=== PATIENT | male | born 1945 | race Caucasian/White ===

== ENCOUNTER 2021-05-17 18:08 | Emergency (ER) | payer OTHER, MEDICARE, SELFPAY ==
--- NOTE | ~2021-05-17 | CT_ITS ---
EXAMINATION: CT HEAD WITHOUT CONTRAST CLINICAL INFORMATION: Altered mental status COMPARISON: None TECHNIQUE: Contiguous axial imaging was performed from the skull base to vertex without intravenous administration of contrast. This CT examination was performed using dose optimization techniques as appropriate, variously including the following: *Automated exposure control *Adjustment of mA and/or kV according to patient size (this includes techniques or standardized protocols for targeted exams where dose is matched to indication/reason for exam; i.e. extremities or head) *Use of iterative reconstruction technique DLP: 733 mGy-cm FINDINGS: There is no midline shift. There is no mass effect. There is no hemorrhage. The basilar cisterns are patent. The posterior fossa is grossly within normal limits. No extra-axial collection. There is atrophy and areas of extensive white matter ischemia and infarct. 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 There is no fracture on the bone windows. CT/CT head/brain wo con IMPRESSION: No acute finding. Atrophy and areas of old infarct and white matter skinny changes. No acute midline shift, mass effect or hemorrhage.
--- NOTE | ~2021-05-17 | XR_ITS ---
EXAMINATION: PORTABLE CHEST 1 VIEW CLINICAL INFORMATION: AMS . COMPARISON: No recent pertinent prior studies are available for comparison. TECHNIQUE: Portable frontal view of the chest was obtained. FINDINGS: Lungs are well expanded. Mild chronic appearing coarsened reticular markings are seen bilaterally. Linear changes at the left base more likely reflect component of atelectasis or scarring. I do not appreciate any superimposed focal infiltrate, effusion, edema, or pneumothorax. Cardiac silhouette within normal limits for size with a calcified tortuous aorta. Degenerative changes in the shoulders and spine. XR/XR chest 1V IMPRESSION: Chronic appearing changes as described. Minimal basilar markings more likely due to atelectasis.
[2021-05-17 18:28] VITALS: BP 108/73; BP 122/84; PULSE 80; PULSE 86; RESP 16; TEMP 36.3; O2SAT 96; O2SAT 97; BMI 20.5
--- NOTE | 2021-05-17 18:36 | ED.PSYCH ---
HPI - Psych General Chief Complaint: Psychiatric Symptoms Stated Complaint: crisis Time Seen by Provider: 05/17/21 18:36 Source: patient and EMS Mode of arrival: EMS Limitations: altered mental status History of Present Illness HPI Narrative: Mr. Wisdom is a pleasant 76-year-old male with past medical history that is significant for bipolar disorder, type 2 diabetes, PTSD, alcohol abuse, gastroesophageal reflux disease, dementia with behavior disturbance, cataract, squamous cell carcinoma of the skin who resides at skilled nurse [facility] Who is sent in today for psychiatric evaluation patient apparently has been making vague SI and HI statements. It is noted and reported by EMS that patient is a [place] vet and apparently he has a history of PTSD and refers to those times. He had screening labs done yesterday that were his baseline and given that he made the statements at the [facility] nurse facility he was sent in for evaluation. Patient apparently at baseline alert and oriented x1. He offers no complaints. Upon arrival he is relatively pleasant. MD complaint: suicidal ideation and homicidal ideation Onset (ago): day(s) History of same: Yes Relieving factors: none Exacerbating factors: none Associated psychiatric symptoms: none Associated symptoms: denies other symptoms Treatments prior to arrival: none Related Data Allergies Allergy/AdvReac Type Severity Reaction Status Date / Time No Known Allergies Allergy Verified 05/17/21 18:44 Review of Systems Review of Systems: Dementia Yes Unobtainable due to mental condition PMFSH Past Medical History Medical History Bipolar 1 disorder Cataracts, bilateral Dementia Diabetes GERD (gastroesophageal reflux disease) PTSD (post-traumatic stress disorder) Squamous cell carcinoma Social History Social History Alcohol intake: former Patient Tobacco Use Status: Former Tobacco user Smoked in Last 30 Days: No Use of substances other than those prescribed or required for medical reasons: No Advance Directives: No Advance Directives Information Provided: No Physical Exam Vital Signs: Vital Signs: Last Vital Signs Temp 97.6 F 05/17/21 21:04 Pulse 74 05/17/21 21:04 Resp 16 05/17/21 23:56 BP 120/82 05/17/21 21:04 Pulse Ox 99 05/17/21 21:04 Body Mass Index 20.5 Reviewed Const: Other: Appears older than stated age General: cooperative; No acute distress or intoxicated appearing Nutritional Appearance: average body habitus Orientation/consciousness: oriented to person, No oriented to place (I am in hospital) and oriented to time (Two thousand nineteen) HENMT: Head: Yes normal to inspection Ears: hearing grossly normal bilaterally Eyes: General: appearance normal, both eyes and all related structures Visual Holder: normal visual holder by confrontation Neck: Neck: Yes normal visual inspection, No positive Brudzinski's sign, No positive Kernig's sign and No tender Thyroid: Thyroid normal Chest: Chest palpation & inspection: normal inspection of the chest Resp: Effort & Inspection: normal respiratory effort Cardio: Jugular venous distension: no JVD GI: Inspection: Yes normal to inspection Percussion: Yes normal to percussion Auscultation: normal bowel sounds : General: Yes no CVA tenderness Back/Spine/Pelvis: Back: no CVA tenderness Skin: General skin exam: no rashes or lesions noted Neuro: General: oriented to person and No oriented to place (I am in hospital) Extrem: General: Yes normal to inspection Psych: Other: Are you having thoughts of suicidal or homicidal ideation? Patient states ?not at the moment? Course Reevaluation(s) Reevaluation #1: Labwork stenting with the patient from yesterday will repeat this including urine, CBC, compressive metabolic profile, head CT for medical clearance for psychiatric evaluation. Reevaluation #2: Labs at baseline compared to labs sent from facility. He remains calm cooperative. He ate a sandwich and has been resting comfortably without any episodes of aggression or behavior outburst. He has been medically clear for psychiatric evaluation. Care team will evaluate the patient. Consultations Consultation #1: Care team evaluate patient review consultation note; patient at baseline behavior no aggression, suicidal or homicidal ideation here. His son is the healthcare proxy does not want him to go to any psychiatric facility. Patient again at baseline and care team does not recommend acute psychiatric placement at this time. Care team [facility] they are willing to take him back there all have any one-to-one sitters this night and requests that patient be transferred back 09:00 o'clock in the morning. Patient has been eating and drinking without complaints. No aggressive behavior. He will be discharged back to skilled nurse facility for plan for outpatient psychiatric follow-up. [facility] - Psych Medical Records Attestation: I reviewed the patient's medical records. Medical records narrative: Medical records reviewed from skilled nurse facility in the chart. Lab Data Attestation: I reviewed the patient's lab results. Result diagrams: 05/17/21 19:38 05/17/21 19:38 Labs: Lab Results 05/17/21 05/17/21 Range/Units 19:38 19:38 WBC 9.2 (4.8-10.8) X10*3/uL RBC 3.77 L (4.60-5.80) X10*6/uL Hgb 10.5 L (14.0-18.0) g/dl Hct 35.0 L (42-52) % MCV 92.8 (80-98) fL MCH 27.9 (27.0-33.0) pg MCHC 30.0 L (31.0-36.0) g/dl RDW 19.6 H (11.0-16.0) % Plt Count 360 (160-400) X10*3/uL MPV 8.9 L (9.4-12.4) fL Immature Gran % (Auto) 1.5 H (0.0-0.4) % Neut % (Auto) 71.1 (45-73) % Lymph % (Auto) 13.4 L (20-40) % [place] % (Auto) 10.3 (2-11) % Eos % (Auto) 3.0 (0-4) % Baso % (Auto) 0.7 (0-2) % Lymph # (Auto) 1.2 (1.2-4.9) X10*3/uL [place] # (Auto) 1.0 (0.1-1.2) X10*3/uL Eos # (Auto) 0.3 (0.0-0.4) X10*3/uL Baso # (Auto) 0.1 (0.0-0.2) X10*3/uL Abs Immat Gran (auto) 0.14 H (0.00-0.03) X10*3/uL Absolute Neuts (auto) 6.6 (2.0-8.3) X10*3/uL Absolute Nucleated RBC 0.000 (0.0-0.012) X10*3/uL Nucleated RBC % (auto) 0.0 (0.0-0.2) /100WBC Sodium 138 (135-145) mmol/L Potassium 4.6 (3.3-5.1) mmol/L Chloride 105 (96-108) mmol/L Carbon Dioxide 27 (22-29) mmol/L Anion Gap 11 L (12-20) BUN 24 H (9-16) mg/dL Creatinine 1.04 (0.5-1.4) mg/dL Estim Creat Clear Calc 57.2 Estimated GFR > 60 Random Glucose 102 (60-115) mg/dL Calcium 9.3 (8.4-10.2) mg/dL Total Bilirubin 0.2 (0.0-1.0) mg/dL AST 11 (5-37) U/L ALT < 6 (0-40) U/L Alkaline Phosphatase 202 H (39-117) U/L Total Protein 5.6 L (6.5-8.0) g/dL Albumin 3.3 L (3.5-5.0) g/dL Imaging Data CT scan - head: Radiologist's impression: [address] [id number] Scan ReportSigned Patient: Javed WisdomMR#: [id number]: [id number]:[id number]/Sex: 76 / MADM Date: 05/17/21Loc: [address] Dr: Ordering Physician: Toño Johnson NP Date of Service: 05/17/21 Procedure(s): CT head/brain wo con Accession Number(s): [id number] cc: Toño Johnson NP~ EXAMINATION: CT HEAD WITHOUT CONTRAST CLINICAL INFORMATION: Altered mental status COMPARISON: None TECHNIQUE: Contiguous axial imaging was performed from the skull base to vertex without intravenous administration of contrast. This CT examination was performed using dose optimization techniques as appropriate, variously including the following: *Automated exposure control *Adjustment of mA and/or kV according to patient size (this includes techniques or standardized protocols for targeted exams where dose is matched to indication/reason for exam; i.e. extremities or head) *Use of iterative reconstruction technique DLP: 733 mGy-cm FINDINGS: There is no midline shift. There is no mass effect. There is no hemorrhage. The basilar cisterns are patent. The posterior fossa is grossly within normal limits. No extra-axial collection. There is atrophy and areas of extensive white matter ischemia and infarct. 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 There is no fracture on the bone windows. CT/CT head/brain wo con IMPRESSION: No acute finding. Atrophy and areas of old infarct and white matter skinny changes. No acute midline shift, mass effect or hemorrhage. Dictated By:SUSAN WRIGHT MDSigned By:<Electronically signed by SUSAN WRIGHT MD in OV>05/17/211928 DD/ 43TD/TT: Pump Operator: GT Chest x-ray: Radiologist's impression: [address] [id number] ReportSigned Patient: Javed WisdomMR#: [id number]: [id number]:[id number]/Sex: 76 / MADM Date: 05/17/21Loc: HO.EDAttending Dr: Ordering Physician: Toño Johnson NP Date of Service: 05/17/21 Procedure(s): XR chest 1V Accession Number(s): [id number] cc: Toño Johnson WEB PAGE DESIGNER~ EXAMINATION: PORTABLE CHEST 1 VIEW CLINICAL INFORMATION: AMS . COMPARISON: No recent pertinent prior studies are available for comparison. TECHNIQUE: Portable frontal view of the chest was obtained. FINDINGS: Lungs are well expanded. Mild chronic appearing coarsened reticular markings are seen bilaterally. Linear changes at the left base more likely reflect component of atelectasis or scarring. I do not appreciate any superimposed focal infiltrate, effusion, edema, or pneumothorax. Cardiac silhouette within normal limits for size with a calcified tortuous aorta. Degenerative changes in the shoulders and spine. XR/XR chest 1V IMPRESSION: Chronic appearing changes as described. Minimal basilar markings more likely due to atelectasis. Dictated By:NAYLA BUI MDSigned By:<Electronically signed by NAYLA BUI MD in OV>05/17/211919 DD/ 43TD/TT: Pump Operator: [place] Discharge Plan Discharge Clinical Impression: Chronic post-traumatic stress disorder, Dementia with behavioral disturbance Patient Disposition: Xfer SNF
--- NOTE | 2021-05-17 18:44 | ECG_ITS ---
Test Reason : BEHAVIORAL Blood Pressure : / mmHG Vent. Rate : 074 BPM Atrial Rate : 074 BPM P-R Int : 154 ms QRS Dur : 100 ms QT Int : 384 ms P-R-T Axes : 029 052 049 degrees QTc Int : 426 ms Normal sinus rhythm Normal ECG No previous ECGs available Referred By: Toño Johnson Electronically Signed By:Jesus Gomez
[2021-05-17 19:42] LABS: MANUAL DIFF FLAG NO
[2021-05-17 19:45] LABS: Basophils Absolute Auto 0.1 X10*3/uL (0.0-0.2); Basophils Percent Auto 0.7 % (0-2); Eosinophils Absolute Auto 0.3 X10*3/uL (0.0-0.4); Hemoglobin 10.5 g/dl (14.0-18.0); Imm Gran Abs Auto 0.14 X10*3/uL (0.00-0.03); Imm Gran Pct Auto 1.5 % (0.0-0.4); Lymphocytes Absolute Auto 1.2 X10*3/uL (1.2-4.9); Lymphocytes Percent Auto 13.4 % (20-40); Mean Corpuscular Hemoglobin 27.9 pg (27.0-33.0); Mean Corpuscular Volume 92.8 fL (80-98); Mean Platelet Volume 8.9 fL (9.4-12.4); Monocytes Percent Auto 10.3 % (2-11); Neutrophils Absolute Auto 6.6 X10*3/uL (2.0-8.3); Neutrophils Percent Auto 71.1 % (45-73); Platelet Count 360 X10*3/uL (160-400); Red Blood Count 3.77 X10*6/uL (4.60-5.80); Red Cell Distribution Width 19.6 % (11.0-16.0); White Blood Count 9.2 X10*3/uL (4.8-10.8)
[2021-05-17 20:09] LABS: Alanine Aminotransferase < 6 U/L (0-40); Albumin Level 3.3 g/dL (3.5-5.0); Alkaline Phosphatase 202 U/L (39-117); Anion Gap 11 (12-20); Aspartate Amino Transferase 11 U/L (5-37); Bilirubin Total 0.2 mg/dL (0.0-1.0); Blood Urea Nitrogen 24 mg/dL (9-16); Calcium 9.3 mg/dL (8.4-10.2); Carbon Dioxide 27 mmol/L (22-29); Chloride 105 mmol/L (96-108); Creatinine Clr Calc Pharmacy 57.2; Estimated Glomerular Filt Rate > 60; Glucose Random 102 mg/dL (60-115); Potassium 4.6 mmol/L (3.3-5.1); Sodium 138 mmol/L (135-145); Total Protein 5.6 g/dL (6.5-8.0)
[2021-05-17 21:04] VITALS: BP 120/82; PULSE 74; RESP 16; TEMP 36.4; O2SAT 99
--- NOTE | 2021-05-17 22:39 | PC.NURSE ---
RESTING ON STRETCHER. BREATHING EVEN, NON-LABORED. SAYS WELL THEN WHEN THIS NURSE WALKED BY. SITTER MAINTAINED FOR SAFETY.
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
[2021-05-17 23:56] VITALS: RESP 16
[2021-05-18 02:00] VITALS: BP 132/75; PULSE 66; RESP 16; TEMP 36.8; O2SAT 99
--- NOTE | 2021-05-18 02:34 | PC.NURSE ---
PATIENT WAS INCONIENT OF URINE ,PATIENT HAD A BED BATH BY THIS PCT AND PCT GERMAINE .
[2021-05-18 04:48] VITALS: BP 125/75; PULSE 71; RESP 17; TEMP 36.9; O2SAT 96
--- NOTE | 2021-05-18 08:17 | PC.NURSE ---
This insurance writer spoke with RADAMES Min ( cell [phone]) from [facility] regarding pt's plan of care. She states the pt is welcome to go back to her facility. She wants to talk with Care Team prior to discharge. This insurance writer will reach out to Care Team.
--- NOTE | 2021-05-18 09:15 | MHC.CARE ---
CARE Team spoke with Dr. Can - due to Pt not being psychiatrically admitted at times thing no medications recommendations will be made. Plan for Pt to follow up with the [place] psychiatrist as scheduled. CARE Team briefly spoke with Pts son who asked for t/w to reach to facility . CARE Team left a VM and has not heard back , plan will be for Pt to return as scheduled.
[2021-05-18 09:55] VITALS: BP 100/70; PULSE 73; RESP 18
--- NOTE | 2021-05-18 09:57 | PC.NURSE ---
This tag writer made multiple attempts to give report to receiving nurse at [facility], nurse did not sisal picker phone. RADAMES Min was contacted, this tag writer was told that she was in morning meeting, left voicemail. Pt was cleaned, changed and given breakfast. No apparent distress noted. Pt awaiting transport back to facility.
== END 2021-05-18 11:33 | disposition skilled nursing facility (03) ==
PROVIDERS: Nurse Practitioner Primary Care; Emergency Provider Emergency Medicine; PCP Family Medicine Geriatric Medicine
DX: F03.91 Unspecified dementia, unspecified severity, with behavioral disturbance (principal); F43.12 Post-traumatic stress disorder, chronic; E11.9 Type 2 diabetes mellitus without complications
CPT/HCPCS: 36415; 70450; 71045; 80053; 85025; 93005; 99285

== ENCOUNTER 2021-07-19 13:36 | Emergency (ER) | payer OTHER, MEDICARE, SELFPAY ==
--- NOTE | ~2021-07-19 | CT_ITS ---
EXAMINATION: CT HEAD WITHOUT CONTRAST CLINICAL INFORMATION: Lethargy. Altered mental status. COMPARISON: May 17, 2021 TECHNIQUE: Contiguous axial imaging was performed from the skull base to vertex without intravenous administration of contrast. This CT examination was performed using dose optimization techniques as appropriate, variously including the following: *Automated exposure control *Adjustment of mA and/or kV according to patient size (this includes techniques or standardized protocols for targeted exams where dose is matched to indication/reason for exam; i.e. extremities or head) *Use of iterative reconstruction technique DLP: 702 mGy-cm FINDINGS: There is no evidence of acute intracranial hemorrhage or territorial infarction. No abnormal mass effect or midline shift is seen. No extra-axial fluid collections are identified. The ventricles, sulci, and cisterns are enlarged consistent with diffuse atrophy. There are regions of diminished density seen involving both frontal lobes, right parietal lobe, and both temporal lobes right greater than left which are stable and consistent with infarcts. There is a large amount of periventricular white matter low density present consistent with microangiopathy. The osseous structures and soft tissues are normal. The mastoid air cells and visualized portions of the paranasal sinuses are well aerated. Carotid and vertebral artery calcific cases are present. CT/CT head/brain wo con IMPRESSION: No acute intracranial pathology. Stable regions of infarct. Diffuse atrophy.
[2021-07-19 13:43] VITALS: BP 117/79; PULSE 73; RESP 15; TEMP 36.8; O2SAT 96
[2021-07-19 13:47] VITALS: BP 117/79; PULSE 74; RESP 18; TEMP 36.8; O2SAT 99; BMI 19.1
--- NOTE | 2021-07-19 14:27 | ED_ITS ---
HPI - Altered Mental Status General Chief Complaint: Altered Mental Status Stated Complaint: LETHARGY AFTER INCREASE IN TRAZADONE Time Seen by Provider: 07/19/21 13:54 Source: patient, EMS, RN notes reviewed and old records reviewed Mode of arrival: EMS Limitations: altered mental status History of Present Illness HPI narrative: 76 y/o male with history of dementia with behavioral disturbance, bipolar disorder, PTSD, DM2, GERD, skin SCC who presents to the ER from SNF via EMS with reports of increased lethargy today. He reportedly had his trazodone dose increased in the last few days. He arrives AAO x1 with no complaints. MD complaint: altered mental status Onset (ago): day(s) Timing confirmed by: caregiver Severity: moderate Consistency of symptoms: waxing and waning Context: change in medication Associated symptoms: denies other symptoms Related Data Allergies Allergy/AdvReac Type Severity Reaction Status Date / Time No Known Allergies Allergy Verified 05/17/21 18:44 Review of Systems Review of Systems: Yes Unobtainable due to mental condition and Unobtainable due to mental status Neurologic: Reports confusion Psychiatric: Psychiatric: Reports confusion [facility] Past Medical History Attestation statement: The following information was validated with the patient. Medical History Bipolar 1 disorder Cataracts, bilateral Dementia Diabetes GERD (gastroesophageal reflux disease) PTSD (post-traumatic stress disorder) Squamous cell carcinoma Social History Social History Alcohol intake: never Patient Tobacco Use Status: Former Tobacco user Use of substances other than those prescribed or required for medical reasons: No Advance Directives: Yes Advance Directives on File: Yes Advance Directives Date on File: 07/19/21 Physical Exam Vital Signs: Vital Signs: Last Vital Signs Temp 98.2 F 07/19/21 13:47 Pulse 74 07/19/21 13:47 Resp 18 07/19/21 13:47 BP 117/79 07/19/21 13:47 Pulse Ox 99 07/19/21 13:47 Body Mass Index 19.1 Const: General: confusion and ill appearing chronically Nutritional Appearance: average body habitus Orientation/consciousness: oriented to person and confusion Limitations: altered mental status HENMT: Head: Yes normal to inspection, Yes normocephalic and Yes atraumatic Ears: hearing grossly normal bilaterally and external ears normal General nose exam: Normal external nose present and Normal nares present Face and sinus: Yes normal facial exam and Yes face symmetric Mouth: Normal oral and palatal mucosa present, lip normal and tongue normal Eyes: General: appearance normal, both eyes and all related structures Pupils: Equal, round and reactive pupils present EOM: EOMs intact bilaterally Neck: Neck: Yes normal visual inspection Chest: Chest palpation & inspection: normal inspection of the chest and normal palpation of entire chest wall Resp: Effort & Inspection: normal respiratory effort Auscultation: clear to auscultation bilaterally Cardio: Rate: regular rate Rhythm: regular rhythm Heart sounds: S1 normal heart sound present and S2 normal heart sound present GI: Inspection: Yes normal to inspection Palpation (GI): Soft to palpation, nontender and no guarding Percussion: Yes normal to percussion Auscultation: normal bowel sounds Skin: General skin exam: no rashes or lesions noted Neuro: General: oriented to person, moves all extremities and confusion Cranial nerves: Yes Equal, round and reactive pupils present Cognition (Neuro): abnormal cognition Extrem: General: Yes normal to inspection Psych: Appearance: disheveled Speech and movement: Slowed speech present (Psych) Attitude: Refuses to answer (attititude/behavior) Course Course Course Narrative: 76 y/o female with history of dementia w/ behavioral disturban chon, bipolar, catatonia, DM, GERD, presenting with increased lethargy in the setting of increased trazodone dosing at SNF. AAO x1 on arrival, moving all extremities spontaneously but only intermittently following commands. Difficult to get an accurate neuro exam/NIH. He appears to be non-focal and at his baseline at this time. Will get metabolic workup, CT head and VBG to r/o causes of change in mental status. Reevaluation(s) Reevaluation #1: Labs and CT scan are unremarkable. He remains hemodynamically stable. UA pending, urojet ordered for straight cath. Reevaluation #2: UA negative for infection. He remains AAO X1. Stable for d/c home back to SNF. Lethargy most likely due to increase in trazodone. He is at his baseline mentation. MDM - Altered Mental Status Lab Data Result diagrams: 07/19/21 14:25 07/19/21 14:25 Labs: Lab Results 07/19/21 07/19/21 07/19/21 Range/Units 14:25 14:25 14:26 WBC 8.1 (4.8-10.8) X10*3/uL RBC 4.30 L (4.60-5.80) X10*6/uL Hgb 12.5 L (14.0-18.0) g/dl Hct 40.2 L (42-52) % MCV 93.5 (80-98) fL MCH 29.1 (27.0-33.0) pg MCHC 31.1 (31.0-36.0) g/dl RDW 17.2 H (11.0-16.0) % Plt Count 265 D (160-400) X10*3/uL MPV 9.4 (9.4-12.4) fL Immature Gran % (Auto) 1.6 H (0.0-0.4) % Neut % (Auto) 74.2 H (45-73) % Lymph % (Auto) 13.2 L (20-40) % [place] % (Auto) 8.9 (2-11) % Eos % (Auto) 1.7 (0-4) % Baso % (Auto) 0.4 (0-2) % Lymph # (Auto) 1.1 L (1.2-4.9) X10*3/uL [place] # (Auto) 0.7 (0.1-1.2) X10*3/uL Eos # (Auto) 0.1 (0.0-0.4) X10*3/uL Baso # (Auto) 0.0 (0.0-0.2) X10*3/uL Abs Immat Gran (auto) 0.13 H (0.00-0.03) X10*3/uL Absolute Neuts (auto) 6.0 (2.0-8.3) X10*3/uL Absolute Nucleated RBC 0.000 (0.0-0.012) X10*3/uL Nucleated RBC % (auto) 0.0 (0.0-0.2) /100WBC VBG pH (7.32-7.43) VBG pCO2 mmHg VBG pO2 mmHg VBG HCO3 (22-26) mmol/L VBG O2 Saturation % VBG Base Excess mmol/L Sodium 142 (135-145) mmol/L Potassium 4.5 (3.3-5.1) mmol/L Chloride 111 H (96-108) mmol/L Carbon Dioxide 26 (22-29) mmol/L Anion Gap 10 L (12-20) BUN 15 (9-16) mg/dL Creatinine 1.04 (0.5-1.4) mg/dL Estim Creat Clear Calc 48.7 Estimated GFR > 60 Random Glucose 78 (60-115) mg/dL Calcium 9.5 (8.4-10.2) mg/dL Magnesium 2.5 (1.6-2.6) mg/dL Total Bilirubin 0.6 (0.0-1.0) mg/dL Direct Bilirubin 0.2 (0.0-0.5) mg/dL AST 12 (5-37) U/L ALT 8 (0-40) U/L Alkaline Phosphatase 87 D (39-117) U/L Ammonia 42 (13-55) umol/L Total Protein 5.4 L (6.5-8.0) g/dL Albumin 3.1 L (3.5-5.0) g/dL Urine Color Urine Appearance Urine pH (5.0-8.0) Ur Specific [place] (1.005-1.025) Urine Protein (NEG-TRACE) MG/DL Urine Glucose (UA) (NEG) MG/DL Urine Ketones (NEG) MG/DL Urine Blood (NEG) Urine Nitrite (NEG) Ur Leukocyte Esterase (NEG) 07/19/21 07/19/21 Range/Units 14:30 16:44 WBC (4.8-10.8) X10*3/uL RBC (4.60-5.80) X10*6/uL Hgb (14.0-18.0) g/dl Hct (42-52) % MCV (80-98) fL MCH (27.0-33.0) pg MCHC (31.0-36.0) g/dl RDW (11.0-16.0) % Plt Count (160-400) X10*3/uL MPV (9.4-12.4) fL Immature Gran % (Auto) (0.0-0.4) % Neut % (Auto) (45-73) % Lymph % (Auto) (20-40) % [place] % (Auto) (2-11) % Eos % (Auto) (0-4) % Baso % (Auto) (0-2) % Lymph # (Auto) (1.2-4.9) X10*3/uL [place] # (Auto) (0.1-1.2) X10*3/uL Eos # (Auto) (0.0-0.4) X10*3/uL Baso # (Auto) (0.0-0.2) X10*3/uL Abs Immat Gran (auto) (0.00-0.03) X10*3/uL Absolute Neuts (auto) (2.0-8.3) X10*3/uL Absolute Nucleated RBC (0.0-0.012) X10*3/uL Nucleated RBC % (auto) (0.0-0.2) /100WBC VBG pH 7.39 (7.32-7.43) VBG pCO2 48 mmHg VBG pO2 48 mmHg VBG HCO3 30 H (22-26) mmol/L VBG O2 Saturation 75.0 % VBG Base Excess 4.4 mmol/L Sodium (135-145) mmol/L Potassium (3.3-5.1) mmol/L Chloride (96-108) mmol/L Carbon Dioxide (22-29) mmol/L Anion Gap (12-20) BUN (9-16) mg/dL Creatinine (0.5-1.4) mg/dL Estim Creat Clear Calc Estimated GFR Random Glucose (60-115) mg/dL Calcium (8.4-10.2) mg/dL Magnesium (1.6-2.6) mg/dL Total Bilirubin (0.0-1.0) mg/dL Direct Bilirubin (0.0-0.5) mg/dL AST (5-37) U/L ALT (0-40) U/L Alkaline Phosphatase (39-117) U/L Ammonia (13-55) umol/L Total Protein (6.5-8.0) g/dL Albumin (3.5-5.0) g/dL Urine Color YELLOW Urine Appearance CLEAR Urine pH 6.5 (5.0-8.0) Ur Specific [place] 1.010 (1.005-1.025) Urine Protein NEG (NEG-TRACE) MG/DL Urine Glucose (UA) NEG (NEG) MG/DL Urine Ketones NEG (NEG) MG/DL Urine Blood NEG (NEG) Urine Nitrite NEG (NEG) Ur Leukocyte Esterase NEG (NEG) Discharge Plan Discharge Clinical Impression: Delirium due to general medical condition Patient Disposition: Xfer [facility] Transfer Details: Gilda Lerma Instructions: Dementia (ED), Acute Delirium (ED) Additional Instructions: Lab workup today was normal. No evidence of infection. CT scan of your head was unremarkable. Your lethargy is most likely due to increase in your trazodone. Follow up with your doctor as needed. If you develop new or worsening symptoms call 911 or come back to the ER for further evaluation.
[2021-07-19 14:30] LABS: MANUAL DIFF FLAG NO
[2021-07-19 14:34] LABS: Basophils Percent Auto 0.4 % (0-2); Eosinophils Absolute Auto 0.1 X10*3/uL (0.0-0.4); Eosinophils Percent Auto 1.7 % (0-4); Hematocrit 40.2 % (42-52); Hemoglobin 12.5 g/dl (14.0-18.0); Imm Gran Abs Auto 0.13 X10*3/uL (0.00-0.03); Imm Gran Pct Auto 1.6 % (0.0-0.4); Lymphocytes Absolute Auto 1.1 X10*3/uL (1.2-4.9); Lymphocytes Percent Auto 13.2 % (20-40); Mean Corpuscular HGB Conc 31.1 g/dl (31.0-36.0); Mean Corpuscular Hemoglobin 29.1 pg (27.0-33.0); Mean Corpuscular Volume 93.5 fL (80-98); Mean Platelet Volume 9.4 fL (9.4-12.4); Monocytes Absolute Auto 0.7 X10*3/uL (0.1-1.2); Monocytes Percent Auto 8.9 % (2-11); Neutrophils Percent Auto 74.2 % (45-73); Platelet Count 265 X10*3/uL (160-400); Red Cell Distribution Width 17.2 % (11.0-16.0); White Blood Count 8.1 X10*3/uL (4.8-10.8)
[2021-07-19 14:35] LABS: Venous Blood Gas Refer to POC result
[2021-07-19 14:36] LABS: VBG Base Excess 4.4 mmol/L; VBG HCO3 30 mmol/L (22-26); VBG pCO2 48 mmHg; VBG pH 7.39 (7.32-7.43); VBG pO2 48 mmHg
[2021-07-19 14:48] LABS: Ammonia 42 umol/L (13-55)
[2021-07-19 14:59] LABS: Alanine Aminotransferase 8 U/L (0-40); Albumin Level 3.1 g/dL (3.5-5.0); Alkaline Phosphatase 87 U/L (39-117); Anion Gap 10 (12-20); Aspartate Amino Transferase 12 U/L (5-37); Bilirubin Direct 0.2 mg/dL (0.0-0.5); Bilirubin Total 0.6 mg/dL (0.0-1.0); Blood Urea Nitrogen 15 mg/dL (9-16); Calcium 9.5 mg/dL (8.4-10.2); Carbon Dioxide 26 mmol/L (22-29); Chloride 111 mmol/L (96-108); Creatinine Clr Calc Pharmacy 48.7; Estimated Glomerular Filt Rate > 60; Glucose Random 78 mg/dL (60-115); Magnesium 2.5 mg/dL (1.6-2.6); Potassium 4.5 mmol/L (3.3-5.1); Sodium 142 mmol/L (135-145); Total Protein 5.4 g/dL (6.5-8.0)
[2021-07-19] MEDS: Lidocaine HCl 2 % Urojet 10 ML JEL.PF.APP TOPICAL (16:44)
--- NOTE | 2021-07-19 16:46 | PC.NURSE ---
pt requiring multiple staff hold for urinary straight cath, pt combative, using racial slurs and profanities, attempting to strike staff. tolerated procedure.
[2021-07-19 17:03] LABS: Glucose Urine UA NEG (NEG); Leukocyte Esterase Urine NEG (NEG); Nitrite Urine NEG (NEG); PH 6.5 (5.0-8.0); Urine Blood NEG (NEG); Urine Ketones NEG (NEG); Urine Protein NEG (NEG-TRACE)
[2021-07-19 17:13] LABS: Appearance Urine CLEAR; Color Urine YELLOW
--- NOTE | 2021-07-19 18:51 | PC.NURSE ---
EMS arrived for transport. Client was combative with this RN prior to leaving and agitated. Client unable to get d/c vials due to this. Client transferred to EMS stretcher without incident
== END 2021-07-19 18:56 | disposition skilled nursing facility (03) ==
PROVIDERS: Physician Assistant; Emergency Provider Emergency Medicine; PCP Family Medicine Geriatric Medicine
DX: F05 Delirium due to known physiological condition (principal); R53.83 Other fatigue; E11.9 Type 2 diabetes mellitus without complications; F03.91 Unspecified dementia, unspecified severity, with behavioral disturbance; F31.9 Bipolar disorder, unspecified; F43.10 Post-traumatic stress disorder, unspecified; Z79.899 Other long term (current) drug therapy
CPT/HCPCS: 36415; 70450; 80048; 80076; 81003; 82140; 82803; 83735; 85025; 99284

== ENCOUNTER 2022-05-06 11:56 | Emergency (ER) | payer OTHER, MEDICARE, SELFPAY ==
--- NOTE | ~2022-05-06 | US_ITS ---
EXAMINATION: US SCROTUM CLINICAL INFORMATION: Left testicle pain. COMPARISON: None TECHNIQUE: A sonogram of the scrotum was performed assessing jo-scale appearance and color Doppler flow. Spectral Doppler analysis of the arterial and venous flow were performed in the testes bilaterally. FINDINGS: RIGHT: Right testicle measures 4.2 x 2.3 x 2.6 cm, volume 13 mL. Echotexture is heterogeneous with linear striations and rete testis. No focal testicular parenchymal lesions are visualized. Spectral Doppler analysis of the arterial and venous flow is normal in the right testis. The right epididymis is enlarged. The right epididymis is heterogeneous in echotexture with multiple hyperechoic areas small calcifications. There is a right hydrocele. No right varicocele is seen. Right epididymal Doppler flow is normal. LEFT: Left testicle measures 3.7 x 2 x 2.7 cm, volume 11 mL. Echotexture is heterogeneous with linear striations and prominent rete testis No focal testicular parenchymal lesions are visualized. Spectral Doppler analysis of the arterial and venous flow is normal in the left testis. Left epididymal head is normal in size. The left epididymis is slightly heterogeneous with hyperechoic areas. No left hydrocele or varicocele is seen. Left epididymal Doppler flow is normal. US/US scrotum doppler IMPRESSION: Heterogeneous appearing testicles. Enlarged there is heterogeneous right epididymis and heterogeneous left epididymis. Moderate right hydrocele. Findings are suggestive of infection, bilateral orchitis and epididymitis. Short-term follow-up exam following treatment recommended. Moderate-sized right hydrocele. No evidence of torsion.
[2022-05-06 12:03] VITALS: BP 108/80; BP 119/74; PULSE 64; PULSE 76; RESP 18; TEMP 36.7; O2SAT 96; O2SAT 98; BMI 25.8
--- NOTE | 2022-05-06 12:08 | ED_ITS ---
HPI - General Adult General Chief complaint: Urogenital-Male Stated complaint: SCROTAL PAIN/SWELLING X'S 1 WEEK Time Seen by Provider: 05/06/22 12:05 Source: EMS and old records reviewed Mode of arrival: EMS Limitations: altered mental status History of Present Illness HPI narrative: 77-year-old male from prison with history of dementia, bipolar disorder, PTSD, DM2, GERD presented from prison for evaluation of left testicular pain patient is poor historian secondary to dementia, patient also get agitated and aggressive if somebody tried to examine him. Related Data Previous Rx's Medication Instructions Recorded doxycycline hyclate 100 mg tablet 100 mg PO BID #20 tabs 05/06/22 Allergies Allergy/AdvReac Type Severity Reaction Status Date / Time No Known Allergies Allergy Verified 05/17/21 18:44 Review of Systems Review of Systems: Yes Unobtainable due to mental condition PMFSH Past Medical History Medical History Bipolar 1 disorder Cataracts, bilateral Dementia Diabetes GERD (gastroesophageal reflux disease) PTSD (post-traumatic stress disorder) Squamous cell carcinoma Social History Social History Alcohol intake: never Patient Tobacco Use Status: Former Tobacco user Advance Directives: Yes Advance Directives on File: Yes Advance Directives Date on File: 07/19/21 Physical Exam ED Vital Signs: Vital Signs - 24 hr 05/06/22 12:03 05/06/22 15:04 Temperature 98.0 F 97.8 F Pulse Rate 64 69 Respiratory Rate 18 16 Blood Pressure 119/74 116/69 Pulse Oximetry 98 98 Oxygen Delivery Method Room Air Room Air BMI result Body Mass Index 25.8 Vital signs have been reviewed as appeared to be correct. Blood pressure normal. Heart rate normal. Respiration rate normal. Temperature normal. Oxygen saturation normal. Appearance: Alert. No acute distress. Head: Normal external exam. Normocephalic. Atraumatic. No Dawson signs noted. No raccoon eyes noted Eyes: PERRLA. EOMI. Conjunctiva and sclera normal. Eyelids normal. ENT: TM's Normal. Pharynx normal. Uvula midline. Moist mucous membranes. No trismus noted. No drooling noted. No muffled voice noted. Neck: Normal inspection. Neck supple. FROM. No adenopathy. Thyroid Normal. No meningeal signs. No neck mass noted. CVS: Normal heart rate and rhythm. Heart sound normal. No murmurs noted. Pulses normal throughout. Respiratory: No respiratory distress. Painless inspiration. Breath sounds normal. No wheezes/rales/rhonchi noted. Chest nontender. No accessory muscle usage noted or decreased air movement noted. Abdomen: Soft and nontender. Bowel sounds normal in all 4 quadrants. No distention noted. No organomegaly noted. No visible injury noted. exam: Limited due to patient dementia but normal inspection, mild tenderness to the left testicle, cremasteric reflex is intact bilaterally Back: No CVA tenderness. Full range of motion noted. Skin: Skin warm and dry. Normal skin color. Normal skin turgor. No rashes/lesions/lacerations noted. Extremities: No lower extremity edema. Extremities exhibit normal range of motion. Extremities nontender. Neuro: Awake in no distress. Cranial nerve exam: II-XII are grossly intact No motor deficit. No sensory deficit. Reflexes normal. Course Course Course Narrative: Assessment and plan. 77 years old male came in with scrotal pain, physical exam showed scrotal abscess that was I &d in the emergency department with copious amount of pus came out patient feels much better, because the finding on ultrasound suggesting orchitis would consider doxycycline for 10 days. Also to follow-up with in a week. Unable to obtain urine from the patient patient will be discharged on antibiotic. Procedures Abscess I/D Site: scrotum Local Anesthetic: lidocaine 1% Amount of anesthesia used (mL): 5 Technique: incised with blade (Size 11) Amount of fluid expressed (mL): 10 Irrigation: No Packing used?: none Medical Decision Making Lab Data Lab results reviewed: Yes I reviewed the patient's lab results. Result diagrams: 05/06/22 12:28 05/06/22 12:28 Labs: Lab Results 05/06/22 05/06/22 Range/Units 12:28 12:28 WBC 9.6 (4.8-10.8) X10*3/uL RBC 4.19 L (4.60-5.80) X10*6/uL Hgb 11.8 L (14.0-18.0) g/dl Hct 38.8 L (42.0-52.0) % MCV 92.6 (80.0-98.0) fL MCH 28.2 (27.0-33.0) pg MCHC 30.4 L (31.0-36.0) g/dl RDW 15.8 (11.0-16.0) % Plt Count 378 (160-400) X10*3/uL MPV 9.1 L (9.4-12.4) fL Immature Gran % (Auto) 1.1 H (0.0-0.4) % Neut % (Auto) 74.9 H (45-73) % Lymph % (Auto) 11.7 L (20-40) % [place] % (Auto) 9.9 (2-11) % Eos % (Auto) 1.9 (0-4) % Baso % (Auto) 0.5 (0-2) % Lymph # (Auto) 1.1 L (1.2-4.9) X10*3/uL [place] # (Auto) 1.0 (0.1-1.2) X10*3/uL Eos # (Auto) 0.2 (0.0-0.4) X10*3/uL Baso # (Auto) 0.1 (0.0-0.2) X10*3/uL Abs Immat Gran (auto) 0.11 H (0.00-0.03) X10*3/uL Absolute Neuts (auto) 7.2 (2.0-8.3) x10*3/uL Absolute Nucleated RBC 0.000 (0.0-0.012) X10*3/uL Nucleated RBC % (auto) 0.0 (0.0-0.2) /100WBC Sodium 138 (135-145) mmol/L Potassium 4.6 (3.3-5.1) mmol/L Chloride 107 (96-108) mmol/L Carbon Dioxide 24 (22-29) mmol/L Anion Gap 12 (12-20) BUN 19 H (9-16) mg/dL Creatinine 1.01 (0.5-1.4) mg/dL Estim Creat Clear Calc 61.1 Estimated GFR > 60 Random Glucose 107 D (60-115) mg/dL Calcium 9.5 (8.4-10.2) mg/dL Lipase 16 (8-78) U/L Discharge Plan Discharge Clinical Impression: Abscess of scrotal wall Patient Disposition: Xfer SNF Instructions: Abscess (ED) Prescriptions: New doxycycline hyclate 100 mg tablet 100 mg PO BID Qty: 20 0RF Referrals: Roberto Carlos Parekh MD [Physician] -
[2022-05-06] MEDS: oxyCODONE HCl Immed Release 5 MG TABLET PO (12:10)
[2022-05-06 12:33] LABS: MANUAL DIFF FLAG NO
[2022-05-06 12:41] LABS: Basophils Absolute Auto 0.1 X10*3/uL (0.0-0.2); Basophils Percent Auto 0.5 % (0-2); Eosinophils Absolute Auto 0.2 X10*3/uL (0.0-0.4); Eosinophils Percent Auto 1.9 % (0-4); Hematocrit 38.8 % (42.0-52.0); Hemoglobin 11.8 g/dl (14.0-18.0); Imm Gran Abs Auto 0.11 X10*3/uL (0.00-0.03); Imm Gran Pct Auto 1.1 % (0.0-0.4); Lymphocytes Absolute Auto 1.1 X10*3/uL (1.2-4.9); Lymphocytes Percent Auto 11.7 % (20-40); Mean Corpuscular HGB Conc 30.4 g/dl (31.0-36.0); Mean Corpuscular Hemoglobin 28.2 pg (27.0-33.0); Mean Corpuscular Volume 92.6 fL (80.0-98.0); Mean Platelet Volume 9.1 fL (9.4-12.4); Monocytes Percent Auto 9.9 % (2-11); Neutrophils Absolute Auto 7.2 x10*3/uL (2.0-8.3); Neutrophils Percent Auto 74.9 % (45-73); Platelet Count 378 X10*3/uL (160-400); Red Blood Count 4.19 X10*6/uL (4.60-5.80); Red Cell Distribution Width 15.8 % (11.0-16.0); White Blood Count 9.6 X10*3/uL (4.8-10.8)
[2022-05-06 12:55] LABS: Anion Gap 12 (12-20); Blood Urea Nitrogen 19 mg/dL (9-16); Calcium 9.5 mg/dL (8.4-10.2); Carbon Dioxide 24 mmol/L (22-29); Chloride 107 mmol/L (96-108); Creatinine Clr Calc Pharmacy 61.1; Estimated Glomerular Filt Rate > 60; Glucose Random 107 mg/dL (60-115); Lipase 16 U/L (8-78); Potassium 4.6 mmol/L (3.3-5.1); Sodium 138 mmol/L (135-145)
[2022-05-06] MEDS: Lidocaine HCl 1 % MPF 5 ML VIAL SUBCUT (14:08)
[2022-05-06 15:04] VITALS: BP 116/69; PULSE 69; RESP 16; TEMP 36.6; O2SAT 98
== END 2022-05-06 16:49 | disposition skilled nursing facility (03) ==
PROVIDERS: Emergency Provider Emergency Medicine
DX: N49.2 Inflammatory disorders of scrotum (principal); E11.9 Type 2 diabetes mellitus without complications; F03.90 Unspecified dementia, unspecified severity, without behavioral disturbance, psychotic disturbance, mood disturbance, and anxiety
CPT/HCPCS: 36415; 55100; 80048; 83690; 85025; 93975; 99284

== ENCOUNTER 2022-08-06 19:25 | Inpatient (IN) | payer OTHER, MEDICARE, SELFPAY ==
--- NOTE | ~2022-08-06 | XR_ITS ---
EXAMINATION: XR CHEST CLINICAL INFORMATION: Weakness COMPARISON: Chest x-ray 05/17/2021 TECHNIQUE: Frontal view of the chest was obtained. FINDINGS: Cardiac silhouette is normal in size. There is prominence of the bilateral perihilar regions, nonspecific. There is no lobar consolidation. Subtle patchy airspace opacities of the left lower lung. No gross lobar consolidation. No pleural effusion or pneumothorax. XR/XR chest 1V IMPRESSION: Prominence of the bilateral perihilar region is nonspecific but may represent vascular structures, however, there appears to be subtle patchy airspace opacities of the left lower lobe which may represent an infectious versus inflammatory process. Clinical correlation recommended. This may be further characterize with chest CT as clinically indicated.
--- NOTE | 2022-08-06 19:35 | ECG_ITS ---
Test Reason : SEPSIS Blood Pressure : / mmHG Vent. Rate : 061 BPM Atrial Rate : 061 BPM P-R Int : 148 ms QRS Dur : 104 ms QT Int : 416 ms P-R-T Axes : 095 053 052 degrees QTc Int : 418 ms Normal sinus rhythm Normal ECG When compared with ECG of 17-MAY-2021 21:02, No significant change was found Referred By: Maximus Valencia Electronically Signed By:JULIET MAURICIO
[2022-08-06 19:41] VITALS: BP 115/75; BP 122/71; PULSE 55; RESP 18; TEMP 37.8; O2SAT 95; BMI 24.0
--- NOTE | 2022-08-06 19:41 | ED.GENADULT ---
HPI - General Adult General Chief complaint: General Medical Stated complaint: +Covid/Weakness Time Seen by Provider: 08/06/22 19:35 Source: patient and EMS Mode of arrival: EMS Limitations: no limitations History of Present Illness HPI narrative: 77-year-old male came in by EMS for evaluation of fever and generalized weakness and deconditioning. Patient came in from correction for evaluation of post COVID evaluation, patient has a history of dementia, patient unable to give history history was obtained from nursing note and EMS. Patient had low-grade fever, decreased p.o. intake. Related Data Previous Rx's Medication Instructions Recorded doxycycline hyclate 100 mg tablet 100 mg PO BID #20 tabs 05/06/22 Allergies Allergy/AdvReac Type Severity Reaction Status Date / Time No Known Allergies Allergy Verified 05/17/21 18:44 Review of Systems Review of Systems: Yes Unobtainable due to mental status (Dementia) [facility] Past Medical History Medical History Bipolar 1 disorder Cataracts, bilateral Dementia Diabetes GERD (gastroesophageal reflux disease) PTSD (post-traumatic stress disorder) Squamous cell carcinoma Social History Social History Alcohol intake: never Patient Tobacco Use Status: Former Tobacco user Advance Directives: Yes Advance Directives on File: Yes Advance Directives Date on File: 07/19/21 Physical Exam ED Vital Signs: Vital Signs - 24 hr 08/06/22 19:41 Temperature 100.0 F Pulse Rate 55 Respiratory Rate 18 Blood Pressure 122/71 Pulse Oximetry 95 Oxygen Delivery Method Room Air BMI result Body Mass Index 24.0 Vital signs have been reviewed as appeared to be correct. Blood pressure normal. Heart rate normal. Respiration rate normal. Temperature normal. Oxygen saturation normal. Appearance: Alert. Orientedx1 (event).. No acute distress. Head: Normal external exam. Normocephalic. Atraumatic. No Dawson signs noted. No raccoon eyes noted Eyes: PERRLA. EOMI. Conjunctiva and sclera normal. Eyelids normal. ENT: TM's Normal. Pharynx normal. Uvula midline. Moist mucous membranes. No trismus noted. No drooling noted. No muffled voice noted. Neck: Normal inspection. Neck supple. FROM. No adenopathy. Thyroid Normal. No meningeal signs. No neck mass noted. CVS: Normal heart rate and rhythm. Heart sound normal. No murmurs noted. Pulses normal throughout. Respiratory: No respiratory distress. Painless inspiration. Breath sounds normal. No wheezes/rales/rhonchi noted. Chest nontender. No accessory muscle usage noted or decreased air movement noted. Abdomen: Soft and nontender. Bowel sounds normal in all 4 quadrants. No distention noted. No organomegaly noted. No visible injury noted. Back: No CVA tenderness. Full range of motion noted. Skin: Skin warm and dry. Normal skin color. Normal skin turgor. No rashes/lesions/lacerations noted. Extremities: No lower extremity edema. Extremities exhibit normal range of motion. Extremities nontender. Neuro: Cranial nerve exam: II-XII are grossly intact No motor deficit. No sensory deficit. Reflexes normal. Course Course Course Narrative: 77-year-old male DNR/DNI brought in by ambulance from correction for deconditioning and failure to thrive after was diagnosed with COVID, chest x-ray showing multilobar pneumonia, patient do not meet criteria for SIRS. Will treat healthcare acquired pneumonia. Medical Decision Making Lab Data Lab results reviewed: Yes I reviewed the patient's lab results. Result diagrams: 08/06/22 20:01 08/06/22 20:40 Labs: Lab Results 08/06/22 08/06/22 08/06/22 Range/Units 20:00 20:00 20:00 WBC (4.8-10.8) X10*3/uL RBC (4.60-5.80) X10*6/uL Hgb (14.0-18.0) g/dl Hct (42.0-52.0) % MCV (80.0-98.0) fL MCH (27.0-33.0) pg MCHC (31.0-36.0) g/dl RDW (11.0-16.0) % Plt Count (160-400) X10*3/uL MPV (9.4-12.4) fL Immature Gran % (Auto) (0.0-0.4) % Neut % (Auto) (45-73) % Lymph % (Auto) (20-40) % [place] % (Auto) (2-11) % Eos % (Auto) (0-4) % Baso % (Auto) (0-2) % Lymph # (Auto) (1.2-4.9) X10*3/uL [place] # (Auto) (0.1-1.2) X10*3/uL Eos # (Auto) (0.0-0.4) X10*3/uL Baso # (Auto) (0.0-0.2) X10*3/uL Abs Immat Gran (auto) (0.00-0.03) X10*3/uL Absolute Neuts (auto) (2.0-8.3) x10*3/uL Absolute Nucleated RBC (0.0-0.012) X10*3/uL Nucleated RBC % (auto) (0.0-0.2) /100WBC Sodium (135-145) mmol/L Potassium (3.3-5.1) mmol/L Chloride (96-108) mmol/L Carbon Dioxide (22-29) mmol/L Anion Gap (12-20) BUN (9-16) mg/dL Creatinine (0.5-1.4) mg/dL Estim Creat Clear Calc Estimated GFR Random Glucose (60-115) mg/dL Lactic Acid 1.5 (0.5-2.0) mmol/L Calcium (8.4-10.2) mg/dL Total Bilirubin (0.0-1.0) mg/dL Direct Bilirubin (0.0-0.5) mg/dL AST (5-37) U/L ALT (0-40) U/L Alkaline Phosphatase (39-117) U/L Troponin I High Sens 5.2 (<3.5-35.0) ng/L B-Natriuretic Peptide 81 Cancelled (<100) pg/mL Total Protein (6.5-8.0) g/dL Albumin (3.5-5.0) g/dL Lipase (8-78) U/L Urine Color Urine Appearance Urine pH (5.0-9.0) Ur Specific [place] (1.005-1.025) Urine Protein (Neg-Trace) mg/dL Urine Glucose (UA) (Negative) mg/dL Urine Ketones (Negative) mg/dL Urine Blood (Negative) Urine Nitrite (Negative) Ur Leukocyte Esterase (Negative) Urine RBC (0-2) /HPF Urine WBC (0-5) /HPF Ur Squamous Epith Cells (0-2) /HPF Ur Transition Epith Cell Ur Renal Epithelial Cell Urine Bacteria (None Seen) Hyaline Casts (0-2) /LPF COVID-19 (JADA) (Negative) COVID-19 Clin Com 08/06/22 08/06/22 08/06/22 Range/Units 20:01 20:02 20:18 WBC 4.5 L (4.8-10.8) X10*3/uL RBC 4.45 L (4.60-5.80) X10*6/uL Hgb 12.2 L (14.0-18.0) g/dl Hct 40.0 L (42.0-52.0) % MCV 89.9 (80.0-98.0) fL MCH 27.4 (27.0-33.0) pg MCHC 30.5 L (31.0-36.0) g/dl RDW 15.8 (11.0-16.0) % Plt Count 300 (160-400) X10*3/uL MPV 9.6 (9.4-12.4) fL Immature Gran % (Auto) 0.9 H (0.0-0.4) % Neut % (Auto) 54.4 (45-73) % Lymph % (Auto) 27.2 (20-40) % [place] % (Auto) 13.5 H (2-11) % Eos % (Auto) 3.6 (0-4) % Baso % (Auto) 0.4 (0-2) % Lymph # (Auto) 1.2 (1.2-4.9) X10*3/uL [place] # (Auto) 0.6 (0.1-1.2) X10*3/uL Eos # (Auto) 0.2 (0.0-0.4) X10*3/uL Baso # (Auto) 0.0 (0.0-0.2) X10*3/uL Abs Immat Gran (auto) 0.04 H (0.00-0.03) X10*3/uL Absolute Neuts (auto) 2.4 (2.0-8.3) x10*3/uL Absolute Nucleated RBC 0.000 (0.0-0.012) X10*3/uL Nucleated RBC % (auto) 0.0 (0.0-0.2) /100WBC Sodium (135-145) mmol/L Potassium (3.3-5.1) mmol/L Chloride (96-108) mmol/L Carbon Dioxide (22-29) mmol/L Anion Gap (12-20) BUN (9-16) mg/dL Creatinine (0.5-1.4) mg/dL Estim Creat Clear Calc Estimated GFR Random Glucose (60-115) mg/dL Lactic Acid (0.5-2.0) mmol/L Calcium (8.4-10.2) mg/dL Total Bilirubin (0.0-1.0) mg/dL Direct Bilirubin (0.0-0.5) mg/dL AST (5-37) U/L ALT (0-40) U/L Alkaline Phosphatase (39-117) U/L Troponin I High Sens (<3.5-35.0) ng/L B-Natriuretic Peptide (<100) pg/mL Total Protein (6.5-8.0) g/dL Albumin (3.5-5.0) g/dL Lipase (8-78) U/L Urine Color Dark Yellow Urine Appearance Clear Urine pH 6.0 (5.0-9.0) Ur Specific [place] 1.015 (1.005-1.025) Urine Protein Negative (Neg-Trace) mg/dL Urine Glucose (UA) Negative (Negative) mg/dL Urine Ketones Negative (Negative) mg/dL Urine Blood Negative (Negative) Urine Nitrite Negative (Negative) Ur Leukocyte Esterase Trace H (Negative) Urine RBC 0-2 (0-2) /HPF Urine WBC 0-5 (0-5) /HPF Ur Squamous Epith Cells 0-2 (0-2) /HPF Ur Transition Epith Cell Present Ur Renal Epithelial Cell Present Urine Bacteria None Seen (None Seen) Hyaline Casts 0-2 (0-2) /LPF COVID-19 (JADA) Positive A (Negative) COVID-19 Clin Com See Note 08/06/22 Range/Units 20:40 WBC (4.8-10.8) X10*3/uL RBC (4.60-5.80) X10*6/uL Hgb (14.0-18.0) g/dl Hct (42.0-52.0) % MCV (80.0-98.0) fL MCH (27.0-33.0) pg MCHC (31.0-36.0) g/dl RDW (11.0-16.0) % Plt Count (160-400) X10*3/uL MPV (9.4-12.4) fL Immature Gran % (Auto) (0.0-0.4) % Neut % (Auto) (45-73) % Lymph % (Auto) (20-40) % [place] % (Auto) (2-11) % Eos % (Auto) (0-4) % Baso % (Auto) (0-2) % Lymph # (Auto) (1.2-4.9) X10*3/uL [place] # (Auto) (0.1-1.2) X10*3/uL Eos # (Auto) (0.0-0.4) X10*3/uL Baso # (Auto) (0.0-0.2) X10*3/uL Abs Immat Gran (auto) (0.00-0.03) X10*3/uL Absolute Neuts (auto) (2.0-8.3) x10*3/uL Absolute Nucleated RBC (0.0-0.012) X10*3/uL Nucleated RBC % (auto) (0.0-0.2) /100WBC Sodium 142 (135-145) mmol/L Potassium 4.3 (3.3-5.1) mmol/L Chloride 110 H (96-108) mmol/L Carbon Dioxide 23 (22-29) mmol/L Anion Gap 13 (12-20) BUN 21 H (9-16) mg/dL Creatinine 1.13 (0.5-1.4) mg/dL Estim Creat Clear Calc 50.9 Estimated GFR > 60 Random Glucose 93 (60-115) mg/dL Lactic Acid (0.5-2.0) mmol/L Calcium 8.6 D (8.4-10.2) mg/dL Total Bilirubin 0.4 (0.0-1.0) mg/dL Direct Bilirubin 0.2 (0.0-0.5) mg/dL AST 44 H D (5-37) U/L ALT 42 H (0-40) U/L Alkaline Phosphatase 97 (39-117) U/L Troponin I High Sens (<3.5-35.0) ng/L B-Natriuretic Peptide (<100) pg/mL Total Protein 5.9 L (6.5-8.0) g/dL Albumin 3.2 L (3.5-5.0) g/dL Lipase 28 (8-78) U/L Urine Color Urine Appearance Urine pH (5.0-9.0) Ur Specific [place] (1.005-1.025) Urine Protein (Neg-Trace) mg/dL Urine Glucose (UA) (Negative) mg/dL Urine Ketones (Negative) mg/dL Urine Blood (Negative) Urine Nitrite (Negative) Ur Leukocyte Esterase (Negative) Urine RBC (0-2) /HPF Urine WBC (0-5) /HPF Ur Squamous Epith Cells (0-2) /HPF Ur Transition Epith Cell Ur Renal Epithelial Cell Urine Bacteria (None Seen) Hyaline Casts (0-2) /LPF COVID-19 (JADA) (Negative) COVID-19 Clin Com Imaging Data Chest x-ray: Attestation: I personally reviewed and interpreted this imaging study as follows: Discharge Plan Discharge Clinical Impression: Pneumonia Patient Disposition: Admitted As Inpatient
[2022-08-06 20:11] LABS: MANUAL DIFF FLAG NO
[2022-08-06 20:17] LABS: Basophils Percent Auto 0.4 % (0-2); Eosinophils Absolute Auto 0.2 X10*3/uL (0.0-0.4); Eosinophils Percent Auto 3.6 % (0-4); Hemoglobin 12.2 g/dl (14.0-18.0); Imm Gran Abs Auto 0.04 X10*3/uL (0.00-0.03); Imm Gran Pct Auto 0.9 % (0.0-0.4); Lymphocytes Absolute Auto 1.2 X10*3/uL (1.2-4.9); Lymphocytes Percent Auto 27.2 % (20-40); Mean Corpuscular HGB Conc 30.5 g/dl (31.0-36.0); Mean Corpuscular Hemoglobin 27.4 pg (27.0-33.0); Mean Corpuscular Volume 89.9 fL (80.0-98.0); Mean Platelet Volume 9.6 fL (9.4-12.4); Monocytes Absolute Auto 0.6 X10*3/uL (0.1-1.2); Monocytes Percent Auto 13.5 % (2-11); Neutrophils Absolute Auto 2.4 x10*3/uL (2.0-8.3); Neutrophils Percent Auto 54.4 % (45-73); Platelet Count 300 X10*3/uL (160-400); Red Blood Count 4.45 X10*6/uL (4.60-5.80); Red Cell Distribution Width 15.8 % (11.0-16.0); White Blood Count 4.5 X10*3/uL (4.8-10.8)
[2022-08-06] MEDS: 0.9 % Sodium Chloride 1,000 ML 999 ML IV ×2 (20:17→21:07)
[2022-08-06 20:27] LABS: Lactic Acid 1.5 mmol/L (0.5-2.0)
[2022-08-06 20:28] LABS: COVID-19 Test Positive (Negative)
[2022-08-06 20:38] LABS: B Type Natriuretic Peptide 81 pg/mL (<100); Troponin-I High Sensitivity 5.2 ng/L (<3.5-35.0)
[2022-08-06 20:41] LABS: Appearance Urine Clear; Color Urine Dark Yellow; Glucose Urine UA Negative (Negative); Leukocyte Esterase Urine Trace (Negative); Nitrite Urine Negative (Negative); Specific Gravity - Urine 1.015 (1.005-1.025); UMIC TRIGGER UACC YES; Urine Blood Negative (Negative); Urine Ketones Negative (Negative); Urine Protein Negative (Neg-Trace)
[2022-08-06 20:52] LABS: Bacteria Urine None Seen (None Seen); Hyaline Casts Urine 0-2 /LPF (0-2); RBC Urine 0-2 /HPF (0-2); Renal Epithelial Cells Urine Present; Squamous Epithelial Cell Urine 0-2 /HPF (0-2); Transitional Epi Cells Urine Present; WBC Urine 0-5 /HPF (0-5)
[2022-08-06 21:00] LABS: Alanine Aminotransferase 42 U/L (0-40); Albumin Level 3.2 g/dL (3.5-5.0); Alkaline Phosphatase 97 U/L (39-117); Anion Gap 13 (12-20); Aspartate Amino Transferase 44 U/L (5-37); Bilirubin Direct 0.2 mg/dL (0.0-0.5); Bilirubin Total 0.4 mg/dL (0.0-1.0); Blood Urea Nitrogen 21 mg/dL (9-16); Calcium 8.6 mg/dL (8.4-10.2); Carbon Dioxide 23 mmol/L (22-29); Chloride 110 mmol/L (96-108); Creatinine Clr Calc Pharmacy 50.9; Estimated Glomerular Filt Rate > 60; Glucose Random 93 mg/dL (60-115); Lipase 28 U/L (8-78); Potassium 4.3 mmol/L (3.3-5.1); Sodium 142 mmol/L (135-145); Total Protein 5.9 g/dL (6.5-8.0)
[2022-08-06] MEDS: Piperacillin Sodium/Tazobactam 3.375 GM in 0.9 % Sodium Chloride 50 ML IV (21:51)
[2022-08-06] MEDS: vancomycin HCL 1,000 MG in 0.9 % Sodium Chloride 250 ML 270 MG IV (22:00)
--- NOTE | 2022-08-06 22:13 | PHA.MEDREC ---
Pharmacy Consult ? Medication Reconciliation Pharmacy has completed the medication reconciliation.
--- NOTE | 2022-08-06 22:53 | PM.IMHP ---
History of Present Illness Date of Service: 08/06/22 Chief Complaint: SOB 77-year-old male with past medical history of diabetes, bipolar disorder, dementia with behavioral disturbance, squamous cell carcinoma of the skin, BPH, GERD, PTSD, senior living resident presented to the hospital today with a chief complaint of shortness of breath. Patient is a poor historian. Most of the history obtained from the staff and records. Patient is alert and awake, oriented x2; mentions that he feels fine. Reports he was having mild shortness of breath; hence senior living staff cm the hospital for further evaluation. Reports he has been having cough but has been chronic and unchanged. Denies any fevers. Denies any nausea vomiting or diarrhea. Denies any abdominal discomfort. Patient denies any chest pain palpitations lightheadedness or dizziness. Review of all other systems is negative except mentioned above ER course: Per ER team patient was noted to be short of breath and hypoxic at the senior living subsequently sent to the hospital for further evaluation. Patient was tested positive for COVID-19 on chest x-ray showed pneumonia. Patient was started on IV vancomycin and Zosyn admitted to the hospital for further management. COUNTS INCLUDE 234 BEDS AT THE [facility] Medical History Bipolar 1 disorder Cataracts, bilateral Dementia Diabetes GERD (gastroesophageal reflux disease) PTSD (post-traumatic stress disorder) Squamous cell carcinoma Pertinent family history: Patient unable to provide information Social History Alcohol intake: never Patient Tobacco Use Status: Former Tobacco user Advance Directives: Yes Advance Directives on File: Yes Advance Directives Date on File: 07/19/21 Meds Allergies Allergy/AdvReac Type Severity Reaction Status Date / Time No Known Allergies Allergy Verified 05/17/21 18:44 Active Medications: Current Medications Acetaminophen (Acetaminophen 325 Mg Tablet) 650 mg PO Q6H PRN PRN Reason: Pain, Mild (Pain Scale 1-3) Enoxaparin Sodium (Enoxaparin Sodium 40 Mg/0.4 Ml Syringe) 40 mg SUBCUT Q24H WISAM Vancomycin HCl 1,000 mg/ (Sodium Chloride) 270 mls @ 270 mls/hr IV Q12H WISAM Piperacillin Sod/Tazobactam (Sod 3.375 gm/ Sodium Chloride) 50 mls @ 100 mls/hr IV Q6H [facility] Melatonin (Melatonin 3 Mg Tablet) 6 mg PO BEDTIME PRN PRN Reason: Insomnia Pharmacy Consult (Consult Rx Perform Med Rec) 1 each MISCELLANE ONCE PRN PRN Reason: Consult order Pharmacy Consult (Consult Rx Vancomycin Dosing) 1 each MISCELLANE DAILY PRN PRN Reason: Consult order Pharmacy Consult (Consult Rx Vancomycin Dosing) 1 each MISCELLANE DAILY PRN PRN Reason: Consult order Senna (Sennosides 8.6 Mg Tablet) 17.2 mg PO BEDTIME PRN PRN Reason: Constipation Sodium Chloride (0.9 % Sodium Chloride Flush 3 Ml Syringe) 3 ml IVFLUSH QSHIFT [facility] Home Medications Medication Instructions Recorded Confirmed Last Taken Type acetaminophen 325 mg tablet 650 mg PO Q4H PRN Pain 08/06/22 08/06/22 Unknown History bisacodyl 10 mg rectal suppository 10 mg MD DAILY PRN Pain 08/06/22 08/06/22 Unknown History (Dulcolax (bisacodyl)) divalproex 125 mg capsule,delayed 500 mg PO BID 08/06/22 08/06/22 Unknown History release sprinkle (Depakote Sprinkles) finasteride 5 mg tablet (Proscar) 5 mg PO DAILY 08/06/22 08/06/22 Unknown History lithium carbonate 150 mg capsule 225 mg PO BID 08/06/22 08/06/22 Unknown History nitrofurantoin macrocrystal 50 mg 50 mg PO BEDTIME 08/06/22 08/06/22 Unknown History capsule nystatin 100,000 unit/gram topical 1 appl topical BID 08/06/22 08/06/22 Unknown History powder polyethylene glycol 3350 17 gram 17 g PO DAILY 08/06/22 08/06/22 Unknown History oral powder packet (Miralax) quetiapine 25 mg tablet (Seroquel) 25 mg PO BID PRN 08/06/22 08/06/22 Unknown History Hallucination/agitation quetiapine 25 mg tablet (Seroquel) 25 mg PO DAILY 08/06/22 08/06/22 Unknown History sodium phosphates 19 gram-7 118 ml MD DAILY PRN Constipation 08/06/22 08/06/22 Unknown History gram/118 mL enema (Fleet Enema) tamsulosin 0.4 mg capsule (Flomax) 0.4 mg PO BEDTIME 08/06/22 08/06/22 Unknown History trazodone 50 mg tablet 25 mg PO BEDTIME PRN Insomnia 08/06/22 08/06/22 Unknown History trazodone 50 mg tablet 25 mg PO DAILY 08/06/22 08/06/22 Unknown History Physical Exam Vital Signs and Narrative: Vital Signs: Last Vital Signs Temp 100.0 F 08/06/22 19:41 Pulse 55 08/06/22 19:41 Resp 18 08/06/22 19:41 BP 122/71 08/06/22 19:41 Pulse Ox 95 08/06/22 19:41 O2 Del Method 08/06/22 19:41 BMI result Body Mass Index 24.0 Gen: Appears be in no acute distress. Breathing comfortably; saturating 92-94% HEENT: NCAT, Moist mucosa. Pulmonary: Coarse breath sounds CVS: Normal S1-S2 Abdomen: BS+, Soft, Nontender Extremities: Warm well perfused Neuro: Alert and awake. Oriented X2 -3, grossly nonfocal Results Labs CBC and Chem 7: 08/06/22 20:01 08/06/22 20:40 Labs: Laboratory Results - last 24 hr 08/06/22 08/06/22 08/06/22 20:00 20:00 20:00 MCV MCH MCHC RDW Plt Count MPV Immature Gran % (Auto) Neut % (Auto) Lymph % (Auto) [place] % (Auto) Eos % (Auto) Baso % (Auto) Lymph # (Auto) [place] # (Auto) Eos # (Auto) Baso # (Auto) Abs Immat Gran (auto) Absolute Neuts (auto) Absolute Nucleated RBC Nucleated RBC % (auto) Anion Gap Estim Creat Clear Calc Estimated GFR Random Glucose Lactic Acid 1.5 Calcium Total Bilirubin Direct Bilirubin AST ALT Alkaline Phosphatase B-Natriuretic Peptide 81 Cancelled Total Protein Albumin Lipase Urine Color Urine Appearance Urine pH Ur Specific [place] Urine Protein Urine Glucose (UA) Urine Ketones Urine Blood Urine Nitrite Ur Leukocyte Esterase Urine RBC Urine WBC Ur Squamous Epith Cells Ur Transition Epith Cell Ur Renal Epithelial Cell Urine Bacteria Hyaline Casts COVID-19 (JADA) COVID-19 Clin Com 08/06/22 08/06/22 08/06/22 20:01 20:02 20:18 MCV 89.9 MCH 27.4 MCHC 30.5 L RDW 15.8 Plt Count 300 MPV 9.6 Immature Gran % (Auto) 0.9 H Neut % (Auto) 54.4 Lymph % (Auto) 27.2 [place] % (Auto) 13.5 H Eos % (Auto) 3.6 Baso % (Auto) 0.4 Lymph # (Auto) 1.2 [place] # (Auto) 0.6 Eos # (Auto) 0.2 Baso # (Auto) 0.0 Abs Immat Gran (auto) 0.04 H Absolute Neuts (auto) 2.4 Absolute Nucleated RBC 0.000 Nucleated RBC % (auto) 0.0 Anion Gap Estim Creat Clear Calc Estimated GFR Random Glucose Lactic Acid Calcium Total Bilirubin Direct Bilirubin AST ALT Alkaline Phosphatase B-Natriuretic Peptide Total Protein Albumin Lipase Urine Color Dark Yellow Urine Appearance Clear Urine pH 6.0 Ur Specific [place] 1.015 Urine Protein Negative Urine Glucose (UA) Negative Urine Ketones Negative Urine Blood Negative Urine Nitrite Negative Ur Leukocyte Esterase Trace H Urine RBC 0-2 Urine WBC 0-5 Ur Squamous Epith Cells 0-2 Ur Transition Epith Cell Present Ur Renal Epithelial Cell Present Urine Bacteria None Seen Hyaline Casts 0-2 COVID-19 (JADA) Positive A COVID-19 Clin Com See Note 08/06/22 20:40 MCV MCH MCHC RDW Plt Count MPV Immature Gran % (Auto) Neut % (Auto) Lymph % (Auto) [place] % (Auto) Eos % (Auto) Baso % (Auto) Lymph # (Auto) [place] # (Auto) Eos # (Auto) Baso # (Auto) Abs Immat Gran (auto) Absolute Neuts (auto) Absolute Nucleated RBC Nucleated RBC % (auto) Anion Gap 13 Estim Creat Clear Calc 50.9 Estimated GFR > 60 Random Glucose 93 Lactic Acid Calcium 8.6 D Total Bilirubin 0.4 Direct Bilirubin 0.2 AST 44 H D ALT 42 H Alkaline Phosphatase 97 B-Natriuretic Peptide Total Protein 5.9 L Albumin 3.2 L Lipase 28 Urine Color Urine Appearance Urine pH Ur Specific [place] Urine Protein Urine Glucose (UA) Urine Ketones Urine Blood Urine Nitrite Ur Leukocyte Esterase Urine RBC Urine WBC Ur Squamous Epith Cells Ur Transition Epith Cell Ur Renal Epithelial Cell Urine Bacteria Hyaline Casts COVID-19 (JADA) COVID-19 Clin Com Imaging Radiologist's Impressions: Impressions Chest X-Ray 08/06/22 20:29 IMPRESSION: Prominence of the bilateral perihilar region is nonspecific but may represent vascular structures, however, there appears to be subtle patchy airspace opacities of the left lower lobe which may represent an infectious versus inflammatory process. Clinical correlation recommended. This may be further characterize with chest CT as clinically indicated. Assessment and Plan (1) Pneumonia: Status: Acute (2) COVID-19: Status: Acute Plan 77-year-old male with past medical history of diabetes, bipolar disorder, dementia with behavioral disturbance, squamous cell carcinoma of the skin, BPH, GERD, PTSD, senior living resident presented to the hospital today with a chief complaint of shortness of breath noted to have COVID-19 pneumonia. Admitted for further management. COVID-19 pneumonia: Continue IV vancomycin and Zosyn Patient currently saturating 92-94%-placed on supplemental oxygen Decadron 6 mg p.o. Id consult for further recommendations History of diabetes: Insulin sliding scale. Monitor fingerstick glucose. Patient not on any antidiabetic sent home. History of PTSD/dementia with behavioral disturbance/bipolar disorder: Continue home Seroquel, lithium carbonate, trazodone History of BPH: Continue home Flomax DVT prophylaxis: Lovenox Code status: DNR/DNI. Patient has MOLST form. Quality Stroke Does the patient have a stroke diagnosis?: No VTE Prior VTE?: No VTE Risk Level:: Medical - moderate - high VTE Device Contraindication: N/A - Device Ordered VTE Drug Contraindication: N/A - Med Ordered
[2022-08-06] MEDS: vancomycin HCL 750 MG in 0.9 % Sodium Chloride 250 ML 265 MG IV (23:38)
[2022-08-06] MEDS: 0.9 % Sodium Chloride Flush 3 ML SYRINGE IVFLUSH (23:42)
[2022-08-07] MEDS: Piperacillin Sodium/Tazobactam 3.375 GM in 0.9 % Sodium Chloride 50 ML IV ×3 (03:46→16:23)
[2022-08-07 04:47] LABS: MANUAL DIFF FLAG NO
[2022-08-07 04:48] LABS: Basophils Percent Auto 0.6 % (0-2); Eosinophils Absolute Auto 0.2 X10*3/uL (0.0-0.4); Eosinophils Percent Auto 3.9 % (0-4); Hematocrit 38.1 % (42.0-52.0); Hemoglobin 12.1 g/dl (14.0-18.0); Imm Gran Abs Auto 0.03 X10*3/uL (0.00-0.03); Imm Gran Pct Auto 0.6 % (0.0-0.4); Lymphocytes Absolute Auto 0.9 X10*3/uL (1.2-4.9); Lymphocytes Percent Auto 17.8 % (20-40); Mean Corpuscular HGB Conc 31.8 g/dl (31.0-36.0); Mean Corpuscular Volume 91.4 fL (80.0-98.0); Mean Platelet Volume 9.3 fL (9.4-12.4); Monocytes Absolute Auto 0.7 X10*3/uL (0.1-1.2); Monocytes Percent Auto 14.3 % (2-11); Neutrophils Absolute Auto 3.3 x10*3/uL (2.0-8.3); Neutrophils Percent Auto 62.8 % (45-73); Platelet Count 247 X10*3/uL (160-400); Red Blood Count 4.17 X10*6/uL (4.60-5.80); White Blood Count 5.2 X10*3/uL (4.8-10.8)
[2022-08-07 05:20] LABS: Anion Gap 14 (12-20); Blood Urea Nitrogen 17 mg/dL (9-16); Calcium 8.4 mg/dL (8.4-10.2); Carbon Dioxide 20 mmol/L (22-29); Chloride 114 mmol/L (96-108); Creatinine Clr Calc Pharmacy 59.3; Estimated Glomerular Filt Rate > 60; Glucose Random 83 mg/dL (60-115); Potassium 4.4 mmol/L (3.3-5.1); Sodium 144 mmol/L (135-145)
[2022-08-07 08:54] VITALS: BP 129/74; PULSE 58; RESP 16; O2SAT 95
[2022-08-07] MEDS: 0.9 % Sodium Chloride Flush 3 ML SYRINGE IVFLUSH ×2 (10:10→16:23)
--- NOTE | 2022-08-07 10:19 | PC.NURSE ---
pt refusing to take his medications, swinging at this rn and swearing
--- NOTE | 2022-08-07 10:53 | MHC.SL.SWA ---
Speech Pathologist Impression: Oropharyngeal phase dysphagia Risk of Aspiration Due to: Neurological Condition Reduced Cognition Dysphasia Diet Status: No change Liquid Consistency and Strategies for Safe Swallow: Liquid Intake Recommendation: Thin Liquid Intake Strategies: Small Sips No Straws Solid Food Consistency: Dietary Recommendations: Regular Additional Modifications to Solid Foods: Bedside dysphagia evaluation completed this morning while pt was in the ED. One instance of coughing after pt impulsively took quick, large sips of thin liquid by straw. Pt tolerated thin liquid by cup when taking individual sips. Mildly prolonged mastication when eating regular solids, but with good oral clearance and no clinical signs of aspiration. Per nurse at custodial, pt was on a regular diet there (regular solids, thin liquids), fed himself, and was provided with direct supervision during all his meals. Recommend continue with baseline: REGULAR solids, THIN liquids. Pills to be administered WHOLE in PUREE. Liquids by teaspoon or cup, avoid straws. Pt may be impulsive when eating/drinking and would benefit from cues for safe eating (take small sips, small bites, clear oral cavity before taking more bites). Pt to be seated upright at 90 degrees during PO intake. Recommend continue direct supervision during PO intake. Sent [employer] Message w/ update to , RN, RD. No changes made to diet order at this time. [employer] SALES TRA[employer]ER to f/u 1x time to ensure tolerance. Oral Medication Intake: Whole with Puree Please contact the pharmacy regarding appropriate crushable or liquid drug formulations that are available whenever modified delivery is recommended. Compensatory Strategies and Precautions to be Taken for Safe Swallow: Sitting Upright (90 deg) No Straw Liquids from Cup Liquids from Spoon Small Bites and Sips Alternate Liquids/Solids Rate of Ingestion Change Supervision While Eating and Drinking for Safe Swallow: Total Supervision (1:1) Swallowing Recommended Treatments: Compens. Strategy Educat. Recommendation for Speech: Inpatient Speech Therapy Comment: 1 f/u [employer] Clinican/Clinical Fellow: No Supervisory Statement: I have reviewed and agree with the student/clinical fellow's documentation: N/A Speech Language Pathologist: Theresa Pickard M.A., [facility]-[employer]
--- NOTE | 2022-08-07 11:33 | HO.PM.IMPN ---
Subjective Subjective Date of Service: 08/07/22 Review of Systems Follow-up failure to thrive, COVID Confused, unable to answer any questions Physical Exam Vital Signs: Vital Signs: Last Vital Signs Temp 100.0 F 08/06/22 19:41 Pulse 58 08/07/22 08:54 Resp 16 08/07/22 08:54 BP 129/74 08/07/22 08:54 Pulse Ox 95 08/07/22 08:54 O2 Del Method 08/07/22 08:54 BMI result Body Mass Index 24.0 Appearing in no acute distress lung sounds are clear to auscultation heart regular rate rhythm, clear S1, S2 positive bowel sounds, abdomen is soft, nontender neuro patient is alert Objective Data Active Medications Acetaminophen (Acetaminophen 325 Mg Tablet) 650 mg PO Q6H PRN PRN Reason: Pain, Mild (Pain Scale 1-3) Dexamethasone (Dexamethasone 6 Mg Tablet) 6 mg PO DAILY [facility] Last Admin: 08/07/22 10:13 Dose: Not Given Documented By: KIMBERLEY Non-Admin Reason: Patient Refused Divalproex Sodium (Divalproex Sodium Sprinkles 125 Mg ) 500 mg PO BID [facility] Last Admin: 08/07/22 10:13 Dose: Not Given Documented By: KIMBERLEY Non-Admin Reason: Patient Refused Enoxaparin Sodium (Enoxaparin Sodium 40 Mg/0.4 Ml Syringe) 40 mg SUBCUT Q24H [facility] Last Admin: 08/06/22 23:41 Dose: Not Given Documented By: DESTINY Non-Admin Reason: Patient Refused Finasteride (Finasteride 5 Mg Tablet) 5 mg PO DAILY [facility] Last Admin: 08/07/22 10:17 Dose: Not Given Documented By: KIMBERLEY Non-Admin Reason: Patient Refused Piperacillin Sod/Tazobactam (Sod 3.375 gm/ Sodium Chloride) 50 mls @ 100 mls/hr IV Q6H [facility] Last Admin: 08/07/22 10:10 Dose: 100 mls/hr Documented By: KIMBERLEY Vancomycin HCl 1,250 mg/ (Sodium Chloride) 250 mls @ 166.667 mls/hr IV Q24H [facility] Melatonin (Melatonin 3 Mg Tablet) 6 mg PO BEDTIME PRN PRN Reason: Insomnia Nitrofurantoin Macrocrystals (Nitrofurantoin Macrocrystal 50 Mg Capsule) 50 mg PO BEDTIME [facility] Non-Formulary Medication ([place] Carbonate) 225 mg PO BID [facility] Nystatin (Nystatin Powder 15 Gm Bottle) 1 appl TOPICAL BID [facility]; Protocol Last Admin: 08/07/22 10:18 Dose: Not Given Documented By: KIMBERLEY Non-Admin Reason: Patient Refused Pharmacy Consult (Consult Rx Perform Med Rec) 1 each MISCELLANE ONCE PRN PRN Reason: Consult order Pharmacy Consult (Consult Rx Vancomycin Dosing) 1 each MISCELLANE DAILY PRN PRN Reason: Consult order Pharmacy Consult (Consult Rx Vancomycin Dosing) 1 each MISCELLANE DAILY PRN PRN Reason: Consult order Polyethylene Glycol (Polyethylene Glycol 3350 17 Gm Powd.Pack) 17 gm PO DAILY [facility] Last Admin: 08/07/22 10:17 Dose: Not Given Documented By: KIMBERLEY Non-Admin Reason: Patient Refused Quetiapine Fumarate (Quetiapine Fumarate 25 Mg Tablet) 25 mg PO BID PRN PRN Reason: Hallucination/agitation Quetiapine Fumarate (Quetiapine Fumarate 25 Mg Tablet) 25 mg PO DAILY [facility] Last Admin: 08/07/22 10:17 Dose: Not Given Documented By: KIMBERLEY Non-Admin Reason: Patient Refused Senna (Sennosides 8.6 Mg Tablet) 17.2 mg PO BEDTIME PRN PRN Reason: Constipation Sodium Biphosphate/Sodium Phosphate (Sodium Phosphate,[place]-Dibasic 133 Ml Enema) 133 ml [place] DAILY PRN PRN Reason: Constipation Sodium Chloride (0.9 % Sodium Chloride Flush 3 Ml Syringe) 3 ml IVFLUSH QSHIFT [facility] Last Admin: 08/07/22 10:10 Dose: 3 ml Documented By: KIMBERLEY Tamsulosin HCl (Tamsulosin Hcl 0.4 Mg Capsule) 0.4 mg PO BEDTIME [facility] Trazodone HCl (Trazodone Hcl 25 Mg Halftab) 25 mg PO BEDTIME PRN PRN Reason: Insomnia Trazodone HCl (Trazodone Hcl 25 Mg Halftab) 25 mg PO DAILY [facility] Last Admin: 08/07/22 10:14 Dose: Not Given Documented By: KIMBERLEY Non-Admin Reason: Patient Refused Labs CBC & Chem 7: 08/07/22 04:43 08/07/22 04:43 Labs: Laboratory Results - last 24 hr 08/06/22 08/06/22 08/06/22 20:00 20:00 20:00 MCV MCH MCHC RDW Plt Count MPV Immature Gran % (Auto) Neut % (Auto) Lymph % (Auto) [place] % (Auto) Eos % (Auto) Baso % (Auto) Lymph # (Auto) [place] # (Auto) Eos # (Auto) Baso # (Auto) Abs Immat Gran (auto) Absolute Neuts (auto) Absolute Nucleated RBC Nucleated RBC % (auto) Anion Gap Estim Creat Clear Calc Estimated GFR Random Glucose Lactic Acid 1.5 Calcium Total Bilirubin Direct Bilirubin AST ALT Alkaline Phosphatase B-Natriuretic Peptide 81 Cancelled Total Protein Albumin Lipase Urine Color Urine Appearance Urine pH Ur Specific [place] Urine Protein Urine Glucose (UA) Urine Ketones Urine Blood Urine Nitrite Ur Leukocyte Esterase Urine RBC Urine WBC Ur Squamous Epith Cells Ur Transition Epith Cell Ur Renal Epithelial Cell Urine Bacteria Hyaline Casts COVID-19 (JADA) COVID-19 Clin Com 08/06/22 08/06/22 08/06/22 20:01 20:02 20:18 MCV 89.9 MCH 27.4 MCHC 30.5 L RDW 15.8 Plt Count 300 MPV 9.6 Immature Gran % (Auto) 0.9 H Neut % (Auto) 54.4 Lymph % (Auto) 27.2 [place] % (Auto) 13.5 H Eos % (Auto) 3.6 Baso % (Auto) 0.4 Lymph # (Auto) 1.2 [place] # (Auto) 0.6 Eos # (Auto) 0.2 Baso # (Auto) 0.0 Abs Immat Gran (auto) 0.04 H Absolute Neuts (auto) 2.4 Absolute Nucleated RBC 0.000 Nucleated RBC % (auto) 0.0 Anion Gap Estim Creat Clear Calc Estimated GFR Random Glucose Lactic Acid Calcium Total Bilirubin Direct Bilirubin AST ALT Alkaline Phosphatase B-Natriuretic Peptide Total Protein Albumin Lipase Urine Color Dark Yellow Urine Appearance Clear Urine pH 6.0 Ur Specific [place] 1.015 Urine Protein Negative Urine Glucose (UA) Negative Urine Ketones Negative Urine Blood Negative Urine Nitrite Negative Ur Leukocyte Esterase Trace H Urine RBC 0-2 Urine WBC 0-5 Ur Squamous Epith Cells 0-2 Ur Transition Epith Cell Present Ur Renal Epithelial Cell Present Urine Bacteria None Seen Hyaline Casts 0-2 COVID-19 (JADA) Positive A COVID-19 Clin Com See Note 08/06/22 08/07/22 08/07/22 20:40 04:43 04:43 MCV 91.4 MCH 29.0 MCHC 31.8 RDW 16.0 Plt Count 247 MPV 9.3 L Immature Gran % (Auto) 0.6 H Neut % (Auto) 62.8 Lymph % (Auto) 17.8 L [place] % (Auto) 14.3 H Eos % (Auto) 3.9 Baso % (Auto) 0.6 Lymph # (Auto) 0.9 L [place] # (Auto) 0.7 Eos # (Auto) 0.2 Baso # (Auto) 0.0 Abs Immat Gran (auto) 0.03 Absolute Neuts (auto) 3.3 Absolute Nucleated RBC 0.000 Nucleated RBC % (auto) 0.0 Anion Gap 13 14 Estim Creat Clear Calc 50.9 59.3 Estimated GFR > 60 > 60 Random Glucose 93 83 Lactic Acid Calcium 8.6 D 8.4 Total Bilirubin 0.4 Direct Bilirubin 0.2 AST 44 H D ALT 42 H Alkaline Phosphatase 97 B-Natriuretic Peptide Total Protein 5.9 L Albumin 3.2 L Lipase 28 Urine Color Urine Appearance Urine pH Ur Specific [place] Urine Protein Urine Glucose (UA) Urine Ketones Urine Blood Urine Nitrite Ur Leukocyte Esterase Urine RBC Urine WBC Ur Squamous Epith Cells Ur Transition Epith Cell Ur Renal Epithelial Cell Urine Bacteria Hyaline Casts COVID-19 (JADA) COVID-19 Clin Com Assessment and Plan (1) Pneumonia: Status: Acute (2) COVID-19: Status: Acute Plan 77-year-old male with past medical history of diabetes, bipolar disorder, dementia with behavioral disturbance, squamous cell carcinoma of the skin, BPH, GERD, PTSD, snf resident presented to the hospital today with a chief complaint of shortness of breath noted to have COVID-19 pneumonia.? Admitted for further management.? COVID-19 pneumonia, previously diagnosed/failure to thrive Continue IV vancomycin and Zosyn for now Patient currently saturating 92-94%-placed on supplemental oxygen, no hypoxia noted Continue Decadron 6 mg p.o. Id consult for further recommendations Seen by speech therapy recommend regular diet with thin liquids History of diabetes Insulin sliding scale.? ADA diet History of PTSD/dementia with behavioral disturbance/bipolar disorde Continue home Seroquel, lithium carbonate, trazodone History of BPH Continue home Flomax DVT prophylaxis:? Lovenox Attending Dr. Hernandez Code status:? DNR/DNI.? Patient has MOLST form. Continue hospitalization for treatment of COVID-19, failure to thrive requiring monitoring of oxygen saturation Quality Stroke Does the patient have a stroke diagnosis?: No VTE Prior VTE?: No VTE Risk Level:: Medical - moderate - high VTE Device Contraindication: N/A - Device Ordered VTE Drug Contraindication: N/A - Med Ordered
--- NOTE | 2022-08-07 11:59 | MHC.CDI.CONC ---
CDI Concurrent Query Documentation Clarification: PHYSICIAN'S DOCUMENTATION REQUEST Date of Query: 08/07/22 1159 Patient Name: Javed Wisdom Admit Date: 08/06/22 Dear Doctor, A review of the medical record indicates additional documentation may be needed. Please review below and update the documentation accordingly. Clinical Indicators Risk Factors/Clinical Indicators/Treatments Dementia with behavioral disturbances Poor historian. Seroquel, lithium, carbonate. If possible, please further clarify type of Dementia: Vascular Dementia with behavioral disturbances Alzheimer's Dementia with behavioral disturbances Senile Dementia with behavioral disturbances Lewy body Dementia Frontal Dementia Other ? please specify Unable to determine Use of terms such as suspected, likely, concern for, or probable (associated with a specific diagnosis that is being evaluated, monitored, or treated as if it exists) are acceptable and can be coded in the inpatient setting, when documented at the time of discharge. Thank you, Terra Blake [facility], CDIS Extension: [phone] Please use your independent medical judgment in providing your response. THIS QUERY IS PART OF THE PERMANENT MEDICAL RECORD Other Diagnosis: see note
--- NOTE | 2022-08-07 12:24 | MHC.CM.PN ---
pt from [facility] where he will return when dcd spoke with pts son who confirmed same dc plan return to [facility]
[2022-08-07 14:03] VITALS: BP 136/74; PULSE 58; RESP 16; O2SAT 96
--- NOTE | 2022-08-07 16:27 | PC.NURSE ---
pt ate about 60% of his lunch, denies pain at this time, but does have an intermitted junky cough
--- NOTE | 2022-08-07 16:40 | P.CNID_ITS ---
History of Present Illness Data of Consult Service Date: 08/07/22 Requesting physician: Lisa Bowman Primary Care Provider: Mati Bettencourt MD HPI Reason for consult: shortness of breath He presents with tachypnea and shortness of breath from snf. He has positive COVID and LLL infiltrate. COVID duration is unknown. Review of Systems Review of Systems: Yes Unobtainable due to mental status PMFSH Past Medical History Medical History Bipolar 1 disorder Cataracts, bilateral Dementia Diabetes GERD (gastroesophageal reflux disease) PTSD (post-traumatic stress disorder) Squamous cell carcinoma Family History Family history: reviewed and not pertinent Social History Social History Alcohol intake: never Patient Tobacco Use Status: Former Tobacco user Advance Directives: Yes Advance Directives on File: Yes Advance Directives Date on File: 07/19/21 service: Yes Meds Allergies Allergy/AdvReac Type Severity Reaction Status Date / Time No Known Allergies Allergy Verified 05/17/21 18:44 Active Medications: Current Medications Acetaminophen (Acetaminophen 325 Mg Tablet) 650 mg PO Q6H PRN PRN Reason: Pain, Mild (Pain Scale 1-3) Dexamethasone (Dexamethasone 6 Mg Tablet) 6 mg PO DAILY [facility] Last Admin: 08/07/22 10:13 Dose: Not Given Divalproex Sodium (Divalproex Sodium Sprinkles 125 Mg ) 500 mg PO BID [facility] Last Admin: 08/07/22 10:13 Dose: Not Given Enoxaparin Sodium (Enoxaparin Sodium 40 Mg/0.4 Ml Syringe) 40 mg SUBCUT Q24H [facility] Last Admin: 08/06/22 23:41 Dose: Not Given Finasteride (Finasteride 5 Mg Tablet) 5 mg PO DAILY [facility] Last Admin: 08/07/22 10:17 Dose: Not Given Piperacillin Sod/Tazobactam (Sod 3.375 gm/ Sodium Chloride) 50 mls @ 100 mls/hr IV Q6H [facility] Last Admin: 08/07/22 16:23 Dose: 100 mls/hr Vancomycin HCl 1,250 mg/ (Sodium Chloride) 250 mls @ 166.667 mls/hr IV Q24H [facility] Melatonin (Melatonin 3 Mg Tablet) 6 mg PO BEDTIME PRN PRN Reason: Insomnia Nitrofurantoin Macrocrystals (Nitrofurantoin Macrocrystal 50 Mg Capsule) 50 mg PO BEDTIME [facility] Non-Formulary Medication ([place] Carbonate) 225 mg PO BID [facility] Nystatin (Nystatin Powder 15 Gm Bottle) 1 appl TOPICAL BID [facility]; Protocol Last Admin: 08/07/22 10:18 Dose: Not Given Pharmacy Consult (Consult Rx Perform Med Rec) 1 each MISCELLANE ONCE PRN PRN Reason: Consult order Pharmacy Consult (Consult Rx Vancomycin Dosing) 1 each MISCELLANE DAILY PRN PRN Reason: Consult order Pharmacy Consult (Consult Rx Vancomycin Dosing) 1 each MISCELLANE DAILY PRN PRN Reason: Consult order Polyethylene Glycol (Polyethylene Glycol 3350 17 Gm Powd.Pack) 17 gm PO DAILY [facility] Last Admin: 08/07/22 10:17 Dose: Not Given Quetiapine Fumarate (Quetiapine Fumarate 25 Mg Tablet) 25 mg PO BID PRN PRN Reason: Hallucination/agitation Quetiapine Fumarate (Quetiapine Fumarate 25 Mg Tablet) 25 mg PO DAILY [facility] Last Admin: 08/07/22 10:17 Dose: Not Given Senna (Sennosides 8.6 Mg Tablet) 17.2 mg PO BEDTIME PRN PRN Reason: Constipation Sodium Biphosphate/Sodium Phosphate (Sodium Phosphate,[place]-Dibasic 133 Ml Enema) 133 ml [place] DAILY PRN PRN Reason: Constipation Sodium Chloride (0.9 % Sodium Chloride Flush 3 Ml Syringe) 3 ml IVFLUSH QSHIFT [facility] Last Admin: 08/07/22 16:23 Dose: 3 ml Tamsulosin HCl (Tamsulosin Hcl 0.4 Mg Capsule) 0.4 mg PO BEDTIME [facility] Trazodone HCl (Trazodone Hcl 25 Mg Halftab) 25 mg PO BEDTIME PRN PRN Reason: Insomnia Trazodone HCl (Trazodone Hcl 25 Mg Halftab) 25 mg PO DAILY [facility] Last Admin: 08/07/22 10:14 Dose: Not Given Home Medications Medication Instructions Recorded Confirmed Last Taken Type acetaminophen 325 mg tablet 650 mg PO Q4H PRN Pain 08/06/22 08/06/22 Unknown History bisacodyl 10 mg rectal suppository 10 mg OR DAILY PRN Pain 08/06/22 08/06/22 Unknown History (Dulcolax (bisacodyl)) divalproex 125 mg capsule,delayed 500 mg PO BID 08/06/22 08/06/22 Unknown History release sprinkle (Depakote Sprinkles) finasteride 5 mg tablet (Proscar) 5 mg PO DAILY 08/06/22 08/06/22 Unknown History lithium carbonate 150 mg capsule 225 mg PO BID 08/06/22 08/06/22 Unknown History nitrofurantoin macrocrystal 50 mg 50 mg PO BEDTIME 08/06/22 08/06/22 Unknown History capsule nystatin 100,000 unit/gram topical 1 appl topical BID 08/06/22 08/06/22 Unknown History powder polyethylene glycol 3350 17 gram 17 g PO DAILY 08/06/22 08/06/22 Unknown History oral powder packet (Miralax) quetiapine 25 mg tablet (Seroquel) 25 mg PO BID PRN 08/06/22 08/06/22 Unknown History Hallucination/agitation quetiapine 25 mg tablet (Seroquel) 25 mg PO DAILY 08/06/22 08/06/22 Unknown History sodium phosphates 19 gram-7 118 ml [place] DAILY PRN Constipation 08/06/22 08/06/22 Unknown History gram/118 mL enema (Fleet Enema) tamsulosin 0.4 mg capsule (Flomax) 0.4 mg PO BEDTIME 08/06/22 08/06/22 Unknown History trazodone 50 mg tablet 25 mg PO BEDTIME PRN Insomnia 08/06/22 08/06/22 Unknown History trazodone 50 mg tablet 25 mg PO DAILY 08/06/22 08/06/22 Unknown History Physical Exam Vital Signs: Vital Signs: Last Vital Signs Temp 100.0 F 08/06/22 19:41 Pulse 58 08/07/22 14:03 Resp 16 08/07/22 14:03 BP 136/74 08/07/22 14:03 Pulse Ox 96 08/07/22 14:03 O2 Del Method 08/07/22 14:03 BMI result Body Mass Index 24.0 Const: General: cooperative HEENT: Head: Yes normal to inspection Face and sinus: Yes normal facial exam Mouth: Normal oral and palatal mucosa present Teeth and gingiva: dentition normal Eyes: General: appearance normal, both eyes and all related structures Pupils: Equal, round and reactive pupils present Resp: Effort & Inspection: normal respiratory effort Cardio: Rate: regular rate Rhythm: regular rhythm GI: Palpation (GI): Soft to palpation and nontender : General: Yes no CVA tenderness Back/Spine/Pelvis: Back: no CVA tenderness Skin: General skin exam: no rashes or lesions noted Neuro: General: moves all extremities Cranial nerves: Yes Equal, round and reactive pupils present Extrem: General: Yes normal to inspection Results Labs CBC & Chem 7: 08/07/22 04:43 08/07/22 04:43 Labs: Short CBC 08/06/22 08/07/22 Range/Units 20:01 04:43 WBC 4.5 L 5.2 (4.8-10.8) X10*3/uL Hgb 12.2 L 12.1 L (14.0-18.0) g/dl Hct 40.0 L 38.1 L (42.0-52.0) % Plt Count 300 247 (160-400) X10*3/uL BMP 08/06/22 08/07/22 20:40 04:43 Sodium 142 144 Potassium 4.3 4.4 Chloride 110 H 114 H Carbon Dioxide 23 20 L BUN 21 H 17 H Creatinine 1.13 0.97 Calcium 8.6 D 8.4 Liver Function 08/06/22 Range/Units 20:40 Total Bilirubin 0.4 (0.0-1.0) mg/dL Direct Bilirubin 0.2 (0.0-0.5) mg/dL AST 44 H D (5-37) U/L ALT 42 H (0-40) U/L Alkaline Phosphatase 97 (39-117) U/L Albumin 3.2 L (3.5-5.0) g/dL Urine 08/06/22 Range/Units 20:18 Urine Color Dark Yellow Urine Appearance Clear Urine pH 6.0 (5.0-9.0) Ur Specific [place] 1.015 (1.005-1.025) Urine Protein Negative (Neg-Trace) mg/dL Urine Glucose (UA) Negative (Negative) mg/dL Assessment and Plan (1) Pneumonia: Status: Acute possible resistant gram negative and gram positive organisms COVID unknown duration and on room air (2) COVID-19: Status: Acute Plan No COVID treatment on room air, stop steroids Continue Zosyn,stop Vancomycin if MRSA negative
[2022-08-07 21:45] VITALS: BP 147/67; PULSE 63; RESP 18; TEMP 36.7; O2SAT 94
--- NOTE | 2022-08-07 22:00 | PC.NURSE ---
PATIENT WAS INCONTINENT OF LARGE AMOUNT OF STOOL ,CARE GIVEN PATIENT WAS VERY COMBATIVE AND RESISTIVE WITH CARE ,TOOK 3 STAFF MEMBER TO PROVIDE CARE .
[2022-08-08] VITALS (7 sets, daily range): BP systolic 115–141; BP diastolic 65–80; PULSE 61–78; RESP 12–20; TEMP 36.3–37.3; O2SAT 95–99; BMI 24.1
[2022-08-08] MEDS: Piperacillin Sodium/Tazobactam 3.375 GM in 0.9 % Sodium Chloride 50 ML IV ×4 (00:02→18:23)
--- NOTE | 2022-08-08 01:10 | PC.NURSE ---
Patient arrived to overflow. Agitated, spitting at staff, hitting, kicking, verbally abusive. Pulled out IV. Pulling off tele. IV abx will be late due to lack of IV access and pt aggression towards staff. Will re-approach when pt calms down.
[2022-08-08] MEDS: vancomycin HCL 1,250 MG in 0.9 % Sodium Chloride 250 ML 166.67 MG IV (04:19)
[2022-08-08 07:04] LABS: Anion Gap 15 (12-20); Blood Urea Nitrogen 16 mg/dL (9-16); Calcium 8.8 mg/dL (8.4-10.2); Carbon Dioxide 20 mmol/L (22-29); Chloride 112 mmol/L (96-108); Creatinine Clr Calc Pharmacy 64.7; Estimated Glomerular Filt Rate > 60; Glucose Random 95 mg/dL (60-115); Potassium 4.2 mmol/L (3.3-5.1); Sodium 143 mmol/L (135-145)
[2022-08-08] MEDS: 0.9 % Sodium Chloride Flush 3 ML SYRINGE IVFLUSH (09:45)
[2022-08-08] MEDS: Divalproex Sodium Sprinkles 125 MG CAP.DR.SPR 500 MG PO ×2 (09:45→21:53)
[2022-08-08] MEDS: QUEtiapine Fumarate 25 MG TABLET PO (09:46)
[2022-08-08] MEDS: Finasteride 5 MG TABLET PO (09:46)
[2022-08-08] MEDS: traZODone HCL 25 MG HALFTAB PO (09:46)
--- NOTE | 2022-08-08 11:13 | PC.NURSE ---
Patient resting quietly in room, no apparent distress. Meds given as documented. VSS. Airborne precautions maintained.
--- NOTE | 2022-08-08 11:56 | MHC.SLORD ---
Addendum entered and electronically signed by Theresa Pickard MA, CCC-AZURE ARCHITECT 08/20/22 10:43: D.S. Original Note: Speech Language Pathology Order Status: [employer] ARCHITECT attempted to see pt to monitor for toleration of diet and possible d/c from speech this morning. Checked in with RN upon arrival. RN reported he ate most of his breakfast, no coughing observed, pills whole with liquid going okay. Pt verbally responded with closed eyes to [employer]URE ARCHITECT upon arrival. Pt did not awake or open eyes to raising the head of the bed. Per RN, pt has been admitted and has a bed. Pt not appropriate for treatment this morning d/t lethargic state. [employer]URE ARCHITECT will continue to follow.
--- NOTE | 2022-08-08 12:20 | PC.NURSE ---
Report received from ed RN. Pt arrived to unit via hospital bed at 1220. A+Ox1, calm and cooperative. Bladder scan preformed with 374mL, pt was incontinent after, PVR bladder scan was 40mL. Pt cleaned, linens changed. Pt stated he is comfortable. Call peng in reach, bed alarm on, camera in room.
[2022-08-08 12:49] LABS: Glucose, Whole Blood 83 mg/dL (60-115)
[2022-08-08 13:41] LABS: MRSA Nasal PCR NEGATIVE (Negative); SA Nasal PCR NEGATIVE (Negative)
--- NOTE | 2022-08-08 14:10 | P.PNIM_ITS ---
Subjective Subjective Date of Service: 08/08/22 Interval History: seen and examined this morning follow up for covid, pneumonia has dementia; awake, alert, but doesn't seem to be good historian - unable to obtain full ROS for this reason Neurologic Neurologic: Reports confusion Psychiatric Psychiatric: Reports confusion Physical Exam Vital Signs: Vital Signs: Last Vital Signs Temp 97.4 F 08/08/22 12:00 Pulse 66 08/08/22 12:00 Resp 20 08/08/22 12:00 BP 124/72 08/08/22 12:00 Pulse Ox 98 08/08/22 12:00 O2 Del Method 08/08/22 12:00 BMI result Body Mass Index 24.1 Const: General: comfortable, alert, awake and confusion Nutritional Appearance: average body habitus Orientation/consciousness: confusion Resp: Effort & Inspection: normal respiratory effort and able to speak in complete sentences Cardio: Rate: regular rate Heart sounds: S1 normal heart sound present and S2 normal heart sound present GI: Inspection: No distended Palpation (GI): Soft to palpation and nontender Neuro: General: confusion Extrem: General: Yes no pedal edema Objective Data Active Medications Acetaminophen (Acetaminophen 325 Mg Tablet) 650 mg PO Q6H PRN PRN Reason: Pain, Mild (Pain Scale 1-3) Divalproex Sodium (Divalproex Sodium Sprinkles 125 Mg ) 500 mg PO BID [facility] Last Admin: 08/08/22 09:45 Dose: 500 mg Documented By: MAGDALENA Enoxaparin Sodium (Enoxaparin Sodium 40 Mg/0.4 Ml Syringe) 40 mg SUBCUT Q24H [facility] Last Admin: 08/08/22 00:02 Dose: Not Given Documented By: DESTINY Non-Admin Reason: Patient Refused Finasteride (Finasteride 5 Mg Tablet) 5 mg PO DAILY [facility] Last Admin: 08/08/22 09:46 Dose: 5 mg Documented By: MAGDALENA Piperacillin Sod/Tazobactam (Sod 3.375 gm/ Sodium Chloride) 50 mls @ 100 mls/hr IV Q6H [facility] Last Infusion: 08/08/22 13:06 Dose: 0 mls/hr Documented By: ADRIANA Vancomycin HCl 1,250 mg/ (Sodium Chloride) 250 mls @ 166.667 mls/hr IV Q24H [facility] Melatonin (Melatonin 3 Mg Tablet) 6 mg PO BEDTIME PRN PRN Reason: Insomnia Nitrofurantoin Macrocrystals (Nitrofurantoin Macrocrystal 50 Mg Capsule) 50 mg PO BEDTIME [facility] Last Admin: 08/08/22 00:14 Dose: Not Given Documented By: DESTINY Non-Admin Reason: Patient Refused Non-Formulary Medication (Stephens Carbonate) 225 mg PO BID [facility] Nystatin (Nystatin Powder 15 Gm Bottle) 1 appl TOPICAL BID [facility]; Protocol Last Admin: 08/08/22 09:55 Dose: Not Given Documented By: MAGDALENA Non-Admin Reason: Med Not Available Pharmacy Consult (Consult Rx Perform Med Rec) 1 each MISCELLANE ONCE PRN PRN Reason: Consult order Pharmacy Consult (Consult Rx Vancomycin Dosing) 1 each MISCELLANE DAILY PRN PRN Reason: Consult order Pharmacy Consult (Consult Rx Vancomycin Dosing) 1 each MISCELLANE DAILY PRN PRN Reason: Consult order Polyethylene Glycol (Polyethylene Glycol 3350 17 Gm Powd.Pack) 17 gm PO DAILY [facility] Last Admin: 08/08/22 09:41 Dose: Not Given Documented By: MAGDALENA Non-Admin Reason: See Note Quetiapine Fumarate (Quetiapine Fumarate 25 Mg Tablet) 25 mg PO BID PRN PRN Reason: Hallucination/agitation Quetiapine Fumarate (Quetiapine Fumarate 25 Mg Tablet) 25 mg PO DAILY [facility] Last Admin: 08/08/22 09:46 Dose: 25 mg Documented By: MAGDALENA Senna (Sennosides 8.6 Mg Tablet) 17.2 mg PO BEDTIME PRN PRN Reason: Constipation Sodium Biphosphate/Sodium Phosphate (Sodium Phosphate,Crowley-Dibasic 133 Ml Enema) 133 ml AK DAILY PRN PRN Reason: Constipation Sodium Chloride (0.9 % Sodium Chloride Flush 3 Ml Syringe) 3 ml IVFLUSH QSHIFT [facility] Last Admin: 08/08/22 09:45 Dose: 3 ml Documented By: MAGDALENA Tamsulosin HCl (Tamsulosin Hcl 0.4 Mg Capsule) 0.4 mg PO BEDTIME [facility] Last Admin: 08/08/22 00:14 Dose: Not Given Documented By: DESTINY Non-Admin Reason: Patient Refused Trazodone HCl (Trazodone Hcl 25 Mg Halftab) 25 mg PO BEDTIME PRN PRN Reason: Insomnia Trazodone HCl (Trazodone Hcl 25 Mg Halftab) 25 mg PO DAILY [facility] Last Admin: 08/08/22 09:46 Dose: 25 mg Documented By: MAGDALENA Labs CBC & Chem 7: 08/07/22 04:43 08/08/22 06:11 Labs: Laboratory Results - last 24 hr 08/08/22 08/08/22 08/08/22 06:11 11:05 12:19 Anion Gap 15 Estim Creat Clear Calc 64.7 Estimated GFR > 60 POC Glucose 83 Random Glucose 95 Calcium 8.8 Nasal Screen MRSA (PCR) NEGATIVE Nasal S. aureus Screen NEGATIVE Nasal MRSA/S.aureus Interp SEE NOTE Microbiology Microbiology Results: Microbiology 08/06/22 20:01 Blood Culture - Preliminary Blood - Venous Gram positive cocci 08/06/22 20:01 Blood Culture - Preliminary Blood - Venous No growth after 24 hours. Assessment and Plan (1) Pneumonia: Status: Acute (2) COVID-19: Status: Acute Plan 77-year-old male with past medical history of diabetes, bipolar disorder, dementia with behavioral disturbance, squamous cell carcinoma of the skin, BPH, GERD, PTSD, jail resident presented to the hospital today with a chief complaint of shortness of breath noted to have COVID-19 pneumonia.? Admitted for further management.? COVID-19 pneumonia, previously diagnosed No hypoxia seen by ID, no indication for treatment at this time as patient is not hypoxic. Recommended to DC steroids Seen by speech therapy recommend regular diet with thin liquids Bacteremia 1/2 BCx growing Gram-positive cocci in clusters -follow final BCx results; repeat BCx pending History of diabetes Insulin sliding scale.? ADA diet History of PTSD/dementia with behavioral disturbance (type of dementia unknown)/bipolar disorder Continue home Seroquel, lithium carbonate, trazodone History of BPH Continue home Flomax DVT prophylaxis:? Lovenox Attending Dr. Hernandez Code status:? DNR/DNI.? Patient has [facility]OLST form - also listed at [facility] Continue hospitalization for treatment of COVID-19, failure to thrive requiring monitoring of oxygen saturation Quality Stroke Does the patient have a stroke diagnosis?: No VTE Prior VTE?: No VTE Risk Level:: Medical - moderate - high VTE Device Contraindication: N/A - Device Ordered VTE Drug Contraindication: N/A - Med Ordered
[2022-08-08 15:50] LABS: Estimated Average Glucose 103 mg/dL; Hemoglobin A1c % 5.2 %
[2022-08-08 16:41] LABS: Glucose, Whole Blood 89 mg/dL (60-115)
[2022-08-08 19:47] LABS: Glucose, Whole Blood 116 mg/dL (60-115)
[2022-08-08] MEDS: nitrofurantoin macrocrystaL 50 MG CAPSULE PO (21:54)
[2022-08-08] MEDS: Tamsulosin HCL 0.4 MG CAPSULE PO (21:54)
[2022-08-08] MEDS: Lithium Carbonate 300 MG TABLET 225 MG PO (21:54)
[2022-08-09] MEDS: Piperacillin Sodium/Tazobactam 3.375 GM in 0.9 % Sodium Chloride 50 ML IV ×3 (01:31→11:50)
[2022-08-09] MEDS: 0.9 % Sodium Chloride Flush 3 ML SYRINGE IVFLUSH ×2 (01:32→09:12)
[2022-08-09 03:24] VITALS: BP 133/73; PULSE 67; RESP 20; TEMP 36.3; O2SAT 97
[2022-08-09 07:03] LABS: Creatinine Clr Calc Pharmacy 55.3; Estimated Glomerular Filt Rate > 60
[2022-08-09 07:19] LABS: Glucose, Whole Blood 85 mg/dL (60-115)
[2022-08-09 07:34] VITALS: BP 100/74; PULSE 64; RESP 20; TEMP 36.6; O2SAT 97
[2022-08-09 08:00] VITALS: BP 139/81; PULSE 64; RESP 20; TEMP 36.6; O2SAT 99
[2022-08-09] MEDS: polyethylene glycoL 3350 17 GM POWD.PACK PO (09:10)
[2022-08-09] MEDS: QUEtiapine Fumarate 25 MG TABLET PO (09:11)
[2022-08-09] MEDS: traZODone HCL 25 MG HALFTAB PO (09:11)
[2022-08-09] MEDS: Finasteride 5 MG TABLET PO (09:11)
[2022-08-09] MEDS: Divalproex Sodium Sprinkles 125 MG CAP.DR.SPR 500 MG PO (09:11)
[2022-08-09] MEDS: Lithium Carbonate 300 MG TABLET 225 MG PO (09:12)
[2022-08-09 11:06] VITALS: BP 105/65; PULSE 68; RESP 16; TEMP 36.2; O2SAT 99
[2022-08-09 11:07] LABS: Glucose, Whole Blood 131 mg/dL (60-115)
--- NOTE | 2022-08-09 11:21 | PM.DS ---
DS: Providers Provider Date of Service: 08/09/22 Date of admission: 08/06/22 22:49 Date of discharge: 08/09/22 Primary care physician: Mati Bettencourt MD Consults: 08/06/22 22:49 Consult to Infectious Diseases Routine Consulting Provider: Sena Banda Reason for consultation: covid PNA Attending physician on discharge: Jeremy Zuluaga Discharging clinician: Didi Gary DS: Diagnosis Discharge Diagnosis (1) Pneumonia: Status: Acute (2) COVID-19: Status: Acute DS: Summary Hospital Course Hospital Course: From H&P on day of admission 77-year-old male with past medical history of diabetes, bipolar disorder, dementia with behavioral disturbance, squamous cell carcinoma of the skin, BPH, GERD, PTSD, custodial resident presented to the hospital today with a chief complaint of shortness of breath.? Patient is a poor historian.? Most of the history obtained from the staff and records. Patient is alert and awake, oriented x2; mentions that he feels fine.? Reports he was having mild shortness of breath; hence custodial staff cm the hospital for further evaluation.? Reports he has been having cough but has been chronic and unchanged.? Denies any fevers.? Denies any nausea vomiting or diarrhea.? Denies any abdominal discomfort.? Patient denies any chest pain palpitations lightheadedness or dizziness.? Review of all other systems is negative except mentioned above ER course: Per ER team patient was noted to be short of breath and hypoxic at the custodial subsequently sent to the hospital for further evaluation.? Patient was tested positive for COVID-19 on chest x-ray showed pneumonia.? Patient was started on IV vancomycin and Zosyn admitted to the hospital for further management. Patient was admitted to the hospital for treatment of COVID-19 pneumonia. He was started on IV vancomycin, Zosyn and IV Decadron. He has remained afebrile since admission. He has been saturating well on room air and has not required supplemental oxygen. He was seen in consultation by ID, no indication for specific treatment of COVID 19 at this time as patient is not hypoxic, steroids were therefor discontinued. He will be discharged to complete course of antibiotics. He was seen by speech therapy who recommend regular diet with thin liquids initially but on re-eval and discussion with patient decided to downgrade to - puree solids (NDD1), pills whole with puree. Patient requires some supervision during meals to monitor for toleration of diet and signs and symptoms of aspiration. Blood cultures 1/2 growing Gram-positive cocci in clusters, finalized as coagulase-negative Staph, likely contaminant. No further workup required at this time. MRSA nasal swab negative, no need for MRSA coverage. He is awake, alert and able to answer most questions appropriately and his appetite has improved. Time Spent with Patient Time attestation: Total time spent providing and/or coordinating discharge services: Discharge coordination time: Greater than 30 minutes Quality: Safe Use of Opioids Does Pt have an Active Cancer Diagnosis on the Problem List?: No Quality: Stroke Does the patient have a stroke diagnosis?: No Physical Exam Vital Signs: Vital Signs: Last Vital Signs Temp 97.2 F 08/09/22 11:06 Pulse 68 08/09/22 11:06 Resp 16 08/09/22 11:06 BP 105/65 08/09/22 11:06 Pulse Ox 99 08/09/22 11:06 O2 Del Method 08/09/22 11:06 FiO2 98 08/08/22 19:39 BMI result Body Mass Index 24.1 Const: General: comfortable, alert and awake Nutritional Appearance: average body habitus Resp: Effort & Inspection: normal respiratory effort and able to speak in complete sentences Cardio: Rate: regular rate Heart sounds: S1 normal heart sound present and S2 normal heart sound present GI: Inspection: No distended Palpation (GI): Soft to palpation and nontender Extrem: General: Yes no pedal edema DS: Data Data Completed and Pending Labs on day of discharge: Laboratory Results - last 24 hr 08/07/22 08/08/22 08/08/22 04:43 11:05 12:19 Creatinine Estim Creat Clear Calc Estimated GFR POC Glucose 83 Estimat Average Glucose 103 Hemoglobin A1c % 5.2 Nasal Screen MRSA (PCR) NEGATIVE Nasal S. aureus Screen NEGATIVE Nasal MRSA/S.aureus Interp SEE NOTE 08/08/22 08/08/22 08/09/22 16:34 19:44 05:58 Creatinine 1.04 Estim Creat Clear Calc 55.3 Estimated GFR > 60 POC Glucose 89 116 H Estimat Average Glucose Hemoglobin A1c % Nasal Screen MRSA (PCR) Nasal S. aureus Screen Nasal MRSA/S.aureus Interp 08/09/22 08/09/22 07:12 11:00 Creatinine Estim Creat Clear Calc Estimated GFR POC Glucose 85 131 H Estimat Average Glucose Hemoglobin A1c % Nasal Screen MRSA (PCR) Nasal S. aureus Screen Nasal MRSA/S.aureus Interp Preliminary micro results at discharge 08/06/22 20:01 Blood Culture - Preliminary Blood - Venous No growth after 48 hours. Discharge Plan Discharge Patient Disposition: Xfer SNF Discharge Diagnosis: pneumonia Referrals: [facility] [Other] - 1 Week Mati Bettencourt MD [Primary Care Provider] - 1 Week Discharge Medications: New amoxicillin-pot clavulanate 875-125 mg tablet 1 tab PO BID 4 Days Qty: 8 0RF Continued acetaminophen 325 mg Tablet 650 mg PO Q4H PRN (Reason: Pain) divalproex [Depakote Sprinkles] 125 mg Capsule, Delayed Rel Sprinkle 500 mg PO BID bisacodyl [Dulcolax (bisacodyl)] 10 mg Suppository 10 mg ND DAILY PRN (Reason: Pain) Fleet Enema 19-7 gram/118 mL Enema 118 ml ND DAILY PRN (Reason: Constipation) quetiapine [Seroquel] 25 mg Tablet 25 mg PO BID PRN (Reason: Hallucination/agitation) quetiapine [Seroquel] 25 mg Tablet 25 mg PO DAILY trazodone 50 mg Tablet 25 mg PO DAILY trazodone 50 mg Tablet 25 mg PO BEDTIME PRN (Reason: Insomnia) lithium carbonate 150 mg Capsule 225 mg PO BID tamsulosin [Flomax] 0.4 mg Capsule 0.4 mg PO BEDTIME nystatin 100,000 unit/gram Powder 1 appl TOPICAL BID finasteride [Proscar] 5 mg Tablet 5 mg PO DAILY polyethylene glycol 3350 [Miralax] 17 gram Powder In Packet 17 g PO DAILY [facility] nitrofurantoin macrocrystal 50 mg Capsule 50 mg PO BEDTIME Hold Instructions: if chronic resume after antibiotics for pneumonia are completed Rx Instructions: must administer with a meal/food Discharge Orders: Discharge Order (Routine); Ordered 08/09/22 Ordered By: Didi Gary Activity on Discharge: As tolerated Stand Alone Forms: Patient Portal Discharge page Care Plan Goals: see below Health Concerns: covid 19 - has remained on room air. has been afebrile. no specific treatment needed. continue supportive care. isolation per CDC guidelines pneumonia. complete courseof antibiotics. Plan of Treatment: Complete course of antibiotics as prescribed Call to schedule follow-up appointment with PCP, recommend to repeat chest x-ray to ensure resolution of infection in the next 1-2 weeks re-eval by caitlin snider, who recommended to decrease diet to chopped/advance (NDD3) with think liquis and pills whole with liquis - supervision during meals and eval for signs of aspiration - recommend re-eval Assessment: see discharge summary Discharge Date/Time: 08/09/22 03:45
--- NOTE | 2022-08-09 12:20 | MHC.CM.PN ---
IMM 08/09/22 Patient is discharged today. He is a [facility]. They have been notified of discharge and all dc info has been sent. [facility]. Spoke with the [facility] audio visual coordinator. She has set up the ride to SNF.
--- NOTE | 2022-08-09 13:04 | MHC.SL.SWA ---
Speech Pathologist Impression: Dysphagia Risk of Aspiration Due to: Neurological Condition Reduced Cognition Dysphasia Diet Status: Downgrade solids Liquid Consistency and Strategies for Safe Swallow: Liquid Intake Recommendation: Thin Liquid Intake Strategies: Small Sips No Straws Solid Food Consistency: Dietary Recommendations: Chopped/Advanced (NDD3) Additional Modifications to Solid Foods: Moisten with sauces/gravy Oral Medication Intake: Whole with Puree Please contact the pharmacy regarding appropriate crushable or liquid drug formulations that are available whenever modified delivery is recommended. Compensatory Strategies and Precautions to be Taken for Safe Swallow: Sitting Upright (90 deg) No Straw Liquids from Cup Small Bites and Sips Alternate Liquids/Solids Rate of Ingestion Change Supervision While Eating and Drinking for Safe Swallow: Total Supervision (1:1) Foods to Avoid: Sticky and tough to chew food Swallowing Recommended Treatments: Compens. Strategy Educat. Recommendation for Speech: Inpatient Speech Therapy Pt was seen for bedside dysphagia treatment this afternoon. Pt is mostly edentulous. Pt's lunch tray arrived with roast beef sandwich and chicken soup. Pt tolerated thin liquids via cup with no s/s of aspiration. Pt was observed to take large bites of sandwich. Note severely prolonged mastication and piecemiel deglutition. Pt was cued to take smaller bites. Mastication time remained severely timely when provided with cue. At one point pt stated I'm choking. Pt was cued to spit out bolus. Bolus was spit into cup and roast beef was noted to not be properly chewed. Recommend DOWNGRADE to CHOPPED/ADVANCED (NDD3) solids, THIN liquids. Pills to be administered WHOLE in PUREE. Liquids by teaspoon or cup, avoid straws. Pt may be impulsive when eating/drinking and would benefit from cues for safe eating (take small sips, small bites, clear oral cavity before taking more bites). Pt to be seated upright at 90 degrees during PO intake. Recommend continue direct supervision during PO intake. Per nurse at assisted, pt was on a regular diet there (regular solids, thin liquids), fed himself, and was provided with direct supervision during all his meals. Monitor for toleration of diet and s/s of aspiration. If current diet recommendation results in severely prolonged mastication and/or s/s of aspiration, downgrade to NDD2 would be warranted. Comment: Foods to be moistened with sauces and gravies. Behavioral Instructor Clinican/Clinical Fellow: Yes: Annette Sanchez M.A., -[employer]IVERSITY EXTENSION SPECIALIST Supervisory Statement: I have reviewed and agree with the student/clinical fellow's documentation: N/A Speech Language Pathologist: Theresa Pickard M.A., [facility]-UNIVERSITY EXTENSION SPECIALIST
--- NOTE | 2022-08-09 14:48 | MHC.SL.SWA ---
Addendum entered and electronically signed by Theresa Pickard MA, CCC-MAJOR GENERAL 08/09/22 18:32: D.S. Original Note: Speech Pathologist Impression: Oropharyngeal Dysphagia Risk of Aspiration Due to: Neurological Condition Reduced Cognition Dysphasia Diet Status: Recommend DOWNGRADE to PUREE (NDD1) solids, THIN liquids. Pills to be administered WHOLE in PUREE. Liquids by teaspoon or cup, avoid straws. Liquid Consistency and Strategies for Safe Swallow: Liquid Intake Recommendation: Thin Liquid Intake Strategies: Small Sips No Straws Solid Food Consistency: Dietary Recommendations: Pureed (NDD1) Oral Medication Intake: Whole with Puree Please contact the pharmacy regarding appropriate crushable or liquid drug formulations that are available whenever modified delivery is recommended. Compensatory Strategies and Precautions to be Taken for Safe Swallow: Sitting Upright (90 deg) No Straw Liquids from Cup Small Bites and Sips Alternate Liquids/Solids Rate of Ingestion Change Supervision While Eating and Drinking for Safe Swallow: Total Supervision (1:1) Foods to Avoid: Sticky and tough to chew food Swallowing Recommended Treatments: Compens. Strategy Educat. Recommendation for Speech: Inpatient Speech Therapy D/t mostly edentulous state pt presents with severely prolonged chewing/mashing and piecemeal degluttition on regular solids, chopped, and ground consistencies. MAJOR GENERAL trialed unrestricted sandwich, small bites of sandwich with and without sauce, sha cracker dipped in pudding, sha cracker moistened and crushed in pudding. Pt continuously stated this is hard to eat. Severely prolonged chewing and mashing, prolonged AP transport was observed. Mild oral residue cleared with subsequent swallow and/or liquids. Pt observed to be able to manipulate bolus in mouth and clear residue from gums/cheeks with tongue. When given pudding, pt stated Now this is easy to eat. MAJOR GENERAL asked pt if he would prefer to not have to chew his food and have it all pureed like the consistency of pudding. Pt responded, Yeah, that sounds nice. Let's give it a shot! MAJOR GENERAL restated that everything would be pureed, including meats. Pt was agreeable. Recommend DOWNGRADE to PUREE (NDD1) solids. Continue with THIN liquids. Pills to be administered WHOLE in PUREE. Liquids by teaspoon or cup, avoid straws. Pt may be impulsive when eating/drinking and would benefit from cues for safe eating (take small sips, small bites, clear oral cavity before taking more bites). Pt to be seated upright at 90 degrees during PO intake. Recommend continue direct supervision during PO intake. Monitor for toleration of diet and s/s of aspiration. Recommend speech therapy for dysphagia to be continued at next level of care. Activated Sludge Operator Clinican/Clinical Fellow: Yes: Annette Sanchez M.A., CF-[employer] GENER[employer] Supervisory Statement: I have reviewed and agree with the student/clinical fellow's documentation: N/A Speech Language Pathologist: Theresa Pickard M.A., CCC-MAJOR GENERAL
== END 2022-08-09 03:45 | disposition skilled nursing facility (03) | DRG 177 ==
LOC: HO.ED 21:06 → HO.EDOVER 23:02 → HO.IMC 08-08 11:45
PROVIDERS: Nurse Practitioner Acute Care; Admitting Provider Hospitalist; Emergency Provider Emergency Medicine; PCP Family Medicine Geriatric Medicine; Visit Provider Physician Assistant Medical
DX: U07.1 COVID-19 (principal); J12.82 Pneumonia due to coronavirus disease 2019; F03.91 Unspecified dementia, unspecified severity, with behavioral disturbance; Z66 Do not resuscitate; R62.7 Adult failure to thrive; Z68.24 Body mass index [BMI] 24.0-24.9, adult; F31.9 Bipolar disorder, unspecified; K21.9 Gastro-esophageal reflux disease without esophagitis; N40.0 Benign prostatic hyperplasia without lower urinary tract symptoms; F43.10 Post-traumatic stress disorder, unspecified; E11.9 Type 2 diabetes mellitus without complications; Z85.828 Personal history of other malignant neoplasm of skin; Z79.899 Other long term (current) drug therapy
CPT/HCPCS: 36415; 71045; 80048; 80076; 81001; 82565; 82947; 83036; 83605; 83690; 83880; 84484; 85025; 87040; 87147; 87205; 87635; 87640; 87641; 92526; 92610; 93005; 99285; J2543; J3370

== ENCOUNTER 2023-03-06 12:15 | Inpatient (IN) | payer OTHER, SELFPAY ==
--- NOTE | ~2023-03-06 | XR_ITS ---
EXAMINATION: XR CHEST CLINICAL INFORMATION: Hypoxia COMPARISON: 08/06/2022 TECHNIQUE: Frontal view of the chest was obtained. FINDINGS: Lung volumes are low. Patchy opacities are seen at the lung bases, left greater than right. No pleural effusion or pneumothorax. The cardiomediastinal silhouette is unchanged, with a tortuous and calcified aorta. Degenerative changes at both shoulders. Narrowing of the subacromial space bilaterally suggestive of chronic rotator cuff disease. XR/XR chest 1V IMPRESSION: Low lung volumes with patchy basilar opacities, left greater than right. This could be atelectasis or pneumonia.
--- NOTE | ~2023-03-06 | CT_ITS ---
EXAMINATION: CT HEAD WITHOUT CONTRAST CLINICAL INFORMATION: AMS COMPARISON: July 19, 2021 TECHNIQUE: Contiguous axial imaging was performed from the skull base to vertex without intravenous administration of contrast. This CT examination was performed using dose optimization techniques as appropriate, variously including the following: *Automated exposure control *Adjustment of mA and/or kV according to patient size (this includes techniques or standardized protocols for targeted exams where dose is matched to indication/reason for exam; i.e. extremities or head) *Use of iterative reconstruction technique DLP: 723 mGy-cm FINDINGS: No intracranial hemorrhage is identified. No significant mass effect or midline structure shift is seen. No abnormal extra-axial fluid collection is noted. 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 Periventricular white matter low density seen consistent with microangiopathy. There is prominence of the ventricles, sulci, and cisterns consistent with generalized atrophy. Vascular calcifications present. The visualized paranasal sinuses and mastoid air cells unremarkable. Pterygoid plates intact. Temporal mandibular joints unremarkable. CT/CT head/brain wo IV con IMPRESSION: No acute intracranial pathology. Generalized atrophy with stable bilateral infarcts as described.
[2023-03-06 12:21] VITALS: BP 132/81; BP 138/82; PULSE 87; PULSE 88; RESP 18; TEMP 36.8; O2SAT 96; BMI 25.9
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
--- NOTE | 2023-03-06 13:11 | ED.GENADULT ---
HPI - General Adult General Chief complaint: General Medical <ALESSANDRO Boston - Last Filed: 03/06/23 16:34> Stated complaint: AGGRESSIVE: STAFF/RESIDENT @ SNF,NON MED COMPLIANT <ALESSANDRO Boston - Last Filed: 03/06/23 16:34> Time Seen by Provider: 03/06/23 13:11 <ALESSANDRO Boston - Last Filed: 03/06/23 16:34> Source: patient and EMS <ALESSANDRO Boston - Last Filed: 03/06/23 16:34> Mode of arrival: EMS <ALESSANDRO Boston - Last Filed: 03/06/23 16:34> Limitations: altered mental status <ALESSANDRO Boston Last Filed: 03/06/23 16:34> History of Present Illness HPI narrative: Patient is a 78 year old assigned male at with a history of dementia and PTSD presenting to the emergency department today with an increase in aggressive behavior at his skilled nursing this AM. Patient has not been taking his medications for the past 3 days. History limited due to dementia, patient denies any dizziness, lightheadedness, abdominal pain, nausea, vomiting, fever, chills, chest pain, difficulty breathing, shortness of breath at this time. <ALESSANDRO Boston - Last Filed: 03/06/23 16:34> Onset (ago): day(s) (3) <ALESSANDRO Boston - Last Filed: 03/06/23 16:34> Relieving factors: none <ALESSANDRO [place] - Last Filed: 03/06/23 16:34> Exacerbating factors: none <ALESSANDRO [place] Last Filed: 03/06/23 16:34> Treatments prior to arrival: none <ALESSANDRO Boston - Last Filed: 03/06/23 16:34> Related Data Home medications: Home Medications Medication Instructions Recorded Confirmed acetaminophen 325 mg tablet 650 mg PO Q4H PRN Pain 08/06/22 03/06/23 bisacodyl 10 mg rectal suppository 10 mg OR DAILY PRN Pain 08/06/22 03/06/23 (Dulcolax (bisacodyl)) divalproex 125 mg capsule,delayed 500 mg PO BID 08/06/22 03/06/23 release sprinkle (Depakote Sprinkles) finasteride 5 mg tablet (Proscar) 5 mg PO BEDTIME 08/06/22 03/06/23 lithium carbonate 150 mg capsule 225 mg PO BID 08/06/22 03/06/23 nitrofurantoin macrocrystal 50 mg 50 mg PO BEDTIME PRN UTI SYMPTOMS 08/06/22 03/06/23 capsule polyethylene glycol 3350 17 gram 17 g PO DAILY 08/06/22 03/06/23 oral powder packet (Miralax) quetiapine 25 mg tablet (Seroquel) 25 mg PO DAILY 08/06/22 03/06/23 sodium phosphates 19 gram-7 118 ml OR DAILY PRN Constipation 08/06/22 03/06/23 gram/118 mL enema (Fleet Enema) tamsulosin 0.4 mg capsule (Flomax) 0.4 mg PO BEDTIME 08/06/22 03/06/23 trazodone 50 mg tablet 25 mg PO DAILY PRN Agitation 08/06/22 03/06/23 trazodone 50 mg tablet 50 mg PO BEDTIME 08/06/22 03/06/23 albuterol sulfate 0.63 mg/3 mL 0.63 mg inhalation Q4H PRN 03/06/23 03/06/23 solution for nebulization Shortness Of Breath dextromethorphan-guaifenesin 10 10 ml PO Q4H PRN Cough 03/06/23 03/06/23 mg-100 mg/5 mL oral liquid (Tussin DM) <ALESSANDRO [place] - Last Filed: 03/06/23 16:34> Allergies/adverse reactions: Allergies Allergy/AdvReac Type Severity Reaction Status Date / Time No Known Allergies Allergy Verified 05/17/21 18:44 <ALESSANDRO [place] - Last Filed: 03/06/23 16:34> Review of Systems Review of Systems: Yes Unobtainable due to mental status (patient is demented at baseline) <ALESSANDRO [place] - Last Filed: 03/06/23 16:34> Constitutional: Constitutional: Reports as per HPI <ALESSANDRO Boston - Last Filed: 03/06/23 16:34> Eyes: Eyes: Reports no additional eye complaints <ALESSANDRO [place] - Last Filed: 03/06/23 16:34> ENT: Reports system reviewed and no additional complaints, except as documented <ALESSANDRO [place] - Last Filed: 03/06/23 16:34> Cardiovascular: Cardiovascular: Reports no additional cardiovascular complaints, Denies chest pain, Denies lightheadedness and Denies dyspnea <ALESSANDRO [place] - Last Filed: 03/06/23 16:34> Respiratory: Respiratory: Reports no additional respiratory complaints and Denies dyspnea <ALESSANDRO [place] - Last Filed: 03/06/23 16:34> Gastrointestinal: Gastrointestinal: Reports no additional gastrointestinal complaints and Denies abdominal pain <ALESSANDRO Boston - Last Filed: 03/06/23 16:34> Genitourinary: Genitourinary: Reports no additional male genitourinary complaints <ALESSANDRO [place] - Last Filed: 03/06/23 16:34> Musculoskeletal: Musculoskeletal: Reports no additional musculoskeletal complaints <ALESSANDRO Boston - Last Filed: 03/06/23 16:34> Neurologic: Reports behavioral changes (increased aggression) and Reports confusion (chronic for the patient) <ALESSANDRO Boston - Last Filed: 03/06/23 16:34> Psychiatric: Psychiatric: Reports behavioral changes (increased aggression) and Reports confusion (chronic for the patient) <ALESSANDRO Boston - Last Filed: 03/06/23 16:34> Endocrine: Endocrine: Reports no additional endocrine complaints <ALESSANDRO Boston - Last Filed: 03/06/23 16:34> Hematologic/Lymphatic: Hematologic/Lymphatic: Reports no additional hematologic/lymphatic complaints <ALESSANDRO Boston - Last Filed: 03/06/23 16:34> Allergic/Immunologic: Allergic/Immunologic: Reports no additional allergic/immunologic complaints <ALESSANDRO [place] - Last Filed: 03/06/23 16:34> PMF Past Medical History Attestation statement: The following information was validated with the patient. <ALESSANDRO [place] - Last Filed: 03/06/23 16:34> Source: old records reviewed, obtained from family (patient's son), nursing notes reviewed and other (SNF documentation reviewed) <ALESSANDRO [place] - Last Filed: 03/06/23 16:34> Medical History: Medical History Bipolar 1 disorder Cataracts, bilateral Dementia Diabetes GERD (gastroesophageal reflux disease) PTSD (post-traumatic stress disorder) Squamous cell carcinoma <ALESSANDRO [place] - Last Filed: 03/06/23 16:34> Social History Social History: Social History Housing: Assisted Alcohol intake: never Patient Tobacco Use Status: Former Tobacco user Smoked in Last 30 Days: No Use of substances other than those prescribed or required for medical reasons: No Advance Directives: Yes Advance Directives on File: Yes Advance Directives Date on File: 07/19/21 Healthcare Proxy: Yes Guardian: No service: Yes <ALESSANDRO Boston - Last Filed: 03/06/23 16:34> Physical Exam ED Vital Signs: Vital Signs - 24 hr 03/07/23 16:25 03/07/23 16:40 03/07/23 16:55 Temperature Pulse Rate 108 H 99 Respiratory Rate 26 H 28 H 20 Blood Pressure Pulse Oximetry 94 95 Oxygen Delivery Method Room Air Room Air Oxygen Flow Rate 03/07/23 17:10 03/07/23 17:25 03/07/23 17:40 Temperature Pulse Rate Respiratory Rate 26 H 22 H 22 H Blood Pressure Pulse Oximetry Oxygen Delivery Method Oxygen Flow Rate 03/07/23 18:00 03/07/23 18:15 03/07/23 18:30 Temperature Pulse Rate 116 H 89 87 Respiratory Rate 28 H 20 Blood Pressure 143/85 H 139/83 Pulse Oximetry 94 20 L 98 Oxygen Delivery Method Room Air Room Air Oxygen Flow Rate 97 03/07/23 18:45 03/07/23 19:00 03/08/23 04:02 Temperature Pulse Rate 84 83 Respiratory Rate 20 26 H 17 Blood Pressure 120/78 Pulse Oximetry 97 97 Oxygen Delivery Method Room Air Room Air Oxygen Flow Rate 03/08/23 07:54 03/08/23 11:27 03/08/23 15:56 Temperature 98.0 F Pulse Rate 71 72 81 Respiratory Rate 18 16 16 Blood Pressure 139/74 123/78 Pulse Oximetry 98 97 98 Oxygen Delivery Method Room Air Room Air Room Air Oxygen Flow Rate BMI result Body Mass Index 25.9 <AELSSANDRO Boston - Last Filed: 03/06/23 16:34> Vital Signs - 24 hr 03/07/23 16:25 03/07/23 16:40 03/07/23 16:55 Temperature Pulse Rate 108 H 99 Respiratory Rate 26 H 28 H 20 Blood Pressure Pulse Oximetry 94 95 Oxygen Delivery Method Room Air Room Air Oxygen Flow Rate 03/07/23 17:10 03/07/23 17:25 03/07/23 17:40 Temperature Pulse Rate Respiratory Rate 26 H 22 H 22 H Blood Pressure Pulse Oximetry Oxygen Delivery Method Oxygen Flow Rate 03/07/23 18:00 03/07/23 18:15 03/07/23 18:30 Temperature Pulse Rate 116 H 89 87 Respiratory Rate 28 H 20 Blood Pressure 143/85 H 139/83 Pulse Oximetry 94 20 L 98 Oxygen Delivery Method Room Air Room Air Oxygen Flow Rate 97 03/07/23 18:45 03/07/23 19:00 03/08/23 04:02 Temperature Pulse Rate 84 83 Respiratory Rate 20 26 H 17 Blood Pressure 120/78 Pulse Oximetry 97 97 Oxygen Delivery Method Room Air Room Air Oxygen Flow Rate 03/08/23 07:54 03/08/23 11:27 03/08/23 15:56 Temperature 98.0 F Pulse Rate 71 72 81 Respiratory Rate 18 16 16 Blood Pressure 139/74 123/78 Pulse Oximetry 98 97 98 Oxygen Delivery Method Room Air Room Air Room Air Oxygen Flow Rate BMI result Body Mass Index 25.9 <ALESSANDRO Landeros - Last Filed: 03/07/23 16:23> Vital Signs - 24 hr 03/07/23 16:25 03/07/23 16:40 03/07/23 16:55 Temperature Pulse Rate 108 H 99 Respiratory Rate 26 H 28 H 20 Blood Pressure Pulse Oximetry 94 95 Oxygen Delivery Method Room Air Room Air Oxygen Flow Rate 03/07/23 17:10 03/07/23 17:25 03/07/23 17:40 Temperature Pulse Rate Respiratory Rate 26 H 22 H 22 H Blood Pressure Pulse Oximetry Oxygen Delivery Method Oxygen Flow Rate 03/07/23 18:00 03/07/23 18:15 03/07/23 18:30 Temperature Pulse Rate 116 H 89 87 Respiratory Rate 28 H 20 Blood Pressure 143/85 H 139/83 Pulse Oximetry 94 20 L 98 Oxygen Delivery Method Room Air Room Air Oxygen Flow Rate 97 03/07/23 18:45 03/07/23 19:00 03/08/23 04:02 Temperature Pulse Rate 84 83 Respiratory Rate 20 26 H 17 Blood Pressure 120/78 Pulse Oximetry 97 97 Oxygen Delivery Method Room Air Room Air Oxygen Flow Rate 03/08/23 07:54 03/08/23 11:27 03/08/23 15:56 Temperature 98.0 F Pulse Rate 71 72 81 Respiratory Rate 18 16 16 Blood Pressure 139/74 123/78 Pulse Oximetry 98 97 98 Oxygen Delivery Method Room Air Room Air Room Air Oxygen Flow Rate BMI result Body Mass Index 25.9 <Emily Gonzalez NP - Last Filed: 03/08/23 16:15> Const General: confusion (chronic for the patient) <ALESSANDRO [place] - Last Filed: 03/06/23 16:34> Nutritional Appearance: well nourished <ALESSANDRO Boston - Last Filed: 03/06/23 16:34> Orientation/consciousness: oriented to person, No oriented to place, No oriented to time and confusion (chronic for the patient) <ALESSANDRO [place] - Last Filed: 03/06/23 16:34> Limitations: altered mental status <ALESSANDRO Boston - Last Filed: 03/06/23 16:34> HENMT Head: Yes normal to inspection and Yes atraumatic <ALESSANDRO [place] - Last Filed: 03/06/23 16:34> Ears: hearing grossly normal bilaterally and external ears normal <ALESSANDRO [place] - Last Filed: 03/06/23 16:34> General nose exam: Normal external nose present, no nasal discharge noted and no epistaxis <ALESSANDRO [place] - Last Filed: 03/06/23 16:34> Face and sinus: Yes normal facial exam, No abrasion and No laceration <ALESSANDRO Boston - Last Filed: 03/06/23 16:34> Mouth: Normal oral and palatal mucosa present, no drooling and no muffled voice <ALESSANDRO [place] - Last Filed: 03/06/23 16:34> Eyes General: appearance normal, both eyes and all related structures <ALESSANDRO [place] - Last Filed: 03/06/23 16:34> Periorbital: periorbital findings normal <Fidelina Caldera [place] - Last Filed: 03/06/23 16:34> Eyelids: Yes eyelids normal <Fidelina Caldera PA - Last Filed: 03/06/23 16:34> Conjunctivae: conjunctivae normal <Fidelina Caldrea PA - Last Filed: 03/06/23 16:34> Pupils: Equal, round and reactive pupils present <Fidelina Caldera PA - Last Filed: 03/06/23 16:34> EOM: EOMs intact bilaterally <Fidelian Caldera PA - Last Filed: 03/06/23 16:34> Neck Neck: Yes normal visual inspection, Yes full ROM and Yes no lymphadenopathy <Fidelina Caldera [place] - Last Filed: 03/06/23 16:34> Chest Chest palpation & inspection: normal inspection of the chest <Fidelina Caldera [place] - Last Filed: 03/06/23 16:34> Resp Effort & Inspection: normal respiratory effort and able to speak in complete sentences <Fidelina Caldera [place] - Last Filed: 03/06/23 16:34> Cardio Rate: regular rate <Fidelina Caldera [place] - Last Filed: 03/06/23 16:34> Rhythm: regular rhythm <Fidelina Caldera [place] - Last Filed: 03/06/23 16:34> GI Inspection: Yes normal to inspection <Fidelina Caldera [place] - Last Filed: 03/06/23 16:34> Neuro General: oriented to person, No oriented to place, No oriented to time and confusion (chronic for the patient) <Fidelina Caldera [place] - Last Filed: 03/06/23 16:34> Cranial nerves: Yes Equal, round and reactive pupils present <Fidelina Caldera PA - Last Filed: 03/06/23 16:34> Motor exam (neuro): 5/5 motor strength present throughout <Fidelina Caldera PA - Last Filed: 03/06/23 16:34> Sensory Exam: Normal double simultaneous stimulation for sensation <Fidelina Caldera PA - Last Filed: 03/06/23 16:34> Coordination: [id number] test normal <Fidelina Caldera [place] - Last Filed: 03/06/23 16:34> Extrem General: Yes normal to inspection, Yes full ROM and Yes capillary refill normal <ALESSANDRO [place] Last Filed: 03/06/23 16:34> Psych Appearance: grossly normal <ALESSANDRO [place] Last Filed: 03/06/23 16:34> Mental Status: mental status grossly normal <ALESSANDRO [place] Last Filed: 03/06/23 16:34> Speech and movement: Clear speech present <ALESSANDRO [place] Last Filed: 03/06/23 16:34> Affect: normal affect <ALESSANDRO [place] Last Filed: 03/06/23 16:34> Attitude: Guarded attititude/behavior present <ALESSANDRO [place] Last Filed: 03/06/23 16:34> Thought process: Flight of ideas present and Loose association thought process present <ALESSANDRO [place] Last Filed: 03/06/23 16:34> Thought content: suicidality and no homicidality <ALESSANDRO [place] Last Filed: 03/06/23 16:34> Insight: Poor insight present (Psych) <ALESSANDRO [place] Last Filed: 03/06/23 16:34> Judgement: Poor judgement present (Psych) <ALESSANDRO [place] Last Filed: 03/06/23 16:34> Course Reevaluation(s) Reevaluation #1: physician observation continued overnight. He required IM benadryl, ativan and haldol yesterday on arrival the ER. Has since been calm and cooperative when waking up. He is still pending a UA, straight cath ordered. Looks like he has a history of UTIs and is on prn cipro qhs for UTI symptoms. all home meds restarted including depakote and lithium. may benefit from psych consult. will await UA. will continue to monitor. <ALESSANDRO Landeros Last Filed: 03/07/23 16:23> Reevaluation #2: Patient evaluated by the care team and Psychiatry today. Unfortunately continues to refuse p.o. medications. He continues to refuse additional labs including lithium level and ammonia level. He is increasingly combative and agitated this afternoon, IM Zyprexa has been ordered. His urinalysis today is negative for infection. He is going to be an inpatient geriatric bed search. Will reassess after intramuscular Zyprexa has been administered. <ALESSANDRO Landeros - Last Filed: 03/07/23 16:23> Time: 16:22 <ALESSANDRO Landeros - Last Filed: 03/07/23 16:23> Reevaluation #3: No complaints from nursing overnight. Vital signs reviewed and stable. Will continue physician observation pending disposition <Emiyl Gonzalez NP - Last Filed: 03/08/23 16:15> Additional Reevaluation(s): 1615-nursing informed me that patient has a rash in his back which did notice today. Patient is not itching the rash. He has no complaints. He has no rash elsewhere around the body. Will monitor <Emily Gonzalez NP - Last Filed: 03/08/23 16:15> Medications Administered Generic Name Dose Route Start Last Admin Trade Name Freq PRN Reason Stop Dose Admin Divalproex Sodium 500 mg 03/07/23 09:00 03/08/23 11:20 Divalproex Sodium Sprinkles 125 Mg Cap PO Not Given BID WISAM Finasteride 5 mg 03/07/23 21:00 03/07/23 20:58 Finasteride 5 Mg Tablet PO 5 mg BEDTIME WISAM Administration [place] Carbonate 300 mg 03/07/23 21:00 03/08/23 11:20 [place] Carbonate 300 Mg Capsule PO Not Given BID WISAM Polyethylene Glycol 17 gm 03/07/23 09:00 03/08/23 11:17 Polyethylene Glycol 3350 17 Gm Powd.Pack PO Not Given DAILY WISAM Quetiapine Fumarate 25 mg 03/07/23 09:00 03/08/23 11:20 Quetiapine Fumarate 25 Mg Tablet PO Not Given DAILY WISAM Tamsulosin HCl 0.4 mg 03/07/23 21:00 03/07/23 20:57 Tamsulosin Hcl 0.4 Mg Capsule PO 0.4 mg BEDTIME WISAM Administration Trazodone HCl 50 mg 03/07/23 21:00 03/07/23 20:58 Trazodone Hcl 50 Mg Tablet PO 50 mg BEDTIME WISAM Administration Discontinued Medications Generic Name Dose Route Start Last Admin Trade Name Freq PRN Reason Stop Dose Admin Diphenhydramine HCl 50 mg 03/06/23 13:51 03/06/23 13:59 Diphenhydramine Hcl 50 Mg/Ml Vial IM 03/06/23 13:52 50 mg ONCE ONE Administration Haloperidol Lactate 5 mg 03/06/23 13:51 03/06/23 13:59 Haloperidol Lactate 5 Mg/Ml Vial IM 03/06/23 13:52 5 mg ONCE ONE Administration Lorazepam 2 mg 03/06/23 13:51 03/06/23 13:59 Lorazepam 2 Mg/Ml Vial IM 03/06/23 13:52 2 mg ONCE ONE Administration Lorazepam 2 mg 03/07/23 18:00 03/07/23 18:00 Lorazepam 2 Mg/Ml Vial IM 03/07/23 18:01 2 mg STAT STA Administration Olanzapine 5 mg 03/07/23 16:21 03/07/23 16:25 Olanzapine 10 Mg Vial IM 03/07/23 16:22 5 mg STAT STA Administration Olanzapine 5 mg 03/07/23 16:44 03/07/23 16:40 Olanzapine 10 Mg Vial IM 03/07/23 16:45 5 mg STAT STA Administration <ALESSANDRO [place] - Last Filed: 03/06/23 16:34> Medications Administered Generic Name Dose Route Start Last Admin Trade Name Freq PRN Reason Stop Dose Admin Divalproex Sodium 500 mg 03/07/23 09:00 03/08/23 11:20 Divalproex Sodium Sprinkles 125 Mg Cap. PO Not Given BID WISAM Finasteride 5 mg 03/07/23 21:00 03/07/23 20:58 Finasteride 5 Mg Tablet PO 5 mg BEDTIME WISAM Administration [place] Carbonate 300 mg 03/07/23 21:00 03/08/23 11:20 [place] Carbonate 300 Mg Capsule PO Not Given BID WISAM Polyethylene Glycol 17 gm 03/07/23 09:00 03/08/23 11:17 Polyethylene Glycol 3350 17 Gm Powd.Pack PO Not Given DAILY WISAM Quetiapine Fumarate 25 mg 03/07/23 09:00 03/08/23 11:20 Quetiapine Fumarate 25 Mg Tablet PO Not Given DAILY WISAM Tamsulosin HCl 0.4 mg 03/07/23 21:00 03/07/23 20:57 Tamsulosin Hcl 0.4 Mg Capsule PO 0.4 mg BEDTIME WISAM Administration Trazodone HCl 50 mg 03/07/23 21:00 03/07/23 20:58 Trazodone Hcl 50 Mg Tablet PO 50 mg BEDTIME WISAM Administration Discontinued Medications Generic Name Dose Route Start Last Admin Trade Name Caesar PRN Reason Stop Dose Admin Diphenhydramine HCl 50 mg 03/06/23 13:51 03/06/23 13:59 Diphenhydramine Hcl 50 Mg/Ml Vial IM 03/06/23 13:52 50 mg ONCE ONE Administration Haloperidol Lactate 5 mg 03/06/23 13:51 03/06/23 13:59 Haloperidol Lactate 5 Mg/Ml Vial IM 03/06/23 13:52 5 mg ONCE ONE Administration Lorazepam 2 mg 03/06/23 13:51 03/06/23 13:59 Lorazepam 2 Mg/Ml Vial IM 03/06/23 13:52 2 mg ONCE ONE Administration Lorazepam 2 mg 03/07/23 18:00 03/07/23 18:00 Lorazepam 2 Mg/Ml Vial IM 03/07/23 18:01 2 mg STAT STA Administration Olanzapine 5 mg 03/07/23 16:21 03/07/23 16:25 Olanzapine 10 Mg Vial IM 03/07/23 16:22 5 mg STAT STA Administration Olanzapine 5 mg 03/07/23 16:44 03/07/23 16:40 Olanzapine 10 Mg Vial IM 03/07/23 16:45 5 mg STAT STA Administration <ALESSANDRO Landeros - Last Filed: 03/07/23 16:23> Medications Administered Generic Name Dose Route Start Last Admin Trade Name Caesar PRN Reason Stop Dose Admin Divalproex Sodium 500 mg 03/07/23 09:00 03/08/23 11:20 Divalproex Sodium Sprinkles 125 Mg Cap. PO Not Given BID WISAM Finasteride 5 mg 03/07/23 21:00 03/07/23 20:58 Finasteride 5 Mg Tablet PO 5 mg BEDTIME WISAM Administration [place] Carbonate 300 mg 03/07/23 21:00 03/08/23 11:20 [place] Carbonate 300 Mg Capsule PO Not Given BID WISAM Polyethylene Glycol 17 gm 03/07/23 09:00 03/08/23 11:17 Polyethylene Glycol 3350 17 Gm Powd.Pack PO Not Given DAILY WISAM Quetiapine Fumarate 25 mg 03/07/23 09:00 03/08/23 11:20 Quetiapine Fumarate 25 Mg Tablet PO Not Given DAILY WISAM Tamsulosin HCl 0.4 mg 03/07/23 21:00 03/07/23 20:57 Tamsulosin Hcl 0.4 Mg Capsule PO 0.4 mg BEDTIME WISAM Administration Trazodone HCl 50 mg 03/07/23 21:00 03/07/23 20:58 Trazodone Hcl 50 Mg Tablet PO 50 mg BEDTIME WISAM Administration Discontinued Medications Generic Name Dose Route Start Last Admin Trade Name Caesar PRN Reason Stop Dose Admin Diphenhydramine HCl 50 mg 03/06/23 13:51 03/06/23 13:59 Diphenhydramine Hcl 50 Mg/Ml Vial IM 03/06/23 13:52 50 mg ONCE ONE Administration Haloperidol Lactate 5 mg 03/06/23 13:51 03/06/23 13:59 Haloperidol Lactate 5 Mg/Ml Vial IM 03/06/23 13:52 5 mg ONCE ONE Administration Lorazepam 2 mg 03/06/23 13:51 03/06/23 13:59 Lorazepam 2 Mg/Ml Vial IM 03/06/23 13:52 2 mg ONCE ONE Administration Lorazepam 2 mg 03/07/23 18:00 03/07/23 18:00 Lorazepam 2 Mg/Ml Vial IM 03/07/23 18:01 2 mg STAT STA Administration Olanzapine 5 mg 03/07/23 16:21 03/07/23 16:25 Olanzapine 10 Mg Vial IM 03/07/23 16:22 5 mg STAT STA Administration Olanzapine 5 mg 03/07/23 16:44 03/07/23 16:40 Olanzapine 10 Mg Vial IM 03/07/23 16:45 5 mg STAT STA Administration <Emily Gonzalez NP - Last Filed: 03/08/23 16:15> Medical Decision Making Medical Decision Making MDM Narrative: Patient is a 78 year old assigned male at with a history of dementia and PTSD presenting to the emergency department today with increased aggressive behavior. Patient's physical exam showed a chronically confused and more aggressive individual. Patient's blood work was unremarkable. Patient's urine is pending. Patient is awaiting CARE team evaluation. <ALESSANDRO [place] - Last Filed: 03/06/23 16:34> Differential Diagnosis Differential Diagnoses: The differential diagnosis associated with the presentation includes <ALESSANDRO [place] Last Filed: 03/06/23 16:34> worsening aggression, PTSD <ALESSANDRO [place] - Last Filed: 03/06/23 16:34> Lab Data MDM Lab Attestation statement: I reviewed the patient's lab results. <ALESSANDRO [place] - Last Filed: 03/06/23 16:34> Result Diagrams: 03/06/23 14:46 03/06/23 14:46 <ALESSANDRO [place] - Last Filed: 03/06/23 16:34> Labs: Lab Results 03/06/23 03/06/23 03/06/23 Range/Units 14:42 14:46 14:46 WBC 9.1 (4.8-10.8) X10*3/uL RBC 4.29 L (4.60-5.80) X10*6/uL Hgb 12.3 L (14.0-18.0) g/dl Hct 38.9 L (42.0-52.0) % MCV 90.7 (80.0-98.0) fL MCH 28.7 (27.0-33.0) pg MCHC 31.6 (31.0-36.0) g/dl RDW 16.1 H (11.0-16.0) % Plt Count 310 D (160-400) X10*3/uL MPV 9.4 (9.4-12.4) fL Immature Gran % (Auto) 1.1 H (0.0-0.4) % Neut % (Auto) 78.7 H (45-73) % Lymph % (Auto) 8.7 L (20-40) % [place] % (Auto) 9.9 (2-11) % Eos % (Auto) 1.1 (0-4) % Baso % (Auto) 0.5 (0-2) % Lymph # (Auto) 0.8 L (1.2-4.9) X10*3/uL [place] # (Auto) 0.9 (0.1-1.2) X10*3/uL Eos # (Auto) 0.1 (0.0-0.4) X10*3/uL Baso # (Auto) 0.1 (0.0-0.2) X10*3/uL Abs Immat Gran (auto) 0.10 H (0.00-0.03) X10*3/uL Absolute Neuts (auto) 7.2 (2.0-8.3) x10*3/uL Absolute Nucleated RBC 0.000 (0.0-0.012) X10*3/uL Nucleated RBC % (auto) 0.0 (0.0-0.2) /100WBC Sodium 141 (135-145) mmol/L Potassium 4.2 (3.3-5.1) mmol/L Chloride 109 H (96-108) mmol/L Carbon Dioxide 22 (22-29) mmol/L Anion Gap 14 (12-20) BUN 15 (9-16) mg/dL Creatinine 1.14 (0.5-1.4) mg/dL Estim Creat Clear Calc 49.7 Estimated GFR > 60 POC Glucose (60-115) mg/dL Random Glucose 132 H (60-115) mg/dL Calcium 9.1 (8.4-10.2) mg/dL Total Bilirubin 0.7 (0.0-1.0) mg/dL AST 10 (5-37) U/L ALT 6 (0-40) U/L Alkaline Phosphatase 94 (39-117) U/L Ammonia (13-55) umol/L Total Protein 6.0 L (6.5-8.0) g/dL Albumin 3.6 (3.5-5.0) g/dL Urine Color Urine Appearance Urine pH (5.0-9.0) Ur Specific Clever (1.005-1.025) Urine Protein (Neg-Trace) mg/dL Urine Glucose (UA) (Negative) mg/dL Urine Ketones (Negative) mg/dL Urine Blood (Negative) Urine Nitrite (Negative) Ur Leukocyte Esterase (Negative) Salicylates < 5.0 L (15-30) mg/dL Urine Opiates Screen (Not Detect) Urine Fentanyl Screen (Not Detect) Acetaminophen < 17 (<30) mcg/mL Ur Barbiturates Screen (Not Detect) Ur Phencyclidine Scrn (Not Detect) Ur Amphetamines Screen (Not Detect) U Benzodiazepines Scrn (Not Detect) [place] (0.60-1.20) mmol/L Urine Cocaine Screen (Not Detect) U Marijuana (THC) Screen (Not Detect) Ethyl Alcohol < 10 mg/dL COVID-19 (JADA) Negative (Negative) COVID-19 Clin Com See Note 03/07/23 03/07/23 03/07/23 Range/Units 11:33 12:48 12:48 WBC (4.8-10.8) X10*3/uL RBC (4.60-5.80) X10*6/uL Hgb (14.0-18.0) g/dl Hct (42.0-52.0) % MCV (80.0-98.0) fL MCH (27.0-33.0) pg MCHC (31.0-36.0) g/dl RDW (11.0-16.0) % Plt Count (160-400) X10*3/uL MPV (9.4-12.4) fL Immature Gran % (Auto) (0.0-0.4) % Neut % (Auto) (45-73) % Lymph % (Auto) (20-40) % [place] % (Auto) (2-11) % Eos % (Auto) (0-4) % Baso % (Auto) (0-2) % Lymph # (Auto) (1.2-4.9) X10*3/uL [place] # (Auto) (0.1-1.2) X10*3/uL Eos # (Auto) (0.0-0.4) X10*3/uL Baso # (Auto) (0.0-0.2) X10*3/uL Abs Immat Gran (auto) (0.00-0.03) X10*3/uL Absolute Neuts (auto) (2.0-8.3) x10*3/uL Absolute Nucleated RBC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
--- NOTE | 2023-03-06 13:41 | MHC.EDTECH ---
patient refused blood draws from this tech, 2x, stating that he lost too much blood in [place].
[2023-03-06] MEDS: Haloperidol Lactate 5 MG/ML VIAL IM (13:59)
[2023-03-06] MEDS: diphenhydrAMINE HCL 50 MG/ML VIAL IM (13:59)
[2023-03-06] MEDS: LORazepam 2 MG/ML VIAL IM (13:59)
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
--- NOTE | 2023-03-06 14:30 | PHA.MEDREC ---
Pharmacy Consult ? Medication Reconciliation Pharmacy has completed the medication reconciliation. Med rec complete using list provided by [facility].
[2023-03-06 14:43] VITALS: BP 129/59; PULSE 86; RESP 20
--- NOTE | 2023-03-06 14:43 | PC.NURSE ---
Pt son at bedside, pt is currently calm and agreeing to get lab work collected. Pt given turkey sandwhch and cranberry juice. Vitals have remained stable since IM injections.
[2023-03-06 14:53] LABS: MANUAL DIFF FLAG NO
[2023-03-06 14:54] LABS: Basophils Absolute Auto 0.1 X10*3/uL (0.0-0.2); Basophils Percent Auto 0.5 % (0-2); Eosinophils Absolute Auto 0.1 X10*3/uL (0.0-0.4); Eosinophils Percent Auto 1.1 % (0-4); Hematocrit 38.9 % (42.0-52.0); Hemoglobin 12.3 g/dl (14.0-18.0); Imm Gran Pct Auto 1.1 % (0.0-0.4); Lymphocytes Absolute Auto 0.8 X10*3/uL (1.2-4.9); Lymphocytes Percent Auto 8.7 % (20-40); Mean Corpuscular HGB Conc 31.6 g/dl (31.0-36.0); Mean Corpuscular Hemoglobin 28.7 pg (27.0-33.0); Mean Corpuscular Volume 90.7 fL (80.0-98.0); Mean Platelet Volume 9.4 fL (9.4-12.4); Monocytes Absolute Auto 0.9 X10*3/uL (0.1-1.2); Monocytes Percent Auto 9.9 % (2-11); Neutrophils Absolute Auto 7.2 x10*3/uL (2.0-8.3); Neutrophils Percent Auto 78.7 % (45-73); Platelet Count 310 X10*3/uL (160-400); Red Blood Count 4.29 X10*6/uL (4.60-5.80); Red Cell Distribution Width 16.1 % (11.0-16.0); White Blood Count 9.1 X10*3/uL (4.8-10.8)
[2023-03-06 15:13] LABS: COVID-19 Test Negative (Negative); IDNOW Serial# 55D5AD1C
[2023-03-06 15:16] LABS: Alanine Aminotransferase 6 U/L (0-40); Albumin Level 3.6 g/dL (3.5-5.0); Alkaline Phosphatase 94 U/L (39-117); Anion Gap 14 (12-20); Aspartate Amino Transferase 10 U/L (5-37); Bilirubin Total 0.7 mg/dL (0.0-1.0); Blood Urea Nitrogen 15 mg/dL (9-16); Calcium 9.1 mg/dL (8.4-10.2); Carbon Dioxide 22 mmol/L (22-29); Chloride 109 mmol/L (96-108); Creatinine Clr Calc Pharmacy 49.7; Estimated Glomerular Filt Rate > 60; Ethanol < 10 mg/dL; Glucose Random 132 mg/dL (60-115); Potassium 4.2 mmol/L (3.3-5.1); Sodium 141 mmol/L (135-145)
[2023-03-06 15:34] LABS: Acetaminophen LAB < 17 mcg/mL (<30); Salicylate < 5.0 mg/dL (15-30)
[2023-03-06 22:32] VITALS: BP 125/72; PULSE 65; RESP 17; TEMP 36.6; O2SAT 95
[2023-03-07] VITALS (14 sets, daily range): BP systolic 124–143; BP diastolic 75–91; PULSE 76–116; RESP 17–28; TEMP 36.6–37.1; O2SAT 20–98
--- NOTE | 2023-03-07 05:13 | PC.NURSE ---
Pt woke up from sleep, calm and cooperative at this time. Pt found to be incontinent of urine in bed. Pt cleaned and linens changed in bed. Pt allowed this RN to set up [place] catheter in order to obtain urine sample.
--- NOTE | 2023-03-07 08:08 | MHC.CARE ---
Pt needs UA prior to crisis assessment.
--- NOTE | 2023-03-07 08:41 | MHC.EDTECH ---
Patient refused blood work for [place] level. Nia Shipman
--- NOTE | 2023-03-07 08:43 | MHC.EDTECH ---
Assisted patient with personal Hygiene. Changed patients gown an linen. Nia Shipman
--- NOTE | 2023-03-07 11:23 | PC.NURSE ---
pt refused 9am meds, Provider aware
[2023-03-07 11:36] LABS: Glucose, Whole Blood 113 mg/dL (60-115)
[2023-03-07 13:08] LABS: Appearance Urine Cloudy; Color Urine Yellow; Glucose Urine UA Negative (Negative); Leukocyte Esterase Urine Negative (Negative); Nitrite Urine Negative (Negative); Urine Blood Negative (Negative); Urine Ketones Negative (Negative); Urine Protein Negative (Neg-Trace)
[2023-03-07 13:15] LABS: Glucose, Whole Blood 130 mg/dL (60-115)
[2023-03-07 13:20] LABS: Amphetamine Screen Urine Not Detected (Not Detect); Barbiturates, Urine Not Detected (Not Detect); Benzodiazepines Screen Urine Not Detected (Not Detect); Cannabinoid Screen Urine Not Detected (Not Detect); Cocaine Screen Urine Not Detected (Not Detect); Fentanyl, urine Not Detected (Not Detect); Opiate Screen Urine Not Detected (Not Detect); Phencyclidine Screen Urine Not Detected (Not Detect)
--- NOTE | 2023-03-07 15:10 | PC.NURSE ---
pt refusing blood work
[2023-03-07] MEDS: OLANZapine 10 MG VIAL 5 MG IM ×2 (16:25→16:40)
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
--- NOTE | 2023-03-07 16:48 | MHC.CARE ---
Pt seen by CARE team, he is pending acceptance to inpatient psychiatric unit and will remain bedsearch while in ED.
[2023-03-07] MEDS: LORazepam 2 MG/ML VIAL IM (18:00)
--- NOTE | 2023-03-07 18:05 | MHC.CARE ---
Statewide geriatric bedsearch exhausted.
--- NOTE | 2023-03-07 19:27 | PC.NURSE ---
I resumed car eof the pt at 1900. Pt is currently in bed with upper extremities restrained. Pt has been yelling out asking for help, when I cxhecked malena griffin, he complained of pain in his right elbow, where the BP cuff is situated. I adjusted the cuff and pt was okay. CSM's are in tact, restraints have 2 fingers worth of space between the restraint and the arm. Pt is calm and cooperative at this time. Will attempt to get lab draws as pt has been refusing all day.
--- NOTE | 2023-03-07 19:44 | PC.NURSE ---
Pt calm and cooperative at this time, he allowed us to draw blood without complications. Blood has been sent. Pt began to pull on his restraints at the end of interaction, we stated we will be back shortly to trial removing the restraints.
--- NOTE | 2023-03-07 20:15 | PC.NURSE ---
20:10, released the Left Arm. Pt remains calm and cooperative at this time. Will reassess at 20:25 for right arm release.
[2023-03-07 20:17] LABS: Lithium 0.28 mmol/L (0.60-1.20)
--- NOTE | 2023-03-07 20:44 | PC.NURSE ---
20:25, right arm was released. Pt remains calm and cooperative. Pt had an episode of urinary incontinence so pt was cleaned and given new bedding. Pt was rolled and repositioned, given a warm blanket and a glass of water. Pt has been following directions appropriately.
[2023-03-07] MEDS: Lithium Carbonate 300 MG CAPSULE PO (20:57)
[2023-03-07] MEDS: Divalproex Sodium Sprinkles 125 MG CAP.DR.SPR 500 MG PO (20:57)
[2023-03-07] MEDS: Tamsulosin HCL 0.4 MG CAPSULE PO (20:57)
[2023-03-07] MEDS: Finasteride 5 MG TABLET PO (20:58)
[2023-03-07] MEDS: traZODone HCL 50 MG TABLET PO (20:58)
--- NOTE | 2023-03-07 21:28 | PC.NURSE ---
Pt remains calm and cooperative. Pt was compliant with medication administration and lab draws/POC check. Pt has had some confusion, reaching for objects that are not there ad asking questions out of context. Pt is able to answer questions and follow directions appropriately.
[2023-03-07 21:30] LABS: Glucose, Whole Blood 103 mg/dL (60-115)
[2023-03-07 21:52] LABS: Ammonia 33 umol/L (13-55)
--- NOTE | 2023-03-07 22:24 | PM.PSYCN ---
History of Present Illness Date of Service: 03/07/2023 Chief Complaint: AGGRESSIVE: STAFF/RESIDENT @ SNF,NON MED COMPLIANT Reason for Consult: combative behaviors Discussed with referring provider: Yes Sources of Information: patient interviewed, chart reviewed and crisis/core team assessment reviewed HPI Narrative: Mr. Wisdom is a 78 year-old male with hx of dementia, brought via EMS from SNf due to increase combative behaviors, refusing medications. In the ED- pt continued to present with episodes of combative behaviors in setting of confusion. Utox is negative. Head CT did not show any acute pathology but did reveal encephalomalacia s/s to infarct bilat frontal/temporal lobes, periventricular matter disease and generalized atrophy. CBC with normocytic anemia. CMP- with decrease creatinine clearance of 49.7, Cr 1.14, BUN 15. electrolytes wnl. UA without leukocytosis, mostly unremarkable. In the ED- pt pleasant while meeting with this rfp writer. He is not oriented to year, month, not sure how long he has been in the hospital. He did not know city. He was able to tell that this was a hospital. Pt earlier had reported to that he could see an alligator. When this rfp writer asked him about the alligator, he stated he couldn't see it anymore but was sure it was somewhere in the corner of the room. He saw people passing by and insisted another pt was his brother, despite telling him this was not his brother (and confirming with pt that he was not who Mr. Granda thought it was). He denies SI/HI. Medical Evaluation Reviewed: Yes [facility] Medical History Bipolar 1 disorder Cataracts, bilateral Dementia Diabetes GERD (gastroesophageal reflux disease) PTSD (post-traumatic stress disorder) Squamous cell carcinoma Diagnostics Vital Signs (24Hr): Vital Signs - 24 hr 03/06/23 22:32 03/07/23 06:14 03/07/23 07:35 Temperature 97.9 F 97.8 F 98.7 F Pulse Rate 65 76 91 Respiratory Rate 17 17 18 Blood Pressure 125/72 129/78 124/91 H Pulse Oximetry 95 96 96 Oxygen Delivery Method Room Air Room Air Room Air Oxygen Flow Rate 03/07/23 11:57 03/07/23 16:25 03/07/23 16:40 Temperature Pulse Rate 76 108 H Respiratory Rate 18 26 H 28 H Blood Pressure 138/75 Pulse Oximetry 97 94 Oxygen Delivery Method Room Air Room Air Oxygen Flow Rate 03/07/23 16:55 03/07/23 17:10 03/07/23 17:25 Temperature Pulse Rate 99 Respiratory Rate 20 26 H 22 H Blood Pressure Pulse Oximetry 95 Oxygen Delivery Method Room Air Oxygen Flow Rate 03/07/23 17:40 03/07/23 18:00 03/07/23 18:15 Temperature Pulse Rate 116 H 89 Respiratory Rate 22 H 28 H Blood Pressure 143/85 H Pulse Oximetry 94 20 L Oxygen Delivery Method Room Air Oxygen Flow Rate 97 03/07/23 18:30 03/07/23 18:45 03/07/23 19:00 Temperature Pulse Rate 87 84 Respiratory Rate 20 20 26 H Blood Pressure 139/83 Pulse Oximetry 98 97 Oxygen Delivery Method Room Air Room Air Oxygen Flow Rate BMI result Body Mass Index 25.9 Labs 03/06/23 14:46 03/06/23 14:46 Labs: Laboratory Results - last 48 hr 03/06/23 03/06/23 03/06/23 14:42 14:46 14:46 WBC 9.1 RBC 4.29 L Hgb 12.3 L Hct 38.9 L MCV 90.7 MCH 28.7 MCHC 31.6 RDW 16.1 H Plt Count 310 D MPV 9.4 Immature Gran % (Auto) 1.1 H Neut % (Auto) 78.7 H Lymph % (Auto) 8.7 L [place] % (Auto) 9.9 Eos % (Auto) 1.1 Baso % (Auto) 0.5 Lymph # (Auto) 0.8 L [place] # (Auto) 0.9 Eos # (Auto) 0.1 Baso # (Auto) 0.1 Abs Immat Gran (auto) 0.10 H Absolute Neuts (auto) 7.2 Absolute Nucleated RBC 0.000 Nucleated RBC % (auto) 0.0 Sodium 141 Potassium 4.2 Chloride 109 H Carbon Dioxide 22 Anion Gap 14 BUN 15 Creatinine 1.14 Estim Creat Clear Calc 49.7 Estimated GFR > 60 POC Glucose Random Glucose 132 H Calcium 9.1 Total Bilirubin 0.7 AST 10 ALT 6 Alkaline Phosphatase 94 Ammonia Total Protein 6.0 L Albumin 3.6 Urine Color Urine Appearance Urine pH Ur Specific Arab Urine Protein Urine Glucose (UA) Urine Ketones Urine Blood Urine Nitrite Ur Leukocyte Esterase Salicylates < 5.0 L Urine Opiates Screen Urine Fentanyl Screen Acetaminophen < 17 Ur Barbiturates Screen Ur Phencyclidine Scrn Ur Amphetamines Screen U Benzodiazepines Scrn [place] Urine Cocaine Screen U Marijuana (THC) Screen Ethyl Alcohol < 10 COVID-19 (JADA) Negative COVID-19 Clin Com See Note 03/07/23 03/07/23 03/07/23 11:33 12:48 12:48 WBC RBC Hgb Hct MCV MCH MCHC RDW Plt Count MPV Immature Gran % (Auto) Neut % (Auto) Lymph % (Auto) [place] % (Auto) Eos % (Auto) Baso % (Auto) Lymph # (Auto) [place] # (Auto) Eos # (Auto) Baso # (Auto) Abs Immat Gran (auto) Absolute Neuts (auto) Absolute Nucleated RBC Nucleated RBC % (auto) Sodium Potassium Chloride Carbon Dioxide Anion Gap BUN Creatinine Estim Creat Clear Calc Estimated GFR POC Glucose 113 Random Glucose Calcium Total Bilirubin AST ALT Alkaline Phosphatase Ammonia Total Protein Albumin Urine Color Yellow Urine Appearance Cloudy Urine pH 8.0 Ur Specific Arab 1.010 Urine Protein Negative Urine Glucose (UA) Negative Urine Ketones Negative Urine Blood Negative Urine Nitrite Negative Ur Leukocyte Esterase Negative Salicylates Urine Opiates Screen Not Detected Urine Fentanyl Screen Not Detected Acetaminophen Ur Barbiturates Screen Not Detected Ur Phencyclidine Scrn Not Detected Ur Amphetamines Screen Not Detected U Benzodiazepines Scrn Not Detected [place] Urine Cocaine Screen Not Detected U Marijuana (THC) Screen Not Detected Ethyl Alcohol COVID-19 (JADA) COVID-19 Clin Com 03/07/23 03/07/23 03/07/23 13:04 19:44 21:23 WBC RBC Hgb Hct MCV MCH MCHC RDW Plt Count MPV Immature Gran % (Auto) Neut % (Auto) Lymph % (Auto) [place] % (Auto) Eos % (Auto) Baso % (Auto) Lymph # (Auto) [place] # (Auto) Eos # (Auto) Baso # (Auto) Abs Immat Gran (auto) Absolute Neuts (auto) Absolute Nucleated RBC Nucleated RBC % (auto) Sodium Potassium Chloride Carbon Dioxide Anion Gap BUN Creatinine Estim Creat Clear Calc Estimated GFR POC Glucose 130 H 103 Random Glucose Calcium Total Bilirubin AST ALT Alkaline Phosphatase Ammonia Total Protein Albumin Urine Color Urine Appearance Urine pH Ur Specific Arab Urine Protein Urine Glucose (UA) Urine Ketones Urine Blood Urine Nitrite Ur Leukocyte Esterase Salicylates Urine Opiates Screen Urine Fentanyl Screen Acetaminophen Ur Barbiturates Screen Ur Phencyclidine Scrn Ur Amphetamines Screen U Benzodiazepines Scrn [place] 0.28 L Urine Cocaine Screen U Marijuana (THC) Screen Ethyl Alcohol COVID-19 (JADA) COVID-19 Clin Com 03/07/23 21:27 WBC RBC Hgb Hct MCV MCH MCHC RDW Plt Count MPV Immature Gran % (Auto) Neut % (Auto) Lymph % (Auto) [place] % (Auto) Eos % (Auto) Baso % (Auto) Lymph # (Auto) [place] # (Auto) Eos # (Auto) Baso # (Auto) Abs Immat Gran (auto) Absolute Neuts (auto) Absolute Nucleated RBC Nucleated RBC % (auto) Sodium Potassium Chloride Carbon Dioxide Anion Gap BUN Creatinine Estim Creat Clear Calc Estimated GFR POC Glucose Random Glucose Calcium Total Bilirubin AST ALT Alkaline Phosphatase Ammonia 33 Total Protein Albumin Urine Color Urine Appearance Urine pH Ur Specific Arab Urine Protein Urine Glucose (UA) Urine Ketones Urine Blood Urine Nitrite Ur Leukocyte Esterase Salicylates Urine Opiates Screen Urine Fentanyl Screen Acetaminophen Ur Barbiturates Screen Ur Phencyclidine Scrn Ur Amphetamines Screen U Benzodiazepines Scrn [place] Urine Cocaine Screen U Marijuana (THC) Screen Ethyl Alcohol COVID-19 (JADA) COVID-19 Clin Com Imaging Radiology Impressions: ITS Impressions Head CT 03/07/23 14:33 IMPRESSION: No acute intracranial pathology. Generalized atrophy with stable bilateral infarcts as described. Mental Status Exam Mental Status Exam Narrative: Appearance: wearing hospital gown, fair hygiene, in NAD behavior: pleasant Psychomotor: no agitation or retardation noted Speech: clear, regular rate/rhythm/volume, spontaneous TP: disorganized at times TC: seeing brother, alligator, fair attention Mood: good Affect: congruent SI: denies HI: denies VH/AH: seeing alligator earlier, unclear if misidentification syndrome as he was thinking another male was his brother Delusions: no overt delusional content reported Insight/judgment: impaired x 2. Memory/cog: alert, severely impaired in terms of orientation, and other functions not formally tested today. Medications Medications Current Medications Albuterol Sulfate (Albuterol Sulfate (0.042%) 1.25 Mg/3 Ml Vial.Neb) 0.63 mg INHALE Q4H PRN PRN Reason: Shortness Of Breath Divalproex Sodium (Divalproex Sodium Sprinkles 125 Mg ) 500 mg PO BID [facility] Last Admin: 03/07/23 20:57 Dose: 500 mg Finasteride (Finasteride 5 Mg Tablet) 5 mg PO BEDTIME [facility] Last Admin: 03/07/23 20:58 Dose: 5 mg Guaifenesin/Dextromethorphan (Guaifenesin Dm 100/10/5 Ml 5 Ml Syrup) 10 ml PO Q4H PRN PRN Reason: Cough [place] Carbonate ([place] Carbonate 300 Mg Capsule) 300 mg PO BID [facility] Last Admin: 03/07/23 20:57 Dose: 300 mg Pharmacy Consult (Consult Rx Perform Med Rec) 1 each MISCELLANE ONCE PRN PRN Reason: Consult order Polyethylene Glycol (Polyethylene Glycol 3350 17 Gm Powd.Pack) 17 gm PO DAILY [facility] Last Admin: 03/07/23 09:53 Dose: Not Given Quetiapine Fumarate (Quetiapine Fumarate 25 Mg Tablet) 25 mg PO DAILY [facility] Last Admin: 03/07/23 09:53 Dose: Not Given Sodium Biphosphate/Sodium Phosphate (Sodium Phosphate,[place]-Dibasic 133 Ml Enema) 118 ml ND DAILY PRN PRN Reason: Constipation Tamsulosin HCl (Tamsulosin Hcl 0.4 Mg Capsule) 0.4 mg PO BEDTIME [facility] Last Admin: 03/07/23 20:57 Dose: 0.4 mg Trazodone HCl (Trazodone Hcl 25 Mg Halftab) 25 mg PO DAILY PRN PRN Reason: Agitation Trazodone HCl (Trazodone Hcl 50 Mg Tablet) 50 mg PO BEDTIME [facility] Last Admin: 03/07/23 20:58 Dose: 50 mg Allergies Allergies Allergy/AdvReac Type Severity Reaction Status Date / Time No Known Allergies Allergy Verified 05/17/21 18:44 Assessment & Plan Assessment & Plan (1) Major neurocognitive disorder due to another medical condition with behavioral disturbance: Status: Acute Code(s): F02.818 - Dementia in other diseases classified elsewhere, unspecified severity, with other behavioral disturbance Plan Mr. Granda is a 78 year-old male with hx of dementia- several infarcts on frontal, temporal, generalized atrophy who was brought via EMS from [facility] due to increase combative behaviors. Pt not oriented to place, situation month or year. Pt seeing alligator earlier today. He has had periods of intermittent agitation and combative behaviors- although when this rfp writer met with pt he was calmer, but this seems to quickly change. PLAN 1. Pt meets criteria for inpatient level of care for bettye psych for management of combative behaviors. 2. continue OP medications including depakote, lithium, check ammonia (depakote can increase it and cause agitation and confusion). Note decrease creatinine clearance with lithium- monitor renal function with lithium. Monitor EKG with antipsychotic use. Total time managing care of this patient today ____ minutes.
--- NOTE | 2023-03-07 23:48 | PC.NURSE ---
Pt remains calm and cooperative. He has been confused, talking about people that are not there and making comments related to when he was in the . Pt requested food and was given a sandwich, pudding, and diet mahesh jagjit, Pt required assistance with mahesh jagjit and pudding but was able to eat the sandwich on his own.
--- NOTE | 2023-03-08 02:13 | PC.NURSE ---
Pt had an episode of incontinence. Was found with a leg hanging over the rail and all clothes stripped off. Pt was cleaned and repositioned. Lights were dimmed and pt is resting comfortably in bed at this time. Pt has been seeing things that are not there, thinking we are in his living room or that there are other people in the room. Pt has been redirectable and has remained calm and cooperative.
--- NOTE | 2023-03-08 02:17 | MHC.EDTECH ---
Assist nurse with patient care changing bed sheet and boost patient up in bed.
[2023-03-08 04:02] VITALS: BP 120/78; PULSE 83; RESP 17; O2SAT 97
--- NOTE | 2023-03-08 05:30 | PC.NURSE ---
Pt asleep peacefully and comfortably in bed at this time.
[2023-03-08 07:54] VITALS: BP 139/74; PULSE 71; RESP 18; O2SAT 98
--- NOTE | 2023-03-08 08:46 | MHC.CARE ---
Statewide bedsearch exhausted, no appropriate beds available. Will resume search tomorrow
--- NOTE | 2023-03-08 11:18 | PC.NURSE ---
Addendum entered by Marquita Jewell RN 03/08/23 11:26: vitals otherwise ok, pt in NAD, respirations even and unlabored, 14 per min, 97% on room air 72 BPM Original Note: pt difficult to wake. attempted to obtain BP on pt and he became agitated during attempt to apply blood pressure cuff. pt not alert enough to take medications. will document against in MAR
[2023-03-08 11:27] VITALS: PULSE 72; RESP 16; O2SAT 97
--- NOTE | 2023-03-08 15:45 | PC.NURSE ---
pt found naked. he was incontinent. linens changed. pt given bed bath. rash noted to pts back, appears red with pustules. tiger connect photograph sent to Emily OCHOA
[2023-03-08 15:56] VITALS: BP 123/78; PULSE 81; RESP 16; TEMP 36.7; O2SAT 98
--- NOTE | 2023-03-08 15:57 | MHC.EDTECH ---
this pct assumed care of pt at 1500 ,pt vitals sign taken ,pt resting quietly in bed .
--- NOTE | 2023-03-08 18:26 | PC.NURSE ---
pt speaking with nursing assistants teacher, Jayme, about congressmen, the and other lucid topics. pt then stated to Jayme, be sure to tell Rolan, he's sitting right there gesturing next to him., pt remains calm and cooperative, though appears to be responding to internal stimuli
[2023-03-08 20:23] VITALS: BP 113/64; PULSE 84; RESP 12; TEMP 36.8; O2SAT 96
[2023-03-08] MEDS: Lithium Carbonate 300 MG CAPSULE PO (20:26)
[2023-03-08] MEDS: Divalproex Sodium Sprinkles 125 MG CAP.DR.SPR 500 MG PO (20:26)
[2023-03-08] MEDS: traZODone HCL 50 MG TABLET PO (20:26)
[2023-03-08] MEDS: Finasteride 5 MG TABLET PO (20:26)
[2023-03-08] MEDS: Tamsulosin HCL 0.4 MG CAPSULE PO (20:26)
--- NOTE | 2023-03-08 20:47 | PC.NURSE ---
Pt alert and oriented to self. Confused on setting and surroundings. Reports having to leave. Easily redirected to the bedside. Medicated PO as ordered. Pt tolerated well. Currently resting at the bedside in no apparent distress. Will continue to monitor.
--- NOTE | 2023-03-08 23:45 | PC.NURSE ---
Pt resting/sleeping at the bedside in no apparent distress. Breaths are even regular and unlabored with equal chest rises. Will continue to monitor.
--- NOTE | 2023-03-09 00:07 | MHC.EDTECH ---
Non slip sock placed on Pt feet. Pt given warm blanket and call peng placed in reach
--- NOTE | 2023-03-09 04:00 | PC.NURSE ---
Pt sleeping in no apparent distress. Breaths are even regular and unlabored with equal chest rises. Will continue to monitor.
[2023-03-09 06:02] VITALS: BP 136/78; PULSE 77; RESP 16; TEMP 36.5; O2SAT 95
--- NOTE | 2023-03-09 06:09 | MHC.EDTECH ---
PT soiled with urine. PT 2x assisted with pericare. PT gown and bed pads changed. Barrier cream applied to PT groin area due to redness. ODN Orozco made aware.
[2023-03-09 07:07] LABS: Glucose, Whole Blood 106 mg/dL (60-115)
[2023-03-09 08:48] VITALS: BP 117/69; PULSE 85; RESP 16; TEMP 36.6; O2SAT 96
--- NOTE | 2023-03-09 08:48 | PC.NURSE ---
fed by this rn 1:1, ate 50% oatmeal, 50% eggs, 100% coffee, glass of water. good swallow throughout. vss. resting watching tv.
[2023-03-09] MEDS: Divalproex Sodium Sprinkles 125 MG CAP.DR.SPR 500 MG PO ×2 (10:17→21:04)
[2023-03-09] MEDS: Lithium Carbonate 300 MG CAPSULE PO ×2 (10:18→21:03)
[2023-03-09] MEDS: QUEtiapine Fumarate 25 MG TABLET PO (10:18)
[2023-03-09] MEDS: polyethylene glycoL 3350 17 GM POWD.PACK PO (10:18)
--- NOTE | 2023-03-09 11:11 | PC.NURSE ---
pt resting quietly in no apparent distress. woken to take morning medications. tolerated po well. medicated per jan. rr even/unlabored. wctm
--- NOTE | 2023-03-09 11:27 | MHC.CARE ---
Statewide bedsearch exhausted, no appropriate beds available. Will resume search tomorrow
--- NOTE | 2023-03-09 11:43 | PC.NURSE ---
pt seen by care team, continually shouting out this place sucks, women are all bitches! . pt continually ranting about political topics, using obscenities, disrupting other patients.
[2023-03-09] MEDS: Haloperidol Lactate 5 MG/ML VIAL IM (12:03)
--- NOTE | 2023-03-09 12:25 | PC.NURSE ---
pt agitated and combative. 4 staff used to restrain pt as he spit multiple times at staff, attempted to bite, hit, kick, and yelling obscenities. successfully medicated per jan. pt still agitated, yelling fuck you and other insults to anyone who walks by. refusing vital signs geoffrey. wctm
--- NOTE | 2023-03-09 16:00 | MHC.EDTECH ---
this pct assumed care of pt at 1500 ,rounding done ,vitals sign taken pt is dry and is sleeping .
[2023-03-09 16:08] VITALS: BP 121/78; PULSE 75; RESP 16; TEMP 36.9; O2SAT 98
--- NOTE | 2023-03-09 18:00 | MHC.EDTECH ---
PATIENT WAS INCONTINENT OF URINE ,,BED BATH GIVEN LINEN CHANGE ,PT HAD A CONNOR PATI ,WARM BLANKET GIVEN .
--- NOTE | 2023-03-09 19:57 | MHC.EDTECH ---
pt ate 100 % of meals drank 360 ml fluids ,pt was reposition and boosted up in bed ,warm blanket given .
[2023-03-09] MEDS: Tamsulosin HCL 0.4 MG CAPSULE PO (21:03)
[2023-03-09] MEDS: Finasteride 5 MG TABLET PO (21:03)
[2023-03-09] MEDS: traZODone HCL 50 MG TABLET PO (21:03)
[2023-03-09 21:48] VITALS: BP 107/69; PULSE 80; RESP 16; TEMP 36.6; O2SAT 97
--- NOTE | 2023-03-09 21:49 | MHC.EDTECH ---
2200 rounding done vital sign taken ,pt is dry and awake watching television ,pt asked for some mahesh jagjit.
[2023-03-10 05:03] VITALS: BP 145/76; PULSE 76; RESP 16; TEMP 36.3; O2SAT 98
--- NOTE | 2023-03-10 05:18 | MHC.EDTECH ---
PT WAS INCONTINENT OF LG BOWEL MOVEMENT AND LARGE AMOUNT OF URINE ,CARE GIVEN ,BEDDING CHANGE ,PT WAS VERY COMBATIVE DURING CARE ,WARM BLANKET GIVEN .
--- NOTE | 2023-03-10 05:22 | PC.NURSE ---
Pt yelling pig continuously, attempting to hit and spit at staff assisting to change incontinent Pt. Pt refused blood draw at this time, will approach at a later time.
[2023-03-10] MEDS: polyethylene glycoL 3350 17 GM POWD.PACK PO (08:20)
[2023-03-10] MEDS: Divalproex Sodium Sprinkles 125 MG CAP.DR.SPR 500 MG PO ×2 (08:21→21:13)
[2023-03-10] MEDS: QUEtiapine Fumarate 25 MG TABLET PO (08:22)
[2023-03-10] MEDS: Lithium Carbonate 300 MG CAPSULE PO ×2 (08:22→21:13)
--- NOTE | 2023-03-10 08:24 | PC.NURSE ---
Pt calm and cooperative, sitting in bed eating breakfast. Meds given as documented.
--- NOTE | 2023-03-10 09:53 | MHC.CARE ---
The statewide [place] bed search is exhausted due no beds available across the state. Bed search will resume tomorrow if deemed appropriate.
--- NOTE | 2023-03-10 12:06 | PC.NURSE ---
RECEIVED REPORT FROM CRISTINA OCHOA. PT SLEEPING COMFORTABLY AT THIS TIME, RESP EVEN NONLABOURED. HAO.
--- NOTE | 2023-03-10 14:31 | PC.NURSE ---
LINENS CHANGED WITH NO ISSUE.
--- NOTE | 2023-03-10 15:22 | MHC.EDTECH ---
late note. cleaned and changed patient bed. incontinent of urine. fresh angelita, sheets and applied barrier cream to red area on buttocks. (x2)
--- NOTE | 2023-03-10 17:42 | PC.NURSE ---
PT NOW AWAKE & ALERT. BEHAVIOUR NON CONCERNING, SMILING, ENGAGING WELL IN CONVERSATION, IN NAD. EATING A SNACK BEFORE DINNER.
[2023-03-10 20:06] VITALS: BP 107/74; PULSE 76; RESP 17; TEMP 36.6; O2SAT 96
[2023-03-10] MEDS: traZODone HCL 50 MG TABLET PO (21:13)
[2023-03-10] MEDS: Finasteride 5 MG TABLET PO (21:13)
[2023-03-10] MEDS: Tamsulosin HCL 0.4 MG CAPSULE PO (21:14)
--- NOTE | 2023-03-10 23:00 | PC.NURSE ---
report received and care assumed. pt noted to be in bed awake and alert without distress noted. bed alarm is on and rn will continue to monitor.
--- NOTE | 2023-03-11 00:50 | PC.NURSE ---
rn to bedside to respond to bed alarm. the pt was noted to be sitting on the edge of the bed asking how we can stop the beeping; once made aware of the solution he independently swung his bilateral legs/feet up and into the bed. pt denied/declined any additional needs this time
[2023-03-11 05:12] VITALS: BP 128/71; PULSE 81; RESP 20; TEMP 36; O2SAT 94
[2023-03-11 05:26] LABS: Lithium 0.91 mmol/L (0.60-1.20)
[2023-03-11 06:47] VITALS: BP 125/76; PULSE 73; RESP 16; O2SAT 97
--- NOTE | 2023-03-11 08:59 | PC.NURSE ---
Pt found to be trying to cut arm band off with plastic knife, removed knife from patient. Pt now screaming out TOP CLEANER,TOP CLEANER, there are a bunch of niggers around here Pt attempting to spit at staff. made aware.
[2023-03-11] MEDS: OLANZapine 10 MG VIAL IM (09:18)
[2023-03-11] MEDS: LORazepam 2 MG/ML VIAL 1 MG IM (09:18)
--- NOTE | 2023-03-11 09:35 | PC.NURSE ---
Pt yelling out profanities continued, pt became combative with staff when attempting to redirect. IM given per providers order.
--- NOTE | 2023-03-11 15:30 | MHC.CARE ---
03/11/23 Bed search was conducted & unfortunately there are no appropriate bettye beds available [place]. This search is exhausted for today & will resume tomorrow if deemed necessary.
[2023-03-11 17:52] LABS: Valproate 45.6 mcg/mL (50.0-100.0)
[2023-03-11 20:28] VITALS: BP 110/67; PULSE 76; RESP 16; TEMP 36.6; O2SAT 97
[2023-03-11] MEDS: Tamsulosin HCL 0.4 MG CAPSULE PO (21:10)
[2023-03-11] MEDS: Lithium Carbonate 300 MG CAPSULE PO (21:10)
[2023-03-11] MEDS: traZODone HCL 50 MG TABLET PO (21:10)
[2023-03-11] MEDS: Divalproex Sodium Sprinkles 125 MG CAP.DR.SPR 500 MG PO (21:10)
[2023-03-11] MEDS: Finasteride 5 MG TABLET PO (21:10)
[2023-03-11] MEDS: QUEtiapine Fumarate 50 MG TABLET PO (21:11)
--- NOTE | 2023-03-11 21:30 | PC.NURSE ---
pt took medications with no issues. some pills swallowed whole and some in pudding. pt resting comfortably and being cooperative. will CTM
--- NOTE | 2023-03-12 | ECG_ITS ---
Test Reason : qtc Blood Pressure : / mmHG Vent. Rate : 075 BPM Atrial Rate : 000 BPM P-R Int : 000 ms QRS Dur : 082 ms QT Int : 386 ms P-R-T Axes : 000 050 058 degrees QTc Int : 431 ms Artifact in tracing Probably sinus rhythm Nonspecific ST abnormality Abnormal ECG When compared with ECG of 06-AUG-2022 19:36, Nonspecific ST and T wave abnormality now present Referred By: Usha Khalil Electronically Signed By:BOBBI DC
--- NOTE | 2023-03-12 04:18 | PC.NURSE ---
pt cleaned up, linens and brief changed. pt restless continuously trying to get out of bed. bed alarm on. pt being verbally aggressive with staff at this time. will CTM.
[2023-03-12] MEDS: LORazepam 2 MG/ML VIAL IM (04:45)
[2023-03-12] MEDS: OLANZapine 10 MG VIAL 5 MG IM (04:45)
--- NOTE | 2023-03-12 05:11 | PC.NURSE ---
pt medicated per MD Jovel orders for verbal/physical aggression to staff members. pt continuously trying to get out of bed and hanging legs over side rails, when this RN went to help patient get legs back in bed patient began kicking this RN and spitting at other staff. security called, pt medicated per jan. will CTM
--- NOTE | 2023-03-12 05:53 | PC.NURSE ---
pt cleaned up, linens/brief changed, new warm blankets provided
[2023-03-12] MEDS: Lithium Carbonate 300 MG CAPSULE PO ×2 (08:11→22:39)
[2023-03-12] MEDS: polyethylene glycoL 3350 17 GM POWD.PACK PO (08:11)
[2023-03-12] MEDS: Divalproex Sodium Sprinkles 125 MG CAP.DR.SPR 500 MG PO ×2 (08:11→22:38)
--- NOTE | 2023-03-12 08:14 | PC.NURSE ---
Pt on stretcher, airway open and patent, no obvious signs of distress, no difficulty breathing, pt speaking in full sentences. Pt awake and eating breakfast. Pt tolerated taking meds well. No edema noted.
[2023-03-12] MEDS: OLANZapine ODT 10 MG TAB.RAPDIS TRANSLINGU (12:40)
--- NOTE | 2023-03-12 12:50 | PC.NURSE ---
Pt increasingly agitated, restless. When attempting to redirect pt combative, kicking, grabbing and spiiting. Maria Esther FRANCOIS aware and Mitchel arevalo ordered and able to give. Spit monteiro needed as pt kept attempting to spit at staff.
[2023-03-12] MEDS: QUEtiapine Fumarate 50 MG TABLET PO ×2 (15:00→22:39)
--- NOTE | 2023-03-12 15:01 | PC.NURSE ---
Pt changed/repositioned for urine incontinence. Restless with some agitation. Accepting some of lunch, mostly pudding. PRN Seroquel given. Refused attempt to obtain BP, sat 98% on room air, HR 78 Continues to hallucinate and refer to things not there.
[2023-03-12 15:03] VITALS: PULSE 78; RESP 16; O2SAT 98
--- NOTE | 2023-03-12 15:16 | MHC.EDTECH ---
t/w uanble to perform EKG and draw CMP at this time d/t pt's increased agitation. pt just medicated with prn by rn. t/w will attempt to obtain EKG and CMP later once patient calmed and more agreeable. rn alek torre
--- NOTE | 2023-03-12 15:30 | PC.NURSE ---
Upon approach pt presents highly agitated, angry, and combative. Security present as well as pts attending ED nurse and reports pt has been spitting, hitting, kicking and was wearing a spit monteiro at time of visit. Unable to conduct pt interview at this time secondary to volatile behavior.
--- NOTE | 2023-03-12 15:55 | MHC.CARE ---
03/12/23 Bed search was conducted & exhausted. There are no appropriate beds available. Bed search will resume tomorrow if deemed necessary.
--- NOTE | 2023-03-12 17:56 | PC.NURSE ---
Pt asleep since PRN Seroquel.
[2023-03-12 20:26] VITALS: RESP 16
--- NOTE | 2023-03-12 21:10 | PC.NURSE ---
I resumed care of the pt at 1900. Pt has been asleep so far. Pt is comfortable in a hospital bed, breathing adequately with warm and dry skin. Due to behavioral concerns, I am allowing pt to sleep and will give his medications when he wakes up on his own as to not cause increased agitation.
[2023-03-12] MEDS: Tamsulosin HCL 0.4 MG CAPSULE PO (22:38)
[2023-03-12] MEDS: traZODone HCL 25 MG HALFTAB PO (22:38)
[2023-03-12] MEDS: Finasteride 5 MG TABLET PO (22:39)
[2023-03-12] MEDS: traZODone HCL 50 MG TABLET PO (22:39)
[2023-03-12 22:52] VITALS: BP 126/84; PULSE 68; RESP 12; TEMP 36.3; O2SAT 98
--- NOTE | 2023-03-12 22:53 | PC.NURSE ---
Pt was medicated per JAN. Medications were crushed in pudding, with the exception of finasteride. Pt was cooperative with medication administration. Pt was checked to make sure he is dry, pt was not soiled. We repositioned pt to the right side and ensured comfort.
--- NOTE | 2023-03-13 02:01 | MHC.EDTECH ---
Pt sleeping unable to get labs at this time.
--- NOTE | 2023-03-13 04:32 | PC.NURSE ---
Pt asleep at this time. No new orders.
[2023-03-13 06:38] VITALS: RESP 16
[2023-03-13] MEDS: Lithium Carbonate 300 MG CAPSULE PO ×2 (10:07→20:21)
[2023-03-13] MEDS: QUEtiapine Fumarate 50 MG TABLET PO ×2 (10:07→20:20)
[2023-03-13] MEDS: Divalproex Sodium Sprinkles 125 MG CAP.DR.SPR 500 MG PO ×2 (10:07→20:21)
[2023-03-13] MEDS: polyethylene glycoL 3350 17 GM POWD.PACK PO (10:08)
--- NOTE | 2023-03-13 12:13 | MHC.CARE ---
[facility] bed[facility] exhasuted.
[2023-03-13 14:00] VITALS: BP 126/80; PULSE 98; RESP 22; O2SAT 97
--- NOTE | 2023-03-13 14:51 | PC.NURSE ---
Pt found to be sleeping comfortably upon approach. Unable to engage pt in OT tx this date.
[2023-03-13 19:30] LABS: Glucose, Whole Blood 108 mg/dL (60-115)
[2023-03-13] MEDS: traZODone HCL 50 MG TABLET PO (20:20)
[2023-03-13] MEDS: Finasteride 5 MG TABLET PO (20:21)
[2023-03-13] MEDS: Tamsulosin HCL 0.4 MG CAPSULE PO (20:21)
[2023-03-13] MEDS: traZODone HCL 25 MG HALFTAB PO (20:21)
--- NOTE | 2023-03-13 22:01 | P.CNPS_ITS ---
History of Present Illness Date of Service: 03/13/2023 Chief Complaint: AGGRESSIVE: STAFF/RESIDENT @ SNF,NON MED COMPLIANT Discussed with referring provider: Yes Sources of Information: patient interviewed, chart reviewed and crisis/core team assessment reviewed HPI Narrative: Interim Hx: pt continue to present with agitation in morning when trying to ambulate on his own and not able to being redirected. He received on 03/12- IM olanzapine at around 5am. Pt slept most of the day and was again combative at around 3pm. Pt slept through the night. Pt has refused labs and EKG- given underlying CKD- want to monitor renal function and lithium level as he continues to take this medication more consistently. Also pending depakote level (ammonia levels were done last week, which were normal but it appeared pt had not taken his medications as prescribed while in SNF). Review of Systems Review of Systems Yes all other systems are reviewed and are negative and Unobtainable due to mental status (patient is demented at baseline) Constitutional: Reports as per HPI Eyes: Reports no additional eye complaints Reports system reviewed and no additional complaints, except as documented Cardiovascular: Reports no additional cardiovascular complaints, Denies chest pain, Denies lightheadedness and Denies dyspnea Respiratory: Reports no additional respiratory complaints and Denies dyspnea Gastrointestinal: Reports no additional gastrointestinal complaints and Denies abdominal pain Genitourinary: Reports no additional male genitourinary complaints Musculoskeletal: Reports no additional musculoskeletal complaints Reports behavioral changes (increased aggression) and Reports confusion (chronic for the patient) Psychiatric: Reports no additional psychiatric complaints, Reports behavioral changes (increased aggression) and Reports confusion (chronic for the patient) Endocrine: Reports no additional endocrine complaints Hematologic/Lymphatic: Reports no additional hematologic/lymphatic complaints Allergic/Immunologic: Reports no additional allergic/immunologic complaints [facility] Medical History Bipolar 1 disorder Cataracts, bilateral Dementia Diabetes GERD (gastroesophageal reflux disease) PTSD (post-traumatic stress disorder) Squamous cell carcinoma Diagnostics Vital Signs (24Hr): Vital Signs - 24 hr 03/12/23 22:52 03/13/23 06:38 03/13/23 14:00 Temperature 97.3 F Pulse Rate 68 98 Respiratory Rate 12 16 22 H Blood Pressure 126/84 126/80 Pulse Oximetry 98 97 Oxygen Delivery Method Room Air Room Air BMI result Body Mass Index 25.9 Labs 03/06/23 14:46 03/06/23 14:46 Labs: Laboratory Results - last 48 hr 03/13/23 19:18 POC Glucose 108 Imaging Radiology Impressions: ITS Impressions Head CT 03/07/23 14:33 IMPRESSION: No acute intracranial pathology. Generalized atrophy with stable bilateral infarcts as described. Mental Status Exam Mental Status Exam Narrative: Appearance: wearing hospital gown, fair hygiene, in NAD. Pt asleep. Medications Medications Current Medications Acetaminophen (Acetaminophen 325 Mg Tablet) 650 mg PO Q4H PRN PRN Reason: Pain, Mild (Pain Scale 1-3) Albuterol Sulfate (Albuterol Sulfate (0.042%) 1.25 Mg/3 Ml Vial.Neb) 0.63 mg INHALE Q4H PRN PRN Reason: Shortness Of Breath Divalproex Sodium (Divalproex Sodium Sprinkles 125 Mg [place].) 500 mg PO BID [facility] Last Admin: 03/13/23 20:21 Dose: 500 mg Finasteride (Finasteride 5 Mg Tablet) 5 mg PO BEDTIME [facility] Last Admin: 03/13/23 20:21 Dose: 5 mg Guaifenesin/Dextromethorphan (Guaifenesin Dm 100/10/5 Ml 5 Ml Syrup) 10 ml PO Q4H PRN PRN Reason: Cough [place] Carbonate ([place] Carbonate 300 Mg Capsule) 300 mg PO BID [facility] Last Admin: 03/13/23 20:21 Dose: 300 mg Pharmacy Consult (Consult Rx Perform Med Rec) 1 each MISCELLANE ONCE PRN PRN Reason: Consult order Polyethylene Glycol (Polyethylene Glycol 3350 17 Gm Powd.Pack) 17 gm PO DAILY [facility] Last Admin: 03/13/23 10:08 Dose: 17 gm Quetiapine Fumarate (Quetiapine Fumarate 50 Mg Tablet) 50 mg PO Q6H PRN PRN Reason: agitation Last Admin: 03/13/23 20:20 Dose: 50 mg Sodium Biphosphate/Sodium Phosphate (Sodium Phosphate,[place]-Dibasic 133 Ml Enema) 118 ml [place] DAILY PRN PRN Reason: Constipation Tamsulosin HCl (Tamsulosin Hcl 0.4 Mg Capsule) 0.4 mg PO BEDTIME [facility] Last Admin: 03/13/23 20:21 Dose: 0.4 mg Trazodone HCl (Trazodone Hcl 25 Mg Halftab) 25 mg PO DAILY PRN PRN Reason: Agitation Last Admin: 03/13/23 20:21 Dose: 25 mg Trazodone HCl (Trazodone Hcl 50 Mg Tablet) 50 mg PO BEDTIME [facility] Last Admin: 03/13/23 20:20 Dose: 50 mg Allergies Allergies Allergy/AdvReac Type Severity Reaction Status Date / Time No Known Allergies Allergy Verified 05/17/21 18:44 Assessment & Plan Assessment & Plan (1) 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 Granda is a 78 year-old male with hx of dementia- several infarcts on frontal, temporal, generalized atrophy who was brought via EMS from SNF due to increase combative behaviors. Pt not oriented to place, situation month or year. Pt seeing alligator earlier today. He has had periods of intermittent agitation and combative behaviors- although when this senior writer met with pt he was calmer, but this seems to quickly change. PLAN 03/12 continues to criteria for inpatient level of care for [facility] psych for management of combative behaviors. Will increase seroquel 50mg po Q6h prn agitation If needed continue to use olanzapine 5-10mg IM for severe agitation, monitor EKG, maintain Qtc<500ms, K>4, Mg>2. Total time managing care of this patient today ____ minutes.
[2023-03-13 22:45] VITALS: BP 122/68; PULSE 86; RESP 16; O2SAT 96
--- NOTE | 2023-03-13 23:38 | MHC.EDTECH ---
Pt Cleaned after toileting in bed. Clean Gown given BEd CLeaned and fresh linen put on
--- NOTE | 2023-03-14 08:47 | PM.PSYCN ---
History of Present Illness Date of Service: 03/14/23 Chief Complaint: AGGRESSIVE: STAFF/RESIDENT @ SNF,NON MED COMPLIANT Discussed with referring provider: Yes Sources of Information: patient interviewed, chart reviewed and crisis/core team assessment reviewed HPI Narrative: Interim Hx: Pt asleep most of the day after receiving PRN seroquel. He has been taking medications fairly consistently. Most agitation seems to happen in the morning when pt tries to ambulate on his own or get out of bed. Still pending labs. Review of Systems Review of Systems Yes all other systems are reviewed and are negative and Unobtainable due to mental status (patient is demented at baseline) Constitutional: Reports as per HPI Eyes: Reports no additional eye complaints Reports system reviewed and no additional complaints, except as documented Cardiovascular: Reports no additional cardiovascular complaints, Denies chest pain, Denies lightheadedness and Denies dyspnea Respiratory: Reports no additional respiratory complaints and Denies dyspnea Gastrointestinal: Reports no additional gastrointestinal complaints and Denies abdominal pain Genitourinary: Reports no additional male genitourinary complaints Musculoskeletal: Reports no additional musculoskeletal complaints Reports behavioral changes (increased aggression) and Reports confusion (chronic for the patient) Psychiatric: Reports no additional psychiatric complaints, Reports behavioral changes (increased aggression) and Reports confusion (chronic for the patient) Endocrine: Reports no additional endocrine complaints Hematologic/Lymphatic: Reports no additional hematologic/lymphatic complaints Allergic/Immunologic: Reports no additional allergic/immunologic complaints [facility] Medical History Bipolar 1 disorder Cataracts, bilateral Dementia Diabetes GERD (gastroesophageal reflux disease) PTSD (post-traumatic stress disorder) Squamous cell carcinoma Diagnostics Vital Signs (24Hr): Vital Signs - 24 hr 03/13/23 14:00 03/13/23 22:45 Pulse Rate 98 86 Respiratory Rate 22 H 16 Blood Pressure 126/80 122/68 Pulse Oximetry 97 96 Oxygen Delivery Method Room Air Room Air BMI result Body Mass Index 25.9 Labs 03/06/23 14:46 03/06/23 14:46 Labs: Laboratory Results - last 48 hr 03/13/23 19:18 POC Glucose 108 Imaging Radiology Impressions: ITS Impressions Head CT 03/07/23 14:33 IMPRESSION: No acute intracranial pathology. Generalized atrophy with stable bilateral infarcts as described. Mental Status Exam Mental Status Exam Narrative: Appearance: wearing hospital gown, fair hygiene, in NAD. Pt asleep. Medications Medications Current Medications Acetaminophen (Acetaminophen 325 Mg Tablet) 650 mg PO Q4H PRN PRN Reason: Pain, Mild (Pain Scale 1-3) Divalproex Sodium (Divalproex Sodium Sprinkles 125 Mg ) 500 mg PO BID [facility] Last Admin: 03/13/23 20:21 Dose: 500 mg Finasteride (Finasteride 5 Mg Tablet) 5 mg PO BEDTIME [facility] Last Admin: 03/13/23 20:21 Dose: 5 mg Guaifenesin/Dextromethorphan (Guaifenesin Dm 100/10/5 Ml 5 Ml Syrup) 10 ml PO Q4H PRN PRN Reason: Cough [place] Carbonate ([place] Carbonate 300 Mg Capsule) 300 mg PO BID [facility] Last Admin: 03/13/23 20:21 Dose: 300 mg Pharmacy Consult (Consult Rx Perform Med Rec) 1 each MISCELLANE ONCE PRN PRN Reason: Consult order Polyethylene Glycol (Polyethylene Glycol 3350 17 Gm Powd.Pack) 17 gm PO DAILY [facility] Last Admin: 03/13/23 10:08 Dose: 17 gm Quetiapine Fumarate (Quetiapine Fumarate 50 Mg Tablet) 50 mg PO Q6H PRN PRN Reason: agitation Last Admin: 03/13/23 20:20 Dose: 50 mg Sodium Biphosphate/Sodium Phosphate (Sodium Phosphate,[place]-Dibasic 133 Ml Enema) 118 ml [place] DAILY PRN PRN Reason: Constipation Tamsulosin HCl (Tamsulosin Hcl 0.4 Mg Capsule) 0.4 mg PO BEDTIME [facility] Last Admin: 03/13/23 20:21 Dose: 0.4 mg Trazodone HCl (Trazodone Hcl 50 Mg Tablet) 50 mg PO BEDTIME [facility] Last Admin: 03/13/23 20:20 Dose: 50 mg Allergies Allergies Allergy/AdvReac Type Severity Reaction Status Date / Time No Known Allergies Allergy Verified 05/17/21 18:44 Assessment & Plan Assessment & Plan (1) Major neurocognitive disorder due to another medical condition with behavioral disturbance: Status: Acute Code(s): F02.818 - Dementia in other diseases classified elsewhere, unspecified severity, with other behavioral disturbance Plan Mr. Granda is a 78 year-old male with hx of dementia- several infarcts on frontal, temporal, generalized atrophy who was brought via EMS from SNF due to increase combative behaviors. Pt not oriented to place, situation month or year. Pt seeing alligator earlier today. He has had periods of intermittent agitation and combative behaviors- although when this administrative underwriter met with pt he was calmer, but this seems to quickly change. PLAN 03/12 continues to criteria for inpatient level of care for [facility] psych for management of combative behaviors. Will increase seroquel 50mg po Q6h prn agitation If needed continue to use olanzapine 5-10mg IM for severe agitation, monitor EKG, maintain Qtc<500ms, K>4, Mg>2. 03/13 no IM this morning, taking medications as prescribed but still pending labs to monitor renal function, depakote level ammonia. No EKG on file. Monitor EKG as pt continues to receive antipsychotic tx. Total time managing care of this patient today ____ minutes.
--- NOTE | 2023-03-14 08:50 | P.CNPS_ITS ---
History of Present Illness Date of Service: 03/14/23 Chief Complaint: AGGRESSIVE: STAFF/RESIDENT @ SNF,NON MED COMPLIANT Discussed with referring provider: Yes Sources of Information: patient interviewed, chart reviewed and crisis/core team assessment reviewed HPI Narrative: InterimHx: Pt has been asleep most night. No episode of combativeness yesterday. May have to hold to do labs and consider sending back to Nursing facility as pt appears less combative and less agitated and has been taking medications. Pending feedback from facility to assess whether pt is close to baseline or not. Medical Evaluation Reviewed: Yes Review of Systems Review of Systems Yes all other systems are reviewed and are negative and Unobtainable due to mental status (patient is demented at baseline) Constitutional: Reports as per HPI Eyes: Reports no additional eye complaints Reports system reviewed and no additional complaints, except as documented Cardiovascular: Reports no additional cardiovascular complaints, Denies chest pain, Denies lightheadedness and Denies dyspnea Respiratory: Reports no additional respiratory complaints and Denies dyspnea Gastrointestinal: Reports no additional gastrointestinal complaints and Denies abdominal pain Genitourinary: Reports no additional male genitourinary complaints Musculoskeletal: Reports no additional musculoskeletal complaints Reports behavioral changes (increased aggression) and Reports confusion (chronic for the patient) Psychiatric: Reports no additional psychiatric complaints, Reports behavioral changes (increased aggression) and Reports confusion (chronic for the patient) Endocrine: Reports no additional endocrine complaints Hematologic/Lymphatic: Reports no additional hematologic/lymphatic complaints Allergic/Immunologic: Reports no additional allergic/immunologic complaints [facility] Medical History Bipolar 1 disorder Cataracts, bilateral Dementia Diabetes GERD (gastroesophageal reflux disease) PTSD (post-traumatic stress disorder) Squamous cell carcinoma Diagnostics Vital Signs (24Hr): Vital Signs - 24 hr 03/13/23 14:00 03/13/23 22:45 Pulse Rate 98 86 Respiratory Rate 22 H 16 Blood Pressure 126/80 122/68 Pulse Oximetry 97 96 Oxygen Delivery Method Room Air Room Air BMI result Body Mass Index 25.9 Labs 03/06/23 14:46 03/06/23 14:46 Labs: Laboratory Results - last 48 hr 03/13/23 19:18 POC Glucose 108 Imaging Radiology Impressions: ITS Impressions Head CT 03/07/23 14:33 IMPRESSION: No acute intracranial pathology. Generalized atrophy with stable bilateral infarcts as described. Mental Status Exam Mental Status Exam Narrative: Appearance: wearing hospital gown, fair hygiene, in NAD. Pt asleep. Medications Medications Current Medications Acetaminophen (Acetaminophen 325 Mg Tablet) 650 mg PO Q4H PRN PRN Reason: Pain, Mild (Pain Scale 1-3) Divalproex Sodium (Divalproex Sodium Sprinkles 125 Mg ) 500 mg PO BID [facility] Last Admin: 03/13/23 20:21 Dose: 500 mg Finasteride (Finasteride 5 Mg Tablet) 5 mg PO BEDTIME [facility] Last Admin: 03/13/23 20:21 Dose: 5 mg Guaifenesin/Dextromethorphan (Guaifenesin Dm 100/10/5 Ml 5 Ml Syrup) 10 ml PO Q4H PRN PRN Reason: Cough [place] Carbonate ([place] Carbonate 300 Mg Capsule) 300 mg PO BID [facility] Last Admin: 03/13/23 20:21 Dose: 300 mg Pharmacy Consult (Consult Rx Perform Med Rec) 1 each MISCELLANE ONCE PRN PRN Reason: Consult order Polyethylene Glycol (Polyethylene Glycol 3350 17 Gm Powd.Pack) 17 gm PO DAILY [facility] Last Admin: 03/13/23 10:08 Dose: 17 gm Quetiapine Fumarate (Quetiapine Fumarate 50 Mg Tablet) 50 mg PO Q6H PRN PRN Reason: agitation Last Admin: 03/13/23 20:20 Dose: 50 mg Sodium Biphosphate/Sodium Phosphate (Sodium Phosphate,[place]-Dibasic 133 Ml Enema) 118 ml [place] DAILY PRN PRN Reason: Constipation Tamsulosin HCl (Tamsulosin Hcl 0.4 Mg Capsule) 0.4 mg PO BEDTIME [facility] Last Admin: 03/13/23 20:21 Dose: 0.4 mg Trazodone HCl (Trazodone Hcl 50 Mg Tablet) 50 mg PO BEDTIME [facility] Last Admin: 03/13/23 20:20 Dose: 50 mg Allergies Allergies Allergy/AdvReac Type Severity Reaction Status Date / Time No Known Allergies Allergy Verified 05/17/21 18:44 Assessment & Plan Assessment & Plan (1) Major neurocognitive disorder due to another medical condition with behavioral disturbance: Status: Acute Code(s): F02.818 - Dementia in other diseases classified elsewhere, unspecified severity, with other behavioral disturbance Plan Mr. Granda is a 78 year-old male with hx of dementia- several infarcts on frontal, temporal, generalized atrophy who was brought via EMS from SNF due to increase combative behaviors. Pt not oriented to place, situation month or year. Pt seeing alligator earlier today. He has had periods of intermittent agitation and combative behaviors- although when this display card writer met with pt he was calmer, but this seems to quickly change. PLAN 03/12 continues to criteria for inpatient level of care for [facility]e psych for management of combative behaviors. Will increase seroquel 50mg po Q6h prn agitation If needed continue to use olanzapine 5-10mg IM for severe agitation, monitor EKG, maintain Qtc<500ms, K>4, Mg>2. 03/13 no IM this morning, taking medications as prescribed but still pending labs to monitor renal function, depakote level ammonia. No EKG on file. Monitor EKG as pt continues to receive antipsychotic tx. 03/14 no episodes of combative behaviors yesterday. Pt asleep most of the day. WE do need to check labs prior to sending him back. May have to hold pt as he does not have capacity to make medical decisions. Total time managing care of this patient today ____ minutes.
--- NOTE | 2023-03-14 09:32 | PC.NURSE ---
assumed care of this pt at 0700. pt resting quietly/sleeping. rr even/unlabored. no apparent distress. wctm.
[2023-03-14 11:04] VITALS: BP 134/75; PULSE 82; RESP 18; TEMP 37.2; O2SAT 93
[2023-03-14] MEDS: Divalproex Sodium Sprinkles 125 MG CAP.DR.SPR 500 MG PO ×2 (11:06→23:35)
[2023-03-14] MEDS: polyethylene glycoL 3350 17 GM POWD.PACK PO (11:12)
[2023-03-14] MEDS: Lithium Carbonate 300 MG CAPSULE PO ×2 (11:30→23:59)
--- NOTE | 2023-03-14 11:40 | PC.NURSE ---
pt noted to be desat spo2 s/p medical staff services coordinator, pt responsive to painful sternal rub, has spo2 sat on room air ranging from 82%-89% with good pleth, no distress noted, pt appears to be sleeping w equal chest rise and fall. pt placed on 0.5 l nc w small increase to spo2. pt increased to 1 l nc to maintain spo2 >90%. provider aware.
[2023-03-14 11:42] VITALS: BP 131/68; BP 149/59; PULSE 72; PULSE 81; RESP 18; RESP 20; O2SAT 82; O2SAT 95
--- NOTE | 2023-03-14 12:48 | PC.NURSE ---
iv placed in r arm, blood labs drawn and sent. iv line secured d/t pt aggressive behaviors in ed during this visit. pt appearing much more lethargic than in past days, continues to shout out and resist care at times. per provider, hospitalist made aware of pt presentation.
[2023-03-14 12:50] LABS: Hematocrit 41.9 % (42.0-52.0); Hemoglobin 13.1 g/dl (14.0-18.0); Mean Corpuscular HGB Conc 31.3 g/dl (31.0-36.0); Mean Corpuscular Hemoglobin 28.7 pg (27.0-33.0); Mean Corpuscular Volume 91.7 fL (80.0-98.0); Mean Platelet Volume 9.5 fL (9.4-12.4); Platelet Count 384 X10*3/uL (160-400); Red Blood Count 4.57 X10*6/uL (4.60-5.80); Red Cell Distribution Width 16.2 % (11.0-16.0)
[2023-03-14 13:08] LABS: Anion Gap 15 (12-20); Blood Urea Nitrogen 19 mg/dL (9-16); Calcium 9.3 mg/dL (8.4-10.2); Carbon Dioxide 21 mmol/L (22-29); Chloride 111 mmol/L (96-108); Creatinine Clr Calc Pharmacy 43.9; Estimated Glomerular Filt Rate 54; Glucose Random 104 mg/dL (60-115); Potassium 5.9 mmol/L (3.3-5.1); Sodium 141 mmol/L (135-145)
[2023-03-14 13:46] VITALS: BP 117/73; PULSE 85; RESP 18; TEMP 37.1; O2SAT 97
[2023-03-14] MEDS: Ampicillin Sodium/Sulbactam Na 3 GM in 0.9 % Sodium Chloride 100 ML IV (14:04)
[2023-03-14 19:30] VITALS: BP 129/78; PULSE 93; RESP 18; TEMP 36.1; O2SAT 96
--- NOTE | 2023-03-14 21:07 | PC.ADMIT ---
The patient is a 78-year old admitted on S1 from the [facility] ED where he had been since 03/06/2023. He carries the diagnosis of PTSD and dementia with behavioral disturbances. Pt is only oriented to self. Per the Care Team report, the patient was admitted for aggression, altered mental status and medication non compliance from a custodial facility. This sql report writer met the patient in the ED, he was very lethargic and hard to arouse. Once he woke up, he was very combative , spitting and punching at staff while yelling out vulgar phrases. Patient went to sleep once he got to the unit , he was unable to participate in the admission assessment, unable to sign paper work and declined his night medications. Per Care Team report, the patient reported visual hallucinations, denied suicidal ideation and homicidal ideation. Thought process is tangential and disorganized at times. The patient presented with short term memory and cognitive impairments. The pt was unable to recall episodes of aggression. He is incontinent of both bowels and urine. Per ED RN, patient is developing pneumonia and was started on antibiotics. He is a two person assist and ambulates using a wheel chair.
[2023-03-14] MEDS: Tamsulosin HCL 0.4 MG CAPSULE PO (23:38)
[2023-03-14] MEDS: Finasteride 5 MG TABLET PO (23:40)
[2023-03-14] MEDS: levoFLOXacin 750 MG TABLET PO ×2 (23:43→23:58)
[2023-03-14] MEDS: traZODone HCL 50 MG TABLET PO (23:44)
[2023-03-15 07:23] LABS: Alanine Aminotransferase 20 U/L (0-40); Albumin Level 3.5 g/dL (3.5-5.0); Alkaline Phosphatase 101 U/L (39-117); Anion Gap 15 (12-20); Aspartate Amino Transferase 24 U/L (5-37); Bilirubin Total 0.6 mg/dL (0.0-1.0); Blood Urea Nitrogen 22 mg/dL (9-16); Calcium 9.2 mg/dL (8.4-10.2); Carbon Dioxide 21 mmol/L (22-29); Chloride 112 mmol/L (96-108); Cholesterol 170 mg/dL; Creatinine Clr Calc Pharmacy 44.3; Estimated Glomerular Filt Rate 55; Glucose Fasting 97 mg/dL (60-99); HDL Cholesterol 33 mg/dL; LDL Cholesterol Calculated 115 mg/dl; Potassium 4.5 mmol/L (3.3-5.1); Sodium 143 mmol/L (135-145); Total Protein 5.9 g/dL (6.5-8.0); Triglycerides 111 mg/dL
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
[2023-03-15 11:30] VITALS: BP 131/74; PULSE 77; RESP 17; TEMP 36.3; O2SAT 95
[2023-03-15] MEDS: Divalproex Sodium Sprinkles 125 MG CAP.DR.SPR 500 MG PO ×2 (13:06→20:30)
[2023-03-15] MEDS: Lithium Carbonate 300 MG CAPSULE PO ×2 (13:06→20:30)
--- NOTE | 2023-03-15 17:29 | PC.NURSE ---
Patient oriented to self only. Unaware of where he is, where he lives and how he got here. Patient slept throughout the morning. Incontinent of bowel and bladder. Utilize lift to get patient up to [place] chairl for dinner. Unable use dining utensils. Requires cueing for eating and finger foods. Appetite appears good. Patient presents as pleasant and cooperative. No behavioral issues noted.
[2023-03-15] MEDS: Acetaminophen 325 MG TABLET 650 MG PO (17:52)
[2023-03-15 19:06] VITALS: BP 123/75; PULSE 78; RESP 16; TEMP 36.5; O2SAT 96
[2023-03-15] MEDS: Finasteride 5 MG TABLET PO (20:29)
[2023-03-15] MEDS: levoFLOXacin 750 MG TABLET PO (20:29)
[2023-03-15] MEDS: traZODone HCL 50 MG TABLET PO (20:30)
[2023-03-15] MEDS: Tamsulosin HCL 0.4 MG CAPSULE PO (20:30)
[2023-03-15 22:00] VITALS: BP 124/68; PULSE 76; RESP 16; TEMP 36.6; O2SAT 96
[2023-03-16] MEDS: QUEtiapine Fumarate 50 MG TABLET PO ×2 (01:50→12:31)
[2023-03-16] MEDS: traZODone HCL 50 MG TABLET PO ×2 (01:50→20:13)
[2023-03-16 07:30] VITALS: BP 120/63; PULSE 80; RESP 16; TEMP 36.2; O2SAT 97
--- NOTE | 2023-03-16 08:43 | P.PNPSI_ITS ---
Subjective Subjective Date of Service: 03/16/23 Reason For Visit: Mood Subjective Notes: Conditional Voluntary Interim History: The nursing staff reported the patient have tried to climb out of the bed and needed to be helped. He had been incontinent needs constant redirection. On interview the patient remains confused. He Mental Status Exam Mental Status Exam Patient Appearance: Appropriate Patient Orientation: Person Level of Consciousness: Disoriented and Restless Patient Behavior: Guarded and Passive Mood Description: Withdrawn Affect Description: Labile Patient Cognition Impaired: Yes Ability to Follow Directions: Good Speech Pattern: Clear Hallucinations: None Delusions: Paranoid Ideation Thought Process: Distracted and Slowed Thinking Thought Content: positive for Poverty of Content and positive for Thought Blocking Judgement: Poor Diagnostics Vital Signs (24Hr): Vital Signs - 24 hr 03/15/23 11:30 03/15/23 19:06 03/15/23 22:00 Temperature 97.3 F 97.7 F 97.8 F Pulse Rate 77 78 76 Respiratory Rate 17 16 16 Blood Pressure 131/74 123/75 124/68 Pulse Oximetry 95 96 96 Oxygen Delivery Method Room Air Room Air Room Air 03/16/23 07:30 Temperature 97.2 F Pulse Rate 80 Respiratory Rate 16 Blood Pressure 120/63 Pulse Oximetry 97 Oxygen Delivery Method Room Air BMI result Body Mass Index 25.9 Labs 03/14/23 12:44 03/15/23 06:23 Labs: Laboratory Results - last 48 hr 03/14/23 03/14/23 03/14/23 12:39 12:44 12:44 WBC 11.0 H RBC 4.57 L Hgb 13.1 L Hct 41.9 L MCV 91.7 MCH 28.7 MCHC 31.3 RDW 16.2 H Plt Count 384 MPV 9.5 Absolute Nucleated RBC 0.000 Nucleated RBC % (auto) 0.0 Sodium 141 Potassium 5.9 H D Chloride 111 H Carbon Dioxide 21 L Anion Gap 15 BUN 19 H Creatinine 1.29 Estim Creat Clear Calc 43.9 Estimated GFR 54 Random Glucose 104 Fasting Glucose Lactic Acid 1.0 Calcium 9.3 Total Bilirubin AST ALT Alkaline Phosphatase Total Protein Albumin Triglycerides Cholesterol LDL Cholesterol, Calc HDL Cholesterol 03/15/23 06:23 WBC RBC Hgb Hct MCV MCH MCHC RDW Plt Count MPV Absolute Nucleated RBC Nucleated RBC % (auto) Sodium 143 Potassium 4.5 D Chloride 112 H Carbon Dioxide 21 L Anion Gap 15 BUN 22 H Creatinine 1.28 Estim Creat Clear Calc 44.3 Estimated GFR 55 Random Glucose Fasting Glucose 97 Lactic Acid Calcium 9.2 Total Bilirubin 0.6 AST 24 ALT 20 Alkaline Phosphatase 101 Total Protein 5.9 L Albumin 3.5 Triglycerides 111 Cholesterol 170 LDL Cholesterol, Calc 115 HDL Cholesterol 33 Imaging Radiology Impressions: ITS Impressions Head CT 03/07/23 14:33 IMPRESSION: No acute intracranial pathology. Generalized atrophy with stable bilateral infarcts as described. Chest X-Ray 03/14/23 12:02 IMPRESSION: Low lung volumes with patchy basilar opacities, left greater than right. This could be atelectasis or pneumonia. Medications Medications Current Medications Acetaminophen (Acetaminophen 325 Mg Tablet) 650 mg PO Q4H PRN PRN Reason: Pain, Mild (Pain Scale 1-3) Last Admin: 03/15/23 17:52 Dose: 650 mg Al Hydroxide/Mg Hydroxide (Magnesium Hydrox/Alum Hydrox 30 Ml Oral.Susp) 30 ml PO Q6H PRN PRN Reason: Heartburn/Nausea Divalproex Sodium (Divalproex Sodium Sprinkles 125 Mg ) 500 mg PO BID [facility] Last Admin: 03/15/23 20:30 Dose: 500 mg Finasteride (Finasteride 5 Mg Tablet) 5 mg PO BEDTIME [facility] Last Admin: 03/15/23 20:29 Dose: 5 mg Guaifenesin/Dextromethorphan (Guaifenesin Dm 100/10/5 Ml 5 Ml Syrup) 10 ml PO Q4H PRN PRN Reason: Cough Levofloxacin (Levofloxacin 750 Mg Tablet) 750 mg PO Q24H [facility] Last Admin: 03/15/23 20:29 Dose: 750 mg [place]te Carbonate (Bronte Carbonate 300 Mg Capsule) 300 mg PO BID [facility] Last Admin: 03/15/23 20:30 Dose: 300 mg Magnesium Hydroxide (Milk Of Magnesia 30 Ml Oral.Susp) 30 ml PO DAILY PRN PRN Reason: Constipation Nitrofurantoin Macrocrystals (Nitrofurantoin Macrocrystal 50 Mg Capsule) 50 mg PO BEDTIME PRN PRN Reason: UTI SYMPTOMS Pharmacy Consult (Consult Rx Perform Med Rec) 1 each MISCELLANE ONCE PRN PRN Reason: Consult order Polyethylene Glycol (Polyethylene Glycol 3350 17 Gm Powd.Pack) 17 gm PO DAILY [facility] Last Admin: 03/15/23 13:06 Dose: Not Given Quetiapine Fumarate (Quetiapine Fumarate 50 Mg Tablet) 50 mg PO Q6H PRN PRN Reason: agitation Last Admin: 03/16/23 01:50 Dose: 50 mg Sodium Biphosphate/Sodium Phosphate (Sodium Phosphate,[place]-Dibasic 133 Ml Enema) 118 ml [place] DAILY PRN PRN Reason: Constipation Tamsulosin HCl (Tamsulosin Hcl 0.4 Mg Capsule) 0.4 mg PO BEDTIME [facility] Last Admin: 03/15/23 20:30 Dose: 0.4 mg Trazodone HCl (Trazodone Hcl 50 Mg Tablet) 50 mg PO BEDTIME [facility] Last Admin: 03/15/23 20:30 Dose: 50 mg Trazodone HCl (Trazodone Hcl 50 Mg Tablet) 50 mg PO BEDTIME MRX1 PRN PRN Reason: Insomnia Last Admin: 03/16/23 01:50 Dose: 50 mg Allergies Allergies Allergy/AdvReac Type Severity Reaction Status Date / Time No Known Allergies Allergy Verified 05/17/21 18:44 Assessment & Plan Assessment & Plan (1) Bipolar disorder: Status: Acute Code(s): F31.9 - Bipolar disorder, unspecified (2) Major neurocognitive disorder due to another medical condition with behavioral disturbance: Status: Acute Code(s): F02.818 - Dementia in other diseases classified elsewhere, unspecified severity, with other behavioral disturbance (3) Pneumonia: Status: Acute Code(s): J18.9 - Pneumonia, unspecified organism (4) Delirium: Status: Acute Code(s): R41.0 - Disorientation, unspecified Plan The patient is an elderly male with a past history of bipolar disorder, most likely PTSD and dementia admitted for exacerbation of agitation and aggression in the [facility], most likely due to delirium induced by atelectasis. Also the patient has been noncompliant with medications. Plan 1. Gather collateral information. 2. Continue with mood stabilizers. 3. Continue medical workout. 4. Reassessment for results. 5. 15 minute checks. Reason for continued inpatient stay Substantial Risk for: inability to function, rapid decompensation and med/psych decompensation Time Spent With Patient Time: Total time managing care of this patient today _20___ minutes.
[2023-03-16] MEDS: polyethylene glycoL 3350 17 GM POWD.PACK PO (08:46)
[2023-03-16] MEDS: Lithium Carbonate 300 MG CAPSULE PO ×2 (08:47→20:12)
[2023-03-16] MEDS: Divalproex Sodium Sprinkles 125 MG CAP.DR.SPR 500 MG PO ×2 (08:47→20:11)
[2023-03-16 18:00] VITALS: BP 114/66; PULSE 80; RESP 16; TEMP 36.2; O2SAT 95
[2023-03-16] MEDS: Finasteride 5 MG TABLET PO (20:12)
[2023-03-16] MEDS: Tamsulosin HCL 0.4 MG CAPSULE PO (20:12)
[2023-03-17] MEDS: Lithium Carbonate 300 MG CAPSULE PO ×2 (08:58→21:32)
[2023-03-17] MEDS: Divalproex Sodium Sprinkles 125 MG CAP.DR.SPR 500 MG PO ×2 (08:58→21:31)
[2023-03-17 09:09] VITALS: BP 125/72; PULSE 73; RESP 16; TEMP 36.4; O2SAT 95
--- NOTE | 2023-03-17 12:45 | HO.PSYCHPN ---
Subjective Subjective Date of Service: 03/17/23 Reason For Visit: Mood Subjective Notes: Conditional Voluntary (By healthcare proxy) Healthcare Proxy: Yes Interim History: The nursing staff reported the patient slept 5 hours he has been behaving fairly well but he looks pleasantly confused. Today the occupational therapist will do a [place] test. On interview the patient denies new symptoms he looks confused and easily redirectable. Mental Status Exam Mental Status Exam Patient Appearance: Appropriate Patient Orientation: Person and Situation Level of Consciousness: Awake and Appropriate Patient Behavior: Guarded and Passive Mood Description: Constricted Affect Description: Withdrawn and Constricted Patient Cognition Impaired: Yes Ability to Follow Directions: Good Speech Pattern: Clear Hallucinations: None Delusions: Not Present Thought Process: Distracted and Slowed Thinking Thought Content: positive for [place] and positive for Poverty of Content Judgement: Poor Diagnostics Vital Signs (24Hr): Vital Signs - 24 hr 03/16/23 18:00 03/17/23 09:09 Temperature 97.1 F 97.6 F Pulse Rate 80 73 Respiratory Rate 16 16 Blood Pressure 114/66 125/72 Pulse Oximetry 95 95 Oxygen Delivery Method Room Air Room Air BMI result Body Mass Index 25.9 Labs 03/14/23 12:44 03/15/23 06:23 Imaging Radiology Impressions: ITS Impressions Head CT 03/07/23 14:33 IMPRESSION: No acute intracranial pathology. Generalized atrophy with stable bilateral infarcts as described. Chest X-Ray 03/14/23 12:02 IMPRESSION: Low lung volumes with patchy basilar opacities, left greater than right. This could be atelectasis or pneumonia. Medications Medications Current Medications Acetaminophen (Acetaminophen 325 Mg Tablet) 650 mg PO Q4H PRN PRN Reason: Pain, Mild (Pain Scale 1-3) Last Admin: 03/15/23 17:52 Dose: 650 mg Al Hydroxide/Mg Hydroxide (Magnesium Hydrox/Alum Hydrox 30 Ml Oral.Susp) 30 ml PO Q6H PRN PRN Reason: Heartburn/Nausea Divalproex Sodium (Divalproex Sodium Sprinkles 125 Mg ) 500 mg PO BID [facility] Last Admin: 03/17/23 08:58 Dose: 500 mg Finasteride (Finasteride 5 Mg Tablet) 5 mg PO BEDTIME [facility] Last Admin: 03/16/23 20:12 Dose: 5 mg Guaifenesin/Dextromethorphan (Guaifenesin Dm 100/10/5 Ml 5 Ml Syrup) 10 ml PO Q4H PRN PRN Reason: Cough Levofloxacin (Levofloxacin 750 Mg Tablet) 750 mg PO Q48H [facility] [place] Carbonate (Garvin Carbonate 300 Mg Capsule) 300 mg PO BID [facility] Last Admin: 03/17/23 08:58 Dose: 300 mg Magnesium Hydroxide (Milk Of Magnesia 30 Ml Oral.Susp) 30 ml PO DAILY PRN PRN Reason: Constipation Nitrofurantoin Macrocrystals (Nitrofurantoin Macrocrystal 50 Mg Capsule) 50 mg PO BEDTIME PRN PRN Reason: UTI SYMPTOMS Pharmacy Consult (Consult Rx Perform Med Rec) 1 each MISCELLANE ONCE PRN PRN Reason: Consult order Polyethylene Glycol (Polyethylene Glycol 3350 17 Gm Powd.Pack) 17 gm PO DAILY [facility] Last Admin: 03/17/23 08:58 Dose: Not Given Quetiapine Fumarate (Quetiapine Fumarate 50 Mg Tablet) 50 mg PO Q6H PRN PRN Reason: agitation Last Admin: 03/16/23 12:31 Dose: 50 mg Sodium Biphosphate/Sodium Phosphate (Sodium Phosphate,[place]-Dibasic 133 Ml Enema) 118 ml [place] DAILY PRN PRN Reason: Constipation Tamsulosin HCl (Tamsulosin Hcl 0.4 Mg Capsule) 0.4 mg PO BEDTIME [facility] Last Admin: 03/16/23 20:12 Dose: 0.4 mg Trazodone HCl (Trazodone Hcl 50 Mg Tablet) 50 mg PO BEDTIME [facility] Last Admin: 03/16/23 20:13 Dose: 50 mg Trazodone HCl (Trazodone Hcl 50 Mg Tablet) 50 mg PO BEDTIME MRX1 PRN PRN Reason: Insomnia Last Admin: 03/16/23 01:50 Dose: 50 mg Allergies Allergies Allergy/AdvReac Type Severity Reaction Status Date / Time No Known Allergies Allergy Verified 05/17/21 18:44 Assessment & Plan Assessment & Plan (1) Bipolar disorder: Status: Acute Code(s): F31.9 - Bipolar disorder, unspecified (2) Major neurocognitive disorder due to another medical condition with behavioral disturbance: Status: Acute Code(s): F02.818 - Dementia in other diseases classified elsewhere, unspecified severity, with other behavioral disturbance (3) Pneumonia: Status: Acute Code(s): J18.9 - Pneumonia, unspecified organism (4) Delirium: Status: Acute Code(s): R41.0 - Disorientation, unspecified Plan The patient is an elderly male with a past history of bipolar disorder, most likely PTSD and dementia admitted for exacerbation of agitation and aggression in the care home, most likely due to delirium induced by atelectasis. Also the patient has been noncompliant with medications. Plan 1. Gather collateral information. 2. Continue with mood stabilizers. 3. Continue medical workout. 4. Reassessment for results. 5. 15 minute checks. Reason for continued inpatient stay Substantial Risk for: inability to function, rapid decompensation and med/psych decompensation Time Spent With Patient Time: Total time managing care of this patient today _20___ minutes.
--- NOTE | 2023-03-17 12:59 | PC.NURSE ---
Pt reports that he stopped smoking 1.5 months ago.
[2023-03-17 21:00] VITALS: BP 126/71; PULSE 76; RESP 16; TEMP 36.3; O2SAT 97
[2023-03-17] MEDS: Finasteride 5 MG TABLET PO (21:31)
[2023-03-17] MEDS: Tamsulosin HCL 0.4 MG CAPSULE PO (21:31)
[2023-03-17] MEDS: traZODone HCL 50 MG TABLET PO (21:31)
[2023-03-17] MEDS: levoFLOXacin 750 MG TABLET PO (21:32)
[2023-03-18 06:00] VITALS: BP 103/67; PULSE 84; RESP 17; TEMP 36.5; O2SAT 97
[2023-03-18] MEDS: Lithium Carbonate 300 MG CAPSULE PO ×2 (09:05→20:36)
[2023-03-18] MEDS: Divalproex Sodium Sprinkles 125 MG CAP.DR.SPR 500 MG PO ×2 (09:05→20:35)
--- NOTE | 2023-03-18 13:46 | P.PNPSI_ITS ---
Subjective Subjective Date of Service: 03/18/23 Reason For Visit: Mood Subjective Notes: Conditional Voluntary Interim History: The nursing staff reported the patient was compliant with medications he slept well but he was confused. He needs assistance for his ADL less. The social worker health services reported that when assistance manner, the senior care facility will not take him back. The occupational therapist reported he was pleasant but not reactive needs full mechanical lived for ADL's. The OT was unable to the [place] test due to his severe cognitive impairment. On interview the patient looks pleasantly confused, easily redirectable. Mental Status Exam Mental Status Exam Patient Appearance: Well Grooomed and Appropriate Patient Orientation: Person Level of Consciousness: Awake Patient Behavior: Guarded and Passive Mood Description: Withdrawn Affect Description: Constricted Patient Cognition Impaired: Yes Ability to Follow Directions: Good Speech Pattern: Clear Hallucinations: None Delusions: Not Present Thought Process: Distracted, Evasive and Slowed Thinking Thought Content: positive for [place] Judgement: Poor Diagnostics Vital Signs (24Hr): Vital Signs - 24 hr 03/17/23 21:00 Temperature 97.4 F Pulse Rate 76 Respiratory Rate 16 Blood Pressure 126/71 Pulse Oximetry 97 Oxygen Delivery Method Room Air BMI result Body Mass Index 25.9 Labs 03/14/23 12:44 03/15/23 06:23 Imaging Radiology Impressions: ITS Impressions Head CT 03/07/23 14:33 IMPRESSION: No acute intracranial pathology. Generalized atrophy with stable bilateral infarcts as described. Chest X-Ray 03/14/23 12:02 IMPRESSION: Low lung volumes with patchy basilar opacities, left greater than right. This could be atelectasis or pneumonia. Medications Medications Current Medications Acetaminophen (Acetaminophen 325 Mg Tablet) 650 mg PO Q4H PRN PRN Reason: Pain, Mild (Pain Scale 1-3) Last Admin: 03/15/23 17:52 Dose: 650 mg Al Hydroxide/Mg Hydroxide (Magnesium Hydrox/Alum Hydrox 30 Ml Oral.Susp) 30 ml PO Q6H PRN PRN Reason: Heartburn/Nausea Divalproex Sodium (Divalproex Sodium Sprinkles 125 Mg ) 500 mg PO BID [facility] Last Admin: 03/18/23 09:05 Dose: 500 mg Finasteride (Finasteride 5 Mg Tablet) 5 mg PO BEDTIME [facility] Last Admin: 03/17/23 21:31 Dose: 5 mg Guaifenesin/Dextromethorphan (Guaifenesin Dm 100/10/5 Ml 5 Ml Syrup) 10 ml PO Q4H PRN PRN Reason: Cough Levofloxacin (Levofloxacin 750 Mg Tablet) 750 mg PO Q48H [facility] Last Admin: 03/17/23 21:32 Dose: 750 mg [place] Carbonate ([place] Carbonate 300 Mg Capsule) 300 mg PO BID [facility] Last Admin: 03/18/23 09:05 Dose: 300 mg Magnesium Hydroxide (Milk Of Magnesia 30 Ml Oral.Susp) 30 ml PO DAILY PRN PRN Reason: Constipation Nitrofurantoin Macrocrystals (Nitrofurantoin Macrocrystal 50 Mg Capsule) 50 mg PO BEDTIME PRN PRN Reason: UTI SYMPTOMS Pharmacy Consult (Consult Rx Perform Med Rec) 1 each MISCELLANE ONCE PRN PRN Reason: Consult order Polyethylene Glycol (Polyethylene Glycol 3350 17 Gm Powd.Pack) 17 gm PO DAILY [facility] Last Admin: 03/18/23 09:11 Dose: Not Given Quetiapine Fumarate (Quetiapine Fumarate 50 Mg Tablet) 50 mg PO Q6H PRN PRN Reason: agitation Last Admin: 03/16/23 12:31 Dose: 50 mg Sodium Biphosphate/Sodium Phosphate (Sodium Phosphate,[place]-Dibasic 133 Ml Enema) 118 ml [place] DAILY PRN PRN Reason: Constipation Tamsulosin HCl (Tamsulosin Hcl 0.4 Mg Capsule) 0.4 mg PO BEDTIME [facility] Last Admin: 03/17/23 21:31 Dose: 0.4 mg Trazodone HCl (Trazodone Hcl 50 Mg Tablet) 50 mg PO BEDTIME [facility] Last Admin: 03/17/23 21:31 Dose: 50 mg Trazodone HCl (Trazodone Hcl 50 Mg Tablet) 50 mg PO BEDTIME MRX1 PRN PRN Reason: Insomnia Last Admin: 03/16/23 01:50 Dose: 50 mg Allergies Allergies Allergy/AdvReac Type Severity Reaction Status Date / Time No Known Allergies Allergy Verified 05/17/21 18:44 Assessment & Plan Assessment & Plan (1) Bipolar disorder: Status: Acute Code(s): F31.9 - Bipolar disorder, unspecified (2) Major neurocognitive disorder due to another medical condition with behavioral disturbance: Status: Acute Code(s): F02.818 - Dementia in other diseases classified elsewhere, unspecified severity, with other behavioral disturbance (3) Pneumonia: Status: Acute Code(s): J18.9 - Pneumonia, unspecified organism (4) Delirium: Status: Acute Code(s): R41.0 - Disorientation, unspecified Plan The patient is an elderly male with a past history of bipolar disorder, most likely PTSD and dementia admitted for exacerbation of agitation and aggression in the senior care, most likely due to delirium induced by atelectasis. Also the patient has been noncompliant with medications. Plan 1. Gather collateral information. 2. Continue with mood stabilizers. 3. Continue medical workout. 4. Reassessment for results. 5. 15 minute checks. 6. Continue with levofloxacin Reason for continued inpatient stay Substantial Risk for: inability to function, rapid decompensation and med/psych decompensation Time Spent With Patient Time: Total time managing care of this patient today __20__ minutes.
[2023-03-18] MEDS: QUEtiapine Fumarate 50 MG TABLET PO (17:22)
[2023-03-18 19:50] VITALS: BP 112/64; PULSE 76; RESP 16; TEMP 36.2; O2SAT 97
[2023-03-18] MEDS: Tamsulosin HCL 0.4 MG CAPSULE PO (20:36)
[2023-03-18] MEDS: traZODone HCL 50 MG TABLET PO (20:37)
[2023-03-18] MEDS: Finasteride 5 MG TABLET PO (20:37)
[2023-03-19 07:30] VITALS: BP 114/74; PULSE 86; RESP 16; TEMP 36.3; O2SAT 95
--- NOTE | 2023-03-19 08:17 | HO.PSYCHPN ---
Subjective Subjective Date of Service: 03/19/23 Reason For Visit: Mood Subjective Notes: Conditional Voluntary Interim History: Pt in chair, not ambulating on his own. Pt reports he is doing good. He denies any physical pain. He does not know why he is here or where he is. He reports people here are nice. He denies SI/HI. No overt delusions or psychosis noted or reported. Per nursing, pt slept 4hrs, did have episode of incontinence. No behavioral concerns. No need for restraints chemical or physical. Medication Compliance: Yes Review of Systems Review of Systems Yes all other systems are reviewed and are negative and Unobtainable due to mental status (patient is demented at baseline) Constitutional: Reports as per HPI Eyes: Reports no additional eye complaints Reports system reviewed and no additional complaints, except as documented Cardiovascular: Reports no additional cardiovascular complaints, Denies chest pain, Denies lightheadedness and Denies dyspnea Respiratory: Reports no additional respiratory complaints and Denies dyspnea Gastrointestinal: Reports no additional gastrointestinal complaints and Denies abdominal pain Genitourinary: Reports no additional male genitourinary complaints Musculoskeletal: Reports no additional musculoskeletal complaints Reports behavioral changes (increased aggression) and Reports confusion (chronic for the patient) Psychiatric: Reports no additional psychiatric complaints, Reports behavioral changes (increased aggression) and Reports confusion (chronic for the patient) Endocrine: Reports no additional endocrine complaints Hematologic/Lymphatic: Reports no additional hematologic/lymphatic complaints Allergic/Immunologic: Reports no additional allergic/immunologic complaints Mental Status Exam Mental Status Exam Narrative: Appearance: wearing hospital gown, good hygiene, in NAD Behavior: pleasant Psychomotor: no agitation or retardation noted SPeech: clear, regular rate/rhythm/volume, spontaneous TP: mostly linear TC: no overt psychosis, feeling good, not sure where he is or why. Mood: good Affect: congruent, brightens at times SI: denies HI: denies Insight/judgment: impaired x 2. Memory/cog: alert, not oriented to place, situation month or year Diagnostics Vital Signs (24Hr): Vital Signs - 24 hr 03/18/23 19:50 Temperature 97.2 F Pulse Rate 76 Respiratory Rate 16 Blood Pressure 112/64 Pulse Oximetry 97 Oxygen Delivery Method Room Air BMI result Body Mass Index 25.9 Labs 03/14/23 12:44 03/15/23 06:23 Imaging Radiology Impressions: ITS Impressions Head CT 03/07/23 14:33 IMPRESSION: No acute intracranial pathology. Generalized atrophy with stable bilateral infarcts as described. Chest X-Ray 03/14/23 12:02 IMPRESSION: Low lung volumes with patchy basilar opacities, left greater than right. This could be atelectasis or pneumonia. Medications Medications Current Medications Acetaminophen (Acetaminophen 325 Mg Tablet) 650 mg PO Q4H PRN PRN Reason: Pain, Mild (Pain Scale 1-3) Last Admin: 03/15/23 17:52 Dose: 650 mg Al Hydroxide/Mg Hydroxide (Magnesium Hydrox/Alum Hydrox 30 Ml Oral.Susp) 30 ml PO Q6H PRN PRN Reason: Heartburn/Nausea Divalproex Sodium (Divalproex Sodium Sprinkles 125 Mg [place].) 500 mg PO BID [facility] Last Admin: 03/18/23 20:35 Dose: 500 mg Finasteride (Finasteride 5 Mg Tablet) 5 mg PO BEDTIME [facility] Last Admin: 03/18/23 20:37 Dose: 5 mg Guaifenesin/Dextromethorphan (Guaifenesin Dm 100/10/5 Ml 5 Ml Syrup) 10 ml PO Q4H PRN PRN Reason: Cough Levofloxacin (Levofloxacin 750 Mg Tablet) 750 mg PO Q48H [facility] Last Admin: 03/17/23 21:32 Dose: 750 mg [place] Carbonate (Flasher Carbonate 300 Mg Capsule) 300 mg PO BID [facility] Last Admin: 03/18/23 20:36 Dose: 300 mg Magnesium Hydroxide (Milk Of Magnesia 30 Ml Oral.Susp) 30 ml PO DAILY PRN PRN Reason: Constipation Nitrofurantoin Macrocrystals (Nitrofurantoin Macrocrystal 50 Mg Capsule) 50 mg PO BEDTIME PRN PRN Reason: UTI SYMPTOMS Pharmacy Consult (Consult Rx Perform Med Rec) 1 each MISCELLANE ONCE PRN PRN Reason: Consult order Polyethylene Glycol (Polyethylene Glycol 3350 17 Gm Powd.Pack) 17 gm PO DAILY [facility] Last Admin: 03/18/23 09:11 Dose: Not Given Quetiapine Fumarate (Quetiapine Fumarate 50 Mg Tablet) 50 mg PO Q6H PRN PRN Reason: agitation Last Admin: 03/18/23 17:22 Dose: 50 mg Sodium Biphosphate/Sodium Phosphate (Sodium Phosphate,[place]-Dibasic 133 Ml Enema) 118 ml [place] DAILY PRN PRN Reason: Constipation Tamsulosin HCl (Tamsulosin Hcl 0.4 Mg Capsule) 0.4 mg PO BEDTIME [facility] Last Admin: 03/18/23 20:36 Dose: 0.4 mg Trazodone HCl (Trazodone Hcl 50 Mg Tablet) 50 mg PO BEDTIME [facility] Last Admin: 03/18/23 20:37 Dose: 50 mg Trazodone HCl (Trazodone Hcl 50 Mg Tablet) 50 mg PO BEDTIME MRX1 PRN PRN Reason: Insomnia Last Admin: 03/16/23 01:50 Dose: 50 mg Allergies Allergies Allergy/AdvReac Type Severity Reaction Status Date / Time No Known Allergies Allergy Verified 05/17/21 18:44 Assessment & Plan Assessment & Plan (1) Bipolar disorder: Status: Acute Code(s): F31.9 - Bipolar disorder, unspecified (2) Major neurocognitive disorder due to another medical condition with behavioral disturbance: Status: Acute Code(s): F02.818 - Dementia in other diseases classified elsewhere, unspecified severity, with other behavioral disturbance (3) Pneumonia: Status: Acute Code(s): J18.9 - Pneumonia, unspecified organism (4) Delirium: Status: Acute Code(s): R41.0 - Disorientation, unspecified Plan The patient is an elderly male with a past history of bipolar disorder, most likely PTSD and dementia admitted for exacerbation of agitation and aggression in the halfway, most likely due to delirium induced by atelectasis. Also the patient has been noncompliant with medications. 03/19 continue current medications. Reason for continued inpatient stay Substantial Risk for: inability to function Time Spent With Patient Time: Total time managing care of this patient today ____ minutes.
[2023-03-19] MEDS: Lithium Carbonate 300 MG CAPSULE PO ×2 (08:26→20:38)
[2023-03-19] MEDS: Divalproex Sodium Sprinkles 125 MG CAP.DR.SPR 500 MG PO ×2 (08:26→20:38)
[2023-03-19] MEDS: polyethylene glycoL 3350 17 GM POWD.PACK PO (08:26)
[2023-03-19 16:32] LABS: Ammonia 37 umol/L (13-55)
[2023-03-19 16:44] LABS: Alanine Aminotransferase 14 U/L (0-40); Albumin Level 3.9 g/dL (3.5-5.0); Alkaline Phosphatase 109 U/L (39-117); Anion Gap 13 (12-20); Aspartate Amino Transferase 15 U/L (5-37); Bilirubin Total 0.6 mg/dL (0.0-1.0); Blood Urea Nitrogen 22 mg/dL (9-16); Calcium 9.4 mg/dL (8.4-10.2); Carbon Dioxide 22 mmol/L (22-29); Chloride 109 mmol/L (96-108); Estimated Glomerular Filt Rate > 60; Glucose Random 103 mg/dL (60-115); Potassium 4.1 mmol/L (3.3-5.1); Sodium 140 mmol/L (135-145); Total Protein 6.5 g/dL (6.5-8.0)
[2023-03-19 18:00] VITALS: BP 142/56; PULSE 76; RESP 18; TEMP 36.8; O2SAT 96
[2023-03-19] MEDS: traZODone HCL 50 MG TABLET PO (20:38)
[2023-03-19] MEDS: Finasteride 5 MG TABLET PO (20:38)
[2023-03-19] MEDS: levoFLOXacin 750 MG TABLET PO (20:38)
[2023-03-19] MEDS: Tamsulosin HCL 0.4 MG CAPSULE PO (20:38)
[2023-03-20] MEDS: QUEtiapine Fumarate 50 MG TABLET PO ×2 (00:11→17:25)
[2023-03-20] MEDS: traZODone HCL 50 MG TABLET PO (00:11)
[2023-03-20 06:00] VITALS: BP 116/59; PULSE 72; RESP 18; TEMP 36.4; O2SAT 96
[2023-03-20 08:50] LABS: Lithium 0.99 mmol/L (0.60-1.20)
[2023-03-20 08:55] LABS: Valproate 47.4 mcg/mL (50.0-100.0)
[2023-03-20] MEDS: Divalproex Sodium Sprinkles 125 MG CAP.DR.SPR 500 MG PO (09:31)
[2023-03-20] MEDS: Lithium Carbonate 300 MG CAPSULE PO (09:31)
--- NOTE | 2023-03-20 09:45 | HO.PSYCHPN ---
Subjective Subjective Date of Service: 03/20/23 Reason For Visit: Mood Subjective Notes: Conditional Voluntary (By healthcare proxy) Healthcare Proxy: Yes Interim History: The nursing staff reported the patient had good appetite, he had been compliant with treatment and he looked in good behavioral control at this moment but he needs total care and he can be belligerent and combative with care. The social psychologist reported that the med the son yesterday and he was aware of the condition of the patient. On interview the patient is pleasantly confused in the common area. Mental Status Exam Mental Status Exam Patient Appearance: Appropriate Patient Orientation: Person and Situation Level of Consciousness: Awake and Appropriate Patient Behavior: Guarded and Passive Mood Description: Calm Affect Description: Constricted Patient Cognition Impaired: Yes Ability to Follow Directions: Good Speech Pattern: Clear and Impoverished Hallucinations: None Delusions: Not Present Thought Process: Distracted and Evasive Thought Content: positive for [place] and positive for [place] of Content Judgement: Poor Diagnostics Vital Signs (24Hr): Vital Signs - 24 hr 03/19/23 18:00 Temperature 98.2 F Pulse Rate 76 Respiratory Rate 18 Blood Pressure 142/56 H Pulse Oximetry 96 Oxygen Delivery Method Room Air BMI result Body Mass Index 25.9 Labs 03/14/23 12:44 03/19/23 16:08 Labs: Laboratory Results - last 48 hr 03/19/23 03/19/23 03/20/23 16:08 16:08 08:28 Sodium 140 Potassium 4.1 Chloride 109 H Carbon Dioxide 22 Anion Gap 13 BUN 22 H Creatinine 1.07 Estim Creat Clear Calc 53.0 Estimated GFR > 60 Random Glucose 103 Calcium 9.4 Total Bilirubin 0.6 AST 15 ALT 14 Alkaline Phosphatase 109 Ammonia 37 Total Protein 6.5 Albumin 3.9 Valproic Acid [place] 0.99 03/20/23 08:28 Sodium Potassium Chloride Carbon Dioxide Anion Gap BUN Creatinine Estim Creat Clear Calc Estimated GFR Random Glucose Calcium Total Bilirubin AST ALT Alkaline Phosphatase Ammonia Total Protein Albumin Valproic Acid 47.4 L [place] Imaging Radiology Impressions: ITS Impressions Head CT 03/07/23 14:33 IMPRESSION: No acute intracranial pathology. Generalized atrophy with stable bilateral infarcts as described. Chest X-Ray 03/14/23 12:02 IMPRESSION: Low lung volumes with patchy basilar opacities, left greater than right. This could be atelectasis or pneumonia. Medications Medications Current Medications Acetaminophen (Acetaminophen 325 Mg Tablet) 650 mg PO Q4H PRN PRN Reason: Pain, Mild (Pain Scale 1-3) Last Admin: 03/15/23 17:52 Dose: 650 mg Al Hydroxide/Mg Hydroxide (Magnesium Hydrox/Alum Hydrox 30 Ml Oral.Susp) 30 ml PO Q6H PRN PRN Reason: Heartburn/Nausea Divalproex Sodium (Divalproex Sodium Sprinkles 125 Mg [place].) 500 mg PO BID [facility] Last Admin: 03/20/23 09:31 Dose: 500 mg Finasteride (Finasteride 5 Mg Tablet) 5 mg PO BEDTIME [facility] Last Admin: 03/19/23 20:38 Dose: 5 mg Guaifenesin/Dextromethorphan (Guaifenesin Dm 100/10/5 Ml 5 Ml Syrup) 10 ml PO Q4H PRN PRN Reason: Cough Levofloxacin (Levofloxacin 750 Mg Tablet) 750 mg PO Q48H [facility] Last Admin: 03/19/23 20:38 Dose: 750 mg [place] Carbonate ([place] Carbonate 300 Mg Capsule) 300 mg PO BID [facility] Last Admin: 03/20/23 09:31 Dose: 300 mg Magnesium Hydroxide (Milk Of Magnesia 30 Ml Oral.Susp) 30 ml PO DAILY PRN PRN Reason: Constipation Nitrofurantoin Macrocrystals (Nitrofurantoin Macrocrystal 50 Mg Capsule) 50 mg PO BEDTIME PRN PRN Reason: UTI SYMPTOMS Pharmacy Consult (Consult Rx Perform Med Rec) 1 each MISCELLANE ONCE PRN PRN Reason: Consult order Polyethylene Glycol (Polyethylene Glycol 3350 17 Gm Powd.Pack) 17 gm PO DAILY [facility] Last Admin: 03/20/23 09:13 Dose: Not Given Quetiapine Fumarate (Quetiapine Fumarate 50 Mg Tablet) 50 mg PO Q6H PRN PRN Reason: agitation Last Admin: 03/20/23 00:11 Dose: 50 mg Sodium Biphosphate/Sodium Phosphate (Sodium Phosphate,[place]-Dibasic 133 Ml Enema) 118 ml [place] DAILY PRN PRN Reason: Constipation Tamsulosin HCl (Tamsulosin Hcl 0.4 Mg Capsule) 0.4 mg PO BEDTIME [facility] Last Admin: 03/19/23 20:38 Dose: 0.4 mg Trazodone HCl (Trazodone Hcl 50 Mg Tablet) 50 mg PO BEDTIME [facility] Last Admin: 03/19/23 20:38 Dose: 50 mg Trazodone HCl (Trazodone Hcl 50 Mg Tablet) 50 mg PO BEDTIME MRX1 PRN PRN Reason: Insomnia Last Admin: 03/20/23 00:11 Dose: 50 mg Allergies Allergies Allergy/AdvReac Type Severity Reaction Status Date / Time No Known Allergies Allergy Verified 05/17/21 18:44 Assessment & Plan Assessment & Plan (1) Bipolar disorder: Status: Acute Code(s): F31.9 - Bipolar disorder, unspecified (2) Major neurocognitive disorder due to another medical condition with behavioral disturbance: Status: Acute Code(s): F02.818 - Dementia in other diseases classified elsewhere, unspecified severity, with other behavioral disturbance (3) Pneumonia: Status: Acute Code(s): J18.9 - Pneumonia, unspecified organism (4) Delirium: Status: Acute Code(s): R41.0 - Disorientation, unspecified Plan The patient is an elderly male with a past history of bipolar disorder, most likely PTSD and dementia admitted for exacerbation of agitation and aggression in the intermediate, most likely due to delirium induced by atelectasis. Also the patient has been noncompliant with medications. Plan 1. Continue with Depakote and lithium. His last blood drawn was from today and lithium is a therapeutic level, Depakote slightly low but no behavioral problems. 2. Continue with other medications. 3. Start working on discharge planning probably to senior care facility due to the severe impairment of the patient. Reason for continued inpatient stay Substantial Risk for: inability to function, rapid decompensation and med/psych decompensation Time Spent With Patient Time: Total time managing care of this patient today __20__ minutes.
--- NOTE | 2023-03-20 11:21 | P.CONNP_ITS ---
History of Present Illness Reason for Consult Consult date: 03/20/23 Chief Complaint Chief complaint: Mood History of Present Illness Narrative: Mr. Wisdom is a 78 year-old male with hx of dementia, brought via EMS from SNf due to increase combative behaviors, refusing medications. Patient continued to present with episodes of combative behaviors in setting of confusion. Utox is negative. Head CT did not show any acute pathology but did reveal encephalomalacia s/s to infarct bilat frontal/temporal lobes, periventricular matter disease and generalized atrophy. CBC with normocytic anemia. CMP- with decrease creatinine clearance of 49.7, Cr 1.14, BUN 15. electrolytes wnl. UA without leukocytosis. On lithium . Has some CKD. Nephrology has been consulted to assist in his clinical care during his current hospital stay Review of Systems Review of Systems Yes all other systems are reviewed and are negative PMFSH Past Medical History Medical History Bipolar 1 disorder Cataracts, bilateral Dementia Diabetes GERD (gastroesophageal reflux disease) PTSD (post-traumatic stress disorder) Squamous cell carcinoma Social History Social History Housing: [facility] Unable to assess alcohol history related to: Unknown Alcohol intake: never Patient Tobacco Use Status: Former Tobacco user Smoked in Last 30 Days: No Use of substances other than those prescribed or required for medical reasons: Unknown Currently Displaying Signs/Symptoms of Drug Intoxication Withdrawal: No Advance Directives: Yes Advance Directives on File: Yes Advance Directives Date on File: 07/19/21 Healthcare Proxy: Yes Guardian: No Do you have thoughts of harming others: None Do you have a plan to hurt others: No Plan service: Yes Sexual orientation: Straight/Heterosexual Meds Allergies Allergy/AdvReac Type Severity Reaction Status Date / Time No Known Allergies Allergy Verified 05/17/21 18:44 Active Medications: Current Medications Acetaminophen (Acetaminophen 325 Mg Tablet) 650 mg PO Q4H PRN PRN Reason: Pain, Mild (Pain Scale 1-3) Last Admin: 03/15/23 17:52 Dose: 650 mg Al Hydroxide/Mg Hydroxide (Magnesium Hydrox/Alum Hydrox 30 Ml Oral.Susp) 30 ml PO Q6H PRN PRN Reason: Heartburn/Nausea Divalproex Sodium (Divalproex Sodium Sprinkles 125 Mg Cap.Spr) 500 mg PO BID [facility] Last Admin: 03/20/23 09:31 Dose: 500 mg Finasteride (Finasteride 5 Mg Tablet) 5 mg PO BEDTIME [facility] Last Admin: 03/19/23 20:38 Dose: 5 mg Guaifenesin/Dextromethorphan (Guaifenesin Dm 100/10/5 Ml 5 Ml Syrup) 10 ml PO Q4H PRN PRN Reason: Cough Levofloxacin (Levofloxacin 750 Mg Tablet) 750 mg PO Q48H [facility] Last Admin: 03/19/23 20:38 Dose: 750 mg [place] Carbonate ([place] Carbonate 300 Mg Capsule) 300 mg PO BID [facility] Last Admin: 03/20/23 09:31 Dose: 300 mg Magnesium Hydroxide (Milk Of Magnesia 30 Ml Oral.Susp) 30 ml PO DAILY PRN PRN Reason: Constipation Nitrofurantoin Macrocrystals (Nitrofurantoin Macrocrystal 50 Mg Capsule) 50 mg PO BEDTIME PRN PRN Reason: UTI SYMPTOMS Pharmacy Consult (Consult Rx Perform Med Rec) 1 each MISCELLANE ONCE PRN PRN Reason: Consult order Polyethylene Glycol (Polyethylene Glycol 3350 17 Gm Powd.Pack) 17 gm PO DAILY [facility] Last Admin: 03/20/23 09:13 Dose: Not Given Quetiapine Fumarate (Quetiapine Fumarate 50 Mg Tablet) 50 mg PO Q6H PRN PRN Reason: agitation Last Admin: 03/20/23 00:11 Dose: 50 mg Sodium Biphosphate/Sodium Phosphate (Sodium Phosphate,[place]-Dibasic 133 Ml Enema) 118 ml [place] DAILY PRN PRN Reason: Constipation Tamsulosin HCl (Tamsulosin Hcl 0.4 Mg Capsule) 0.4 mg PO BEDTIME [facility] Last Admin: 03/19/23 20:38 Dose: 0.4 mg Trazodone HCl (Trazodone Hcl 50 Mg Tablet) 50 mg PO BEDTIME [facility] Last Admin: 03/19/23 20:38 Dose: 50 mg Trazodone HCl (Trazodone Hcl 50 Mg Tablet) 50 mg PO BEDTIME MRX1 PRN PRN Reason: Insomnia Last Admin: 03/20/23 00:11 Dose: 50 mg Home Medications Medication Instructions Recorded Confirmed Last Taken Type acetaminophen 325 mg tablet 650 mg PO Q4H PRN Pain 08/06/22 03/06/23 Unknown History bisacodyl 10 mg rectal suppository 10 mg [place] DAILY PRN Pain 08/06/22 03/06/23 Unknown History (Dulcolax (bisacodyl)) divalproex 125 mg capsule,delayed 500 mg PO BID 08/06/22 03/06/23 Unknown History release sprinkle (Depakote Sprinkles) finasteride 5 mg tablet (Proscar) 5 mg PO BEDTIME 08/06/22 03/06/23 Unknown History lithium carbonate 150 mg capsule 225 mg PO BID 08/06/22 03/06/23 Unknown History nitrofurantoin macrocrystal 50 mg 50 mg PO BEDTIME PRN UTI SYMPTOMS 08/06/22 03/06/23 Unknown History capsule polyethylene glycol 3350 17 gram 17 g PO DAILY 08/06/22 03/06/23 Unknown History oral powder packet (Miralax) quetiapine 25 mg tablet (Seroquel) 25 mg PO DAILY 08/06/22 03/06/23 Unknown History sodium phosphates 19 gram-7 118 ml [place] DAILY PRN Constipation 08/06/22 03/06/23 Unknown History gram/118 mL enema (Fleet Enema) tamsulosin 0.4 mg capsule (Flomax) 0.4 mg PO BEDTIME 08/06/22 03/06/23 Unknown History trazodone 50 mg tablet 25 mg PO DAILY PRN Agitation 08/06/22 03/06/23 Unknown History trazodone 50 mg tablet 50 mg PO BEDTIME 08/06/22 03/06/23 Unknown History albuterol sulfate 0.63 mg/3 mL 0.63 mg inhalation Q4H PRN 03/06/23 03/06/23 Unknown History solution for nebulization Shortness Of Breath dextromethorphan-guaifenesin 10 10 ml PO Q4H PRN Cough 03/06/23 03/06/23 Unknown History mg-100 mg/5 mL oral liquid (Tussin DM) Physical Exam Vital Signs: Last Vital Signs Temp 98.2 F 03/19/23 18:00 Pulse 76 03/19/23 18:00 Resp 18 03/19/23 18:00 BP 142/56 H 03/19/23 18:00 Pulse Ox 96 03/19/23 18:00 O2 Del Method Room Air 03/19/23 18:00 O2 Flow Rate 0.5 03/14/23 13:46 BMI result Body Mass Index 25.9 Const General: no acute distress Eyes EOM: EOMs intact bilaterally Neck Neck: Yes supple Resp Auscultation: diminished lung sounds Cardio Rate: regular rate GI Palpation (GI): Soft to palpation Skin General skin exam: no rashes or lesions noted Neuro General: moves all extremities Results Lab Results 03/14/23 12:44 03/19/23 16:08 Lab results: Chemistry 03/19/23 16:08 Sodium 140 Potassium 4.1 Carbon Dioxide 22 BUN 22 H Creatinine 1.07 Calcium 9.4 Assessment and Plan (1) CKD (chronic kidney disease), stage III: Status: Acute Plan Renal function stable. Electrolytes acceptable Tolerating lithium. ( levels OK) No hypernatremia/hypercalcemia Continue current supportive care Procedures Date of Service Date of Service: 03/20/23
[2023-03-21 08:00] VITALS: BP 120/66; PULSE 73; RESP 20; TEMP 36.2; O2SAT 98
[2023-03-21] MEDS: Lithium Carbonate 300 MG CAPSULE PO ×2 (08:30→19:56)
[2023-03-21] MEDS: Divalproex Sodium Sprinkles 125 MG CAP.DR.SPR 500 MG PO ×2 (08:30→19:55)
--- NOTE | 2023-03-21 09:26 | HO.PSYCHPN ---
Subjective Subjective Date of Service: 03/21/23 Reason For Visit: Mood Subjective Notes: Conditional Voluntary Interim History: Nursing staff reported the patient had been compliant, pleasant non combative. The staff has noticed that if we would explain to the patient step by step any procedure his compliant. He does not like to be surprised. Most likely due to his past PTSD. The certified social workers in health care reported the [facility] facility will take him back if he is stable, probably next Friday. On interview the patient is pleasantly confused cooperative and pleasant. Mental Status Exam Mental Status Exam Patient Appearance: Appropriate Patient Orientation: Person Level of Consciousness: Appropriate Patient Behavior: Cooperative and Passive Mood Description: Withdrawn Affect Description: Constricted Patient Cognition Impaired: Yes Ability to Follow Directions: Good Speech Pattern: Clear Hallucinations: None Delusions: Not Present Thought Process: Distracted and Slowed Thinking Thought Content: positive for [place] and positive for Circumstantial Judgement: Fair Diagnostics Vital Signs (24Hr): Vital Signs - 24 hr 03/21/23 08:00 Temperature 97.1 F Pulse Rate 73 Respiratory Rate 20 Blood Pressure 120/66 Pulse Oximetry 98 Oxygen Delivery Method Room Air BMI result Body Mass Index 25.9 Labs 03/14/23 12:44 03/19/23 16:08 Labs: Laboratory Results - last 48 hr 03/19/23 03/19/23 03/20/23 16:08 16:08 08:28 Sodium 140 Potassium 4.1 Chloride 109 H Carbon Dioxide 22 Anion Gap 13 BUN 22 H Creatinine 1.07 Estim Creat Clear Calc 53.0 Estimated GFR > 60 Random Glucose 103 Calcium 9.4 Total Bilirubin 0.6 AST 15 ALT 14 Alkaline Phosphatase 109 Ammonia 37 Total Protein 6.5 Albumin 3.9 Valproic Acid [place] 0.99 03/20/23 08:28 Sodium Potassium Chloride Carbon Dioxide Anion Gap BUN Creatinine Estim Creat Clear Calc Estimated GFR Random Glucose Calcium Total Bilirubin AST ALT Alkaline Phosphatase Ammonia Total Protein Albumin Valproic Acid 47.4 L [place] Imaging Radiology Impressions: ITS Impressions Head CT 03/07/23 14:33 IMPRESSION: No acute intracranial pathology. Generalized atrophy with stable bilateral infarcts as described. Chest X-Ray 03/14/23 12:02 IMPRESSION: Low lung volumes with patchy basilar opacities, left greater than right. This could be atelectasis or pneumonia. Medications Medications Current Medications Acetaminophen (Acetaminophen 325 Mg Tablet) 650 mg PO Q4H PRN PRN Reason: Pain, Mild (Pain Scale 1-3) Last Admin: 03/15/23 17:52 Dose: 650 mg Al Hydroxide/Mg Hydroxide (Magnesium Hydrox/Alum Hydrox 30 Ml Oral.Susp) 30 ml PO Q6H PRN PRN Reason: Heartburn/Nausea Divalproex Sodium (Divalproex Sodium Sprinkles 125 Mg ) 500 mg PO BID [facility] Last Admin: 03/21/23 08:30 Dose: 500 mg Finasteride (Finasteride 5 Mg Tablet) 5 mg PO BEDTIME [facility] Last Admin: 03/20/23 21:28 Dose: Not Given Guaifenesin/Dextromethorphan (Guaifenesin Dm 100/10/5 Ml 5 Ml Syrup) 10 ml PO Q4H PRN PRN Reason: Cough Levofloxacin (Levofloxacin 750 Mg Tablet) 750 mg PO Q48H [facility] Last Admin: 03/19/23 20:38 Dose: 750 mg [place] Carbonate ([place] Carbonate 300 Mg Capsule) 300 mg PO BID [facility] Last Admin: 03/21/23 08:30 Dose: 300 mg Magnesium Hydroxide (Milk Of Magnesia 30 Ml Oral.Susp) 30 ml PO DAILY PRN PRN Reason: Constipation Nitrofurantoin Macrocrystals (Nitrofurantoin Macrocrystal 50 Mg Capsule) 50 mg PO BEDTIME PRN PRN Reason: UTI SYMPTOMS Pharmacy Consult (Consult Rx Perform Med Rec) 1 each MISCELLANE ONCE PRN PRN Reason: Consult order Polyethylene Glycol (Polyethylene Glycol 3350 17 Gm Powd.Pack) 17 gm PO DAILY [facility] Last Admin: 03/20/23 09:13 Dose: Not Given Quetiapine Fumarate (Quetiapine Fumarate 50 Mg Tablet) 50 mg PO Q6H PRN PRN Reason: agitation Last Admin: 03/20/23 17:25 Dose: 50 mg Sodium Biphosphate/Sodium Phosphate (Sodium Phosphate,[place]-Dibasic 133 Ml Enema) 118 ml [place] DAILY PRN PRN Reason: Constipation Tamsulosin HCl (Tamsulosin Hcl 0.4 Mg Capsule) 0.4 mg PO BEDTIME [facility] Last Admin: 03/20/23 21:29 Dose: Not Given Trazodone HCl (Trazodone Hcl 50 Mg Tablet) 50 mg PO BEDTIME [facility] Last Admin: 03/20/23 21:29 Dose: Not Given Trazodone HCl (Trazodone Hcl 50 Mg Tablet) 50 mg PO BEDTIME MRX1 PRN PRN Reason: Insomnia Last Admin: 03/20/23 00:11 Dose: 50 mg Allergies Allergies Allergy/AdvReac Type Severity Reaction Status Date / Time No Known Allergies Allergy Verified 05/17/21 18:44 Assessment & Plan Assessment & Plan (1) Bipolar disorder: Status: Acute Code(s): F31.9 - Bipolar disorder, unspecified (2) Major neurocognitive disorder due to another medical condition with behavioral disturbance: Status: Acute Code(s): F02.818 - Dementia in other diseases classified elsewhere, unspecified severity, with other behavioral disturbance (3) Pneumonia: Status: Acute Code(s): J18.9 - Pneumonia, unspecified organism (4) Delirium: Status: Acute Code(s): R41.0 - Disorientation, unspecified Plan The patient is an elderly male with a past history of bipolar disorder, most likely PTSD and dementia admitted for exacerbation of agitation and aggression in the prison, most likely due to delirium induced by atelectasis. Also the patient has been noncompliant with medications. Plan 1. Continue with Depakote and lithium. His last blood drawn was from today and lithium is a therapeutic level, Depakote slightly low but no behavioral problems. 2. Continue with other medications. 3. Start working on discharge planning probably to [facility] facility due to the severe impairment of the patient. Reason for continued inpatient stay Substantial Risk for: inability to function, rapid decompensation and med/psych decompensation Time Spent With Patient Time: Total time managing care of this patient today __20__ minutes.
[2023-03-21 18:00] VITALS: BP 111/67; PULSE 73; RESP 18; TEMP 36.1; O2SAT 98
[2023-03-21] MEDS: QUEtiapine Fumarate 50 MG TABLET PO (18:44)
[2023-03-21] MEDS: levoFLOXacin 750 MG TABLET PO (19:55)
[2023-03-21] MEDS: traZODone HCL 50 MG TABLET PO (19:56)
[2023-03-21] MEDS: Tamsulosin HCL 0.4 MG CAPSULE PO (19:57)
[2023-03-21] MEDS: Finasteride 5 MG TABLET PO (19:57)
[2023-03-22 08:00] VITALS: BP 121/65; PULSE 81; RESP 20; TEMP 36.2; O2SAT 96
[2023-03-22] MEDS: Divalproex Sodium Sprinkles 125 MG CAP.DR.SPR 500 MG PO ×2 (08:44→19:35)
[2023-03-22] MEDS: Lithium Carbonate 300 MG CAPSULE PO ×2 (08:44→19:38)
[2023-03-22] MEDS: polyethylene glycoL 3350 17 GM POWD.PACK PO (08:44)
--- NOTE | 2023-03-22 11:26 | P.PNPSI_ITS ---
Subjective Subjective Date of Service: 03/22/23 Reason For Visit: Mood Interim History: seen in milieu seated in bettye chair. calm, cooperative, pleasant. no complaints or requests. per staff, kicks and bites when care is being administered. PTSD. no other notable events or behaviors. Mental Status Exam Mental Status Exam Patient Appearance: Appropriate Patient Orientation: Person Level of Consciousness: Appropriate Patient Behavior: Cooperative and Passive Mood Description: Withdrawn Affect Description: Relaxed Patient Cognition Impaired: Yes Ability to Follow Directions: Good Speech Pattern: Clear Hallucinations: None Delusions: Not Present Thought Process: Distracted and Slowed Thinking Thought Content: positive for [place] and positive for Circumstantial Judgement: Fair Diagnostics Vital Signs (24Hr): Vital Signs - 24 hr 03/21/23 18:00 03/22/23 08:00 Temperature 96.9 F 97.2 F Pulse Rate 73 81 Respiratory Rate 18 20 Blood Pressure 111/67 121/65 Pulse Oximetry 98 96 Oxygen Delivery Method Room Air Room Air BMI result Body Mass Index 25.9 Labs 03/14/23 12:44 03/19/23 16:08 Imaging Radiology Impressions: ITS Impressions Head CT 03/07/23 14:33 IMPRESSION: No acute intracranial pathology. Generalized atrophy with stable bilateral infarcts as described. Chest X-Ray 03/14/23 12:02 IMPRESSION: Low lung volumes with patchy basilar opacities, left greater than right. This could be atelectasis or pneumonia. Medications Medications Current Medications Acetaminophen (Acetaminophen 325 Mg Tablet) 650 mg PO Q4H PRN PRN Reason: Pain, Mild (Pain Scale 1-3) Last Admin: 03/15/23 17:52 Dose: 650 mg Al Hydroxide/Mg Hydroxide (Magnesium Hydrox/Alum Hydrox 30 Ml Oral.Susp) 30 ml PO Q6H PRN PRN Reason: Heartburn/Nausea Divalproex Sodium (Divalproex Sodium Sprinkles 125 Mg ) 500 mg PO BID [facility] Last Admin: 03/22/23 08:44 Dose: 500 mg Finasteride (Finasteride 5 Mg Tablet) 5 mg PO BEDTIME [facility] Last Admin: 03/21/23 19:57 Dose: 5 mg Guaifenesin/Dextromethorphan (Guaifenesin Dm 100/10/5 Ml 5 Ml Syrup) 10 ml PO Q4H PRN PRN Reason: Cough Levofloxacin (Levofloxacin 750 Mg Tablet) 750 mg PO Q48H [facility] Last Admin: 03/21/23 19:55 Dose: 750 mg [place] Carbonate ([place] Carbonate 300 Mg Capsule) 300 mg PO BID [facility] Last Admin: 03/22/23 08:44 Dose: 300 mg Magnesium Hydroxide (Milk Of Magnesia 30 Ml Oral.Susp) 30 ml PO DAILY PRN PRN Reason: Constipation Nitrofurantoin Macrocrystals (Nitrofurantoin Macrocrystal 50 Mg Capsule) 50 mg PO BEDTIME PRN PRN Reason: UTI SYMPTOMS Pharmacy Consult (Consult Rx Perform Med Rec) 1 each MISCELLANE ONCE PRN PRN Reason: Consult order Polyethylene Glycol (Polyethylene Glycol 3350 17 Gm Powd.Pack) 17 gm PO DAILY [facility] Last Admin: 03/22/23 08:44 Dose: 17 gm Quetiapine Fumarate (Quetiapine Fumarate 50 Mg Tablet) 50 mg PO Q6H PRN PRN Reason: agitation Last Admin: 03/21/23 18:44 Dose: 50 mg Sodium Biphosphate/Sodium Phosphate (Sodium Phosphate,[place]-Dibasic 133 Ml Enema) 118 ml [place] DAILY PRN PRN Reason: Constipation Tamsulosin HCl (Tamsulosin Hcl 0.4 Mg Capsule) 0.4 mg PO BEDTIME [facility] Last Admin: 03/21/23 19:57 Dose: 0.4 mg Trazodone HCl (Trazodone Hcl 50 Mg Tablet) 50 mg PO BEDTIME [facility] Last Admin: 03/21/23 19:56 Dose: 50 mg Trazodone HCl (Trazodone Hcl 50 Mg Tablet) 50 mg PO BEDTIME MRX1 PRN PRN Reason: Insomnia Last Admin: 03/20/23 00:11 Dose: 50 mg Allergies Allergies Allergy/AdvReac Type Severity Reaction Status Date / Time No Known Allergies Allergy Verified 05/17/21 18:44 Assessment & Plan Assessment & Plan (1) Bipolar disorder: Status: Acute Code(s): F31.9 - Bipolar disorder, unspecified (2) Major neurocognitive disorder due to another medical condition with behavioral disturbance: Status: Acute Code(s): F02.818 - Dementia in other diseases classified elsewhere, unspecified severity, with other behavioral disturbance (3) Pneumonia: Status: Acute Code(s): J18.9 - Pneumonia, unspecified organism (4) Delirium: Status: Acute Code(s): R41.0 - Disorientation, unspecified Plan The patient is an elderly male with a past history of bipolar disorder, most likely PTSD and dementia admitted for exacerbation of agitation and aggression in the care home, most likely due to delirium induced by atelectasis. Also the patient has been noncompliant with medications. Plan 1. Continue with Depakote and lithium. His last blood drawn was from today and lithium is a therapeutic level, Depakote slightly low but no behavioral problems. 2. Continue with other medications. 3. Start working on discharge planning probably to prison facility due to the severe impairment of the patient. Reason for continued inpatient stay Substantial Risk for: inability to function Time Spent With Patient Time: Total time managing care of this patient today ____ minutes.
[2023-03-22] MEDS: QUEtiapine Fumarate 50 MG TABLET PO (18:36)
[2023-03-22 18:39] VITALS: BP 119/67; PULSE 83; RESP 16; TEMP 36.9; O2SAT 98
[2023-03-22] MEDS: traZODone HCL 50 MG TABLET PO (19:36)
[2023-03-22] MEDS: Tamsulosin HCL 0.4 MG CAPSULE PO (19:36)
[2023-03-22] MEDS: Finasteride 5 MG TABLET PO (19:37)
[2023-03-23 06:00] VITALS: BP 117/58; PULSE 71; RESP 16; TEMP 36.3; O2SAT 95
[2023-03-23] MEDS: Divalproex Sodium Sprinkles 125 MG CAP.DR.SPR 500 MG PO ×2 (08:26→18:35)
[2023-03-23] MEDS: Lithium Carbonate 300 MG CAPSULE PO ×2 (08:27→18:36)
[2023-03-23] MEDS: polyethylene glycoL 3350 17 GM POWD.PACK PO (08:28)
--- NOTE | 2023-03-23 10:49 | P.PNPSI_ITS ---
Subjective Subjective Date of Service: 03/23/23 Reason For Visit: Mood Interim History: pleasantly confused and cooperative. no complaints or requests. per staff, labile, doing well in milieu in bettye chair. Mental Status Exam Mental Status Exam Patient Appearance: Appropriate Patient Orientation: Person Level of Consciousness: Appropriate Patient Behavior: Cooperative and Passive Mood Description: Withdrawn Affect Description: Relaxed Patient Cognition Impaired: Yes Ability to Follow Directions: Good Speech Pattern: Clear Hallucinations: None Delusions: Not Present Thought Process: Distracted and Slowed Thinking Thought Content: positive for [place] and positive for Circumstantial Judgement: Fair Diagnostics Vital Signs (24Hr): Vital Signs - 24 hr 03/22/23 18:39 03/23/23 06:00 Temperature 98.5 F 97.3 F Pulse Rate 83 71 Respiratory Rate 16 16 Blood Pressure 119/67 117/58 L Pulse Oximetry 98 95 Oxygen Delivery Method Room Air Room Air BMI result Body Mass Index 25.9 Labs 03/14/23 12:44 03/19/23 16:08 Imaging Radiology Impressions: ITS Impressions Head CT 03/07/23 14:33 IMPRESSION: No acute intracranial pathology. Generalized atrophy with stable bilateral infarcts as described. Chest X-Ray 03/14/23 12:02 IMPRESSION: Low lung volumes with patchy basilar opacities, left greater than right. This could be atelectasis or pneumonia. Medications Medications Current Medications Acetaminophen (Acetaminophen 325 Mg Tablet) 650 mg PO Q4H PRN PRN Reason: Pain, Mild (Pain Scale 1-3) Last Admin: 03/15/23 17:52 Dose: 650 mg Al Hydroxide/Mg Hydroxide (Magnesium Hydrox/Alum Hydrox 30 Ml Oral.Susp) 30 ml PO Q6H PRN PRN Reason: Heartburn/Nausea Divalproex Sodium (Divalproex Sodium Sprinkles 125 Mg ) 500 mg PO BID [facility] Last Admin: 03/23/23 08:26 Dose: 500 mg Finasteride (Finasteride 5 Mg Tablet) 5 mg PO BEDTIME [facility] Last Admin: 03/22/23 19:37 Dose: 5 mg Guaifenesin/Dextromethorphan (Guaifenesin Dm 100/10/5 Ml 5 Ml Syrup) 10 ml PO Q4H PRN PRN Reason: Cough Levofloxacin (Levofloxacin 750 Mg Tablet) 750 mg PO Q48H [facility] Last Admin: 03/21/23 19:55 Dose: 750 mg [place] Carbonate ([place] Carbonate 300 Mg Capsule) 300 mg PO BID [facility] Last Admin: 03/23/23 08:27 Dose: 300 mg Magnesium Hydroxide (Milk Of Magnesia 30 Ml Oral.Susp) 30 ml PO DAILY PRN PRN Reason: Constipation Nitrofurantoin Macrocrystals (Nitrofurantoin Macrocrystal 50 Mg Capsule) 50 mg PO BEDTIME PRN PRN Reason: UTI SYMPTOMS Pharmacy Consult (Consult Rx Perform Med Rec) 1 each MISCELLANE ONCE PRN PRN Reason: Consult order Polyethylene Glycol (Polyethylene Glycol 3350 17 Gm Powd.Pack) 17 gm PO DAILY [facility] Last Admin: 03/23/23 08:28 Dose: 17 gm Quetiapine Fumarate (Quetiapine Fumarate 50 Mg Tablet) 50 mg PO Q6H PRN PRN Reason: agitation Last Admin: 03/22/23 18:36 Dose: 50 mg Sodium Biphosphate/Sodium Phosphate (Sodium Phosphate,[place]-Dibasic 133 Ml Enema) 118 ml [place] DAILY PRN PRN Reason: Constipation Tamsulosin HCl (Tamsulosin Hcl 0.4 Mg Capsule) 0.4 mg PO BEDTIME [facility] Last Admin: 03/22/23 19:36 Dose: 0.4 mg Trazodone HCl (Trazodone Hcl 50 Mg Tablet) 50 mg PO BEDTIME [facility] Last Admin: 03/22/23 19:36 Dose: 50 mg Trazodone HCl (Trazodone Hcl 50 Mg Tablet) 50 mg PO BEDTIME MRX1 PRN PRN Reason: Insomnia Last Admin: 03/20/23 00:11 Dose: 50 mg Allergies Allergies Allergy/AdvReac Type Severity Reaction Status Date / Time No Known Allergies Allergy Verified 05/17/21 18:44 Assessment & Plan Assessment & Plan (1) Bipolar disorder: Status: Acute Code(s): F31.9 - Bipolar disorder, unspecified (2) Major neurocognitive disorder due to another medical condition with behavioral disturbance: Status: Acute Code(s): F02.818 - Dementia in other diseases classified elsewhere, unspecified severity, with other behavioral disturbance (3) Pneumonia: Status: Acute Code(s): J18.9 - Pneumonia, unspecified organism (4) Delirium: Status: Acute Code(s): R41.0 - Disorientation, unspecified Plan The patient is an elderly male with a past history of bipolar disorder, most likely PTSD and dementia admitted for exacerbation of agitation and aggression in the long-term, most likely due to delirium induced by atelectasis. Also the patient has been noncompliant with medications. Plan 1. Continue with Depakote and lithium. His last blood drawn was from today and lithium is a therapeutic level, Depakote slightly low but no behavioral problems. 2. Continue with other medications. 3. Start working on discharge planning probably to [facility] facility due to the severe impairment of the patient. Reason for continued inpatient stay Substantial Risk for: inability to function and rapid decompensation Time Spent With Patient Time: Total time managing care of this patient today ____ minutes.
[2023-03-23 18:00] VITALS: BP 117/62; PULSE 71; RESP 18; TEMP 36.3; O2SAT 98
[2023-03-23] MEDS: levoFLOXacin 750 MG TABLET PO (18:36)
[2023-03-23] MEDS: traZODone HCL 50 MG TABLET PO (18:36)
[2023-03-23] MEDS: Finasteride 5 MG TABLET PO (18:36)
[2023-03-23] MEDS: Tamsulosin HCL 0.4 MG CAPSULE PO (18:36)
[2023-03-24 06:00] VITALS: BP 111/57; PULSE 88; RESP 18; TEMP 36.2; O2SAT 99
[2023-03-24] MEDS: Divalproex Sodium Sprinkles 125 MG CAP.DR.SPR 500 MG PO (08:47)
[2023-03-24] MEDS: Lithium Carbonate 300 MG CAPSULE PO (08:47)
--- NOTE | 2023-03-24 12:36 | MHC.CLN ---
NUTRITION ALERTED BY STAFF THAT PATIENT NOT EATING WELL AT MEALS. WILL ACCEPT ENSURE SUPPLEMENT. ADDED ENSURE TID TO PROVIDE ADDITIONAL 1050 KCALS, 60 G PROTEIN.
--- NOTE | 2023-03-24 13:19 | HO.PSYCHPN ---
Subjective Subjective Date of Service: 03/24/23 Reason For Visit: Mood Subjective Notes: Conditional Voluntary Interim History: The nursing staff reported the patient had been common cooperative compliant with medications stating that he is doing fine. The social studies teacher reported the most likely he could be discharged back to [facility]. On interview the patient is pleasantly confused, easily redirectable Mental Status Exam Mental Status Exam Patient Appearance: Appropriate Patient Orientation: Person Level of Consciousness: Awake and Appropriate Patient Behavior: Guarded and Suspicious Mood Description: Withdrawn Affect Description: Constricted Patient Cognition Impaired: Yes Ability to Follow Directions: Fair Speech Pattern: Impoverished and Monotone Hallucinations: None Delusions: Not Present Thought Process: Distracted and Evasive Thought Content: positive for [place] and positive for Circumstantial Judgement: Fair Diagnostics Vital Signs (24Hr): Vital Signs - 24 hr 03/23/23 18:00 Temperature 97.4 F Pulse Rate 71 Respiratory Rate 18 Blood Pressure 117/62 Pulse Oximetry 98 Oxygen Delivery Method Room Air BMI result Body Mass Index 25.9 Labs 03/14/23 12:44 03/19/23 16:08 Imaging Radiology Impressions: ITS Impressions Head CT 03/07/23 14:33 IMPRESSION: No acute intracranial pathology. Generalized atrophy with stable bilateral infarcts as described. Chest X-Ray 03/14/23 12:02 IMPRESSION: Low lung volumes with patchy basilar opacities, left greater than right. This could be atelectasis or pneumonia. Medications Medications Current Medications Acetaminophen (Acetaminophen 325 Mg Tablet) 650 mg PO Q4H PRN PRN Reason: Pain, Mild (Pain Scale 1-3) Last Admin: 03/15/23 17:52 Dose: 650 mg Al Hydroxide/Mg Hydroxide (Magnesium Hydrox/Alum Hydrox 30 Ml Oral.Susp) 30 ml PO Q6H PRN PRN Reason: Heartburn/Nausea Divalproex Sodium (Divalproex Sodium Sprinkles 125 Mg ) 500 mg PO BID [facility] Last Admin: 03/24/23 08:47 Dose: 500 mg Finasteride (Finasteride 5 Mg Tablet) 5 mg PO BEDTIME [facility] Last Admin: 03/23/23 18:36 Dose: 5 mg Guaifenesin/Dextromethorphan (Guaifenesin Dm 100/10/5 Ml 5 Ml Syrup) 10 ml PO Q4H PRN PRN Reason: Cough Levofloxacin (Levofloxacin 750 Mg Tablet) 750 mg PO Q48H [facility] Last Admin: 03/23/23 18:36 Dose: 750 mg [place] Carbonate ([place] Carbonate 300 Mg Capsule) 300 mg PO BID [facility] Last Admin: 03/24/23 08:47 Dose: 300 mg Magnesium Hydroxide (Milk Of Magnesia 30 Ml Oral.Susp) 30 ml PO DAILY PRN PRN Reason: Constipation Nitrofurantoin Macrocrystals (Nitrofurantoin Macrocrystal 50 Mg Capsule) 50 mg PO BEDTIME PRN PRN Reason: UTI SYMPTOMS Pharmacy Consult (Consult Rx Perform Med Rec) 1 each MISCELLANE ONCE PRN PRN Reason: Consult order Polyethylene Glycol (Polyethylene Glycol 3350 17 Gm Powd.Pack) 17 gm PO DAILY [facility] Last Admin: 03/24/23 09:42 Dose: Not Given Quetiapine Fumarate (Quetiapine Fumarate 50 Mg Tablet) 50 mg PO Q6H PRN PRN Reason: agitation Last Admin: 03/22/23 18:36 Dose: 50 mg Sodium Biphosphate/Sodium Phosphate (Sodium Phosphate,[place]-Dibasic 133 Ml Enema) 118 ml [place] DAILY PRN PRN Reason: Constipation Tamsulosin HCl (Tamsulosin Hcl 0.4 Mg Capsule) 0.4 mg PO BEDTIME [facility] Last Admin: 03/23/23 18:36 Dose: 0.4 mg Trazodone HCl (Trazodone Hcl 50 Mg Tablet) 50 mg PO BEDTIME [facility] Last Admin: 03/23/23 18:36 Dose: 50 mg Trazodone HCl (Trazodone Hcl 50 Mg Tablet) 50 mg PO BEDTIME MRX1 PRN PRN Reason: Insomnia Last Admin: 03/20/23 00:11 Dose: 50 mg Allergies Allergies Allergy/AdvReac Type Severity Reaction Status Date / Time No Known Allergies Allergy Verified 05/17/21 18:44 Assessment & Plan Assessment & Plan (1) Bipolar disorder: Status: Acute Code(s): F31.9 - Bipolar disorder, unspecified (2) Major neurocognitive disorder due to another medical condition with behavioral disturbance: Status: Acute Code(s): F02.818 - Dementia in other diseases classified elsewhere, unspecified severity, with other behavioral disturbance (3) Pneumonia: Status: Acute Code(s): J18.9 - Pneumonia, unspecified organism (4) Delirium: Status: Acute Code(s): R41.0 - Disorientation, unspecified Plan The patient is an elderly male with a past history of bipolar disorder, most likely PTSD and dementia admitted for exacerbation of agitation and aggression in the alf, most likely due to delirium induced by atelectasis. Also the patient has been noncompliant with medications. Plan 1. Continue with Depakote and lithium. His last blood drawn was from today and lithium is a therapeutic level, Depakote slightly low but no behavioral problems. 2. Continue with other medications. 3. Start working on discharge planning probably to correction facility due to the severe impairment of the patient. Reason for continued inpatient stay Substantial Risk for: inability to function, rapid decompensation and med/psych decompensation Time Spent With Patient Time: Total time managing care of this patient today __20__ minutes.
[2023-03-24] MEDS: QUEtiapine Fumarate 50 MG TABLET PO (17:11)
[2023-03-24 19:00] VITALS: BP 115/58; PULSE 86; RESP 18; TEMP 36.4; O2SAT 97
[2023-03-25 06:00] VITALS: BP 109/59; PULSE 69; RESP 18; TEMP 36.7; O2SAT 95
[2023-03-25] MEDS: Lithium Carbonate 300 MG CAPSULE PO ×2 (09:12→20:30)
[2023-03-25] MEDS: Divalproex Sodium Sprinkles 125 MG CAP.DR.SPR 500 MG PO ×2 (09:12→17:08)
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
[2023-03-25] MEDS: traZODone HCL 50 MG TABLET PO ×2 (17:07→21:54)
[2023-03-25 18:00] VITALS: BP 116/65; PULSE 75; RESP 16; TEMP 36.4; O2SAT 96
[2023-03-25] MEDS: Finasteride 5 MG TABLET PO (20:30)
[2023-03-25] MEDS: Tamsulosin HCL 0.4 MG CAPSULE PO (20:30)
[2023-03-25] MEDS: levoFLOXacin 750 MG TABLET PO (20:30)
[2023-03-25] MEDS: QUEtiapine Fumarate 50 MG TABLET PO (21:54)
--- NOTE | 2023-03-26 07:43 | HO.PSYCHPN ---
Subjective Subjective Date of Service: 03/26/23 Reason For Visit: Mood Subjective Notes: Conditional Voluntary (By healthcare proxy) Interim History: The nursing staff reported the patient had been confused, combative with care at times but redirectable. On interview the patient remains confused. Mental Status Exam Mental Status Exam Patient Appearance: Appropriate Patient Orientation: Person and Situation Level of Consciousness: Awake and Appropriate Patient Behavior: Guarded and Passive Mood Description: Withdrawn Affect Description: Labile Patient Cognition Impaired: Yes Ability to Follow Directions: Good Speech Pattern: Clear Hallucinations: None Delusions: Not Present Thought Process: Illogical, Distracted and Slowed Thinking Thought Content: positive for [place] and positive for Circumstantial Judgement: Poor Diagnostics Vital Signs (24Hr): Vital Signs - 24 hr 03/25/23 18:00 Temperature 97.5 F Pulse Rate 75 Respiratory Rate 16 Blood Pressure 116/65 Pulse Oximetry 96 Oxygen Delivery Method Room Air BMI result Body Mass Index 25.9 Labs 03/14/23 12:44 03/19/23 16:08 Imaging Radiology Impressions: ITS Impressions Head CT 03/07/23 14:33 IMPRESSION: No acute intracranial pathology. Generalized atrophy with stable bilateral infarcts as described. Chest X-Ray 03/14/23 12:02 IMPRESSION: Low lung volumes with patchy basilar opacities, left greater than right. This could be atelectasis or pneumonia. Medications Medications Current Medications Acetaminophen (Acetaminophen 325 Mg Tablet) 650 mg PO Q4H PRN PRN Reason: Pain, Mild (Pain Scale 1-3) Last Admin: 03/15/23 17:52 Dose: 650 mg Al Hydroxide/Mg Hydroxide (Magnesium Hydrox/Alum Hydrox 30 Ml Oral.Susp) 30 ml PO Q6H PRN PRN Reason: Heartburn/Nausea Divalproex Sodium (Divalproex Sodium Sprinkles 125 Mg ) 500 mg PO BID@0800,1700 [facility] Last Admin: 03/25/23 17:08 Dose: 500 mg Finasteride (Finasteride 5 Mg Tablet) 5 mg PO BEDTIME [facility] Last Admin: 03/25/23 20:30 Dose: 5 mg Guaifenesin/Dextromethorphan (Guaifenesin Dm 100/10/5 Ml 5 Ml Syrup) 10 ml PO Q4H PRN PRN Reason: Cough Levofloxacin (Levofloxacin 750 Mg Tablet) 750 mg PO Q48H [facility] Last Admin: 03/25/23 20:30 Dose: 750 mg [place] Carbonate ([place] Carbonate 300 Mg Capsule) 300 mg PO BID [facility] Last Admin: 03/25/23 20:30 Dose: 300 mg Magnesium Hydroxide (Milk Of Magnesia 30 Ml Oral.Susp) 30 ml PO DAILY PRN PRN Reason: Constipation Nitrofurantoin Macrocrystals (Nitrofurantoin Macrocrystal 50 Mg Capsule) 50 mg PO BEDTIME PRN PRN Reason: UTI SYMPTOMS Pharmacy Consult (Consult Rx Perform Med Rec) 1 each MISCELLANE ONCE PRN PRN Reason: Consult order Polyethylene Glycol (Polyethylene Glycol 3350 17 Gm Powd.Pack) 17 gm PO DAILY PRN PRN Reason: Constipation Quetiapine Fumarate (Quetiapine Fumarate 50 Mg Tablet) 50 mg PO Q6H PRN PRN Reason: agitation Last Admin: 03/25/23 21:54 Dose: 50 mg Tamsulosin HCl (Tamsulosin Hcl 0.4 Mg Capsule) 0.4 mg PO BEDTIME [facility] Last Admin: 03/25/23 20:30 Dose: 0.4 mg Trazodone HCl (Trazodone Hcl 50 Mg Tablet) 50 mg PO BEDTIME MRX1 PRN PRN Reason: Insomnia Last Admin: 03/25/23 21:54 Dose: 50 mg Trazodone HCl (Trazodone Hcl 50 Mg Tablet) 50 mg PO DAILY@1700 [facility] Last Admin: 03/25/23 17:07 Dose: 50 mg Allergies Allergies Allergy/AdvReac Type Severity Reaction Status Date / Time No Known Allergies Allergy Verified 05/17/21 18:44 Assessment & Plan Assessment & Plan (1) Bipolar disorder: Status: Acute Code(s): F31.9 - Bipolar disorder, unspecified (2) Major neurocognitive disorder due to another medical condition with behavioral disturbance: Status: Acute Code(s): F02.818 - Dementia in other diseases classified elsewhere, unspecified severity, with other behavioral disturbance (3) Pneumonia: Status: Acute Code(s): J18.9 - Pneumonia, unspecified organism (4) Delirium: Status: Acute Code(s): R41.0 - Disorientation, unspecified Plan The patient is an elderly male with a past history of bipolar disorder, most likely PTSD and dementia admitted for exacerbation of agitation and aggression in the halfway, most likely due to delirium induced by atelectasis. Also the patient has been noncompliant with medications. Plan 1. Continue with Depakote and lithium. His last blood drawn was from today and lithium is a therapeutic level, Depakote slightly low but no behavioral problems. 2. Continue with other medications. 3. Start working on discharge planning probably to fdc facility due to the severe impairment of the patient. 4. Change evening medications at 19:00 Reason for continued inpatient stay Substantial Risk for: inability to function, rapid decompensation and med/psych decompensation Time Spent With Patient Time: Total time managing care of this patient today __20__ minutes.
[2023-03-26 08:50] VITALS: BP 125/57; PULSE 78; RESP 16; TEMP 35.7; O2SAT 98
[2023-03-26] MEDS: Lithium Carbonate 300 MG CAPSULE PO ×2 (09:00→20:21)
[2023-03-26] MEDS: Divalproex Sodium Sprinkles 125 MG CAP.DR.SPR 500 MG PO ×2 (09:01→17:39)
[2023-03-26] MEDS: traZODone HCL 50 MG TABLET PO (17:39)
[2023-03-26 18:00] VITALS: BP 128/77; PULSE 68; RESP 17; TEMP 36; O2SAT 93
[2023-03-26] MEDS: Finasteride 5 MG TABLET PO (20:20)
[2023-03-26] MEDS: Tamsulosin HCL 0.4 MG CAPSULE PO (20:21)
[2023-03-27 07:30] VITALS: BP 111/86; PULSE 70; RESP 16; TEMP 36.2; O2SAT 97
--- NOTE | 2023-03-27 08:18 | P.DS_ITS ---
DS: Providers Provider Date of Service: 03/27/23 Date of admission: 03/14/23 17:29 Date of discharge: 03/27/23 Primary care physician: Mati Bettencourt MD Consults: 03/19/23 15:49 Consult to Nephrology Routine Consulting Provider: Dany Doan Reason for consultation: ?underlying CKD, on lithium Has provider been notified: Yes Attending physician on discharge: Yannick Hicks DS: Diagnosis Discharge Diagnosis (1) Bipolar disorder: Status: Acute (2) Major neurocognitive disorder due to another medical condition with behavioral disturbance: Status: Acute (3) Pneumonia: Status: Acute (4) Delirium: Status: Acute DS: Medications Discharge Medications Home Medications: Home Medications Medication Instructions Recorded Confirmed acetaminophen 325 mg tablet 650 mg PO Q4H PRN Pain 08/06/22 03/06/23 bisacodyl 10 mg rectal suppository 10 mg [place] DAILY PRN Pain 08/06/22 03/06/23 (Dulcolax (bisacodyl)) divalproex 125 mg capsule,delayed 500 mg PO BID 08/06/22 03/06/23 release sprinkle (Depakote Sprinkles) finasteride 5 mg tablet (Proscar) 5 mg PO BEDTIME 08/06/22 03/06/23 lithium carbonate 150 mg capsule 225 mg PO BID 08/06/22 03/06/23 nitrofurantoin macrocrystal 50 mg 50 mg PO BEDTIME PRN UTI SYMPTOMS 08/06/22 03/06/23 capsule polyethylene glycol 3350 17 gram 17 g PO DAILY 08/06/22 03/06/23 oral powder packet (Miralax) quetiapine 25 mg tablet (Seroquel) 25 mg PO DAILY 08/06/22 03/06/23 sodium phosphates 19 gram-7 118 ml [place] DAILY PRN Constipation 08/06/22 03/06/23 gram/118 mL enema (Fleet Enema) tamsulosin 0.4 mg capsule (Flomax) 0.4 mg PO BEDTIME 08/06/22 03/06/23 trazodone 50 mg tablet 25 mg PO DAILY PRN Agitation 08/06/22 03/06/23 trazodone 50 mg tablet 50 mg PO BEDTIME 08/06/22 03/06/23 albuterol sulfate 0.63 mg/3 mL 0.63 mg inhalation Q4H PRN 03/06/23 03/06/23 solution for nebulization Shortness Of Breath dextromethorphan-guaifenesin 10 10 ml PO Q4H PRN Cough 03/06/23 03/06/23 mg-100 mg/5 mL oral liquid (Tussin DM) Mental Status Exam Mental Status Exam Patient Appearance: Appropriate Patient Orientation: Person Level of Consciousness: Awake and Alert Patient Behavior: Guarded and Passive Mood Description: Withdrawn Affect Description: Constricted Patient Cognition Impaired: Yes Ability to Follow Directions: Good Speech Pattern: Appropriate Hallucinations: None Delusions: Not Present Thought Process: Linear Thought Content: positive for [place] and positive for Poverty of Content Judgement: Poor Data Data Completed and Pending Completed studies during hospitalization [Text1]: 03/20/23 03/20/23 08:28 08:28 Valproic Acid 47.4 L [place] 0.99 03/14/23 12:39 Blood - Venous Blood Culture - Final No growth after 5 days. 03/14/23 12:39 Blood - Venous Blood Culture - Final No growth after 5 days. Imaging Diagnostic Imaging Impressions Head CT 03/07/23 14:33 IMPRESSION: No acute intracranial pathology. Generalized atrophy with stable bilateral infarcts as described. Chest X-Ray 03/14/23 12:02 IMPRESSION: Low lung volumes with patchy basilar opacities, left greater than right. This could be atelectasis or pneumonia. DS: Summary Hospital Course Hospital Course: The patient is an elderly male, with a past history of bipolar disorder, dementia and other medical comorbidities admitted to the emergency room from her longterm facility due to combative behavior and disorganized thought process. Please see the HPI note for further details on the admission note. On admission we review his medication he was on Depakote and other mood stabilizers. Also he was started on Levaquin 500 mg every 2 days for an infectious process that he had. His pneumonia resolved pretty fast with a few days of antibiotics. While he was in the unit, he was pleasantly confused, limited functionality due to his cognitive impairment. We also noticed that the patient was combative with care and irritable at times. We check his Depakote level and lithium levels and they were nearly on a therapeutic doses. The staff noticed that if we informed the patient about the procedures done he will be but cooperative and pleasant, it is clear that the patient had PTSD and he has some residual symptoms. The patient is behavior improved, he was pleasantly confused but easily red irectable. Since there were no safety concerns he was discharged back to his longterm facility. No evidence of side effects with the medication changes. Time spent discussing smoking cessation with patient: 3 to 10 minutes Status at Discharge Cognitive/behavioral status at discharge: Impaired at baseline Functional status at discharge: uses cane/walker Overall status at discharge: patient is back to baseline Time Spent with Patient Time attestation: Total time managing care of this patient today ____ minutes. Time spent: Less than 30 minutes Discharge Plan Discharge Anticipated Discharge Date/Time: 03/27/23 11:00 Patient Disposition: Xfer SNF Discharge Diagnosis: Neuro cognitive disorder Bipolar disorder Delirium resolved pneumonia Referrals: Mati Bettencourt MD [Primary Care Provider] - 1 Week Discharge Medications: New trazodone 50 mg Tablet 50 mg PO DAILY@1700 30 Days Qty: 30 0RF trazodone 50 mg Tablet 50 mg PO BEDTIME MRX1 PRN (Reason: Insomnia) 30 Days Qty: 60 0RF lithium carbonate 300 mg Capsule 300 mg PO BID 30 Days Qty: 60 0RF divalproex 125 mg Capsule, Delayed Rel Sprinkle 500 mg PO BID@0800,1700 30 Days Qty: 240 0RF quetiapine 50 mg Tablet 50 mg PO Q6H PRN (Reason: agitation) 30 Days Qty: 60 0RF Continued albuterol sulfate 0.63 mg/3 mL Solution For Nebulization 0.63 mg INHALATION Q4H PRN (Reason: Shortness Of Breath) 30 Days Qty: 1 0RF acetaminophen 325 mg Tablet 650 mg PO Q4H PRN (Reason: Pain) 30 Days Qty: 60 0RF Rx Instructions: do not exceed 3 doses in 48 hours nitrofurantoin macrocrystal 50 mg Capsule 50 mg PO BEDTIME PRN (Reason: UTI SYMPTOMS) 30 Days Qty: 30 0RF polyethylene glycol 3350 [Miralax] 17 gram Powder In Packet 17 g PO DAILY 30 Days Qty: 30 0RF dextromethorphan-guaifenesin [Tussin DM] 10-100 mg/5 mL Liquid 10 ml PO Q4H PRN (Reason: Cough) 30 Days Qty: 100 0RF tamsulosin [Flomax] 0.4 mg Capsule 0.4 mg PO BEDTIME 30 Days Qty: 30 0RF Fleet Enema 19-7 gram/118 mL Enema 118 ml [place] DAILY PRN (Reason: Constipation) 7 Days Qty: 7 0RF Rx Instructions: IF NO RESULT FROM DULCOLAX WITHIN 2 HOURS finasteride [Proscar] 5 mg Tablet 5 mg PO BEDTIME 30 Days Qty: 30 0RF Discontinued divalproex [Depakote Sprinkles] 125 mg Capsule, Delayed Rel Sprinkle 500 mg PO BID bisacodyl [Dulcolax (bisacodyl)] 10 mg Suppository 10 mg [place] DAILY PRN (Reason: Pain) quetiapine [Seroquel] 25 mg Tablet 25 mg PO DAILY trazodone 50 mg Tablet 25 mg PO DAILY PRN (Reason: Agitation) trazodone 50 mg Tablet 50 mg PO BEDTIME lithium carbonate 150 mg Capsule 225 mg PO BID Discharge Orders: Discharge Order (Routine); Ordered 03/27/23 Ordered By: Yannick Hicks Diet: Advance to usual diet Activity on Discharge: As tolerated Stand Alone Forms: Patient Portal Discharge page Care Plan Goals: Care plan goals achieved in this admission Health Concerns: Continue with regular providers as an outpatient Plan of Treatment: Continue medication management as an outpatient. Assessment: Elderly male with a long history of bipolar disorder, dementia and recently admitted for exacerbation of agitation in the context of delirium due to pneumonia. Treated medically and medications were adjusted with no side effects and improvement of his mood. At this moment safe to be discharged back to his retirement
[2023-03-27] MEDS: Lithium Carbonate 300 MG CAPSULE PO (08:35)
[2023-03-27] MEDS: Divalproex Sodium Sprinkles 125 MG CAP.DR.SPR 500 MG PO (08:35)
[2023-03-27 10:00] VITALS: BMI 24.8
== END 2023-03-27 11:10 | disposition skilled nursing facility (03) | DRG 885 ==
LOC: HO.ED 03-11 10:32 → HO.PGERI 03-14 17:36
PROVIDERS: Physician Assistant; Physician Assistant Medical; Social Worker; Admitting Provider Psychiatry & Neurology Psychiatry; Emergency Provider Emergency Medicine; PCP Family Medicine Geriatric Medicine; Visit Provider Psychiatry & Neurology Psychiatry
DX: F31.9 Bipolar disorder, unspecified (principal); J18.9 Pneumonia, unspecified organism; F05 Delirium due to known physiological condition; J98.11 Atelectasis; F03.911 Unspecified dementia, unspecified severity, with agitation; N18.30 Chronic kidney disease, stage 3 unspecified; F43.10 Post-traumatic stress disorder, unspecified; K21.9 Gastro-esophageal reflux disease without esophagitis; Z86.73 Personal history of transient ischemic attack (TIA), and cerebral infarction without residual deficits; Z20.822 Contact with and (suspected) exposure to COVID-19; Z91.148 Patient's other noncompliance with medication regimen for other reason; Z87.891 Personal history of nicotine dependence; Z79.899 Other long term (current) drug therapy
CPT/HCPCS: 36415; 70450; 71045; 80048; 80053; 80061; 80143; 80164; 80178; 80179; 80307; 81003; 82077; 82140; 82947; 83605; 85025; 85027; 87040; 87635; 93005; 97162; 99285; J0295; J1200; J2060; S9485

== ENCOUNTER 2023-05-20 18:38 | Emergency (ER) | payer OTHER, MEDICARE, SELFPAY ==
--- NOTE | ~2023-05-20 | CT_ITS ---
EXAMINATION: CT HEAD WITHOUT CONTRAST CLINICAL INFORMATION: Hallucinations. COMPARISON: CT head 03/07/2023 TECHNIQUE: Contiguous axial imaging was performed from the skull base to vertex without intravenous administration of contrast. Coronal and sagittal reformatted images are performed at the CT scanner. [This CT examination was performed using dose optimization techniques as appropriate, variously including the following: *Automated exposure control *Adjustment of mA and/or kV according to patient size (this includes techniques or standardized protocols for targeted exams where dose is matched to indication/reason for exam; i.e. extremities or head) *Use of iterative reconstruction technique] DLP: 726 mGy-cm. FINDINGS: There is no evidence of acute intracranial hemorrhage or acute territorial infarction. 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 No abnormal mass-effect or midline shift is seen. Gardner to white matter differentiation is well preserved. No extra-axial fluid collections are identified. There is generalized global volume loss. There is marked prominence of the ventricles and the sulci . There is mild hypodensity of the periventricular white matter due to chronic small vessel ischemic disease. There are vascular calcifications of the internal carotid arteries bilaterally. There is no osseous abnormality. The mastoid air cells and visualized portions of the paranasal sinuses are well-aerated. CT/CT head/brain wo IV con IMPRESSION: No acute intracranial pathology.
--- NOTE | ~2023-05-20 | XR_ITS ---
EXAMINATION: XR CHEST CLINICAL INFORMATION: Weakness. COMPARISON: Chest x-ray 03/14/2023, 08/06/2022 TECHNIQUE: 2 views of the chest were obtained. FINDINGS: There is prominence of the right hilum which appears to have increased since chest x-ray 08/06/2022. Prominence of the left hilum is stable since prior exam. This may be due to confluent densities and prominent pulmonary arteries. Consider CT of chest with contrast for follow-up to exclude underlying pathology. No evidence of congestive heart failure. No pleural effusion or pneumothorax. Heart size is normal. Cardiac mediastinal contours are normal. XR/XR chest 2V IMPRESSION: Increasing prominence of the right hilum since prior chest x-ray 08/06/2022. CT of chest with contrast would be helpful for follow-up to exclude underlying pathology.
[2023-05-20 18:52] VITALS: BP 105/62; BP 126/84; PULSE 64; PULSE 67; RESP 18; TEMP 36.9; O2SAT 95; BMI 24.0
--- NOTE | 2023-05-20 19:17 | PC.NURSE ---
Assumed care of pt. Pt on stretcher, no acute complaints at this time. Plan for baseline workup to check for acute exaccerbation of confusion. VSS, AMILCARTM
--- NOTE | 2023-05-20 19:30 | ED_ITS ---
HPI - General Adult General Chief complaint: Altered Mental Status Stated complaint: HALLUCINATION/AGGRESSIVE@ SNF PER EMS Time Seen by Provider: 05/20/23 19:02 Source: patient, RN notes reviewed and old records reviewed Mode of arrival: EMS Limitations: no limitations History of Present Illness HPI narrative: 78-year-old male past medical history significant for bipolar disorder, type 2 diabetes, dementia with history of agitation, anemia, BPH, GERD, PTSD presents for evaluation of ?I found a child. ? Patient arrives via EMS from [facility] The patient states ?I found a child about 8 years old under my coffee table. ? He does not understand how the child would have gotten there Per EMS, the patient was hallucinating and having increased agitation and aggressive toward staff which is what prompted the EMS call The patient denies any somatic complaints He reports that he was told in the past that he may ?sometimes see things that I think are there but are not. ? Related Data Previous Rx's Medication Instructions Recorded acetaminophen 325 mg tablet 650 mg PO Q4H PRN Pain 30 days #60 03/27/23 tabs albuterol sulfate 0.63 mg/3 mL 0.63 mg (3 mL) inhalation Q4H PRN 03/27/23 solution for nebulization Shortness Of Breath 30 days #1 mL dextromethorphan-guaifenesin 10 10 ml PO Q4H PRN Cough 30 days 03/27/23 mg-100 mg/5 mL oral liquid (Tussin #100 mL DM) divalproex 125 mg capsule,delayed 500 mg PO BID@0800,1700 30 days 03/27/23 release sprinkle #240 caps finasteride 5 mg tablet (Proscar) 5 mg PO BEDTIME 30 days #30 tabs 03/27/23 lithium carbonate 300 mg capsule 300 mg PO BID 30 days #60 caps 03/27/23 nitrofurantoin macrocrystal 50 mg 50 mg PO BEDTIME PRN UTI SYMPTOMS 03/27/23 capsule 30 days #30 caps polyethylene glycol 3350 17 gram 17 g PO DAILY 30 days #30 ea 03/27/23 oral powder packet (Miralax) quetiapine 50 mg tablet 50 mg PO Q6H PRN agitation 30 days 03/27/23 #60 tabs sodium phosphates 19 gram-7 118 ml VA DAILY PRN Constipation 7 03/27/23 gram/118 mL enema (Fleet Enema) days #7 multiple units tamsulosin 0.4 mg capsule (Flomax) 0.4 mg PO BEDTIME 30 days #30 caps 03/27/23 trazodone 50 mg tablet 50 mg PO BEDTIME MRX1 PRN Insomnia 03/27/23 30 days #60 tabs trazodone 50 mg tablet 50 mg PO DAILY@1700 30 days #30 03/27/23 tabs Allergies Allergy/AdvReac Type Severity Reaction Status Date / Time No Known Allergies Allergy Verified 05/20/23 19:05 Review of Systems Constitutional: Constitutional: Reports as per HPI, Denies chills, Denies fatigue, Denies fever(s) and Denies headache(s) ENT: Denies headache(s) Cardiovascular: Cardiovascular: Denies chest pain and Denies dyspnea Respiratory: Respiratory: Denies cough and Denies dyspnea Gastrointestinal: Gastrointestinal: Denies abdominal pain, Denies constipation and Denies vomiting Genitourinary: Genitourinary: Denies difficulty urinating and Denies dysuria Neurologic: Denies headache(s) and Denies focal weakness Endocrine: Endocrine: Denies fatigue [facility] Past Medical History Medical History Bipolar 1 disorder Cataracts, bilateral Dementia Diabetes GERD (gastroesophageal reflux disease) PTSD (post-traumatic stress disorder) Squamous cell carcinoma Social History Social History Housing: [facility] Unable to assess alcohol history related to: Unknown Alcohol intake: former Patient Tobacco Use Status: Former Tobacco user Smoked in Last 30 Days: Yes Use of substances other than those prescribed or required for medical reasons: No Advance Directives: Yes Advance Directives on File: Yes Advance Directives Date on File: 07/19/21 service: Yes Sexual orientation: Straight/Heterosexual Physical Exam ED Vital Signs: Vital Signs - 24 hr 05/20/23 18:52 05/20/23 22:57 05/20/23 23:12 Temperature 98.4 F Pulse Rate 67 88 87 Respiratory Rate 18 18 18 Blood Pressure 105/62 131/75 109/76 Pulse Oximetry 95 98 98 Oxygen Delivery Method Room Air Room Air Room Air 05/20/23 23:27 05/20/23 23:42 05/21/23 00:12 Temperature Pulse Rate 83 75 78 Respiratory Rate 18 18 18 Blood Pressure 117/70 106/64 108/63 Pulse Oximetry 99 100 100 Oxygen Delivery Method Room Air Room Air Room Air 05/21/23 00:27 05/21/23 00:42 05/21/23 02:00 Temperature Pulse Rate 73 74 90 Respiratory Rate 18 18 18 Blood Pressure 109/60 102/68 104/64 Pulse Oximetry 100 100 97 Oxygen Delivery Method Room Air Room Air 05/21/23 04:00 Temperature Pulse Rate 60 Respiratory Rate 18 Blood Pressure 98/59 L Pulse Oximetry 100 Oxygen Delivery Method BMI result Body Mass Index 24.0 Const General: healthy appearing, comfortable, no acute distress, alert and awake Nutritional Appearance: well nourished Orientation/consciousness: patient oriented x3 HENMT Head: Yes normocephalic and Yes atraumatic Eyes Eyelids: Yes eyelids normal Conjunctivae: conjunctivae normal Sclerae: sclerae normal Corneas: corneas normal Pupils: Equal, round and reactive pupils present EOM: EOMs intact bilaterally Neck Neck: Yes full ROM Resp Effort & Inspection: normal respiratory effort, able to speak in complete sentences, no audible wheezes and not labored Auscultation: clear to auscultation bilaterally Cardio Rate: regular rate Rhythm: regular rhythm GI Inspection: No distended Palpation (GI): Soft to palpation, not firm, nontender, no guarding and not rigid Auscultation: normoactive bowel sounds Skin General skin exam: no rashes or lesions noted and elasticity normal Neuro General: patient oriented x3 Cranial nerves: Yes Equal, round and reactive pupils present and Yes Bilaterally intact EOM present Cognition (Neuro): normal cognition Extrem Other: Moving all extremities well without any obvious deformities Psych Appearance: grossly normal Speech and movement: Normal speech and movement present Affect: normal affect Attitude: cooperative Thought process: Normal thought process present Insight: Limited insight present (Psych) Course Reevaluation(s) Reevaluation #1: Patient's workup was reviewed without any significant abnormalities. No metabolic cause of his hallucinations. He will be referred to the care team as he is now medically cleared. Time: 21:35 Reevaluation #2: Patient became belligerent, aggressive, spitting at staff, kicking at staff. Attempts were made to redirect the patient were unsuccessful. He was physically and chemically restrained for his safety and safety of staff. Time: 22:54 Reevaluation #3: 05/21/2023 0630 - Restraints were removed overnight. Pt vitals stable. Pt re sting comfortably in stretcher. Pending care team consult. Medications Administered Discontinued Medications Generic Name Dose Route Start Last Admin Trade Name Caesar PRN Reason Stop Dose Admin Diphenhydramine HCl 50 mg 05/20/23 22:51 05/20/23 22:57 Diphenhydramine Hcl 50 Mg/Ml Vial IM 05/20/23 22:52 50 mg ONCE ONE Administration Haloperidol Lactate 5 mg 05/20/23 22:51 05/20/23 22:57 Haloperidol Lactate 5 Mg/Ml Vial IM 05/20/23 22:52 5 mg STAT STA Administration Lorazepam 2 mg 05/20/23 22:51 05/20/23 22:57 Lorazepam 2 Mg/Ml Vial IM 05/20/23 22:52 2 mg STAT STA Administration Medical Decision Making Medical Decision Making MDM Narrative: 78-year-old male with history of major neurocognitive disorder, dementia, bipolar disorder presents for evaluation of hallucinations and agitation. Patient arrives the ER cooperative. He continues to states that he saw a did child 0s coffee table which was likely hallucination. He is able to tell me that he was told in the past that he may loosen the things that are not there. Currently the patient appears to be back at his baseline as he is answering all questions appropriately. The patient denies somatic complaints. Will write the patient up for any causes of acute delirium and if none are found, he may be referred to the care team/psychiatry Differential Diagnosis Delirium Psychosis Dementia Visual hallucinations Lab Data 05/20/23 20:35 05/20/23 20:35 Labs: Lab Results 05/20/23 05/20/23 05/20/23 Range/Units 20:35 20:35 20:35 WBC 9.0 (4.8-10.8) X10*3/uL RBC 4.37 L (4.60-5.80) X10*6/uL Hgb 12.7 L (14.0-18.0) g/dl Hct 40.3 L (42.0-52.0) % MCV 92.2 (80.0-98.0) fL MCH 29.1 (27.0-33.0) pg MCHC 31.5 (31.0-36.0) g/dl RDW 14.7 (11.0-16.0) % Plt Count 286 D (160-400) X10*3/uL MPV 9.5 (9.4-12.4) fL Immature Gran % (Auto) 0.6 H (0.0-0.4) % Neut % (Auto) 71.4 (45-73) % Lymph % (Auto) 14.5 L (20-40) % Morrow % (Auto) 10.6 (2-11) % Eos % (Auto) 2.3 (0-4) % Baso % (Auto) 0.6 (0-2) % Lymph # (Auto) 1.3 (1.2-4.9) X10*3/uL Morrow # (Auto) 1.0 (0.1-1.2) X10*3/uL Eos # (Auto) 0.2 (0.0-0.4) X10*3/uL Baso # (Auto) 0.1 (0.0-0.2) X10*3/uL Abs Immat Gran (auto) 0.05 H (0.00-0.03) X10*3/uL Absolute Neuts (auto) 6.4 (2.0-8.3) x10*3/uL Absolute Nucleated RBC 0.000 (0.0-0.012) X10*3/uL Nucleated RBC % (auto) 0.0 (0.0-0.2) /100WBC Sodium 139 (135-145) mmol/L Potassium 4.5 (3.3-5.1) mmol/L Chloride 106 (96-108) mmol/L Carbon Dioxide 27 (22-29) mmol/L Anion Gap 11 L (12-20) BUN 19 H (9-16) mg/dL Creatinine 1.02 (0.5-1.4) mg/dL Estim Creat Clear Calc 63.6 Estimated GFR > 60 Random Glucose 98 (60-115) mg/dL Calcium 9.4 (8.4-10.2) mg/dL Total Bilirubin 0.7 (0.0-1.0) mg/dL AST 22 (5-37) U/L ALT 20 (0-40) U/L Alkaline Phosphatase 96 (39-117) U/L Total Protein 6.3 L (6.5-8.0) g/dL Albumin 3.3 L (3.5-5.0) g/dL Urine Color Urine Appearance Urine pH (5.0-9.0) Ur Specific [place] (1.005-1.025) Urine Protein (Neg-Trace) mg/dL Urine Glucose (UA) (Negative) mg/dL Urine Ketones (Negative) mg/dL Urine Blood (Negative) Urine Nitrite (Negative) Ur Leukocyte Esterase (Negative) Salicylates < 5.0 L (15-30) mg/dL Urine Opiates Screen (Not Detect) Urine Fentanyl Screen (Not Detect) Acetaminophen < 17 (<30) mcg/mL Ur Barbiturates Screen (Not Detect) Valproic Acid (50.0-100.0) mcg/mL Ur Phencyclidine Scrn (Not Detect) Ur Amphetamines Screen (Not Detect) U Benzodiazepines Scrn (Not Detect) Damar (0.60-1.20) mmol/L Urine Cocaine Screen (Not Detect) U Marijuana (THC) Screen (Not Detect) Ethyl Alcohol < 10 mg/dL 05/20/23 05/20/23 05/20/23 Range/Units 20:35 20:35 20:44 WBC (4.8-10.8) X10*3/uL RBC (4.60-5.80) X10*6/uL Hgb (14.0-18.0) g/dl Hct (42.0-52.0) % MCV (80.0-98.0) fL MCH (27.0-33.0) pg MCHC (31.0-36.0) g/dl RDW (11.0-16.0) % Plt Count (160-400) X10*3/uL MPV (9.4-12.4) fL Immature Gran % (Auto) (0.0-0.4) % Neut % (Auto) (45-73) % Lymph % (Auto) (20-40) % Morrow % (Auto) (2-11) % Eos % (Auto) (0-4) % Baso % (Auto) (0-2) % Lymph # (Auto) (1.2-4.9) X10*3/uL Morrow # (Auto) (0.1-1.2) X10*3/uL Eos # (Auto) (0.0-0.4) X10*3/uL Baso # (Auto) (0.0-0.2) X10*3/uL Abs Immat Gran (auto) (0.00-0.03) X10*3/uL Absolute Neuts (auto) (2.0-8.3) x10*3/uL Absolute Nucleated RBC (0.0-0.012) X10*3/uL Nucleated RBC % (auto) (0.0-0.2) /100WBC Sodium (135-145) mmol/L Potassium (3.3-5.1) mmol/L Chloride (96-108) mmol/L Carbon Dioxide (22-29) mmol/L Anion Gap (12-20) BUN (9-16) mg/dL Creatinine (0.5-1.4) mg/dL Estim Creat Clear Calc Estimated GFR Random Glucose (60-115) mg/dL Calcium (8.4-10.2) mg/dL Total Bilirubin (0.0-1.0) mg/dL AST (5-37) U/L ALT (0-40) U/L Alkaline Phosphatase (39-117) U/L Total Protein (6.5-8.0) g/dL Albumin (3.5-5.0) g/dL Urine Color Urine Appearance Urine pH (5.0-9.0) Ur Specific [place] (1.005-1.025) Urine Protein (Neg-Trace) mg/dL Urine Glucose (UA) (Negative) mg/dL Urine Ketones (Negative) mg/dL Urine Blood (Negative) Urine Nitrite (Negative) Ur Leukocyte Esterase (Negative) Salicylates (15-30) mg/dL Urine Opiates Screen Not Detected (Not Detect) Urine Fentanyl Screen Not Detected (Not Detect) Acetaminophen (<30) mcg/mL Ur Barbiturates Screen Not Detected (Not Detect) Valproic Acid 47.2 L (50.0-100.0) mcg/mL Ur Phencyclidine Scrn Not Detected (Not Detect) Ur Amphetamines Screen Not Detected (Not Detect) U Benzodiazepines Scrn Not Detected (Not Detect) Damar 0.62 (0.60-1.20) mmol/L Urine Cocaine Screen Not Detected (Not Detect) U Marijuana (THC) Screen Not Detected (Not Detect) Ethyl Alcohol mg/dL 05/20/23 Range/Units 20:44 WBC (4.8-10.8) X10*3/uL RBC (4.60-5.80) X10*6/uL Hgb (14.0-18.0) g/dl Hct (42.0-52.0) % MCV (80.0-98.0) fL MCH (27.0-33.0) pg MCHC (31.0-36.0) g/dl RDW (11.0-16.0) % Plt Count (160-400) X10*3/uL MPV (9.4-12.4) fL Immature Gran % (Auto) (0.0-0.4) % Neut % (Auto) (45-73) % Lymph % (Auto) (20-40) % Morrow % (Auto) (2-11) % Eos % (Auto) (0-4) % Baso % (Auto) (0-2) % Lymph # (Auto) (1.2-4.9) X10*3/uL Morrow # (Auto) (0.1-1.2) X10*3/uL Eos # (Auto) (0.0-0.4) X10*3/uL Baso # (Auto) (0.0-0.2) X10*3/uL Abs Immat Gran (auto) (0.00-0.03) X10*3/uL Absolute Neuts (auto) (2.0-8.3) x10*3/uL Absolute Nucleated RBC (0.0-0.012) X10*3/uL Nucleated RBC % (auto) (0.0-0.2) /100WBC Sodium (135-145) mmol/L Potassium (3.3-5.1) mmol/L Chloride (96-108) mmol/L Carbon Dioxide (22-29) mmol/L Anion Gap (12-20) BUN (9-16) mg/dL Creatinine (0.5-1.4) mg/dL Estim Creat Clear Calc Estimated GFR Random Glucose (60-115) mg/dL Calcium (8.4-10.2) mg/dL Total Bilirubin (0.0-1.0) mg/dL AST (5-37) U/L ALT (0-40) U/L Alkaline Phosphatase (39-117) U/L Total Protein (6.5-8.0) g/dL Albumin (3.5-5.0) g/dL Urine Color Yellow Urine Appearance Clear Urine pH 6.5 (5.0-9.0) Ur Specific [place] 1.010 (1.005-1.025) Urine Protein Negative (Neg-Trace) mg/dL Urine Glucose (UA) Negative (Negative) mg/dL Urine Ketones Negative (Negative) mg/dL Urine Blood Negative (Negative) Urine Nitrite Negative (Negative) Ur Leukocyte Esterase Negative (Negative) Salicylates (15-30) mg/dL Urine Opiates Screen (Not Detect) Urine Fentanyl Screen (Not Detect) Acetaminophen (<30) mcg/mL Ur Barbiturates Screen (Not Detect) Valproic Acid (50.0-100.0) mcg/mL Ur Phencyclidine Scrn (Not Detect) Ur Amphetamines Screen (Not Detect) U Benzodiazepines Scrn (Not Detect) Damar (0.60-1.20) mmol/L Urine Cocaine Screen (Not Detect) U Marijuana (THC) Screen (Not Detect) Ethyl Alcohol mg/dL Discharge Plan Discharge Clinical Impression: Hallucination, visual, Agitation Patient Disposition: Still a Patient Prescriptions: No Action trazodone 50 mg Tablet 50 mg PO DAILY@1700 30 Days Qty: 30 0RF trazodone 50 mg Tablet 50 mg PO BEDTIME MRX1 PRN (Reason: Insomnia) 30 Days Qty: 60 0RF lithium carbonate 300 mg Capsule 300 mg PO BID 30 Days Qty: 60 0RF divalproex 125 mg Capsule, Delayed Rel Sprinkle 500 mg PO BID@0800,1700 30 Days Qty: 240 0RF quetiapine 50 mg Tablet 50 mg PO Q6H PRN (Reason: agitation) 30 Days Qty: 60 0RF albuterol sulfate 0.63 mg/3 mL Solution For Nebulization 0.63 mg INHALATION Q4H PRN (Reason: Shortness Of Breath) 30 Days Qty: 1 0RF acetaminophen 325 mg Tablet 650 mg PO Q4H PRN (Reason: Pain) 30 Days Qty: 60 0RF Rx Instructions: do not exceed 3 doses in 48 hours nitrofurantoin macrocrystal 50 mg Capsule 50 mg PO BEDTIME PRN (Reason: UTI SYMPTOMS) 30 Days Qty: 30 0RF polyethylene glycol 3350 [Miralax] 17 gram Powder In Packet 17 g PO DAILY 30 Days Qty: 30 0RF dextromethorphan-guaifenesin [Tussin DM] 10-100 mg/5 mL Liquid 10 ml PO Q4H PRN (Reason: Cough) 30 Days Qty: 100 0RF tamsulosin [Flomax] 0.4 mg Capsule 0.4 mg PO BEDTIME 30 Days Qty: 30 0RF Fleet Enema 19-7 gram/118 mL Enema 118 ml VA DAILY PRN (Reason: Constipation) 7 Days Qty: 7 0RF Rx Instructions: IF NO RESULT FROM DULCOLAX WITHIN 2 HOURS finasteride [Proscar] 5 mg Tablet 5 mg PO BEDTIME 30 Days Qty: 30 0RF
--- NOTE | 2023-05-20 20:20 | PC.NURSE ---
Addendum entered by Milo Romero RN 05/20/23 20:22: Direct phone [phone], February until 2299, Ayanna overnight Original Note: rcvd call from February, DON from [facility]. Sts pt has had increasing behaviors including hallucinations and agitation x 2-3 days, also states increase in Seroquel from 12.5 to 25 x 2 days [employer]. made aware. Pt has received all nighttime medications per facility.
[2023-05-20 20:41] LABS: MANUAL DIFF FLAG NO
[2023-05-20 20:43] LABS: Basophils Absolute Auto 0.1 X10*3/uL (0.0-0.2); Basophils Percent Auto 0.6 % (0-2); Eosinophils Absolute Auto 0.2 X10*3/uL (0.0-0.4); Eosinophils Percent Auto 2.3 % (0-4); Hematocrit 40.3 % (42.0-52.0); Hemoglobin 12.7 g/dl (14.0-18.0); Imm Gran Abs Auto 0.05 X10*3/uL (0.00-0.03); Imm Gran Pct Auto 0.6 % (0.0-0.4); Lymphocytes Absolute Auto 1.3 X10*3/uL (1.2-4.9); Lymphocytes Percent Auto 14.5 % (20-40); Mean Corpuscular HGB Conc 31.5 g/dl (31.0-36.0); Mean Corpuscular Hemoglobin 29.1 pg (27.0-33.0); Mean Corpuscular Volume 92.2 fL (80.0-98.0); Mean Platelet Volume 9.5 fL (9.4-12.4); Monocytes Percent Auto 10.6 % (2-11); Neutrophils Absolute Auto 6.4 x10*3/uL (2.0-8.3); Neutrophils Percent Auto 71.4 % (45-73); Platelet Count 286 X10*3/uL (160-400); Red Blood Count 4.37 X10*6/uL (4.60-5.80); Red Cell Distribution Width 14.7 % (11.0-16.0)
--- NOTE | 2023-05-20 20:48 | PC.NURSE ---
Straight catheterized for urine, approx 350mL output, no complications.
[2023-05-20 20:51] LABS: Lithium 0.62 mmol/L (0.60-1.20)
[2023-05-20 20:55] LABS: Valproate 47.2 mcg/mL (50.0-100.0)
[2023-05-20 20:55] LABS: Appearance Urine Clear; Color Urine Yellow; Glucose Urine UA Negative (Negative); Leukocyte Esterase Urine Negative (Negative); Nitrite Urine Negative (Negative); PH 6.5 (5.0-9.0); Urine Blood Negative (Negative); Urine Ketones Negative (Negative); Urine Protein Negative (Neg-Trace)
[2023-05-20 20:58] LABS: Acetaminophen LAB < 17 mcg/mL (<30); Alanine Aminotransferase 20 U/L (0-40); Albumin Level 3.3 g/dL (3.5-5.0); Alkaline Phosphatase 96 U/L (39-117); Anion Gap 11 (12-20); Aspartate Amino Transferase 22 U/L (5-37); Bilirubin Total 0.7 mg/dL (0.0-1.0); Blood Urea Nitrogen 19 mg/dL (9-16); Calcium 9.4 mg/dL (8.4-10.2); Carbon Dioxide 27 mmol/L (22-29); Chloride 106 mmol/L (96-108); Creatinine Clr Calc Pharmacy 63.6; Estimated Glomerular Filt Rate > 60; Ethanol < 10 mg/dL; Glucose Random 98 mg/dL (60-115); Potassium 4.5 mmol/L (3.3-5.1); Salicylate < 5.0 mg/dL (15-30); Sodium 139 mmol/L (135-145); Total Protein 6.3 g/dL (6.5-8.0)
[2023-05-20 21:05] LABS: Amphetamine Screen Urine Not Detected (Not Detect); Barbiturates, Urine Not Detected (Not Detect); Benzodiazepines Screen Urine Not Detected (Not Detect); Cannabinoid Screen Urine Not Detected (Not Detect); Cocaine Screen Urine Not Detected (Not Detect); Fentanyl, urine Not Detected (Not Detect); Opiate Screen Urine Not Detected (Not Detect); Phencyclidine Screen Urine Not Detected (Not Detect)
[2023-05-20 22:57] VITALS: BP 131/75; PULSE 88; RESP 18; O2SAT 98
[2023-05-20] MEDS: LORazepam 2 MG/ML VIAL IM (22:57)
[2023-05-20] MEDS: diphenhydrAMINE HCL 50 MG/ML VIAL IM (22:57)
[2023-05-20] MEDS: Haloperidol Lactate 5 MG/ML VIAL IM (22:57)
[2023-05-20 23:12] VITALS: BP 109/76; PULSE 87; RESP 18; O2SAT 98
--- NOTE | 2023-05-20 23:21 | PC.NURSE ---
During reassessment by this RN at approx 2248, pt was noted to be attempting to exit bed. This RN attempted to redirect pt unsuccessfully. Pt became combative, aggressive, attempted to swing and grab at this RN and tech who came to assist. Pt was held down for safety, with PA immediately notified of pt condition. Security notified for assistance. PA at bedside, placed orders for medication and physical restraints. At that time, pt turned head and spit in face of this RN and assisting tech. Restraints applied including spit mask to ensure staff and patient safety. Medications administered as ordered. monitoring per protocols.
[2023-05-20 23:27] VITALS: BP 117/70; PULSE 83; RESP 18; O2SAT 99
[2023-05-20 23:42] VITALS: BP 106/64; PULSE 75; RESP 18; O2SAT 100
[2023-05-21] VITALS (8 sets, daily range): BP systolic 98–115; BP diastolic 51–78; PULSE 54–90; RESP 14–18; TEMP 36.3; O2SAT 97–100
--- NOTE | 2023-05-21 00:46 | PC.NURSE ---
pt restraints removed in context of cooperation with staff. pt remains confused with hx of dementia, but no longer combative with staff. Sitter remains 1:1 for safety at this time.
--- NOTE | 2023-05-21 08:01 | PC.NURSE ---
0745 pt sleeping at this time of assuming care.
--- NOTE | 2023-05-21 08:12 | PHA.MEDREC ---
Pharmacy Consult ? Medication Reconciliation Pharmacy has completed the medication reconciliation. list received Daquan Lerma on [address]
--- NOTE | 2023-05-21 15:58 | MHC.EDTECH ---
Assist nurse with patient care as patient was soiled needing bed change and clean matty top.
[2023-05-21] MEDS: Divalproex Sodium Sprinkles 125 MG CAP.DR.SPR 500 MG PO (16:03)
--- NOTE | 2023-05-21 16:17 | PC.NURSE ---
incontinent care and complete bed change done by this underwriter and edi analyst. pt had xlg bm
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
--- NOTE | 2023-05-21 17:27 | MHC.CARE ---
lvm with patient's son, letting him know his father is here and care team assessing with goal for patient to return to facility 05/22/23. left t/w call back number as needed.
--- NOTE | 2023-05-21 18:07 | MHC.CARE ---
Patient was evaluated by the CARE Team, inpatient psychiatric treatment is not recommended. He will need to receive his regular scheduled medication and be monitored, when under behavioral control. Depakote and Fortine levels should be rechecked.
[2023-05-21] MEDS: Lithium Carbonate ER 300 MG TABLET.ER 600 MG PO (19:28)
[2023-05-21] MEDS: QUEtiapine Fumarate 25 MG TABLET PO (19:31)
[2023-05-21] MEDS: Finasteride 5 MG TABLET PO (19:31)
[2023-05-21] MEDS: Tamsulosin HCL 0.4 MG CAPSULE PO (19:32)
--- NOTE | 2023-05-21 20:00 | PC.NURSE ---
resting comfortably, no distress. following commands well. tolerated pills with pudding.
[2023-05-22 00:48] VITALS: BP 126/74; PULSE 74; RESP 20; O2SAT 97
--- NOTE | 2023-05-22 00:49 | PC.NURSE ---
changed due to incontinence. no distress. mental status at baseline. safety reinforced. cont to monitor.
--- NOTE | 2023-05-22 01:35 | MHC.EDTECH ---
Rn Ciera requested help changing patient. Patient was noted to be incontinent of urine. After patient was cleaned and repositioned I attempted vital signs. patient was agreeable to this. when documenting it was brought tocharge nurse that vitals had note been done in 12 hours. Patient currently clean dry and sleeping comfortably
[2023-05-22] MEDS: diphenhydrAMINE HCL 50 MG/ML VIAL IM (05:13)
[2023-05-22] MEDS: LORazepam 2 MG/ML VIAL IM (05:13)
[2023-05-22] MEDS: Haloperidol Lactate 5 MG/ML VIAL IM (05:13)
[2023-05-22] MEDS: Divalproex Sodium Sprinkles 125 MG CAP.DR.SPR 500 MG PO ×2 (08:08→17:19)
--- NOTE | 2023-05-22 08:26 | PC.NURSE ---
PT WAS SAT UP AND FED APPROX 25% OF HIS BREAKFAST. NO SWALLOW ISSUES. COOPERATIVE
[2023-05-22 10:17] VITALS: BP 125/92; PULSE 85; RESP 16
[2023-05-22] MEDS: QUEtiapine Fumarate 50 MG TABLET PO (10:27)
--- NOTE | 2023-05-22 10:34 | PC.NURSE ---
pt beginning to become more agitated medicated as charted. pt was placed in a hospital bed earlier this am, alarm on for safety
--- NOTE | 2023-05-22 14:06 | PC.NURSE ---
SLEEPING, RESP ARE EQUAL AND NONLABORED
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
[2023-05-22 15:16] VITALS: BP 130/37; PULSE 66; RESP 16; O2SAT 98
--- NOTE | 2023-05-22 17:20 | PC.NURSE ---
patient awake in bed, resting quietly. patient did urinate in the urinal 400 ml. patient eating a small amount of pudding
[2023-05-22 17:23] VITALS: BP 107/60; PULSE 78; RESP 14; O2SAT 97
--- NOTE | 2023-05-22 20:07 | PC.NURSE ---
This sign writer letterer or painter assumed care of this Pt at 1900. Pt A&O to self calm and cooperative, denies any pain at this time. Pt repositioned with two staff assist.
[2023-05-22] MEDS: QUEtiapine Fumarate 25 MG TABLET PO (21:24)
[2023-05-22] MEDS: Lithium Carbonate ER 300 MG TABLET.ER 600 MG PO (21:25)
[2023-05-22] MEDS: Finasteride 5 MG TABLET PO (21:26)
[2023-05-22] MEDS: Tamsulosin HCL 0.4 MG CAPSULE PO (21:26)
--- NOTE | 2023-05-22 22:45 | MHC.EDTECH ---
pt found to be soiled and attempting to get out of bed. pt cleaned, linens and gown changed, warm blankets given. pt resting comfortably at this time.
--- NOTE | 2023-05-23 02:58 | PC.NURSE ---
Pt attempting to get OOB, stating you need to get him out of here pointing behind the stretcher, redirectable. Pt repositioned and blankets given, will CTM.
[2023-05-23 03:46] VITALS: BP 114/67; PULSE 82; RESP 18; O2SAT 97
--- NOTE | 2023-05-23 03:55 | PC.NURSE ---
Incontinent care provided by two staff assist, skin intact, no redness areas noted. Pt repositioned, new blankets given.
[2023-05-23 06:19] VITALS: BP 109/56; PULSE 79; RESP 12; O2SAT 94
--- NOTE | 2023-05-23 09:46 | MHC.CARE ---
CARE spoke with ED provider and requested [place] and Depakote be re-drawn. CM was updated on current status, CARE team to follow up as needed.
[2023-05-23] MEDS: Divalproex Sodium Sprinkles 125 MG CAP.DR.SPR 500 MG PO ×2 (11:12→18:19)
--- NOTE | 2023-05-23 11:13 | MHC.CARE ---
Pt consulted with APARTMENT MAINTENANCE SUPERVISOR Jami Khalil re: pt refusing thyroid medication last evening. APARTMENT MAINTENANCE SUPERVISOR in agreement with pt being referred to case management to return back to SNF.
[2023-05-23 11:34] LABS: Lithium 0.81 mmol/L (0.60-1.20)
[2023-05-23 11:39] LABS: Valproate 21.1 mcg/mL (50.0-100.0)
[2023-05-23 11:40] LABS: COVID-19 Test Negative (Negative); IDNOW Serial# 6674DD1D
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
[2023-05-23 16:33] VITALS: BP 105/68; PULSE 75; RESP 16; O2SAT 95
--- NOTE | 2023-05-23 16:37 | PC.NURSE ---
per Maria Esther FRANCOIS, will attempt to re-hydrate pt with fluids prior to attempting second blood cultures.
[2023-05-23 19:51] VITALS: BP 130/75; PULSE 72; RESP 16; TEMP 36.6; O2SAT 97
--- NOTE | 2023-05-23 19:53 | MHC.EDTECH ---
THIS PCT ASSUMED CARE OF PT AT 1945 PM ,VITALS SIGN TAKEN ,PT IS CLEAN AND DRY ,PATIENT REFUSED DINNER ,BUT DRANK 120 ML CONNOR PATI .
[2023-05-23] MEDS: Finasteride 5 MG TABLET PO (20:24)
[2023-05-23] MEDS: Lithium Carbonate ER 300 MG TABLET.ER 600 MG PO (20:24)
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
--- NOTE | 2023-05-23 21:56 | MHC.EDTECH ---
PATIENT WAS INCONTINENT OF URINE ,CARE GIVEN ,BEDDINGS CHANGE ,WARM BLANKET GIVEN ,CALL BUTT WITHIN REACH ,PATIENT DRANK SIPS OF CONNOR PATI ,AND IS WATCHING TELEVISION IN BED .
--- NOTE | 2023-05-23 21:56 | PC.NURSE ---
Pt bedding and gown changed in setting of urinary incontinence.
--- NOTE | 2023-05-23 23:46 | PC.NURSE ---
Pt currently awake, lying on stretcher, no acute distress. Pt with intermittent outbursts of verbal and physical aggression, redirectable at this time. No acute behavioral or medical conerns at this time.
--- NOTE | 2023-05-24 01:19 | PC.NURSE ---
Pt awake, sat upright on stretcher, redirected to lay back down. Warm blanket provided. No acute medical or behavioral concerns at this time.
[2023-05-24 07:00] VITALS: BP 134/88; PULSE 88; RESP 18; O2SAT 97
--- NOTE | 2023-05-24 07:01 | PC.NURSE ---
Resting comfortably in bed at time. Denies pain or discomfort. VSS. Calm and cooperative at this time.
[2023-05-24] MEDS: Divalproex Sodium Sprinkles 125 MG CAP.DR.SPR 500 MG PO (08:28)
[2023-05-24] MEDS: polyethylene glycoL 3350 17 GM POWD.PACK PO (08:34)
--- NOTE | 2023-05-24 08:35 | PC.NURSE ---
Alert and cooperative, took po meds as ordered. Good po intake and appetite for breakfast. Denies pain or discomfort. VSS
--- NOTE | 2023-05-24 12:00 | PC.NURSE ---
Report called to receiving nurse at [facility]. Discharge instructions sent with patient
== END 2023-05-24 12:01 ==
PROVIDERS: Emergency Medicine Emergency Medical Services; Physician Assistant; Emergency Provider Student in an Organized Health Care Education/Training Program; PCP Family Medicine Geriatric Medicine
DX: R44.1 Visual hallucinations (principal); F31.9 Bipolar disorder, unspecified; F02.818 Dementia in other diseases classified elsewhere, unspecified severity, with other behavioral disturbance; R51.9 Headache, unspecified; R53.1 Weakness; R07.89 Other chest pain; Z20.822 Contact with and (suspected) exposure to COVID-19; Z20.828 Contact with and (suspected) exposure to other viral communicable diseases; Z79.899 Other long term (current) drug therapy
CPT/HCPCS: 36415; 70450; 71046; 80053; 80143; 80164; 80178; 80179; 80307; 81003; 85025; 87635; 96372; 99285; J1200; J2060; S9485

== ENCOUNTER 2023-06-05 15:30 | Inpatient (IN) | payer OTHER, MEDICARE, SELFPAY ==
--- NOTE | ~2023-06-05 | CT_ITS ---
EXAMINATION: CT CHEST WITH CONTRAST CLINICAL INFORMATION: Abnormal chest x-ray. COMPARISON: Chest x-ray 06/05/2023 TECHNIQUE: Multidetector volumetric CT imaging of the chest was obtained after the administration of 65 mL of Omnipaque 350 intravenous contrast without immediate adverse reactions. Axial MIP volume rendering provided. Sagittal and coronal reformatted images were obtained. This CT examination was performed using dose optimization techniques as appropriate, variously including the following: *Automated exposure control *Adjustment of mA and/or kV according to patient size (this includes techniques or standardized protocols for targeted exams where dose is matched to indication/reason for exam; i.e. extremities or head) *Use of iterative reconstruction technique DLP: 273 mGy-cm FINDINGS: CORPORATE ACCOUNT EXECUTIVE: Well-expanded lungs. LUNGS: The lungs are expanded with patchy consolidation and calcification right upper lobe anterior segment with volume loss likely chronic scarring. This results in mild elevation of right hilum and likely asymmetric appearance on the chest x-ray. Rest of lungs are well-expanded without acute consolidation. There is no pulmonary nodule or mass. There is mild bilateral lower lobe bronchiectasis and patchy scarring and/or atelectasis left slightly greater in left lung base. MEDIASTINUM: The thyroid lobes are symmetric and normal. The central trachea and the bronchi widely patent. Heart size and the great vessels are normal caliber. There is moderate coronary artery calcifications. No pericardial effusion seen. No abnormal size mediastinal or hilar lymphadenopathy seen PLEURA: There is no pleural effusion. No pleural mass or thickening. AXILLA: No abnormal size axillary lymph nodes seen. The chest wall is unremarkable. UPPER ABDOMEN: Visualized liver, spleen and right adrenal gland appears unremarkable. OSSEOUS STRUCTURES: No aggressive lytic or sclerotic process seen. CT/CT chest w IV con IMPRESSION: Right upper lobe opacity with calcification and loss of right upper lobe volume likely chronic scarring. No acute pneumonic consolidation or mass seen. There is bilateral lower lobe bronchiectasis and patchy scarring/atelectasis slightly greater on the left. Fleischner guidelines were followed.
--- NOTE | ~2023-06-05 | XR_ITS ---
EXAMINATION: XR CHEST CLINICAL INFORMATION: Mental status change. COMPARISON: Chest radiograph 05/20/2023. TECHNIQUE: Frontal view of the chest was obtained. FINDINGS: Stable prominence of the cardiomediastinal silhouette including enlarged pulmonary arteries and asymmetric fullness of the right hilar region. Diffuse interstitial thickening is not convincingly changed. No new focal consolidation. No pleural effusion or pneumothorax. Chronic right-sided rib deformities. Chronic distal left clavicular deformity. 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 XR/XR chest 1V IMPRESSION: Examination is not significantly changed compared to 05/20/2023. Redemonstration of somewhat asymmetric fullness of the right hilar region for which further evaluation with a chest CT with IV contrast is recommended to rule out malignancy. The report will be called to the ordering clinician by a [facility] Publishing Editor.
[2023-06-05 15:55] VITALS: BP 132/90; BP 137/77; PULSE 79; PULSE 84; RESP 16; TEMP 37; O2SAT 95; O2SAT 97; BMI 24.3
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
--- NOTE | 2023-06-05 16:19 | ECG_ITS ---
Test Reason : AMS Blood Pressure : / mmHG Vent. Rate : 076 BPM Atrial Rate : 076 BPM P-R Int : 154 ms QRS Dur : 100 ms QT Int : 384 ms P-R-T Axes : 084 038 025 degrees QTc Int : 432 ms Normal sinus rhythm Normal ECG When compared with ECG of 12-MAR-2023 23:04, Previous ECG has undetermined rhythm, needs review ST no longer elevated in Inferior leads ST no longer depressed in Anterior leads Referred By: Maximus Valencia Electronically Signed By:BRIAN TAMAYO MD
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
[2023-06-05 16:44] LABS: MANUAL DIFF FLAG NO
[2023-06-05 16:50] LABS: Basophils Absolute Auto 0.1 X10*3/uL (0.0-0.2); Basophils Percent Auto 0.6 % (0-2); Eosinophils Absolute Auto 0.2 X10*3/uL (0.0-0.4); Eosinophils Percent Auto 2.4 % (0-4); Hematocrit 41.4 % (42.0-52.0); Hemoglobin 12.8 g/dl (14.0-18.0); Lymphocytes Absolute Auto 1.3 X10*3/uL (1.2-4.9); Lymphocytes Percent Auto 13.3 % (20-40); Mean Corpuscular HGB Conc 30.9 g/dl (31.0-36.0); Mean Corpuscular Hemoglobin 29.3 pg (27.0-33.0); Mean Corpuscular Volume 94.7 fL (80.0-98.0); Mean Platelet Volume 9.7 fL (9.4-12.4); Monocytes Percent Auto 10.7 % (2-11); Neutrophils Absolute Auto 6.9 x10*3/uL (2.0-8.3); Platelet Count 345 X10*3/uL (160-400); Red Blood Count 4.37 X10*6/uL (4.60-5.80); Red Cell Distribution Width 15.6 % (11.0-16.0); White Blood Count 9.6 X10*3/uL (4.8-10.8)
[2023-06-05] MEDS: 0.9 % Sodium Chloride 1,000 ML 999 ML IV (16:56)
--- NOTE | 2023-06-05 16:58 | PC.NURSE ---
IVF administered per provider order.
[2023-06-05 17:04] LABS: B Type Natriuretic Peptide 65 pg/mL (<100)
[2023-06-05 17:15] LABS: Alanine Aminotransferase 13 U/L (0-40); Albumin Level 3.5 g/dL (3.5-5.0); Alkaline Phosphatase 108 U/L (39-117); Anion Gap 12 (12-20); Aspartate Amino Transferase 12 U/L (5-37); Bilirubin Direct 0.1 mg/dL (0.0-0.5); Bilirubin Total 0.3 mg/dL (0.0-1.0); Blood Urea Nitrogen 16 mg/dL (9-16); Carbon Dioxide 23 mmol/L (22-29); Chloride 110 mmol/L (96-108); Creatinine Clr Calc Pharmacy 59.5; Estimated Glomerular Filt Rate > 60; Glucose Random 107 mg/dL (60-115); Lipase 13 U/L (8-78); Potassium 4.3 mmol/L (3.3-5.1); Sodium 141 mmol/L (135-145); Total Protein 6.4 g/dL (6.5-8.0); Troponin-I High Sensitivity < 2.7 ng/L (<3.5-35.0)
[2023-06-05 18:08] VITALS: BP 127/71; PULSE 72; RESP 16; TEMP 37; O2SAT 96
--- NOTE | 2023-06-05 18:23 | PC.NURSE ---
20g lac infiltrated in ct, 22g r hand placed.
[2023-06-05] MEDS: iohexoL 350 MG/ML 100 ML INFUS..BTL IV (18:38)
[2023-06-05 20:04] LABS: Troponin-I High Sensitivity 5.2 ng/L (<3.5-35.0)
[2023-06-05 22:11] VITALS: BP 150/83; PULSE 76; RESP 15; TEMP 37.2; O2SAT 96
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
[2023-06-06 03:03] VITALS: BP 130/84; PULSE 83; RESP 15; O2SAT 96
--- NOTE | 2023-06-06 03:19 | PC.NURSE ---
pt cleaned up and linens changed. pt calm and cooperative, no apparent distress. call peng within reach will ctm
[2023-06-06 06:35] VITALS: BP 129/70; PULSE 85; RESP 16; O2SAT 95
--- NOTE | 2023-06-06 06:35 | PC.NURSE ---
pt straight cath'd for urine sample - pt cleaned up and linens changed vitals updated warm blanket provided will CTM
[2023-06-06 06:45] LABS: Appearance Urine Clear; Color Urine Yellow; Glucose Urine UA Negative (Negative); Leukocyte Esterase Urine Negative (Negative); Nitrite Urine Negative (Negative); UMIC TRIGGER UACC YES; Urine Blood Moderate (2+) (Negative); Urine Ketones Negative (Negative); Urine Protein Negative (Neg-Trace)
--- NOTE | 2023-06-06 06:52 | MHC.EDTECH ---
T/w came to assist RN in doing straight cath and Pt found to be incontinent of urine. Pt was cleaned up and repositioned. Vital signs taken, refused temp.
[2023-06-06 07:09] LABS: Bacteria Urine None Seen (None Seen); Hyaline Casts Urine 0-2 /LPF (0-2); Squamous Epithelial Cell Urine 0-2 /HPF (0-2); WBC Urine 0-5 /HPF (0-5)
--- NOTE | 2023-06-06 09:24 | PHA.MEDREC ---
Pharmacy Consult ? Medication Reconciliation Pharmacy has completed the medication reconciliation. Patient is from [facility] on [address].
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
[2023-06-06] MEDS: polyethylene glycoL 3350 17 GM POWD.PACK PO (11:17)
[2023-06-06] MEDS: QUEtiapine Fumarate 25 MG TABLET PO ×3 (11:21→21:56)
--- NOTE | 2023-06-06 12:51 | MHC.CARE ---
patient to be seen/ reviewed by psychiatry for med adjustments. He will be followed up with tomorrow for ongoing CARE team assessment to determine dispo. If he has been in adequate behavioral control and medicaiton compliant, possible d/c plan return to SNF. If patient continues to struggle with behaviors, inpt loc to be considered.
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
[2023-06-06 15:07] VITALS: RESP 16
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
[2023-06-06] MEDS: LORazepam 2 MG/ML VIAL IM (18:32)
[2023-06-06] MEDS: OLANZapine 10 MG VIAL IM (18:33)
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
[2023-06-06 19:21] VITALS: BP 140/92; PULSE 91; RESP 18; TEMP 37; O2SAT 96
[2023-06-06] MEDS: risperiDONE 0.5 MG TABLET PO (21:56)
[2023-06-06] MEDS: Tamsulosin HCL 0.4 MG CAPSULE PO (21:57)
[2023-06-06] MEDS: traZODone HCL 50 MG TABLET PO (21:57)
[2023-06-06] MEDS: Acetaminophen 325 MG TABLET 650 MG PO (21:58)
[2023-06-06] MEDS: Lithium Carbonate ER 300 MG TABLET.ER 600 MG PO (21:59)
[2023-06-06 22:00] VITALS: BP 138/89; PULSE 86; RESP 16; O2SAT 94
[2023-06-06] MEDS: Finasteride 5 MG TABLET PO (22:00)
[2023-06-07] VITALS (8 sets, daily range): BP systolic 94–146; BP diastolic 63–83; PULSE 64–82; RESP 15–18; TEMP 35.9–36.5; O2SAT 95–98
--- NOTE | 2023-06-07 07:16 | PC.NURSE ---
Alert, denies pain. states wants to go back to sleep. NSR on monitor. VSS.
[2023-06-07] MEDS: QUEtiapine Fumarate 25 MG TABLET PO ×3 (08:31→21:20)
[2023-06-07] MEDS: Acetaminophen 325 MG TABLET 650 MG PO ×2 (08:31→21:19)
[2023-06-07] MEDS: Divalproex Sodium Sprinkles 125 MG CAP.DR.SPR 500 MG PO ×2 (08:31→18:48)
[2023-06-07] MEDS: polyethylene glycoL 3350 17 GM POWD.PACK PO (08:31)
[2023-06-07] MEDS: risperiDONE 0.5 MG TABLET PO ×2 (08:31→21:20)
[2023-06-07] MEDS: Nystatin Powder 15 GM BOTTLE 1 APPL TOPICAL ×2 (10:14→14:27)
--- NOTE | 2023-06-07 11:01 | PC.NURSE ---
Alert and cooperative. Denies pain, po meds as ordered. COVID test obtained per order. Plan is to admit to [facility]
[2023-06-07 11:07] LABS: Lithium 0.58 mmol/L (0.60-1.20)
[2023-06-07 11:14] LABS: COVID-19 Test Negative (Negative); IDNOW Serial# BCCEAD1C
--- NOTE | 2023-06-07 12:39 | PC.NURSE ---
Resting calmly in bed, denies pain or discomfort. VSS.
--- NOTE | 2023-06-07 13:58 | PC.NURSE ---
Resting quietly in bed, offered but declined foot or fluids. vss, nsr on monitor
--- NOTE | 2023-06-07 14:23 | PC.NURSE ---
Report given to accepting unit
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
--- NOTE | 2023-06-07 18:39 | PC.ADMIT ---
Patient arrived from ED via stretcher at 1810. Escorted to room by staff. Skin check done. Clean gown put on. VSS. Placed on 5 minute checks per protocol. Admitted on 12b status. Patient alert to self only. Requires total assist. Incotinent of bowel and bladder. Observed eating in room with bedside table for food. Patient MOLST on chart. Rejected CV. Able to provide care without aggression.
[2023-06-07] MEDS: Lithium Carbonate ER 300 MG TABLET.ER 600 MG PO (21:19)
[2023-06-07] MEDS: nitrofurantoin macrocrystaL 50 MG CAPSULE PO (21:19)
[2023-06-07] MEDS: Tamsulosin HCL 0.4 MG CAPSULE PO (21:19)
[2023-06-07] MEDS: Finasteride 5 MG TABLET PO (21:20)
[2023-06-07] MEDS: traZODone HCL 50 MG TABLET PO ×2 (21:20→23:54)
[2023-06-08 02:43] VITALS: BMI 24.3
[2023-06-08 08:31] VITALS: BP 101/59; PULSE 88; RESP 18; TEMP 36.4; O2SAT 96
[2023-06-08] MEDS: Nystatin Powder 15 GM BOTTLE 1 APPL TOPICAL ×3 (08:36→22:08)
[2023-06-08] MEDS: Acetaminophen 325 MG TABLET 650 MG PO ×2 (08:37→21:13)
[2023-06-08] MEDS: QUEtiapine Fumarate 25 MG TABLET PO ×2 (08:37→15:57)
[2023-06-08] MEDS: Divalproex Sodium Sprinkles 125 MG CAP.DR.SPR 500 MG PO ×2 (08:37→15:57)
[2023-06-08] MEDS: polyethylene glycoL 3350 17 GM POWD.PACK PO (08:37)
[2023-06-08] MEDS: risperiDONE 0.5 MG TABLET PO (08:37)
[2023-06-08 10:11] VITALS: BP 93/53; PULSE 87
[2023-06-08 11:28] VITALS: BP 107/58; PULSE 86
[2023-06-08] MEDS: traZODone HCL 50 MG TABLET PO ×2 (11:54→21:13)
--- NOTE | 2023-06-08 13:47 | PC.NURSE ---
Morning bp 101/59 @ 0831. Given 240mL of fluids and Javed denied any dizziness/lightheadedness. Bp rechecked after Javed got out of bed into the bettye chair and 93/53 @ 1008 and he reported some lightheadedness. 240mL fluids provided. Dr. Arizmendi notified and blood pressure taken at 1128 was 107/58. Javed reported lightheadedness had resolved. Dr. Arizmendi updated.
[2023-06-08] MEDS: OLANZapine 10 MG VIAL 2.5 MG IM (17:39)
[2023-06-08 18:00] VITALS: BP 121/68; PULSE 82; RESP 16; TEMP 36.7; O2SAT 96
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
[2023-06-08] MEDS: Finasteride 5 MG TABLET PO (21:13)
[2023-06-08] MEDS: Tamsulosin HCL 0.4 MG CAPSULE PO (21:13)
[2023-06-08] MEDS: risperiDONE 1 MG TABLET PO (21:13)
[2023-06-08] MEDS: Lithium Carbonate ER 300 MG TABLET.ER 600 MG PO (21:13)
[2023-06-08] MEDS: nitrofurantoin macrocrystaL 50 MG CAPSULE PO (21:13)
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
[2023-06-09 08:23] VITALS: BP 98/63; PULSE 80; RESP 18; TEMP 36.2; O2SAT 95
[2023-06-09] MEDS: polyethylene glycoL 3350 17 GM POWD.PACK PO (08:45)
[2023-06-09] MEDS: Acetaminophen 325 MG TABLET 650 MG PO ×2 (08:46→20:28)
[2023-06-09] MEDS: risperiDONE 1 MG TABLET PO ×2 (08:47→20:29)
[2023-06-09] MEDS: Divalproex Sodium Sprinkles 125 MG CAP.DR.SPR 500 MG PO ×2 (08:47→16:30)
[2023-06-09] MEDS: Nystatin Powder 15 GM BOTTLE 1 APPL TOPICAL ×3 (16:31→20:29)
[2023-06-09 18:00] VITALS: BP 100/61; PULSE 80; RESP 16; TEMP 36.2; O2SAT 95
[2023-06-09] MEDS: Finasteride 5 MG TABLET PO (20:28)
[2023-06-09] MEDS: nitrofurantoin macrocrystaL 50 MG CAPSULE PO (20:28)
[2023-06-09] MEDS: Tamsulosin HCL 0.4 MG CAPSULE PO (20:29)
[2023-06-09] MEDS: traZODone HCL 50 MG TABLET PO (20:29)
[2023-06-10 09:51] VITALS: BP 111/63; PULSE 74; RESP 16; TEMP 36.2; O2SAT 96
[2023-06-10] MEDS: polyethylene glycoL 3350 17 GM POWD.PACK PO (09:52)
[2023-06-10] MEDS: Divalproex Sodium Sprinkles 125 MG CAP.DR.SPR 500 MG PO (09:54)
[2023-06-10] MEDS: risperiDONE 1 MG TABLET PO ×2 (09:54→19:50)
--- NOTE | 2023-06-10 14:52 | P.PNPSI_ITS ---
Subjective Subjective Date of Service: 06/10/23 Reason For Visit: Agression Subjective Notes: Conditional Voluntary Interim History: The nursing staff reported the patient slept only 6 hours he was yelling to another resident who was making too much noise. She is only alert to self. The vp digital marketing social media and crm reported the [facility] could taking him back. On interview the patient is confused, he agreed to have Depakote level hemoglobin A1c and lipid panel tomorrow. Mental Status Exam Mental Status Exam Patient Appearance: Well Grooomed and Appropriate Patient Orientation: Person and Situation Level of Consciousness: Awake and Appropriate Patient Behavior: Guarded and Passive Mood Description: Calm and Constricted Affect Description: Constricted Patient Cognition Impaired: Yes Ability to Follow Directions: Good Speech Pattern: Clear Hallucinations: None Delusions: Not Present Thought Process: Evasive Thought Content: positive for Intact Judgement: Poor Diagnostics Vital Signs (24Hr): Vital Signs - 24 hr 06/09/23 18:00 06/10/23 09:51 Temperature 97.2 F 97.2 F Pulse Rate 80 74 Respiratory Rate 16 16 Blood Pressure 100/61 111/63 Pulse Oximetry 95 96 Oxygen Delivery Method Room Air Room Air BMI result Body Mass Index 24.3 Labs 06/05/23 16:38 06/05/23 16:38 Imaging Radiology Impressions: ITS Impressions Chest X-Ray 06/05/23 16:45 IMPRESSION: Examination is not significantly changed compared to 05/20/2023. Redemonstration of somewhat asymmetric fullness of the right hilar region for which further evaluation with a chest CT with IV contrast is recommended to rule out malignancy. The report will be called to the ordering clinician by a [place] [facility]iology Physician Nurse Executive. Chest CT 06/05/23 18:43 IMPRESSION: Right upper lobe opacity with calcification and loss of right upper lobe volume likely chronic scarring. No acute pneumonic consolidation or mass seen. There is bilateral lower lobe bronchiectasis and patchy scarring/atelectasis slightly greater on the left. Fleischner guidelines were followed. Medications Medications Current Medications Acetaminophen (Acetaminophen 325 Mg Tablet) 650 mg PO BID [facility] Last Admin: 06/10/23 09:54 Dose: Not Given Acetaminophen (Acetaminophen 325 Mg Tablet) 650 mg PO Q4H PRN PRN Reason: Fever Or Pain Albuterol Sulfate (Albuterol Sulfate (0.042%) 1.25 Mg/3 Ml Vial.Neb) 0.63 mg INHALE RQ4H PRN PRN Reason: Shortness Of Breath Bisacodyl (Bisacodyl 10 Mg Supp.Rect) 10 mg [place] DAILY PRN PRN Reason: Constipation Divalproex Sodium (Divalproex Sodium Sprinkles 125 Mg Cap.) 500 mg PO BID@0800,1700 [facility] Last Admin: 06/10/23 09:54 Dose: 500 mg Finasteride (Finasteride 5 Mg Tablet) 5 mg PO BEDTIME [facility] Last Admin: 06/09/23 20:28 Dose: 5 mg Nitrofurantoin Macrocrystals (Nitrofurantoin Macrocrystal 50 Mg Capsule) 50 mg PO BEDTIME [facility] Last Admin: 06/09/23 20:28 Dose: 50 mg Nystatin (Nystatin Powder 15 Gm Bottle) 1 appl TOPICAL TID [facility]; Protocol Last Admin: 06/10/23 11:23 Dose: Not Given Polyethylene Glycol (Polyethylene Glycol 3350 17 Gm Powd.Pack) 17 gm PO DAILY [facility] Last Admin: 06/10/23 09:52 Dose: 17 gm Polyethylene Glycol (Polyethylene Glycol 3350 17 Gm Powd.Pack) 17 gm PO DAILY PRN PRN Reason: Constipation Risperidone (Risperidone 1 Mg Tablet) 1 mg PO BID [facility] Last Admin: 06/10/23 09:54 Dose: 1 mg Sodium Biphosphate/Sodium Phosphate (Sodium Phosphate,[place]-Dibasic 133 Ml Enema) 118 ml [place] DAILY PRN PRN Reason: Constipation Tamsulosin HCl (Tamsulosin Hcl 0.4 Mg Capsule) 0.4 mg PO BEDTIME [facility] Last Admin: 06/09/23 20:29 Dose: 0.4 mg Trazodone HCl (Trazodone Hcl 50 Mg Tablet) 50 mg PO BEDTIME [facility] Last Admin: 06/09/23 20:29 Dose: 50 mg Trazodone HCl (Trazodone Hcl 50 Mg Tablet) 50 mg PO BID PRN PRN Reason: Agitation Last Admin: 06/08/23 11:54 Dose: 50 mg Allergies Allergies Allergy/AdvReac Type Severity Reaction Status Date / Time No Known Allergies Allergy Verified 06/05/23 15:54 Assessment & Plan Assessment & Plan (1) Bipolar disorder: Status: Acute Code(s): F31.9 - Bipolar disorder, unspecified (2) Major neurocognitive disorder due to another medical condition with behavioral disturbance: Status: Acute Code(s): F02.818 - Dementia in other diseases classified elsewhere, unspecified severity, with other behavioral disturbance Plan The patient is a 78-year-old male with a past history of bipolar disorder and dementia who was brought from his facility for increased agitation and disorganized behavior. He was admitted for medication management. Plan 1. Gather collateral information. 2. Keep Risperdal 1 mg p.o. b.i.d. and lithium. 3. Blood work and follow-up with Medicine. Reason for continued inpatient stay Substantial Risk for: inability to function, rapid decompensation and med/psych decompensation Time Spent With Patient Time: Total time managing care of this patient today __20__ minutes.
[2023-06-10 18:00] VITALS: BP 126/96; PULSE 80; RESP 18; TEMP 36; O2SAT 98
[2023-06-10] MEDS: Finasteride 5 MG TABLET PO (19:49)
[2023-06-10] MEDS: nitrofurantoin macrocrystaL 50 MG CAPSULE PO (19:49)
[2023-06-10] MEDS: Acetaminophen 325 MG TABLET 650 MG PO (19:50)
[2023-06-10] MEDS: Tamsulosin HCL 0.4 MG CAPSULE PO (19:50)
[2023-06-10] MEDS: traZODone HCL 50 MG TABLET PO (19:51)
[2023-06-11 06:00] VITALS: BP 109/56; PULSE 72; RESP 16; TEMP 36; O2SAT 95
[2023-06-11 08:24] LABS: Estimated Average Glucose 97 mg/dL
[2023-06-11] MEDS: risperiDONE 1 MG TABLET PO (08:31)
[2023-06-11] MEDS: Divalproex Sodium Sprinkles 125 MG CAP.DR.SPR 500 MG PO ×2 (08:31→17:16)
[2023-06-11] MEDS: Acetaminophen 325 MG TABLET 650 MG PO ×2 (08:32→20:56)
[2023-06-11 08:44] LABS: Valproate 17.6 mcg/mL (50.0-100.0)
[2023-06-11 08:45] LABS: Cholesterol 216 mg/dL; HDL Cholesterol 35 mg/dL; LDL Cholesterol Calculated 145 mg/dl; Triglycerides 182 mg/dL
--- NOTE | 2023-06-11 10:33 | P.PNPSI_ITS ---
Subjective Subjective Date of Service: 06/11/23 Reason For Visit: Agression Subjective Notes: Conditional Voluntary Interim History: The nursing staff reported the patient had been aggressive and agitated with staff. He was very paranoid. Later on he was cooperative at night. It seems that he has PTSD symptoms. Unfortunately his vital signs showed hypotensive with limited poles so we cannot add prazosin for PTSD. On interview the patient is confused we are going to increase Risperdal up to 1.5 p.o. B.i.d. and start trazodone 25 t.i.d. for anxiety. Mental Status Exam Mental Status Exam Patient Appearance: Well Grooomed and Appropriate Patient Orientation: Person and Situation Level of Consciousness: Awake and Appropriate Patient Behavior: Guarded and Passive Mood Description: Withdrawn Affect Description: Constricted Patient Cognition Impaired: Yes Ability to Follow Directions: Good Speech Pattern: Appropriate Hallucinations: None Delusions: Paranoid Ideation Thought Process: Incoherent and Distracted Thought Content: positive for [place], positive for Circumstantial and positive for Thought Blocking Judgement: Poor Diagnostics Vital Signs (24Hr): Vital Signs - 24 hr 06/10/23 18:00 06/11/23 06:00 Temperature 96.8 F 96.8 F Pulse Rate 80 72 Respiratory Rate 18 16 Blood Pressure 126/96 H 109/56 L Pulse Oximetry 98 95 Oxygen Delivery Method Room Air Room Air BMI result Body Mass Index 24.3 Labs 06/05/23 16:38 06/05/23 16:38 Labs: Laboratory Results - last 48 hr 06/11/23 06/11/23 06/11/23 07:55 07:55 07:55 Estimat Average Glucose 97 Hemoglobin A1c % 5.0 Triglycerides 182 Cholesterol 216 LDL Cholesterol, Calc 145 HDL Cholesterol 35 Valproic Acid 17.6 L Imaging Radiology Impressions: ITS Impressions Chest X-Ray 06/05/23 16:45 IMPRESSION: Examination is not significantly changed compared to 05/20/2023. Redemonstration of somewhat asymmetric fullness of the right hilar region for which further evaluation with a chest CT with IV contrast is recommended to rule out malignancy. The report will be called to the ordering clinician by a [place] Radiology Physician Rope Maker. Chest CT 06/05/23 18:43 IMPRESSION: Right upper lobe opacity with calcification and loss of right upper lobe volume likely chronic scarring. No acute pneumonic consolidation or mass seen. There is bilateral lower lobe bronchiectasis and patchy scarring/atelectasis slightly greater on the left. Fleischner guidelines were followed. Medications Medications Current Medications Acetaminophen (Acetaminophen 325 Mg Tablet) 650 mg PO BID [facility] Last Admin: 06/11/23 08:32 Dose: 650 mg Acetaminophen (Acetaminophen 325 Mg Tablet) 650 mg PO Q4H PRN PRN Reason: Fever Or Pain Albuterol Sulfate (Albuterol Sulfate (0.042%) 1.25 Mg/3 Ml Vial.Neb) 0.63 mg INHALE RQ4H PRN PRN Reason: Shortness Of Breath Bisacodyl (Bisacodyl 10 Mg Supp.Rect) 10 mg [place] DAILY PRN PRN Reason: Constipation Divalproex Sodium (Divalproex Sodium Sprinkles 125 Mg Cap.Dr.Spr) 500 mg PO BID@0800,1700 [facility] Last Admin: 06/11/23 08:31 Dose: 500 mg Finasteride (Finasteride 5 Mg Tablet) 5 mg PO BEDTIME [facility] Last Admin: 06/10/23 19:49 Dose: 5 mg Nitrofurantoin Macrocrystals (Nitrofurantoin Macrocrystal 50 Mg Capsule) 50 mg PO BEDTIME [facility] Last Admin: 06/10/23 19:49 Dose: 50 mg Nystatin (Nystatin Powder 15 Gm Bottle) 1 appl TOPICAL TID [facility]; Protocol Last Admin: 06/11/23 08:25 Dose: Not Given Polyethylene Glycol (Polyethylene Glycol 3350 17 Gm Powd.Pack) 17 gm PO DAILY [facility] Last Admin: 06/11/23 08:36 Dose: Not Given Polyethylene Glycol (Polyethylene Glycol 3350 17 Gm Powd.Pack) 17 gm PO DAILY PRN PRN Reason: Constipation Risperidone (Risperidone 0.5 Mg Tablet) 1.5 mg PO BID [facility] Sodium Biphosphate/Sodium Phosphate (Sodium Phosphate,[place]-Dibasic 133 Ml Enema) 118 ml [place] DAILY PRN PRN Reason: Constipation Tamsulosin HCl (Tamsulosin Hcl 0.4 Mg Capsule) 0.4 mg PO BEDTIME [facility] Last Admin: 06/10/23 19:50 Dose: 0.4 mg Trazodone HCl (Trazodone Hcl 50 Mg Tablet) 50 mg PO BEDTIME [facility] Last Admin: 06/10/23 19:51 Dose: 50 mg Trazodone HCl (Trazodone Hcl 50 Mg Tablet) 50 mg PO BID PRN PRN Reason: Agitation Last Admin: 06/08/23 11:54 Dose: 50 mg Trazodone HCl (Trazodone Hcl 25 Mg Halftab) 25 mg PO TID PRN PRN Reason: Anxiety Allergies Allergies Allergy/AdvReac Type Severity Reaction Status Date / Time No Known Allergies Allergy Verified 06/05/23 15:54 Assessment & Plan Assessment & Plan (1) Bipolar disorder: Status: Acute Code(s): F31.9 - Bipolar disorder, unspecified (2) Major neurocognitive disorder due to another medical condition with behavio ral disturbance: Status: Acute Code(s): F02.818 - Dementia in other diseases classified elsewhere, unspecified severity, with other behavioral disturbance Plan The patient is a 78-year-old male with a past history of bipolar disorder and dementia who was brought from his facility for increased agitation and disorganized behavior. He was admitted for medication management. He also has the diagnosis of PTSD symptoms and he had some flashbacks at night. Plan 1. Gather collateral information. 2. Keep Risperdal 1 mg p.o. b.i.d. but we increased up to 1.5 mg p.o. b.i.d. on June 11. 3. Blood work and follow-up with Medicine. Reason for continued inpatient stay Substantial Risk for: inability to function, rapid decompensation and med/psych decompensation Time Spent With Patient Time: Total time managing care of this patient today __20__ minutes.
[2023-06-11 18:00] VITALS: BP 132/77; PULSE 72; RESP 18; TEMP 36.4; O2SAT 97
[2023-06-11] MEDS: Tamsulosin HCL 0.4 MG CAPSULE PO (20:55)
[2023-06-11] MEDS: traZODone HCL 50 MG TABLET PO (20:56)
[2023-06-11] MEDS: Finasteride 5 MG TABLET PO (20:56)
[2023-06-11] MEDS: risperiDONE 0.5 MG TABLET 1.5 MG PO (20:56)
[2023-06-11] MEDS: Nystatin Powder 15 GM BOTTLE 1 APPL TOPICAL (20:57)
[2023-06-11] MEDS: nitrofurantoin macrocrystaL 50 MG CAPSULE PO (20:57)
[2023-06-12 07:00] VITALS: BMI 22.7
[2023-06-12 08:22] VITALS: BP 123/64; PULSE 86; RESP 20; TEMP 36.8; O2SAT 97
[2023-06-12] MEDS: risperiDONE 0.5 MG TABLET 1.5 MG PO ×2 (08:48→20:38)
[2023-06-12] MEDS: Divalproex Sodium Sprinkles 125 MG CAP.DR.SPR 500 MG PO ×2 (08:48→16:12)
[2023-06-12] MEDS: Acetaminophen 325 MG TABLET 650 MG PO ×2 (08:49→20:38)
[2023-06-12] MEDS: traZODone HCL 25 MG HALFTAB PO (08:49)
[2023-06-12] MEDS: Nystatin Powder 15 GM BOTTLE 1 APPL TOPICAL ×3 (08:50→20:46)
[2023-06-12] MEDS: polyethylene glycoL 3350 17 GM POWD.PACK PO (08:50)
--- NOTE | 2023-06-12 13:13 | P.PNPSI_ITS ---
Subjective Subjective Date of Service: 06/12/23 Reason For Visit: Agression Interim History: The nursing staff reported the patient had been pleasant confused, no evidence of paranoia. The social service coordinator reported that [facility] will take him back when he is stable. Yesterday we had a Depakote level and was 17.6 due to poor compliance but so far the patient had been compliant with treatment now. On interview the patient is pleasantly confused no change in mental status no over-sedation with increase of Risperdal up to 1.5 p.o. b.i.d. Mental Status Exam Mental Status Exam Patient Appearance: Well Grooomed and Appropriate Patient Orientation: Person Level of Consciousness: Awake and Appropriate Patient Behavior: Guarded and Passive Mood Description: Withdrawn Affect Description: Constricted Patient Cognition Impaired: Yes Ability to Follow Directions: Good Speech Pattern: Clear Hallucinations: None Delusions: Not Present Thought Process: Distracted and Evasive Thought Content: positive for [place], positive for Poverty of Content and positive for Thought Blocking Judgement: Poor Diagnostics Vital Signs (24Hr): Vital Signs - 24 hr 06/11/23 18:00 06/12/23 08:22 Temperature 97.6 F 98.2 F Pulse Rate 72 86 Respiratory Rate 18 20 Blood Pressure 132/77 123/64 Pulse Oximetry 97 97 Oxygen Delivery Method Room Air Room Air BMI result Body Mass Index 24.3 Labs 06/05/23 16:38 06/05/23 16:38 Labs: Laboratory Results - last 48 hr 06/11/23 06/11/23 06/11/23 07:55 07:55 07:55 Estimat Average Glucose 97 Hemoglobin A1c % 5.0 Triglycerides 182 Cholesterol 216 LDL Cholesterol, Calc 145 HDL Cholesterol 35 Valproic Acid 17.6 L Imaging Radiology Impressions: ITS Impressions Chest X-Ray 06/05/23 16:45 IMPRESSION: Examination is not significantly changed compared to 05/20/2023. Redemonstration of somewhat asymmetric fullness of the right hilar region for which further evaluation with a chest CT with IV contrast is recommended to rule out malignancy. The report will be called to the ordering clinician by a [place] Radiology Physician Software Developer Manager. Chest CT 06/05/23 18:43 IMPRESSION: Right upper lobe opacity with calcification and loss of right upper lobe volume likely chronic scarring. No acute pneumonic consolidation or mass seen. There is bilateral lower lobe bronchiectasis and patchy scarring/atelectasis slightly greater on the left. Fleischner guidelines were followed. Medications Medications Current Medications Acetaminophen (Acetaminophen 325 Mg Tablet) 650 mg PO BID [facility] Last Admin: 06/12/23 08:49 Dose: 650 mg Acetaminophen (Acetaminophen 325 Mg Tablet) 650 mg PO Q4H PRN PRN Reason: Fever Or Pain Albuterol Sulfate (Albuterol Sulfate (0.042%) 1.25 Mg/3 Ml Vial.Neb) 0.63 mg INHALE RQ4H PRN PRN Reason: Shortness Of Breath Bisacodyl (Bisacodyl 10 Mg Supp.Rect) 10 mg [place] DAILY PRN PRN Reason: Constipation Divalproex Sodium (Divalproex Sodium Sprinkles 125 Mg Cap.) 500 mg PO BID@0800,1700 [facility] Last Admin: 06/12/23 08:48 Dose: 500 mg Finasteride (Finasteride 5 Mg Tablet) 5 mg PO BEDTIME [facility] Last Admin: 06/11/23 20:56 Dose: 5 mg Nitrofurantoin Macrocrystals (Nitrofurantoin Macrocrystal 50 Mg Capsule) 50 mg PO BEDTIME [facility] Last Admin: 06/11/23 20:57 Dose: 50 mg Nystatin (Nystatin Powder 15 Gm Bottle) 1 appl TOPICAL TID [facility]; Protocol Last Admin: 06/12/23 08:50 Dose: 1 appl Polyethylene Glycol (Polyethylene Glycol 3350 17 Gm Powd.Pack) 17 gm PO DAILY [facility] Last Admin: 06/12/23 08:50 Dose: 17 gm Polyethylene Glycol (Polyethylene Glycol 3350 17 Gm Powd.Pack) 17 gm PO DAILY PRN PRN Reason: Constipation Risperidone (Risperidone 0.5 Mg Tablet) 1.5 mg PO BID [facility] Last Admin: 06/12/23 08:48 Dose: 1.5 mg Sodium Biphosphate/Sodium Phosphate (Sodium Phosphate,[place]-Dibasic 133 Ml Enema) 118 ml [place] DAILY PRN PRN Reason: Constipation Tamsulosin HCl (Tamsulosin Hcl 0.4 Mg Capsule) 0.4 mg PO BEDTIME [facility] Last Admin: 06/11/23 20:55 Dose: 0.4 mg Trazodone HCl (Trazodone Hcl 50 Mg Tablet) 50 mg PO BEDTIME [facility] Last Admin: 06/11/23 20:56 Dose: 50 mg Trazodone HCl (Trazodone Hcl 50 Mg Tablet) 50 mg PO BID PRN PRN Reason: Agitation Last Admin: 06/08/23 11:54 Dose: 50 mg Trazodone HCl (Trazodone Hcl 25 Mg Halftab) 25 mg PO TID PRN PRN Reason: Anxiety Last Admin: 06/12/23 08:49 Dose: 25 mg Allergies Allergies Allergy/AdvReac Type Severity Reaction Status Date / Time No Known Allergies Allergy Verified 06/05/23 15:54 Assessment & Plan Assessment & Plan (1) Bipolar disorder: Status: Acute Code(s): F31.9 - Bipolar disorder, unspecified (2) Major neurocognitive disorder due to another medical condition with behavioral disturbance: Status: Acute Code(s): F02.818 - Dementia in other diseases classified elsewhere, unspecified severity, with other behavioral disturbance Plan The patient is a 78-year-old male with a past history of bipolar disorder and dementia who was brought from his facility for increased agitation and disorganized behavior. He was admitted for medication management. He also has the diagnosis of PTSD symptoms and he had some flashbacks at night. Plan 1. Gather collateral information. 2. Keep Risperdal 1 mg p.o. b.i.d. but we increased up to 1.5 mg p.o. b.i.d. on June 11. 3. Blood work and follow-up with Medicine. Depakote level subtherapeutic will repeat Depakote next week Reason for continued inpatient stay Substantial Risk for: inability to function, rapid decompensation and med/psych decompensation Time Spent With Patient Time: Total time managing care of this patient today __20__ minutes.
[2023-06-12 18:00] VITALS: BP 145/77; PULSE 79; RESP 18; TEMP 36.1; O2SAT 97
[2023-06-12] MEDS: traZODone HCL 50 MG TABLET PO (20:38)
[2023-06-12] MEDS: nitrofurantoin macrocrystaL 50 MG CAPSULE PO (20:38)
[2023-06-12] MEDS: Finasteride 5 MG TABLET PO (20:38)
[2023-06-12] MEDS: Tamsulosin HCL 0.4 MG CAPSULE PO (20:38)
[2023-06-13 06:00] VITALS: BP 138/71; PULSE 77; RESP 18; TEMP 36.3; O2SAT 97
[2023-06-13] MEDS: Divalproex Sodium Sprinkles 125 MG CAP.DR.SPR 500 MG PO ×2 (08:39→16:25)
[2023-06-13] MEDS: Acetaminophen 325 MG TABLET 650 MG PO ×2 (08:40→21:32)
[2023-06-13] MEDS: polyethylene glycoL 3350 17 GM POWD.PACK PO (08:45)
[2023-06-13] MEDS: risperiDONE 0.5 MG TABLET 1.5 MG PO ×2 (09:28→21:31)
[2023-06-13] MEDS: Prazosin HCL 1 MG CAPSULE PO ×2 (09:28→21:31)
--- NOTE | 2023-06-13 13:08 | P.PNPSI_ITS ---
Subjective Subjective Date of Service: 06/13/23 Reason For Visit: Agression Subjective Notes: Conditional Voluntary Interim History: The nursing staff reported the patient had been irritable at times but compliant with medications and meals. He slept well last night. On interview the patient is pleasantly confused he stated he is doing fine. We review his list of medications that he has PTSD symptoms with nightmares and flashbacks so we are adding a very low dose of prazosin b.i.d.. Mental Status Exam Mental Status Exam Patient Appearance: Well Grooomed and Appropriate Patient Orientation: Person Level of Consciousness: Awake and Appropriate Patient Behavior: Guarded Mood Description: Withdrawn Affect Description: Constricted Patient Cognition Impaired: Yes Ability to Follow Directions: Good Speech Pattern: Clear Hallucinations: None Delusions: Not Present Thought Process: Distracted and Evasive Thought Content: positive for [place] Judgement: Fair Diagnostics Vital Signs (24Hr): Vital Signs - 24 hr 06/12/23 18:00 06/13/23 06:00 Temperature 96.9 F 97.3 F Pulse Rate 79 77 Respiratory Rate 18 18 Blood Pressure 145/77 H 138/71 Pulse Oximetry 97 97 Oxygen Delivery Method Room Air Room Air BMI result Body Mass Index 22.7 Labs 06/05/23 16:38 06/05/23 16:38 Imaging Radiology Impressions: ITS Impressions Chest X-Ray 06/05/23 16:45 IMPRESSION: Examination is not significantly changed compared to 05/20/2023. Redemonstration of somewhat asymmetric fullness of the right hilar region for which further evaluation with a chest CT with IV contrast is recommended to rule out malignancy. The report will be called to the ordering clinician by a [place] Radiology Physician Marketing Researcher. Chest CT 06/05/23 18:43 IMPRESSION: Right upper lobe opacity with calcification and loss of right upper lobe volume likely chronic scarring. No acute pneumonic consolidation or mass seen. There is bilateral lower lobe bronchiectasis and patchy scarring/atelectasis slightly greater on the left. Fleischner guidelines were followed. Medications Medications Current Medications Acetaminophen (Acetaminophen 325 Mg Tablet) 650 mg PO BID [facility] Last Admin: 06/13/23 08:40 Dose: 650 mg Acetaminophen (Acetaminophen 325 Mg Tablet) 650 mg PO Q4H PRN PRN Reason: Fever Or Pain Bisacodyl (Bisacodyl 10 Mg Supp.Rect) 10 mg [place] DAILY PRN PRN Reason: Constipation Divalproex Sodium (Divalproex Sodium Sprinkles 125 Mg ) 500 mg PO BID @0800,1700 [facility] Last Admin: 06/13/23 08:39 Dose: 500 mg Finasteride (Finasteride 5 Mg Tablet) 5 mg PO BEDTIME [facility] Last Admin: 06/12/23 20:38 Dose: 5 mg Nitrofurantoin Macrocrystals (Nitrofurantoin Macrocrystal 50 Mg Capsule) 50 mg PO BEDTIME [facility] Last Admin: 06/12/23 20:38 Dose: 50 mg Nystatin (Nystatin Powder 15 Gm Bottle) 1 appl TOPICAL TID [facility]; Protocol Last Admin: 06/13/23 10:12 Dose: Not Given Polyethylene Glycol (Polyethylene Glycol 3350 17 Gm Powd.Pack) 17 gm PO DAILY [facility] Last Admin: 06/13/23 08:45 Dose: 17 gm Polyethylene Glycol (Polyethylene Glycol 3350 17 Gm Powd.Pack) 17 gm PO DAILY PRN PRN Reason: Constipation Prazosin HCl (Prazosin Hcl 1 Mg Capsule) 1 mg PO BID [facility]; Protocol Last Admin: 06/13/23 09:28 Dose: 1 mg Risperidone (Risperidone 0.5 Mg Tablet) 1.5 mg PO BID [facility] Last Admin: 06/13/23 09:28 Dose: 1.5 mg Sodium Biphosphate/Sodium Phosphate (Sodium Phosphate,[place]-Dibasic 133 Ml Enema) 118 ml [place] DAILY PRN PRN Reason: Constipation Tamsulosin HCl (Tamsulosin Hcl 0.4 Mg Capsule) 0.4 mg PO BEDTIME [facility] Last Admin: 06/12/23 20:38 Dose: 0.4 mg Trazodone HCl (Trazodone Hcl 50 Mg Tablet) 50 mg PO BEDTIME [facility] Last Admin: 06/12/23 20:38 Dose: 50 mg Trazodone HCl (Trazodone Hcl 50 Mg Tablet) 50 mg PO BID PRN PRN Reason: Agitation Last Admin: 06/08/23 11:54 Dose: 50 mg Trazodone HCl (Trazodone Hcl 25 Mg Halftab) 25 mg PO TID PRN PRN Reason: Anxiety Last Admin: 06/12/23 08:49 Dose: 25 mg Allergies Allergies Allergy/AdvReac Type Severity Reaction Status Date / Time No Known Allergies Allergy Verified 06/05/23 15:54 Assessment & Plan Assessment & Plan (1) Bipolar disorder: Status: Acute Code(s): F31.9 - Bipolar disorder, unspecified (2) Major neurocognitive disorder due to another medical condition with behavioral disturbance: Status: Acute Code(s): F02.818 - Dementia in other diseases classified elsewhere, unspecified severity, with other behavioral disturbance Plan The patient is a 78-year-old male with a past history of bipolar disorder and dementia who was brought from his facility for increased agitation and disorganized behavior. He was admitted for medication management. He also has the diagnosis of PTSD symptoms and he had some flashbacks at night. Plan 1. Gather collateral information. 2. Keep Risperdal 1 mg p.o. b.i.d. but we increased up to 1.5 mg p.o. b.i.d. on June 11. 3. Blood work and follow-up with Medicine. Depakote level subtherapeutic will repeat Depakote next week. Depakote level for Friday. 4. Start prazosin 1 mg p.o. b.i.d. to target nightmares and flashbacks. Reason for continued inpatient stay Substantial Risk for: inability to function, rapid decompensation and med/psych decompensation Time Spent With Patient Time: Total time managing care of this patient today __20__ minutes.
[2023-06-13 18:00] VITALS: BP 155/78; PULSE 68; RESP 16; TEMP 36.6; O2SAT 98
[2023-06-13] MEDS: Tamsulosin HCL 0.4 MG CAPSULE PO (21:32)
[2023-06-13] MEDS: traZODone HCL 50 MG TABLET PO (21:32)
[2023-06-13] MEDS: Finasteride 5 MG TABLET PO (21:32)
[2023-06-13] MEDS: nitrofurantoin macrocrystaL 50 MG CAPSULE PO (21:32)
[2023-06-14] MEDS: Nystatin Powder 15 GM BOTTLE 1 APPL TOPICAL ×3 (09:13→20:39)
[2023-06-14] MEDS: Acetaminophen 325 MG TABLET 650 MG PO ×2 (09:14→20:37)
[2023-06-14] MEDS: risperiDONE 0.5 MG TABLET 1.5 MG PO ×2 (09:15→20:37)
[2023-06-14] MEDS: Divalproex Sodium Sprinkles 125 MG CAP.DR.SPR 500 MG PO ×2 (09:15→16:34)
[2023-06-14] MEDS: Prazosin HCL 1 MG CAPSULE PO ×2 (09:15→20:38)
[2023-06-14 09:32] VITALS: BP 121/61; PULSE 65; RESP 18; TEMP 36; O2SAT 97
--- NOTE | 2023-06-14 09:52 | P.PNPSI_ITS ---
Subjective Subjective Date of Service: 06/14/23 Reason For Visit: Agression Subjective Notes: Conditional Voluntary Interim History: Pt slept through the night. This morning, pt in common area having breakfast. Pt pleasant on approach. He was smiling, denies any physical concerns. No SI/HI. Not fully oriented to situation, place. Pt taking medications as prescribed. Medication Compliance: Yes Review of Systems Review of Systems Yes all other systems are reviewed and are negative Mental Status Exam Mental Status Exam Narrative: Pt is alert and oriented; behavior is intermittently combative, aggressive; patient is not in distress; dressed in casual attire with unkempt hair; mood is described as irritable and affect congruent; eye contact appropriate; Speech is a little garbled, slowed; intermittent psychomotor agitation present; thought process can be goal directed but also disorganized; Thought content frequently absorbed in flashbacks; can sometimes talk about relevant topics; either patient is having dissociative episodes or has paranoid delusions; no SI/HI expressed. Seems to have AH but this is not clear. Patients insight and judgment appear impaired Diagnostics Vital Signs (24Hr): Vital Signs - 24 hr 06/13/23 18:00 06/14/23 09:32 Temperature 97.8 F 96.8 F Pulse Rate 68 65 Respiratory Rate 16 18 Blood Pressure 155/78 H 121/61 Pulse Oximetry 98 97 Oxygen Delivery Method Room Air Room Air BMI result Body Mass Index 22.7 Labs 06/05/23 16:38 06/05/23 16:38 Imaging Radiology Impressions: ITS Impressions Chest X-Ray 06/05/23 16:45 IMPRESSION: Examination is not significantly changed compared to 05/20/2023. Redemonstration of somewhat asymmetric fullness of the right hilar region for which further evaluation with a chest CT with IV contrast is recommended to rule out malignancy. The report will be called to the ordering clinician by a [place] [facility] Physician Bias Machine Operator. Chest CT 06/05/23 18:43 IMPRESSION: Right upper lobe opacity with calcification and loss of right upper lobe volume likely chronic scarring. No acute pneumonic consolidation or mass seen. There is bilateral lower lobe bronchiectasis and patchy scarring/atelectasis slightly greater on the left. Fleischner guidelines were followed. Medications Medications Current Medications Acetaminophen (Acetaminophen 325 Mg Tablet) 650 mg PO BID [facility] Last Admin: 06/14/23 09:14 Dose: 650 mg Acetaminophen (Acetaminophen 325 Mg Tablet) 650 mg PO Q4H PRN PRN Reason: Fever Or Pain Bisacodyl (Bisacodyl 10 Mg Supp.Rect) 10 mg [place] DAILY PRN PRN Reason: Constipation Divalproex Sodium (Divalproex Sodium Sprinkles 125 Mg Cap.) 500 mg PO BID@0800,1700 [facility] Last Admin: 06/14/23 09:15 Dose: 500 mg Finasteride (Finasteride 5 Mg Tablet) 5 mg PO BEDTIME [facility] Last Admin: 06/13/23 21:32 Dose: 5 mg Nitrofurantoin Macrocrystals (Nitrofurantoin Macrocrystal 50 Mg Capsule) 50 mg PO BEDTIME [facility] Last Admin: 06/13/23 21:32 Dose: 50 mg Nystatin (Nystatin Powder 15 Gm Bottle) 1 appl TOPICAL TID [facility]; Protocol Last Admin: 06/14/23 09:13 Dose: 1 appl Polyethylene Glycol (Polyethylene Glycol 3350 17 Gm Powd.Pack) 17 gm PO DAILY [facility] Last Admin: 06/13/23 08:45 Dose: 17 gm Polyethylene Glycol (Polyethylene Glycol 3350 17 Gm Powd.Pack) 17 gm PO DAILY PRN PRN Reason: Constipation Prazosin HCl (Prazosin Hcl 1 Mg Capsule) 1 mg PO BID [facility]; Protocol Last Admin: 06/14/23 09:15 Dose: 1 mg Risperidone (Risperidone 0.5 Mg Tablet) 1.5 mg PO BID [facility] Last Admin: 06/14/23 09:15 Dose: 1.5 mg Sodium Biphosphate/Sodium Phosphate (Sodium Phosphate,[place]-Dibasic 133 Ml Enema) 118 ml [place] DAILY PRN PRN Reason: Constipation Tamsulosin HCl (Tamsulosin Hcl 0.4 Mg Capsule) 0.4 mg PO BEDTIME [facility] Last Admin: 06/13/23 21:32 Dose: 0.4 mg Trazodone HCl (Trazodone Hcl 50 Mg Tablet) 50 mg PO BEDTIME [facility] Last Admin: 06/13/23 21:32 Dose: 50 mg Trazodone HCl (Trazodone Hcl 50 Mg Tablet) 50 mg PO BID PRN PRN Reason: Agitation Last Admin: 06/08/23 11:54 Dose: 50 mg Trazodone HCl (Trazodone Hcl 25 Mg Halftab) 25 mg PO TID PRN PRN Reason: Anxiety Last Admin: 06/12/23 08:49 Dose: 25 mg Allergies Allergies Allergy/AdvReac Type Severity Reaction Status Date / Time No Known Allergies Allergy Verified 06/05/23 15:54 Assessment & Plan Assessment & Plan (1) Bipolar disorder: Status: Acute Code(s): F31.9 - Bipolar disorder, unspecified (2) Major neurocognitive disorder due to another medical condition with behavioral disturbance: Status: Acute Code(s): F02.818 - Dementia in other diseases classified elsewhere, unspecified severity, with other behavioral disturbance Plan The patient is a 78-year-old male with a past history of bipolar disorder and dementia who was brought from his facility for increased agitation and disorganized behavior. He was admitted for medication management. He also has the diagnosis of PTSD symptoms and he had some flashbacks at night. Plan 1. Gather collateral information. 2. Keep Risperdal 1 mg p.o. b.i.d. but we increased up to 1.5 mg p.o. b.i.d. on June 11. 3. Blood work and follow-up with Medicine. Depakote level subtherapeutic will repeat Depakote next week. Depakote level for Friday. 4. Start prazosin 1 mg p.o. b.i.d. to target nightmares and flashbacks. 06/14 continue tx. Reason for continued inpatient stay Substantial Risk for: inability to function Time Spent With Patient Time: Total time managing care of this patient today ____ minutes.
[2023-06-14] MEDS: polyethylene glycoL 3350 17 GM POWD.PACK PO (10:25)
[2023-06-14 18:00] VITALS: BP 119/68; PULSE 77; RESP 16; TEMP 36.4; O2SAT 97
[2023-06-14] MEDS: traZODone HCL 50 MG TABLET PO (20:37)
[2023-06-14] MEDS: Tamsulosin HCL 0.4 MG CAPSULE PO (20:37)
[2023-06-14] MEDS: nitrofurantoin macrocrystaL 50 MG CAPSULE PO (20:38)
[2023-06-14] MEDS: Finasteride 5 MG TABLET PO (20:38)
[2023-06-15 08:26] VITALS: BP 137/81; PULSE 68; RESP 18; TEMP 36.1; O2SAT 98
[2023-06-15] MEDS: Nystatin Powder 15 GM BOTTLE 1 APPL TOPICAL ×3 (08:49→20:34)
[2023-06-15] MEDS: polyethylene glycoL 3350 17 GM POWD.PACK PO (08:50)
[2023-06-15] MEDS: Prazosin HCL 1 MG CAPSULE PO ×2 (08:51→20:32)
[2023-06-15] MEDS: Acetaminophen 325 MG TABLET 650 MG PO ×2 (08:52→20:33)
[2023-06-15] MEDS: Divalproex Sodium Sprinkles 125 MG CAP.DR.SPR 500 MG PO ×2 (08:52→16:48)
[2023-06-15] MEDS: risperiDONE 0.5 MG TABLET 1.5 MG PO ×2 (08:54→20:33)
--- NOTE | 2023-06-15 11:39 | PC.NURSE ---
Patient with congested, productive cough, Jomar Khalil visited and updated.
--- NOTE | 2023-06-15 11:59 | P.PNPSI_ITS ---
Subjective Subjective Date of Service: 06/15/23 Reason For Visit: Agression Subjective Notes: Conditional Voluntary Interim History: Pt slept through the night. Pt sleeping through most of the morning. He was difficult to wake up. No behavioral concerns. Noted to be coughing a productive cough. may try to add decongestant. VS stable, afebrile, BP stable. O2sat 98% on RA Medication Compliance: Yes Review of Systems Review of Systems Yes all other systems are reviewed and are negative Mental Status Exam Mental Status Exam Patient Appearance: Well Grooomed and Appropriate Patient Orientation: Person Level of Consciousness: Awake and Appropriate Patient Behavior: Guarded Mood Description: Withdrawn Affect Description: Constricted Patient Cognition Impaired: Yes Ability to Follow Directions: Good Speech Pattern: Clear Diagnostics Vital Signs (24Hr): Vital Signs - 24 hr 06/14/23 18:00 06/15/23 08:26 Temperature 97.6 F 97 F Pulse Rate 77 68 Respiratory Rate 16 18 Blood Pressure 119/68 137/81 Pulse Oximetry 97 98 Oxygen Delivery Method Room Air Room Air BMI result Body Mass Index 22.7 Labs 06/05/23 16:38 06/05/23 16:38 Imaging Radiology Impressions: ITS Impressions Chest X-Ray 06/05/23 16:45 IMPRESSION: Examination is not significantly changed compared to 05/20/2023. Redemonstration of somewhat asymmetric fullness of the right hilar region for which further evaluation with a chest CT with IV contrast is recommended to rule out malignancy. The report will be called to the ordering clinician by a [place] [facility] Physician Cinder Worker. Chest CT 06/05/23 18:43 IMPRESSION: Right upper lobe opacity with calcification and loss of right upper lobe volume likely chronic scarring. No acute pneumonic consolidation or mass seen. There is bilateral lower lobe bronchiectasis and patchy scarring/atelectasis slightly greater on the left. Fleischner guidelines were followed. Medications Medications Current Medications Acetaminophen (Acetaminophen 325 Mg Tablet) 650 mg PO BID [facility] Last Admin: 06/15/23 08:52 Dose: 650 mg Acetaminophen (Acetaminophen 325 Mg Tablet) 650 mg PO Q4H PRN PRN Reason: Fever Or Pain Bisacodyl (Bisacodyl 10 Mg Supp.Rect) 10 mg [place] DAILY PRN PRN Reason: Constipation Divalproex Sodium (Divalproex Sodium Sprinkles 125 Mg [place].) 500 mg PO BID@0800,1700 [facility] Last Admin: 06/15/23 08:52 Dose: 500 mg Finasteride (Finasteride 5 Mg Tablet) 5 mg PO BEDTIME [facility] Last Admin: 06/14/23 20:38 Dose: 5 mg Nitrofurantoin Macrocrystals (Nitrofurantoin Macrocrystal 50 Mg Capsule) 50 mg PO BEDTIME [facility] Last Admin: 06/14/23 20:38 Dose: 50 mg Nystatin (Nystatin Powder 15 Gm Bottle) 1 appl TOPICAL TID [facility]; Protocol Last Admin: 06/15/23 08:49 Dose: 1 appl Polyethylene Glycol (Polyethylene Glycol 3350 17 Gm Powd.Pack) 17 gm PO DAILY [facility] Last Admin: 06/15/23 08:50 Dose: 17 gm Polyethylene Glycol (Polyethylene Glycol 3350 17 Gm Powd.Pack) 17 gm PO DAILY PRN PRN Reason: Constipation Prazosin HCl (Prazosin Hcl 1 Mg Capsule) 1 mg PO BID [facility]; Protocol Last Admin: 06/15/23 08:51 Dose: 1 mg Risperidone (Risperidone 0.5 Mg Tablet) 1.5 mg PO BID [facility] Last Admin: 06/15/23 08:54 Dose: 1.5 mg Sodium Biphosphate/Sodium Phosphate (Sodium Phosphate,[place]-Dibasic 133 Ml Enema) 118 ml [place] DAILY PRN PRN Reason: Constipation Tamsulosin HCl (Tamsulosin Hcl 0.4 Mg Capsule) 0.4 mg PO BEDTIME [facility] Last Admin: 06/14/23 20:37 Dose: 0.4 mg Trazodone HCl (Trazodone Hcl 50 Mg Tablet) 50 mg PO BEDTIME [facility] Last Admin: 06/14/23 20:37 Dose: 50 mg Trazodone HCl (Trazodone Hcl 50 Mg Tablet) 50 mg PO BID PRN PRN Reason: Agitation Last Admin: 06/08/23 11:54 Dose: 50 mg Trazodone HCl (Trazodone Hcl 25 Mg Halftab) 25 mg PO TID PRN PRN Reason: Anxiety Last Admin: 06/12/23 08:49 Dose: 25 mg Allergies Allergies Allergy/AdvReac Type Severity Reaction Status Date / Time No Known Allergies Allergy Verified 06/05/23 15:54 Assessment & Plan Assessment & Plan (1) Bipolar disorder: Status: Acute Code(s): F31.9 - Bipolar disorder, unspecified (2) Major neurocognitive disorder due to another medical condition with behavioral disturbance: Status: Acute Code(s): F02.818 - Dementia in other diseases classified elsewhere, unspecified severity, with other behavioral disturbance Plan The patient is a 78-year-old male with a past history of bipolar disorder and dementia who was brought from his facility for increased agitation and disorganized behavior. He was admitted for medication management. He also has the diagnosis of PTSD symptoms and he had some flashbacks at night. Plan 1. Gather collateral information. 2. Keep Risperdal 1 mg p.o. b.i.d. but we increased up to 1.5 mg p.o. b.i.d. on June 11. 3. Blood work and follow-up with Medicine. Depakote level subtherapeutic will repeat Depakote next week. Depakote level for Friday. 4. Start prazosin 1 mg p.o. b.i.d. to target nightmares and flashbacks. 06/14 continue tx. 06/15 continue tx. Reason for continued inpatient stay Substantial Risk for: inability to function Time Spent With Patient Time: Total time managing care of this patient today ____ minutes.
[2023-06-15 18:00] VITALS: BP 127/73; PULSE 67; RESP 16; TEMP 36.6; O2SAT 97
[2023-06-15] MEDS: Finasteride 5 MG TABLET PO (20:32)
[2023-06-15] MEDS: nitrofurantoin macrocrystaL 50 MG CAPSULE PO (20:32)
[2023-06-15] MEDS: traZODone HCL 50 MG TABLET PO (20:33)
[2023-06-15] MEDS: Tamsulosin HCL 0.4 MG CAPSULE PO (20:33)
[2023-06-16 05:57] LABS: Valproate 28.4 mcg/mL (50.0-100.0)
[2023-06-16 08:07] VITALS: BP 101/67; PULSE 88; RESP 16; TEMP 36.6; O2SAT 94
[2023-06-16] MEDS: polyethylene glycoL 3350 17 GM POWD.PACK PO (08:09)
[2023-06-16] MEDS: Divalproex Sodium Sprinkles 125 MG CAP.DR.SPR 500 MG PO ×4 (08:09→20:50)
[2023-06-16] MEDS: risperiDONE 0.5 MG TABLET 1.5 MG PO ×2 (08:09→20:51)
[2023-06-16] MEDS: Prazosin HCL 1 MG CAPSULE PO ×2 (08:09→20:51)
[2023-06-16] MEDS: Acetaminophen 325 MG TABLET 650 MG PO ×2 (08:10→20:51)
--- NOTE | 2023-06-16 10:28 | HO.PSYCHPN ---
Subjective Subjective Date of Service: 06/16/23 Reason For Visit: Agression Subjective Notes: Conditional Voluntary Interim History: The nursing staff reported the patient refused his breakfast yesterday and he was confused and grab a female staff. He has been fully compliant with treatment he slept 8 hours. Today his Depakote level was on 13/03 so I increase Depakote up to 500 mg p.o. t.i.d.. We repeat blood work next . On interview the patient is pleasantly confused, easily redirectable. Mental Status Exam Mental Status Exam Patient Appearance: Appropriate Patient Orientation: Person Level of Consciousness: Awake Patient Behavior: Guarded and Passive Mood Description: Withdrawn Affect Description: Constricted Patient Cognition Impaired: Yes Ability to Follow Directions: Good Speech Pattern: Clear Hallucinations: None Delusions: Not Present Thought Process: Disoriented and Illogical Thought Content: positive for [place], positive for Poverty of Content and positive for Thought Blocking Judgement: Fair Diagnostics Vital Signs (24Hr): Vital Signs - 24 hr 06/15/23 18:00 06/16/23 08:07 Temperature 97.9 F 97.9 F Pulse Rate 67 88 Respiratory Rate 16 16 Blood Pressure 127/73 101/67 Pulse Oximetry 97 94 Oxygen Delivery Method Room Air Room Air BMI result Body Mass Index 22.7 Labs 06/05/23 16:38 06/05/23 16:38 Labs: Laboratory Results - last 48 hr 06/16/23 04:44 Valproic Acid 28.4 L Imaging Radiology Impressions: ITS Impressions Chest X-Ray 06/05/23 16:45 IMPRESSION: Examination is not significantly changed compared to 05/20/2023. Redemonstration of somewhat asymmetric fullness of the right hilar region for which further evaluation with a chest CT with IV contrast is recommended to rule out malignancy. The report will be called to the ordering clinician by a [place] [facility] Physician Station Worker. Chest CT 06/05/23 18:43 IMPRESSION: Right upper lobe opacity with calcification and loss of right upper lobe volume likely chronic scarring. No acute pneumonic consolidation or mass seen. There is bilateral lower lobe bronchiectasis and patchy scarring/atelectasis slightly greater on the left. Fleischner guidelines were followed. Medications Medications Current Medications Acetaminophen (Acetaminophen 325 Mg Tablet) 650 mg PO BID [facility] Last Admin: 06/16/23 08:10 Dose: 650 mg Acetaminophen (Acetaminophen 325 Mg Tablet) 650 mg PO Q4H PRN PRN Reason: Fever Or Pain Bisacodyl (Bisacodyl 10 Mg Supp.Rect) 10 mg [place] DAILY PRN PRN Reason: Constipation Divalproex Sodium (Divalproex Sodium Sprinkles 125 Mg Cap.DrDorisSpr) 500 mg PO TID [facility] Finasteride (Finasteride 5 Mg Tablet) 5 mg PO BEDTIME [facility] Last Admin: 06/15/23 20:32 Dose: 5 mg Guaifenesin (Guaifenesin 100 Mg/5 Ml Liquid) 5 ml PO Q6H PRN PRN Reason: Congestion Nitrofurantoin Macrocrystals (Nitrofurantoin Macrocrystal 50 Mg Capsule) 50 mg PO BEDTIME [facility] Last Admin: 06/15/23 20:32 Dose: 50 mg Nystatin (Nystatin Powder 15 Gm Bottle) 1 appl TOPICAL TID [facility]; Protocol Last Admin: 06/16/23 08:14 Dose: Not Given Polyethylene Glycol (Polyethylene Glycol 3350 17 Gm Powd.Pack) 17 gm PO DAILY [facility] Last Admin: 06/16/23 08:09 Dose: 17 gm Polyethylene Glycol (Polyethylene Glycol 3350 17 Gm Powd.Pack) 17 gm PO DAILY PRN PRN Reason: Constipation Prazosin HCl (Prazosin Hcl 1 Mg Capsule) 1 mg PO BID [facility]; Protocol Last Admin: 06/16/23 08:09 Dose: 1 mg Risperidone (Risperidone 0.5 Mg Tablet) 1.5 mg PO BID [facility] Last Admin: 06/16/23 08:09 Dose: 1.5 mg Sodium Biphosphate/Sodium Phosphate (Sodium Phosphate,[place]-Dibasic 133 Ml Enema) 118 ml [place] DAILY PRN PRN Reason: Constipation Tamsulosin HCl (Tamsulosin Hcl 0.4 Mg Capsule) 0.4 mg PO BEDTIME [facility] Last Admin: 06/15/23 20:33 Dose: 0.4 mg Trazodone HCl (Trazodone Hcl 50 Mg Tablet) 50 mg PO BEDTIME [facility] Last Admin: 06/15/23 20:33 Dose: 50 mg Trazodone HCl (Trazodone Hcl 50 Mg Tablet) 50 mg PO BID PRN PRN Reason: Agitation Last Admin: 06/08/23 11:54 Dose: 50 mg Trazodone HCl (Trazodone Hcl 25 Mg Halftab) 25 mg PO TID PRN PRN Reason: Anxiety Last Admin: 06/12/23 08:49 Dose: 25 mg Allergies Allergies Allergy/AdvReac Type Severity Reaction Status Date / Time No Known Allergies Allergy Verified 06/05/23 15:54 Assessment & Plan Assessment & Plan (1) Bipolar disorder: Status: Acute Code(s): F31.9 - Bipolar disorder, unspecified (2) Major neurocognitive disorder due to another medical condition with behavioral disturbance: Status: Acute Code(s): F02.818 - Dementia in other diseases classified elsewhere, unspecified severity, with other behavioral disturbance Plan The patient is a 78-year-old male with a past history of bipolar disorder and dementia who was brought from his facility for increased agitation and disorganized behavior. He was admitted for medication management. He also has the diagnosis of PTSD symptoms and he had some flashbacks at night. Plan 1. Gather collateral information. 2. Keep Risperdal 1 mg p.o. b.i.d. but we increased up to 1.5 mg p.o. b.i.d. on June 11. 3. Blood work and follow-up with Medicine. 4. Start prazosin 1 mg p.o. b.i.d. to target nightmares and flashbacks. 5. Depakote had been increased up to 500 mg p.o. t.i.d. on June 16 since his Depakote level at a 1000 mg a day is 24. We will recheck Depakote levels next . Reason for continued inpatient stay Substantial Risk for: inability to function, rapid decompensation and med/psych decompensation Time Spent With Patient Time: Total time managing care of this patient today __20__ minutes.
[2023-06-16 19:40] VITALS: BP 141/56; PULSE 77; RESP 16; TEMP 36.7; O2SAT 96
[2023-06-16] MEDS: traZODone HCL 50 MG TABLET PO (20:50)
[2023-06-16] MEDS: nitrofurantoin macrocrystaL 50 MG CAPSULE PO (20:51)
[2023-06-16] MEDS: Finasteride 5 MG TABLET PO (20:51)
[2023-06-16] MEDS: Tamsulosin HCL 0.4 MG CAPSULE PO (20:51)
[2023-06-17 08:31] VITALS: BP 112/59; PULSE 83; RESP 18; TEMP 36.4; O2SAT 97
[2023-06-17] MEDS: risperiDONE 0.5 MG TABLET 1.5 MG PO ×2 (08:38→20:03)
[2023-06-17] MEDS: Acetaminophen 325 MG TABLET 650 MG PO ×2 (08:39→19:59)
[2023-06-17] MEDS: Prazosin HCL 1 MG CAPSULE PO ×2 (08:40→20:01)
[2023-06-17] MEDS: Divalproex Sodium Sprinkles 125 MG CAP.DR.SPR 500 MG PO ×3 (08:41→20:00)
--- NOTE | 2023-06-17 09:28 | P.PNPSI_ITS ---
Subjective Subjective Date of Service: 06/17/23 Reason For Visit: Agression Subjective Notes: Conditional Voluntary Interim History: The nursing staff reported the patient had been compliant with treatment, confused at times and irritable with care but easily redirectable. On interview the patient denies new symptoms pleasantly confused, waiting for placement. The social media designer reported they are working on proper placement at this time. Mental Status Exam Mental Status Exam Patient Appearance: Well Grooomed Patient Orientation: Person Level of Consciousness: Awake and Appropriate Patient Behavior: Guarded and Passive Mood Description: Calm Affect Description: Constricted Patient Cognition Impaired: Yes Ability to Follow Directions: Good Speech Pattern: Clear Hallucinations: None Delusions: Not Present Thought Process: Illogical and Distracted Thought Content: positive for [place] and positive for Poverty of Content Judgement: Poor Diagnostics Vital Signs (24Hr): Vital Signs - 24 hr 06/16/23 19:40 06/17/23 08:31 Temperature 98.0 F 97.5 F Pulse Rate 77 83 Respiratory Rate 16 18 Blood Pressure 141/56 H 112/59 L Pulse Oximetry 96 97 Oxygen Delivery Method Room Air Room Air BMI result Body Mass Index 22.7 Labs 06/05/23 16:38 06/05/23 16:38 Labs: Laboratory Results - last 48 hr 06/16/23 04:44 Valproic Acid 28.4 L Imaging Radiology Impressions: ITS Impressions Chest X-Ray 06/05/23 16:45 IMPRESSION: Examination is not significantly changed compared to 05/20/2023. Redemonstration of somewhat asymmetric fullness of the right hilar region for which further evaluation with a chest CT with IV contrast is recommended to rule out malignancy. The report will be called to the ordering clinician by a [place] [facility] Physician Digital Photographic Printer. Chest CT 06/05/23 18:43 IMPRESSION: Right upper lobe opacity with calcification and loss of right upper lobe volume likely chronic scarring. No acute pneumonic consolidation or mass seen. There is bilateral lower lobe bronchiectasis and patchy scarring/atelectasis slightly greater on the left. Fleischner guidelines were followed. Medications Medications Current Medications Acetaminophen (Acetaminophen 325 Mg Tablet) 650 mg PO BID [facility] Last Admin: 06/17/23 08:39 Dose: 650 mg Acetaminophen (Acetaminophen 325 Mg Tablet) 650 mg PO Q4H PRN PRN Reason: Fever Or Pain Bisacodyl (Bisacodyl 10 Mg Supp.Rect) 10 mg [place] DAILY PRN PRN Reason: Constipation Divalproex Sodium (Divalproex Sodium Sprinkles 125 Mg ) 500 mg PO TID [facility] Last Admin: 06/17/23 08:41 Dose: 500 mg Finasteride (Finasteride 5 Mg Tablet) 5 mg PO BEDTIME [facility] Last Admin: 06/16/23 20:51 Dose: 5 mg Guaifenesin (Guaifenesin 100 Mg/5 Ml Liquid) 5 ml PO Q6H PRN PRN Reason: Congestion Nitrofurantoin Macrocrystals (Nitrofurantoin Macrocrystal 50 Mg Capsule) 50 mg PO BEDTIME [facility] Last Admin: 06/16/23 20:51 Dose: 50 mg Nystatin (Nystatin Powder 15 Gm Bottle) 1 appl TOPICAL TID [facility]; Protocol Last Admin: 06/16/23 20:52 Dose: Not Given Polyethylene Glycol (Polyethylene Glycol 3350 17 Gm Powd.Pack) 17 gm PO DAILY [facility] Last Admin: 06/17/23 08:44 Dose: Not Given Polyethylene Glycol (Polyethylene Glycol 3350 17 Gm Powd.Pack) 17 gm PO DAILY PRN PRN Reason: Constipation Prazosin HCl (Prazosin Hcl 1 Mg Capsule) 1 mg PO BID [facility]; Protocol Last Admin: 06/17/23 08:40 Dose: 1 mg Risperidone (Risperidone 0.5 Mg Tablet) 1.5 mg PO BID [facility] Last Admin: 06/17/23 08:38 Dose: 1.5 mg Sodium Biphosphate/Sodium Phosphate (Sodium Phosphate,[place]-Dibasic 133 Ml Enema) 118 ml [place] DAILY PRN PRN Reason: Constipation Tamsulosin HCl (Tamsulosin Hcl 0.4 Mg Capsule) 0.4 mg PO BEDTIME [facility] Last Admin: 06/16/23 20:51 Dose: 0.4 mg Trazodone HCl (Trazodone Hcl 50 Mg Tablet) 50 mg PO BEDTIME [facility] Last Admin: 06/16/23 20:50 Dose: 50 mg Trazodone HCl (Trazodone Hcl 50 Mg Tablet) 50 mg PO BID PRN PRN Reason: Agitation Last Admin: 06/08/23 11:54 Dose: 50 mg Trazodone HCl (Trazodone Hcl 25 Mg Halftab) 25 mg PO TID PRN PRN Reason: Anxiety Last Admin: 06/12/23 08:49 Dose: 25 mg Allergies Allergies Allergy/AdvReac Type Severity Reaction Status Date / Time No Known Allergies Allergy Verified 06/05/23 15:54 Assessment & Plan Assessment & Plan (1) Bipolar disorder: Status: Acute Code(s): F31.9 - Bipolar disorder, unspecified (2) Major neurocognitive disorder due to another medical condition with behavioral disturbance: Status: Acute Code(s): F02.818 - Dementia in other diseases classified elsewhere, unspecified severity, with other behavioral disturbance Plan The patient is a 78-year-old male with a past history of bipolar disorder and dementia who was brought from his facility for increased agitation and disorganized behavior. He was admitted for medication management. He also has the diagnosis of PTSD symptoms and he had some flashbacks at night. Plan 1. Gather collateral information. 2. Keep Risperdal 1 mg p.o. b.i.d. but we increased up to 1.5 mg p.o. b.i.d. on June 11. 3. Blood work and follow-up with Medicine. 4. Start prazosin 1 mg p.o. b.i.d. to target nightmares and flashbacks. 5. Depakote had been increased up to 500 mg p.o. t.i.d. on June 16 since his Depakote level at a 1000 mg a day is 24. We will recheck Depakote levels next . Reason for continued inpatient stay Substantial Risk for: inability to function, rapid decompensation and med/psych decompensation Time Spent With Patient Time: Total time managing care of this patient today _20___ minutes.
[2023-06-17] MEDS: Nystatin Powder 15 GM BOTTLE 1 APPL TOPICAL ×2 (14:12→21:04)
[2023-06-17 18:00] VITALS: BP 137/74; PULSE 70; RESP 18; TEMP 35.7; O2SAT 97
[2023-06-17] MEDS: Finasteride 5 MG TABLET PO (20:00)
[2023-06-17] MEDS: nitrofurantoin macrocrystaL 50 MG CAPSULE PO (20:00)
[2023-06-17] MEDS: Tamsulosin HCL 0.4 MG CAPSULE PO (20:03)
[2023-06-17] MEDS: traZODone HCL 50 MG TABLET PO (20:04)
[2023-06-18 10:00] VITALS: BP 126/71; PULSE 69; RESP 18; TEMP 35.9; O2SAT 96
--- NOTE | 2023-06-18 10:37 | HO.PSYCHPN ---
Subjective Subjective Date of Service: 06/18/23 Reason For Visit: Agression Subjective Notes: Conditional Voluntary Interim History: The nursing staff reported the patient has been pleasant with peers he had been medication compliant. The social security assessor spoke with the employment services director of his correction facility and most likely he could be discharged on Friday. On interview the patient is pleasantly confused, easily redirectable looks slightly over-sedated. We will check his Depakote level tomorrow and adjust accordingly. Mental Status Exam Mental Status Exam Patient Appearance: Well Grooomed and Appropriate Patient Orientation: Person Level of Consciousness: Awake and Appropriate Patient Behavior: Guarded and Passive Mood Description: Withdrawn Affect Description: Constricted Patient Cognition Impaired: Yes Ability to Follow Directions: Good Speech Pattern: Clear Hallucinations: None Delusions: Not Present Thought Process: Distracted and Slowed Thinking Thought Content: positive for [place] and positive for Poverty of Content Judgement: Fair Diagnostics Vital Signs (24Hr): Vital Signs - 24 hr 06/17/23 18:00 Temperature 96.2 F L Pulse Rate 70 Respiratory Rate 18 Blood Pressure 137/74 Pulse Oximetry 97 Oxygen Delivery Method Room Air BMI result Body Mass Index 22.7 Labs 06/05/23 16:38 06/05/23 16:38 Imaging Radiology Impressions: ITS Impressions Chest X-Ray 06/05/23 16:45 IMPRESSION: Examination is not significantly changed compared to 05/20/2023. Redemonstration of somewhat asymmetric fullness of the right hilar region for which further evaluation with a chest CT with IV contrast is recommended to rule out malignancy. The report will be called to the ordering clinician by a [facility] Physician Blindstitch Lapel Padder. Chest CT 06/05/23 18:43 IMPRESSION: Right upper lobe opacity with calcification and loss of right upper lobe volume likely chronic scarring. No acute pneumonic consolidation or mass seen. There is bilateral lower lobe bronchiectasis and patchy scarring/atelectasis slightly greater on the left. Fleischner guidelines were followed. Medications Medications Current Medications Acetaminophen (Acetaminophen 325 Mg Tablet) 650 mg PO BID [facility] Last Admin: 06/17/23 19:59 Dose: 650 mg Acetaminophen (Acetaminophen 325 Mg Tablet) 650 mg PO Q4H PRN PRN Reason: Fever Or Pain Bisacodyl (Bisacodyl 10 Mg Supp.Rect) 10 mg [place] DAILY PRN PRN Reason: Constipation Divalproex Sodium (Divalproex Sodium Sprinkles 125 Mg ) 500 mg PO TID [facility] Last Admin: 06/17/23 20:00 Dose: 500 mg Finasteride (Finasteride 5 Mg Tablet) 5 mg PO BEDTIME [facility] Last Admin: 06/17/23 20:00 Dose: 5 mg Guaifenesin (Guaifenesin 100 Mg/5 Ml Liquid) 5 ml PO Q6H PRN PRN Reason: Congestion Nitrofurantoin Macrocrystals (Nitrofurantoin Macrocrystal 50 Mg Capsule) 50 mg PO BEDTIME [facility] Last Admin: 06/17/23 20:00 Dose: 50 mg Nystatin (Nystatin Powder 15 Gm Bottle) 1 appl TOPICAL TID [facility]; Protocol Last Admin: 06/17/23 21:04 Dose: 1 appl Polyethylene Glycol (Polyethylene Glycol 3350 17 Gm Powd.Pack) 17 gm PO DAILY [facility] Last Admin: 06/17/23 08:44 Dose: Not Given Polyethylene Glycol (Polyethylene Glycol 3350 17 Gm Powd.Pack) 17 gm PO DAILY PRN PRN Reason: Constipation Prazosin HCl (Prazosin Hcl 1 Mg Capsule) 1 mg PO BID [facility]; Protocol Last Admin: 06/17/23 20:01 Dose: 1 mg Risperidone (Risperidone 0.5 Mg Tablet) 1.5 mg PO BID [facility] Last Admin: 06/17/23 20:03 Dose: 1.5 mg Sodium Biphosphate/Sodium Phosphate (Sodium Phosphate,[place]-Dibasic 133 Ml Enema) 118 ml [place] DAILY PRN PRN Reason: Constipation Tamsulosin HCl (Tamsulosin Hcl 0.4 Mg Capsule) 0.4 mg PO BEDTIME [facility] Last Admin: 06/17/23 20:03 Dose: 0.4 mg Trazodone HCl (Trazodone Hcl 50 Mg Tablet) 50 mg PO BEDTIME [facility] Last Admin: 06/17/23 20:04 Dose: 50 mg Trazodone HCl (Trazodone Hcl 50 Mg Tablet) 50 mg PO BID PRN PRN Reason: Agitation Last Admin: 06/08/23 11:54 Dose: 50 mg Trazodone HCl (Trazodone Hcl 25 Mg Halftab) 25 mg PO TID PRN PRN Reason: Anxiety Last Admin: 06/12/23 08:49 Dose: 25 mg Allergies Allergies Allergy/AdvReac Type Severity Reaction Status Date / Time No Known Allergies Allergy Verified 06/05/23 15:54 Assessment & Plan Assessment & Plan (1) Bipolar disorder: Status: Acute Code(s): F31.9 - Bipolar disorder, unspecified (2) Major neurocognitive disorder due to another medical condition with behavioral disturbance: Status: Acute Code(s): F02.818 - Dementia in other diseases classified elsewhere, unspecified severity, with other behavioral disturbance Plan The patient is a 78-year-old male with a past history of bipolar disorder and dementia who was brought from his facility for increased agitation and disorganized behavior. He was admitted for medication management. He also has the diagnosis of PTSD symptoms and he had some flashbacks at night. Plan 1. Gather collateral information. 2. Keep Risperdal 1 mg p.o. b.i.d. but we increased up to 1.5 mg p.o. b.i.d. on June 11. 3. Blood work and follow-up with Medicine. 4. Start prazosin 1 mg p.o. b.i.d. to target nightmares and flashbacks. 5. Depakote had been increased up to 500 mg p.o. t.i.d. on June 16 since his Depakote level at a 1000 mg a day is 24. We will recheck Depakote levels next . Reason for continued inpatient stay Substantial Risk for: inability to function, rapid decompensation and med/psych decompensation Time Spent With Patient Time: Total time managing care of this patient today _20___ minutes.
[2023-06-18] MEDS: risperiDONE 0.5 MG TABLET 1.5 MG PO ×2 (11:48→21:05)
[2023-06-18] MEDS: Acetaminophen 325 MG TABLET 650 MG PO ×2 (11:49→21:03)
[2023-06-18] MEDS: Prazosin HCL 1 MG CAPSULE PO ×2 (11:50→21:04)
[2023-06-18] MEDS: Divalproex Sodium Sprinkles 125 MG CAP.DR.SPR 500 MG PO ×3 (11:50→21:03)
[2023-06-18] MEDS: Nystatin Powder 15 GM BOTTLE 1 APPL TOPICAL ×3 (11:51→21:23)
[2023-06-18 18:00] VITALS: BP 129/70; PULSE 65; RESP 16; TEMP 36.2; O2SAT 65
[2023-06-18] MEDS: nitrofurantoin macrocrystaL 50 MG CAPSULE PO (21:04)
[2023-06-18] MEDS: Finasteride 5 MG TABLET PO (21:04)
[2023-06-18] MEDS: traZODone HCL 50 MG TABLET PO (21:05)
[2023-06-18] MEDS: Tamsulosin HCL 0.4 MG CAPSULE PO (21:05)
[2023-06-19 06:15] LABS: Valproate 50.9 mcg/mL (50.0-100.0)
[2023-06-19 07:00] VITALS: BMI 24.2
[2023-06-19 07:55] VITALS: BP 132/66; PULSE 70; RESP 18; TEMP 36.4; O2SAT 96
[2023-06-19] MEDS: Divalproex Sodium Sprinkles 125 MG CAP.DR.SPR 500 MG PO ×2 (08:49→14:37)
[2023-06-19] MEDS: Prazosin HCL 1 MG CAPSULE PO (08:49)
[2023-06-19] MEDS: risperiDONE 0.5 MG TABLET 1.5 MG PO (08:50)
[2023-06-19] MEDS: Acetaminophen 325 MG TABLET 650 MG PO (08:50)
[2023-06-19] MEDS: Nystatin Powder 15 GM BOTTLE 1 APPL TOPICAL (09:04)
--- NOTE | 2023-06-19 10:57 | HO.PSYCHPN ---
Subjective Subjective Date of Service: 06/19/23 Reason For Visit: Agression Subjective Notes: Conditional Voluntary Interim History: The nursing staff reported the patient had been planned, compliant with treatment with good p.o. intake. So far no unsafe behaviors. He slept 7 hours. Today his Depakote level was over 50. The social services analyst reported that she has already updated the assisted facility for a possible discharge tomorrow. On interview the patient denies new symptoms, waiting for placement. Mental Status Exam Mental Status Exam Patient Appearance: Appropriate Patient Orientation: Person and Situation Level of Consciousness: Awake and Appropriate Patient Behavior: Guarded and Passive Mood Description: Calm Affect Description: Constricted Patient Cognition Impaired: Yes Ability to Follow Directions: Good Speech Pattern: Clear Hallucinations: None Delusions: Not Present Thought Process: Distracted and Slowed Thinking Thought Content: positive for [place] Judgement: Fair Diagnostics Vital Signs (24Hr): Vital Signs - 24 hr 06/18/23 18:00 06/19/23 07:55 Temperature 97.1 F 97.6 F Pulse Rate 65 70 Respiratory Rate 16 18 Blood Pressure 129/70 132/66 Pulse Oximetry 65 L 96 Oxygen Delivery Method Room Air Room Air BMI result Body Mass Index 22.7 Labs 06/05/23 16:38 06/05/23 16:38 Labs: Laboratory Results - last 48 hr 06/19/23 05:43 Valproic Acid 50.9 Imaging Radiology Impressions: ITS Impressions Chest X-Ray 06/05/23 16:45 IMPRESSION: Examination is not significantly changed compared to 05/20/2023. Redemonstration of somewhat asymmetric fullness of the right hilar region for which further evaluation with a chest CT with IV contrast is recommended to rule out malignancy. The report will be called to the ordering clinician by a [facility] Physician Head Refrigeration Engineer. Chest CT 06/05/23 18:43 IMPRESSION: Right upper lobe opacity with calcification and loss of right upper lobe volume likely chronic scarring. No acute pneumonic consolidation or mass seen. There is bilateral lower lobe bronchiectasis and patchy scarring/atelectasis slightly greater on the left. Fleischner guidelines were followed. Medications Medications Current Medications Acetaminophen (Acetaminophen 325 Mg Tablet) 650 mg PO BID [facility] Last Admin: 06/19/23 08:50 Dose: 650 mg Acetaminophen (Acetaminophen 325 Mg Tablet) 650 mg PO Q4H PRN PRN Reason: Fever Or Pain Bisacodyl (Bisacodyl 10 Mg Supp.Rect) 10 mg [place] DAILY PRN PRN Reason: Constipation Divalproex Sodium (Divalproex Sodium Sprinkles 125 Mg ) 500 mg PO TID [facility] Last Admin: 06/19/23 08:49 Dose: 500 mg Finasteride (Finasteride 5 Mg Tablet) 5 mg PO BEDTIME [facility] Last Admin: 06/18/23 21:04 Dose: 5 mg Guaifenesin (Guaifenesin 100 Mg/5 Ml Liquid) 5 ml PO Q6H PRN PRN Reason: Congestion Nitrofurantoin Macrocrystals (Nitrofurantoin Macrocrystal 50 Mg Capsule) 50 mg PO BEDTIME [facility] Last Admin: 06/18/23 21:04 Dose: 50 mg Nystatin (Nystatin Powder 15 Gm Bottle) 1 appl TOPICAL TID [facility]; Protocol Last Admin: 06/19/23 09:04 Dose: 1 appl Polyethylene Glycol (Polyethylene Glycol 3350 17 Gm Powd.Pack) 17 gm PO DAILY [facility] Last Admin: 06/19/23 08:50 Dose: Not Given Polyethylene Glycol (Polyethylene Glycol 3350 17 Gm Powd.Pack) 17 gm PO DAILY PRN PRN Reason: Constipation Prazosin HCl (Prazosin Hcl 1 Mg Capsule) 1 mg PO BID [facility]; Protocol Last Admin: 06/19/23 08:49 Dose: 1 mg Risperidone (Risperidone 0.5 Mg Tablet) 1.5 mg PO BID [facility] Last Admin: 06/19/23 08:50 Dose: 1.5 mg Sodium Biphosphate/Sodium Phosphate (Sodium Phosphate,[place]-Dibasic 133 Ml Enema) 118 ml [place] DAILY PRN PRN Reason: Constipation Tamsulosin HCl (Tamsulosin Hcl 0.4 Mg Capsule) 0.4 mg PO BEDTIME [facility] Last Admin: 06/18/23 21:05 Dose: 0.4 mg Trazodone HCl (Trazodone Hcl 50 Mg Tablet) 50 mg PO BEDTIME [facility] Last Admin: 06/18/23 21:05 Dose: 50 mg Trazodone HCl (Trazodone Hcl 50 Mg Tablet) 50 mg PO BID PRN PRN Reason: Agitation Last Admin: 06/08/23 11:54 Dose: 50 mg Trazodone HCl (Trazodone Hcl 25 Mg Halftab) 25 mg PO TID PRN PRN Reason: Anxiety Last Admin: 06/12/23 08:49 Dose: 25 mg Allergies Allergies Allergy/AdvReac Type Severity Reaction Status Date / Time No Known Allergies Allergy Verified 06/05/23 15:54 Assessment & Plan Assessment & Plan (1) Bipolar disorder: Status: Acute Code(s): F31.9 - Bipolar disorder, unspecified (2) Major neurocognitive disorder due to another medical condition with behavioral disturbance: Status: Acute Code(s): F02.818 - Dementia in other diseases classified elsewhere, unspecified severity, with other behavioral disturbance Plan The patient is a 78-year-old male with a past history of bipolar disorder and dementia who was brought from his facility for increased agitation and disorganized behavior. He was admitted for medication management. He also has the diagnosis of PTSD symptoms and he had some flashbacks at night. Plan 1. Gather collateral information. 2. Keep Risperdal 1 mg p.o. b.i.d. but we increased up to 1.5 mg p.o. b.i.d. on June 11. 3. Blood work and follow-up with Medicine. 4. Start prazosin 1 mg p.o. b.i.d. to target nightmares and flashbacks. 5. Depakote had been increased up to 500 mg p.o. t.i.d. on June 16 since his Depakote level at a 1000 mg a day is 24. On June 19 her Depakote level was over 50 on 1500 mg of Depakote today. Reason for continued inpatient stay Substantial Risk for: inability to function, rapid decompensation and med/psych decompensation Time Spent With Patient Time: Total time managing care of this patient today __20__ minutes.
--- NOTE | 2023-06-19 12:59 | P.DS_ITS ---
DS: Providers Provider Date of Service: 06/19/23 Date of admission: 06/07/23 15:34 Date of discharge: 06/19/23 Primary care physician: Mati Bettencourt MD DS: Diagnosis Discharge Diagnosis (1) Bipolar disorder: Status: Acute (2) Major neurocognitive disorder due to another medical condition with behavioral disturbance: Status: Acute DS: Medications Discharge Medications Home Medications: Home Medications Medication Instructions Recorded Confirmed trazodone 50 mg tablet 50 mg PO BEDTIME 05/21/23 06/06/23 acetaminophen 325 mg tablet 650 mg PO BID 06/06/23 06/06/23 acetaminophen 325 mg tablet 650 mg PO Q4H PRN Fever Or Pain 06/06/23 06/06/23 bisacodyl 10 mg rectal suppository 10 mg [place] DAILY PRN Constipation 06/06/23 06/06/23 (Dulcolax (bisacodyl)) lithium carbonate 300 mg 600 mg PO BEDTIME 06/06/23 06/06/23 tablet,extended release nitrofurantoin macrocrystal 50 mg 50 mg PO BEDTIME 06/06/23 06/06/23 capsule nystatin 100,000 unit/gram topical 1 appl topical TID 06/06/23 06/06/23 powder polyethylene glycol 3350 17 gram 17 g PO DAILY 06/06/23 06/06/23 oral powder packet (Miralax) polyethylene glycol 3350 17 gram 17 g PO DAILY PRN Constipation 06/06/23 06/06/23 oral powder packet (Miralax) trazodone 50 mg tablet 50 mg PO BID PRN Agitation 06/06/23 06/06/23 Previous Rx's Medication Instructions Recorded albuterol sulfate 0.63 mg/3 mL 0.63 mg (3 mL) inhalation Q4H PRN 03/27/23 solution for nebulization Shortness Of Breath 30 days #1 mL divalproex 125 mg capsule,delayed 500 mg PO BID@0800,1700 30 days 03/27/23 release sprinkle #240 caps finasteride 5 mg tablet (Proscar) 5 mg PO BEDTIME 30 days #30 tabs 03/27/23 sodium phosphates 19 gram-7 118 ml [place] DAILY PRN Constipation 7 03/27/23 gram/118 mL enema (Fleet Enema) days #7 multiple units tamsulosin 0.4 mg capsule (Flomax) 0.4 mg PO BEDTIME 30 days #30 caps 03/27/23 quetiapine 25 mg tablet 25 mg PO TID 30 days #90 tabs 05/24/23 Mental Status Exam Mental Status Exam Patient Appearance: Appropriate Patient Orientation: Person and Situation Level of Consciousness: Awake Patient Behavior: Cooperative and Passive Mood Description: Calm Affect Description: Constricted Patient Cognition Impaired: Yes Ability to Follow Directions: Good Speech Pattern: Clear Hallucinations: None Delusions: Not Present Thought Process: Linear Thought Content: positive for Circum[place] Judgement: Poor Data Data Completed and Pending Completed studies during hospitalization [Text1]: 06/16/23 06/19/23 04:44 05:43 Valproic Acid 28.4 L 50.9 Imaging Diagnostic Imaging Impressions Chest X-Ray 06/05/23 16:45 IMPRESSION: Examination is not significantly changed compared to 05/20/2023. Redemonstration of somewhat asymmetric fullness of the right hilar region for which further evaluation with a chest CT with IV contrast is recommended to rule out malignancy. The report will be called to the ordering clinician by a [facility] Physician Academic Hospitalist. Chest CT 06/05/23 18:43 IMPRESSION: Right upper lobe opacity with calcification and loss of right upper lobe volume likely chronic scarring. No acute pneumonic consolidation or mass seen. There is bilateral lower lobe bronchiectasis and patchy scarring/atelectasis slightly greater on the left. Fleischner guidelines were followed. DS: Summary Hospital Course Hospital Course: The patient is a 78-year-old male with a prior history of dementia, chronic kidney disease, past history of bipolar disorder and other medical comorbidities transferred from the prison facility for agitation. Please see the [facility] for the admission note for further details. On admission, we decided to change his Seroquel to Risperdal and he was cross taper successfully of to 1.5 mg p.o. b.i.d. with for improvement and no evidence of side effects. The patient presented with episodes of flashbacks and agitation. The patient is a of the [place] and apparently he has very vivid flashbacks. We added prazosin 1 mg p.o. b.i.d. with for improvement. No problems with his blood pressure. The patient is very well known by this team since he was admitted before. We review his list of medications and very continue his Depakote. We start titrating up to 500 mg p.o. t.i.d. with for tolerability. His Depakote level was therapeutic. The patient did not show any aggression she was pleasant cooperative but very confused and demented. Since there were no safety concerns discharge planning was discussed. Time spent discussing smoking cessation with patient: 3 to 10 minutes Status at Discharge Cognitive/behavioral status at discharge: Impaired at baseline Overall status at discharge: patient is back to baseline Time Spent with Patient Time attestation: Total time managing care of this patient today ____ minutes. Time spent: Less than 30 minutes Discharge Plan Discharge Anticipated Discharge Date/Time: 06/19/23 14:00 Patient Disposition: Xfer SNF Discharge Diagnosis: Bipolar disorder Dementia PTSD Chronic kidney disease stage 3 Referrals: Mati Bettnecourt MD [Primary Care Provider] - 1 Week Discharge Medications: New prazosin 1 mg Capsule 1 mg PO BID 30 Days Qty: 60 0RF Protocol: Hold for SBP< HOLD for SBP < : 90 divalproex 125 mg Capsule, Delayed Rel Sprinkle 500 mg PO TID 30 Days Qty: 360 0RF risperidone 0.5 mg Tablet 1.5 mg PO BID 30 Days Qty: 180 0RF Continued albuterol sulfate 0.63 mg/3 mL Solution For Nebulization 0.63 mg INHALATION Q4H PRN (Reason: Shortness Of Breath) 30 Days Qty: 1 0RF acetaminophen 325 mg Tablet 650 mg PO BID 30 Days Qty: 120 0RF acetaminophen 325 mg tablet 650 mg PO Q4H PRN (Reason: Fever Or Pain) 30 Days Qty: 60 0RF Rx Instructions: do not exceed 3 doses in 24 hours trazodone 50 mg tablet 50 mg PO BEDTIME 30 Days Qty: 30 0RF polyethylene glycol 3350 [Miralax] 17 gram Powder In Packet 17 g PO DAILY 30 Days Qty: 30 0RF tamsulosin [Flomax] 0.4 mg Capsule 0.4 mg PO BEDTIME 30 Days Qty: 30 0RF bisacodyl [Dulcolax (bisacodyl)] 10 mg Suppository 10 mg [place] DAILY PRN (Reason: Constipation) 30 Days Qty: 30 0RF Fleet Enema 19-7 gram/118 mL Enema 118 ml [place] DAILY PRN (Reason: Constipation) 7 Days Qty: 7 0RF Rx Instructions: IF NO RESULT FROM DULCOLAX WITHIN 2 HOURS nystatin 100,000 unit/gram Powder 1 appl TOPICAL TID 30 Days Qty: 30 0RF Rx Instructions: apply to groin finasteride [Proscar] 5 mg Tablet 5 mg PO BEDTIME 30 Days Qty: 30 0RF Changed nitrofurantoin macrocrystal 50 mg capsule 50 mg PO BEDTIME 30 Days Qty: 30 0RF trazodone 50 mg tablet 50 mg PO BID PRN (Reason: Agitation) 30 Days Qty: 60 0RF polyethylene glycol 3350 [Miralax] 17 gram powder in packet 17 g PO DAILY PRN (Reason: Constipation) 30 Days Qty: 30 0RF Discontinued divalproex 125 mg Capsule, Delayed Rel Sprinkle 500 mg PO BID@0800,1700 30 Days Qty: 240 0RF quetiapine 25 mg tablet 25 mg PO TID 30 Days Qty: 90 0RF lithium carbonate 300 mg Tablet Extended Release 600 mg PO BEDTIME Discharge Orders: Discharge Order (Routine); Ordered 06/19/23 Ordered By: Yannick Hicks Diet: Advance to usual diet Activity on Discharge: As tolerated Stand Alone Forms: Patient Portal Discharge page Care Plan Goals: Care plan goals achieved in this admission Health Concerns: Continue treatment as an outpatient by primary care physician Plan of Treatment: Continue psychiatric treatment as an outpatient. Assessment: Elderly male with a past history of bipolar disorder, PTSD and dementia admitted for agitation. The patient was titrated up on Depakote with for improvement and cross taper from Seroquel to Risperdal with for resolution of agitation and manic symptoms. The patient had PTSD symptoms we added prazosin with for improvement no evidence of flashbacks. At this moment safe to be discharged back to his prison facility
== END 2023-06-19 15:03 | disposition skilled nursing facility (03) | DRG 885 ==
LOC: HO.ED 06-07 14:24 → HO.PGERI 06-07 15:59
PROVIDERS: Admitting Provider Psychiatry & Neurology Psychiatry; Emergency Provider Emergency Medicine; PCP Family Medicine Geriatric Medicine; Visit Provider Psychiatry & Neurology Psychiatry
DX: F31.9 Bipolar disorder, unspecified (principal); F03.911 Unspecified dementia, unspecified severity, with agitation; F43.10 Post-traumatic stress disorder, unspecified; Z66 Do not resuscitate; N18.30 Chronic kidney disease, stage 3 unspecified; E11.22 Type 2 diabetes mellitus with diabetic chronic kidney disease; Z87.891 Personal history of nicotine dependence; Z79.899 Other long term (current) drug therapy
CPT/HCPCS: 36415; 71045; 71260; 80048; 80061; 80076; 80164; 80178; 81001; 83036; 83690; 83880; 84484; 85025; 87635; 93005; 99285; J2060; Q9967; S9485

== ENCOUNTER → 2023-06-05 16:19 | Outpatient (BNV) | payer MEDICARE, SELFPAY | PROVIDERS: Emergency Provider Emergency Medicine; PCP Family Medicine Geriatric Medicine; Visit Provider Internal Medicine Cardiovascular Disease | DX: R41.82 Altered mental status, unspecified (principal) | CPT/HCPCS: 93010 ==

== ENCOUNTER → 2023-06-07 15:34 | Outpatient (BNV) | payer MEDICARE, SELFPAY | PROVIDERS: Admitting Provider Psychiatry & Neurology Psychiatry; Emergency Provider Emergency Medicine; PCP Family Medicine Geriatric Medicine; Visit Provider Psychiatry & Neurology Psychiatry | DX: F31.13 Bipolar disorder, current episode manic without psychotic features, severe (principal); F03.918 Unspecified dementia, unspecified severity, with other behavioral disturbance | CPT/HCPCS: 99222; 99231; 99232; 99238; 99283 ==

== ENCOUNTER 2023-08-28 08:08 | Emergency (ER) | payer MEDICARE, SELFPAY ==
[2023-08-28 08:16] VITALS: BP 113/67; BP 114/78; PULSE 70; PULSE 76; RESP 18; TEMP 36.4; O2SAT 96; O2SAT 97; BMI 20.4
--- NOTE | 2023-08-28 08:27 | ED.GENADULT ---
HPI - General Adult General Chief complaint: Altered Mental Status Stated complaint: COMBATIVE,H/O DEMENTIA,FROM SNF PER EMS Time Seen by Provider: 08/28/23 08:26 Source: patient and EMS Mode of arrival: EMS Limitations: physical limitation (patient has a history of cognitive impairment) History of Present Illness HPI narrative: Patient is a 78 year old assigned male at with a history of CKD, bipolar disorder, and cognitive impairment presenting to the emergency department today after an episode of aggression at the SNF he resides in. EMS states that the patient was being aggressive towards the staff at his SNF. Patient states that he has no complaints and does not want to be here. Relieving factors: none Exacerbating factors: none Associated symptoms: denies other symptoms Treatments prior to arrival: none Related Data Previous Rx's Medication Instructions Recorded acetaminophen 325 mg tablet 650 mg (2 x 325 mg) PO BID 30 days 06/19/23 #120 tabs acetaminophen 325 mg tablet 650 mg (2 x 325 mg) PO Q4H PRN 06/19/23 Fever Or Pain 30 days #60 tabs albuterol sulfate 0.63 mg/3 mL 0.63 mg (3 mL) inhalation Q4H PRN 06/19/23 solution for nebulization Shortness Of Breath 30 days #1 mL bisacodyl 10 mg rectal suppository 10 mg MT DAILY PRN Constipation 30 06/19/23 (Dulcolax (bisacodyl)) days #30 ea divalproex 125 mg capsule,delayed 500 mg (4 x 125 mg) PO TID 30 days 06/19/23 release sprinkle #360 caps finasteride 5 mg tablet (Proscar) 5 mg PO BEDTIME 30 days #30 tabs 06/19/23 nitrofurantoin macrocrystal 50 mg 50 mg PO BEDTIME 30 days #30 caps 06/19/23 capsule nystatin 100,000 unit/gram topical 1 appl topical TID 30 days #30 06/19/23 powder grams polyethylene glycol 3350 17 gram 17 g PO DAILY 30 days #30 ea 06/19/23 oral powder packet (Miralax) polyethylene glycol 3350 17 gram 17 g PO DAILY PRN Constipation 30 06/19/23 oral powder packet (Miralax) days #30 ea prazosin 1 mg capsule 1 mg PO BID 30 days #60 caps 06/19/23 risperidone 0.5 mg tablet 1.5 mg (3 x 0.5 mg) PO BID 30 days 06/19/23 #180 tabs sodium phosphates 19 gram-7 118 ml MT DAILY PRN Constipation 7 06/19/23 gram/118 mL enema (Fleet Enema) days #7 multiple units tamsulosin 0.4 mg capsule (Flomax) 0.4 mg PO BEDTIME 30 days #30 caps 06/19/23 trazodone 50 mg tablet 50 mg PO BEDTIME 30 days #30 tabs 06/19/23 trazodone 50 mg tablet 50 mg PO BID PRN Agitation 30 days 06/19/23 #60 tabs Allergies Allergy/AdvReac Type Severity Reaction Status Date / Time No Known Allergies Allergy Verified 06/05/23 15:54 Review of Systems Review of Systems: Yes Other (patient cognitively impaired) Constitutional: Constitutional: Reports no additional constitutional complaints, Denies chills, Denies fever(s) and Denies night sweats Eyes: Eyes: Reports no additional eye complaints, Denies blurry vision, Denies change in vision, Denies diplopia, Denies eye discharge, Denies loss of vision and Denies eye pain ENT: Denies dizziness Cardiovascular: Cardiovascular: Reports no additional cardiovascular complaints, Denies chest pain, Denies lightheadedness, Denies Loss of Consciousness and Denies dyspnea Respiratory: Respiratory: Reports no additional respiratory complaints and Denies dyspnea Gastrointestinal: Gastrointestinal: Reports no additional gastrointestinal complaints, Denies abdominal pain, Denies melena, Denies hematochezia, Denies change in bowel habits and Denies change in stool character Genitourinary: Genitourinary: Reports no additional male genitourinary complaints, Denies hematuria, Denies oliguria, Denies difficulty urinating, Denies dysuria, Denies urinary frequency, Denies urinary hesitancy, Denies urinary incontinence and Denies urinary urgency Musculoskeletal: Musculoskeletal: Reports no additional musculoskeletal complaints, Denies numbness and Denies tingling Neurologic: Denies dizziness, Denies loss of vision, Denies numbness and Denies tingling Psychiatric: Psychiatric: Reports no additional psychiatric complaints Endocrine: Endocrine: Reports no additional endocrine complaints Hematologic/Lymphatic: Hematologic/Lymphatic: Reports no additional hematologic/lymphatic complaints Allergic/Immunologic: Allergic/Immunologic: Reports no additional allergic/immunologic complaints PMFSH Past Medical History Attestation statement: The following information was validated with the patient. Source: old records reviewed and nursing notes reviewed Medical History Cognitive impairment Squamous cell carcinoma Cataracts, bilateral GERD (gastroesophageal reflux disease) PTSD (post-traumatic stress disorder) Diabetes Bipolar 1 disorder Dementia Social History Social History Household Members: Other Household Members Other:: Patient resides [facility] [place] [facility] Do you presently have visiting nurse or other home services: No Unable to assess alcohol history related to: Unable to respond Alcohol intake: never Patient Tobacco Use Status: Former Tobacco user Smoked in Last 30 Days: No Use of substances other than those prescribed or required for medical reasons: No Advance Directives: Yes Advance Directives on File: Yes Advance Directives Date on File: 07/19/21 service: Yes Sexual orientation: Straight/Heterosexual Physical Exam ED Vital Signs: Vital Signs - 24 hr 08/28/23 08:16 Temperature 97.5 F Pulse Rate 70 Respiratory Rate 18 Blood Pressure 113/67 Pulse Oximetry 97 Oxygen Delivery Method Room Air BMI result Body Mass Index 20.4 Const General: cooperative, no acute distress, alert and awake Nutritional Appearance: well nourished Orientation/consciousness: oriented to person and oriented to place Limitations: no limitations HENMT Head: Yes normal to inspection and Yes atraumatic Ears: hearing grossly normal bilaterally and external ears normal General nose exam: Normal external nose present, no nasal discharge noted and no epistaxis Face and sinus: Yes normal facial exam, No abrasion and No laceration Mouth: Normal oral and palatal mucosa present, no drooling and no muffled voice Eyes General: appearance normal, both eyes and all related structures Periorbital: periorbital findings normal Eyelids: Yes eyelids normal Conjunctivae: conjunctivae normal Pupils: Equal, round and reactive pupils present EOM: EOMs intact bilaterally Neck Neck: Yes normal visual inspection, Yes full ROM and Yes no lymphadenopathy Chest Chest palpation & inspection: normal inspection of the chest Resp Effort & Inspection: normal respiratory effort and able to speak in complete sentences Auscultation: clear to auscultation bilaterally Cardio Rate: regular rate Rhythm: regular rhythm GI Inspection: Yes normal to inspection Neuro General: oriented to person, oriented to place and moves all extremities Cranial nerves: Yes Equal, round and reactive pupils present Cognition (Neuro): abnormal cognition (per baseline) Motor exam (neuro): 5/5 motor strength present throughout Sensory Exam: Normal double simultaneous stimulation for sensation Coordination: [id number] test normal Extrem General: Yes normal to inspection, Yes full ROM and Yes capillary refill normal Psych Appearance: grossly normal Mental Status: mental status grossly normal Affect: normal affect Attitude: cooperative Thought process: Normal thought process present Thought content: Normal thought content present Insight: Good insight present (Psych) Medical Decision Making Medical Decision Making MDM Narrative: Patient is a 78 year old assigned female at with a history of bipolar disorder, CKD, and cognitive impairment presenting to the emergency department today after an aggressive outburst at his SNF. Patient's physical exam showed a confused individual, however, that is the patient's baseline. Case management spoke to the facility who agreed for the patient to return. Patient has not had any aggressive behavior in the department. Differential Diagnosis Differential Diagnoses: The differential diagnosis associated with the presentation includes Aggression Independent Historian Clinical information obtained from an independent historian. History obtained from or confirmed by: EMS (EMS provided additional history and confirmed the history provided by SNF staff) Discharge Plan Discharge Clinical Impression: Bipolar disorder, Cognitive impairment Patient Disposition: Xfer [facility] Additional Instructions: Follow up with your primary care provider. Return to the emergency department immediately if your symptoms worsen or if you develop any dizziness, shortness of breath, difficulty breathing, chest pain, blurry vision, loss of vision, nausea, vomiting, abdominal pain, fever, chills, back pain, or any other complaints. Prescriptions: No Action prazosin 1 mg Capsule 1 mg PO BID 30 Days Qty: 60 0RF Protocol: Hold for SBP< HOLD for SBP < : 90 divalproex 125 mg Capsule, Delayed Rel Sprinkle 500 mg PO TID 30 Days Qty: 360 0RF risperidone 0.5 mg Tablet 1.5 mg PO BID 30 Days Qty: 180 0RF albuterol sulfate 0.63 mg/3 mL Solution For Nebulization 0.63 mg INHALATION Q4H PRN (Reason: Shortness Of Breath) 30 Days Qty: 1 0RF acetaminophen 325 mg Tablet 650 mg PO BID 30 Days Qty: 120 0RF acetaminophen 325 mg tablet 650 mg PO Q4H PRN (Reason: Fever Or Pain) 30 Days Qty: 60 0RF Rx Instructions: do not exceed 3 doses in 24 hours nitrofurantoin macrocrystal 50 mg capsule 50 mg PO BEDTIME 30 Days Qty: 30 0RF trazodone 50 mg tablet 50 mg PO BEDTIME 30 Days Qty: 30 0RF trazodone 50 mg tablet 50 mg PO BID PRN (Reason: Agitation) 30 Days Qty: 60 0RF polyethylene glycol 3350 [Miralax] 17 gram Powder In Packet 17 g PO DAILY 30 Days Qty: 30 0RF polyethylene glycol 3350 [Miralax] 17 gram powder in packet 17 g PO DAILY PRN (Reason: Constipation) 30 Days Qty: 30 0RF tamsulosin [Flomax] 0.4 mg Capsule 0.4 mg PO BEDTIME 30 Days Qty: 30 0RF bisacodyl [Dulcolax (bisacodyl)] 10 mg Suppository 10 mg MT DAILY PRN (Reason: Constipation) 30 Days Qty: 30 0RF Fleet Enema 19-7 gram/118 mL Enema 118 ml MT DAILY PRN (Reason: Constipation) 7 Days Qty: 7 0RF Rx Instructions: IF NO RESULT FROM DULCOLAX WITHIN 2 HOURS nystatin 100,000 unit/gram Powder 1 appl TOPICAL TID 30 Days Qty: 30 0RF Rx Instructions: apply to groin finasteride [Proscar] 5 mg Tablet 5 mg PO BEDTIME 30 Days Qty: 30 0RF Referrals: [facility] [address] [Outside]
--- NOTE | 2023-08-28 10:00 | PC.NURSE ---
attempted to give report to RN at [facility] - this RN was unsuccessful. church secretary aware that pt needs ride via ambulance. will attempt to give report again shortly.
--- NOTE | 2023-08-28 11:17 | PC.NURSE ---
this RN attempted to call and give report to [facility] but was unsuccessful for the 2nd time.
--- NOTE | 2023-08-28 12:25 | PC.NURSE ---
report given to yumiko Matias pt currently getting ready to be discharged/leave facility and go back to [facility].
== END 2023-08-28 12:26 | disposition skilled nursing facility (03) ==
PROVIDERS: Emergency Provider Emergency Medicine
DX: F31.9 Bipolar disorder, unspecified (principal); G31.84 Mild cognitive impairment of uncertain or unknown etiology; F43.10 Post-traumatic stress disorder, unspecified; N18.30 Chronic kidney disease, stage 3 unspecified; Z79.899 Other long term (current) drug therapy; Z87.891 Personal history of nicotine dependence
CPT/HCPCS: 99282; 99284

== ENCOUNTER 2023-08-28 16:50 | Emergency (ER) | payer OTHER, SELFPAY ==
[2023-08-28 16:58] VITALS: BP 135/72; PULSE 80; RESP 16; TEMP 36.6; O2SAT 95; BMI 26.9
--- NOTE | 2023-08-28 17:06 | ED.GENADULT ---
HPI - General Adult General Chief complaint: General Medical Stated complaint: Combative @ SNF Time Seen by Provider: 08/28/23 16:58 Source: patient, RN notes reviewed and old records reviewed Mode of arrival: EMS Limitations: other (History of cognitive impairment at baseline) History of Present Illness HPI narrative: 78-year-old male past medical history significant for a cognitive screening bipolar disorder presents for evaluation of ?agitation. Patient arrives from [facility] This is actually the patient's 2nd visit today for agitation He was here just prior to 9:00 a.m. this morning and was discharged back home without a workup as he did not have any agitation in the hospital Patient has no complaints today except he states ?I do not want to be here, get me out of here. ? Patient denies any chest pain, abdominal pain. He was repeatedly yelling ?help. When I asked him why he needs help with the only states ?to get out of here. ? Related Data Home Medications Medication Instructions Recorded Confirmed atropine 1 % eye drops 1 drp buccal Q4H PRN Secretions 08/28/23 08/28/23 Previous Rx's Medication Instructions Recorded acetaminophen 325 mg tablet 650 mg (2 x 325 mg) PO BID 30 days 06/19/23 #120 tabs acetaminophen 325 mg tablet 650 mg (2 x 325 mg) PO Q4H PRN 06/19/23 Fever Or Pain 30 days #60 tabs albuterol sulfate 0.63 mg/3 mL 0.63 mg (3 mL) inhalation Q4H PRN 06/19/23 solution for nebulization Shortness Of Breath 30 days #1 mL bisacodyl 10 mg rectal suppository 10 mg [place] DAILY PRN Constipation 30 06/19/23 (Dulcolax (bisacodyl)) days #30 ea divalproex 125 mg capsule,delayed 500 mg (4 x 125 mg) PO TID 30 days 06/19/23 release sprinkle #360 caps finasteride 5 mg tablet (Proscar) 5 mg PO BEDTIME 30 days #30 tabs 06/19/23 nitrofurantoin macrocrystal 50 mg 50 mg PO BEDTIME 30 days #30 caps 06/19/23 capsule polyethylene glycol 3350 17 gram 17 g PO DAILY 30 days #30 ea 06/19/23 oral powder packet (Miralax) polyethylene glycol 3350 17 gram 17 g PO DAILY PRN Constipation 30 06/19/23 oral powder packet (Miralax) days #30 ea prazosin 1 mg capsule 1 mg PO BID 30 days #60 caps 06/19/23 risperidone 0.5 mg tablet 1.5 mg (3 x 0.5 mg) PO BID 30 days 06/19/23 #180 tabs sodium phosphates 19 gram-7 118 ml VT DAILY PRN Constipation 7 06/19/23 gram/118 mL enema (Fleet Enema) days #7 multiple units tamsulosin 0.4 mg capsule (Flomax) 0.4 mg PO BEDTIME 30 days #30 caps 06/19/23 trazodone 50 mg tablet 50 mg PO BEDTIME 30 days #30 tabs 06/19/23 Allergies Allergy/AdvReac Type Severity Reaction Status Date / Time No Known Allergies Allergy Verified 06/05/23 15:54 Review of Systems Constitutional: Constitutional: Denies chills, Denies fatigue, Denies fever(s) and Denies headache(s) ENT: Denies headache(s) Cardiovascular: Cardiovascular: Denies chest pain and Denies dyspnea Respiratory: Respiratory: Denies cough and Denies dyspnea Gastrointestinal: Gastrointestinal: Denies abdominal pain, Denies constipation and Denies vomiting Genitourinary: Genitourinary: Denies difficulty urinating and Denies dysuria Neurologic: Denies headache(s) and Denies focal weakness Psychiatric: Comments: Agitation and aggression Per [facility] staff Endocrine: Endocrine: Denies fatigue PMFSH Past Medical History Medical History Cognitive impairment Squamous cell carcinoma Cataracts, bilateral GERD (gastroesophageal reflux disease) PTSD (post-traumatic stress disorder) Diabetes Bipolar 1 disorder Dementia Social History Social History Household Members: Other Household Members Other:: Patient resides in a [place] [facility]. Housing[facility] Do you presently have visiting nurse or other home services: No Unable to assess alcohol history related to: Unable to respond Alcohol intake: never Patient Tobacco Use Status: Former Tobacco user Smoked in Last 30 Days: No Use of substances other than those prescribed or required for medical reasons: No Advance Directives: Yes Advance Directives on File: Yes Advance Directives Date on File: 07/19/21 Healthcare Proxy: Yes (Javed Wisdom Jr/ Son) Guardian: No service: Yes Sexual orientation: Straight/Heterosexual Physical Exam ED Vital Signs: Vital Signs - 24 hr 08/28/23 16:58 08/28/23 18:24 08/28/23 22:08 Temperature 97.8 F Pulse Rate 80 82 73 Respiratory Rate 16 17 18 Blood Pressure 135/72 128/75 128/65 Pulse Oximetry 95 97 96 Oxygen Delivery Method Room Air Room Air Room Air 08/29/23 03:20 08/29/23 06:22 08/29/23 10:34 Temperature 97.5 F 98.4 F Pulse Rate 71 67 71 Respiratory Rate 16 20 16 Blood Pressure 114/73 101/68 108/63 Pulse Oximetry 98 98 Oxygen Delivery Method Room Air Room Air 08/29/23 12:25 08/29/23 14:17 Temperature 98.4 F 98.2 F Pulse Rate 65 78 Respiratory Rate 16 18 Blood Pressure 128/74 123/66 Pulse Oximetry 96 96 Oxygen Delivery Method Room Air BMI result Body Mass Index 26.9 Const General: healthy appearing, comfortable, no acute distress, alert and awake Nutritional Appearance: well nourished [facility] Head: Yes normocephalic and Yes atraumatic Eyes Eyelids: Yes eyelids normal Conjunctivae: conjunctivae normal Sclerae: sclerae normal Corneas: corneas normal Pupils: Equal, round and reactive pupils present EOM: EOMs intact bilaterally Neck Neck: Yes full ROM Chest Other: Patient has a large scar to the right upper chest wall Chest palpation & inspection: abnormal inspection of the chest Resp Effort & Inspection: normal respiratory effort, able to speak in complete sentences and not labored GI Inspection: No distended Palpation (GI): Soft to palpation, not firm, nontender, no guarding and not rigid Skin General skin exam: elasticity normal Neuro Other: The patient is alert and oriented to person only. He appears somewhat confused but this is consistent with his baseline Cranial nerves: Yes Equal, round and reactive pupils present and Yes Bilaterally intact EOM present Extrem Other: Moving all extremities well without any obvious deformities Course Reevaluation(s) Reevaluation #1: Patient is medically cleared, awaiting Psychiatry in care Team consult. He has not had any episodes of aggression in the emergency department Time: 00:13 Reevaluation #2: 09/08/2023 1329: Patient has become agitated, shouting help, racial slurs, and throwing food. PO Zyprexa ordered. Reevaluation #3: Patient has not had any physical aggression emergency department but has been shouting and yelling for help as well as racial slurs. He was seen by Psychiatry and it was deemed that he is at his baseline and cleared for discharge back to [facility]. He has not required any IM restraining medications. Will reach back out to the nursing facility as we have received conflicting information from the nursing faculty as to whether or not he will be accepted back to the facility. Time: 16:24 Medications Administered Generic Name Dose Route Start Last Admin Trade Name Freq PRN Reason Stop Dose Admin Divalproex Sodium 500 mg 08/29/23 15:00 08/29/23 15:43 Divalproex Sodium Sprinkles 125 Mg Cap. PO 500 mg TID WISAM Administration Discontinued Medications Generic Name Dose Route Start Last Admin Trade Name Freq PRN Reason Stop Dose Admin Olanzapine 10 mg 08/29/23 13:28 08/29/23 14:09 Olanzapine 10 Mg Tablet PO 08/29/23 13:29 Not Given ONCE ONE Olanzapine 10 mg 08/29/23 13:58 08/29/23 14:03 Olanzapine 10 Mg Tablet PO 08/29/23 13:59 10 mg ONCE ONE Administration Ziprasidone 20 mg 08/28/23 17:09 08/28/23 17:39 Ziprasidone Mesylate 20 Mg Vial IM 08/28/23 17:10 20 mg ONCE ONE Administration Medical Decision Making Medical Decision Making MDM Narrative: 78-year-old male presents for evaluation of aggression and agitation at his [place] [facility]. The patient is cooperative but continues to yell out in the emergency department today. He refuse vital signs from EMS. Given that this is his 2nd visit today, I feel that a basic workup was appropriate to rule out metabolic cause of acute delirium. Patient will likely require medical restraint as he is refusing to be evaluated at this time. He has a history of cognitive impairment with agitation and aggressive outburst. Plan for basic labs, chest x-ray, UA. Differential Diagnosis Differential Diagnoses: The differential diagnosis associated with the presentation includes Agitation Cognitive impairment Bipolar disorder UTI Acute delirium Lab Data 08/28/23 18:16 08/28/23 18:16 Labs: Lab Results 08/28/23 08/29/23 08/29/23 Range/Units 18:16 09:29 15:28 WBC 7.1 (4.8-10.8) X10*3/uL RBC 4.78 (4.60-5.80) X10*6/uL Hgb 13.4 L (14.0-18.0) g/dl Hct 41.7 L (42.0-52.0) % MCV 87.2 (80.0-98.0) fL MCH 28.0 (27.0-33.0) pg MCHC 32.1 (31.0-36.0) g/dl RDW 15.9 (11.0-16.0) % Plt Count 263 (160-400) X10*3/uL MPV 9.7 (9.4-12.4) fL Immature Gran % (Auto) 1.5 H (0.0-0.4) % Neut % (Auto) 66.7 (45-73) % Lymph % (Auto) 16.7 L (20-40) % Barton % (Auto) 12.5 H (2-11) % Eos % (Auto) 2.0 (0-4) % Baso % (Auto) 0.6 (0-2) % Lymph # (Auto) 1.2 (1.2-4.9) X10*3/uL Barton # (Auto) 0.9 (0.1-1.2) X10*3/uL Eos # (Auto) 0.1 (0.0-0.4) X10*3/uL Baso # (Auto) 0.0 (0.0-0.2) X10*3/uL Abs Immat Gran (auto) 0.11 H (0.00-0.03) X10*3/uL Absolute Neuts (auto) 4.8 (2.0-8.3) x10*3/uL Absolute Nucleated RBC 0.000 (0.0-0.012) X10*3/uL Nucleated RBC % (auto) 0.0 (0.0-0.2) /100WBC Sodium 142 (135-145) mmol/L Potassium 4.4 (3.3-5.1) mmol/L Chloride 110 H (96-108) mmol/L Carbon Dioxide 20 L (22-29) mmol/L Anion Gap 16 (12-20) BUN 21 H (9-16) mg/dL Creatinine 0.88 (0.5-1.4) mg/dL Estim Creat Clear Calc 66.7 Estimated GFR > 60 Random Glucose 93 (60-115) mg/dL Calcium 9.9 (8.4-10.2) mg/dL Total Bilirubin 0.4 (0.0-1.0) mg/dL AST 18 (5-37) U/L ALT 18 (0-40) U/L Alkaline Phosphatase 100 (39-117) U/L Ammonia 44 (13-55) umol/L Total Protein 6.4 L (6.5-8.0) g/dL Albumin 3.6 (3.5-5.0) g/dL Lipase 17 (8-78) U/L Urine Color Yellow Urine Appearance Clear Urine pH 6.5 (5.0-9.0) Ur Specific Pyote 1.015 (1.005-1.025) Urine Protein Negative (Neg-Trace) mg/dL Urine Glucose (UA) Negative (Negative) mg/dL Urine Ketones Trace (Negative) mg/dL Urine Blood Negative (Negative) Urine Nitrite Negative (Negative) Ur Leukocyte Esterase Small (1+) H (Negative) Urine RBC 0-2 (0-2) /HPF Urine WBC 6-10 H (0-5) /HPF Ur Squamous Epith Cells 0-2 (0-2) /HPF Urine Bacteria None Seen (None Seen) Hyaline Casts 0-2 (0-2) /LPF Discharge Plan Discharge Clinical Impression: Agitation, Major neurocognitive disorder due to another medical condition with behavioral disturbance Patient Disposition: Home, Self-Care Additional Instructions: Your medical workup was reassuring Continue taking all of your medications as prescribed Return for new or worsening symptoms Prescriptions: No Action prazosin 1 mg Capsule 1 mg PO BID 30 Days Qty: 60 0RF Protocol: Hold for SBP< HOLD for SBP < : 90 divalproex 125 mg Capsule, Delayed Rel Sprinkle 500 mg PO TID 30 Days Qty: 360 0RF risperidone 0.5 mg Tablet 1.5 mg PO BID 30 Days Qty: 180 0RF albuterol sulfate 0.63 mg/3 mL Solution For Nebulization 0.63 mg INHALATION Q4H PRN (Reason: Shortness Of Breath) 30 Days Qty: 1 0RF acetaminophen 325 mg Tablet 650 mg PO BID 30 Days Qty: 120 0RF acetaminophen 325 mg tablet 650 mg PO Q4H PRN (Reason: Fever Or Pain) 30 Days Qty: 60 0RF Rx Instructions: do not exceed 3 doses in 24 hours nitrofurantoin macrocrystal 50 mg capsule 50 mg PO BEDTIME 30 Days Qty: 30 0RF trazodone 50 mg tablet 50 mg PO BEDTIME 30 Days Qty: 30 0RF polyethylene glycol 3350 [Miralax] 17 gram Powder In Packet 17 g PO DAILY 30 Days Qty: 30 0RF polyethylene glycol 3350 [Miralax] 17 gram powder in packet 17 g PO DAILY PRN (Reason: Constipation) 30 Days Qty: 30 0RF tamsulosin [Flomax] 0.4 mg Capsule 0.4 mg PO BEDTIME 30 Days Qty: 30 0RF bisacodyl [Dulcolax (bisacodyl)] 10 mg Suppository 10 mg VT DAILY PRN (Reason: Constipation) 30 Days Qty: 30 0RF Fleet Enema 19-7 gram/118 mL Enema 118 ml VT DAILY PRN (Reason: Constipation) 7 Days Qty: 7 0RF Rx Instructions: IF NO RESULT FROM DULCOLAX WITHIN 2 HOURS finasteride [Proscar] 5 mg Tablet 5 mg PO BEDTIME 30 Days Qty: 30 0RF atropine 1 % Drops 1 drp BUCCAL Q4H PRN (Reason: Secretions)
--- NOTE | 2023-08-28 17:45 | PC.NURSE ---
multiple attempts to calm pt but no positive effect. pt continue to yell and act aggressively. security called for assistance with IM medication. chivo monteiro used d/t pt spitting at staff. pt agitated, aggressive and yelling radical slurs at staff. pt refused vitals. IM given per JAN. pt allowed to rest at this time. will reassess Q15min
[2023-08-28 18:24] VITALS: BP 128/75; PULSE 82; RESP 17; O2SAT 97
--- NOTE | 2023-08-28 18:25 | PC.NURSE ---
pt resting comfortably, cooperative with care.
--- NOTE | 2023-08-28 21:18 | PC.NURSE ---
This marine underwriter assumed care of this Pt at 1900. Pt appears to be sleeping at this time, respirations equal and non labored. Awaken with verbal stimuli, calm, Pt incontinent of urine, incontinent care provided, Pt repositioned.
--- NOTE | 2023-08-28 21:48 | PHA.MEDREC ---
Pharmacy Consult ? Medication Reconciliation Pharmacy has completed the medication reconciliation. Patient came from snf with med list. Flores Rawls, LethaD
[2023-08-28 22:08] VITALS: BP 128/65; PULSE 73; RESP 18; O2SAT 96
--- NOTE | 2023-08-28 22:41 | PC.NURSE ---
Incontinent care done, [place] catheter applied, pt given apple juice, resting quietly.
[2023-08-29 03:20] VITALS: BP 114/73; PULSE 71; RESP 16; TEMP 36.4; O2SAT 98
[2023-08-29 06:22] VITALS: BP 101/68; PULSE 67; RESP 20
--- NOTE | 2023-08-29 08:06 | PC.NURSE ---
PT IS ASLEEP, RESP EVEN AND UNLABORED. BREAKFAST AT BEDSIDE.
[2023-08-29 10:34] VITALS: BP 108/63; PULSE 71; RESP 16; TEMP 36.9; O2SAT 98
[2023-08-29 12:25] VITALS: BP 128/74; PULSE 65; RESP 16; TEMP 36.9; O2SAT 96
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
[2023-08-29 14:17] VITALS: BP 123/66; PULSE 78; RESP 18; TEMP 36.8; O2SAT 96
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
--- NOTE | 2023-08-29 16:19 | MHC.CARE ---
Pt does not meet criteria for IPLOC admission. Pt is psychiatrically cleared to return to nursing facility.
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
--- NOTE | 2023-08-29 17:06 | PC.NURSE ---
Spoke with Marilin at [facility] for a nurse to nurse on patient. Verbal understanding obtained and facility will take patient back.
--- NOTE | 2023-08-29 19:22 | PC.NURSE ---
assumed care of pt, ems here to take pt back to facility. Other RN called nurse to nurse
== END 2023-08-29 20:25 | disposition home or self-care (01) ==
PROVIDERS: Emergency Provider Emergency Medicine; PCP Family Medicine Geriatric Medicine
DX: R45.1 Restlessness and agitation (principal); F06.71 Mild neurocognitive disorder due to known physiological condition with behavioral disturbance; F31.9 Bipolar disorder, unspecified; F43.10 Post-traumatic stress disorder, unspecified; E11.9 Type 2 diabetes mellitus without complications; Z87.891 Personal history of nicotine dependence; Z79.899 Other long term (current) drug therapy
CPT/HCPCS: 36415; 71045; 80053; 81001; 82140; 83690; 85025; 87086; 87088; 87186; 93005; 96372; 99284; J3486; S9485

== ENCOUNTER → 2023-08-28 17:36 | Outpatient (BNV) | payer OTHER, SELFPAY | PROVIDERS: Emergency Provider Emergency Medicine; PCP Family Medicine Geriatric Medicine; Visit Provider Social Worker | DX: F02.818 Dementia in other diseases classified elsewhere, unspecified severity, with other behavioral disturbance (principal) | CPT/HCPCS: 99285 ==

== ENCOUNTER 2024-01-23 13:10 | Outpatient (REF) | payer OTHER, SELFPAY | END 2024-01-23 13:11 | disposition home or self-care (01) | LOC: HO.XRAY 13:10 | PROVIDERS: Visit Provider Physician Assistant Medical | DX: Z13.89 Encounter for screening for other disorder (principal) ==

== ENCOUNTER 2024-02-06 10:00 | Outpatient (REF) | payer OTHER, SELFPAY ==
--- NOTE | ~2024-02-06 | FL_ITS ---
EXAMINATION: Modified Barium Swallow CLINICAL INFORMATION: Dysphagia. COMPARISON: None. TECHNIQUE: Modified barium swallow was performed under lateral fluoroscopy with patient in standing position. Different consistency of barium was administered by the speech therapist. FINDINGS: No laryngeal penetration or aspiration was seen during this examination FLUOROSCOPY TIME: 4 minutes 39 seconds Number of Spot Images: Single spot image hold DOSE AREA PRODUCT: 3031 uGy-m2 (microgray-meter squared) FL/FL barium swallow modified IMPRESSION: No laryngeal penetration or aspiration was seen during this examination. Refer to the speech therapy report for further clarification This procedure was performed by Jacoby Wood PA-C, and supervised by Dr. Rivera
--- NOTE | 2024-02-11 14:35 | MHC.SL.IMP ---
Date of Plan of Treatment: 02/06/24 Onset of Symptoms/Illness: 02/06/24 Date Treatment Started: 02/06/24 Admitting Diagnosis: Major neurocognitive disorder Primary Speech & Language Diagnosis: R13.12 Oropharyngeal Phase Dysphagia Secondary Speech & Language Diagnosis: R41.841 Cognitive communication disorder Reason for Today's Visit: 13094 Modified Barium Swallow Study Comments: Pre-evaluation Dietary Consistencies: Regular Pre-evaluation Liquid Consistency: Thin Pre-evaluation Medication Administration: Whole with Liquid Medical History: Comments: Dementia PTSD Bipolar [facility] Fall Risk Assessment Score: Oral Motor Exam Facial Symmetry: Normal for Patient Oral Expression Ability: Moderate Impairment Is patient able to manage secretions?: Yes Is patient able to produce volitional cough?: Yes Food and Liquid Trials: Oral Impairment: Lip Closure: 1=Interlabial escape; no progression to anterior tip Oral Impairment: Tongue Control During Bolus Hold: 3=Posterior escape of greater than half of bolus Oral Impairment: Bolus Preparation/Mastication: 3=Minimal chewing/mashing with majority of bolus unchewed Oral Impairment: Bolus Transport/Lingual Motion: 4=Minimal to no tongue motion Oral Impairment: Oral Residue: 4=Minimal to no clearance Oral Impairment:Initiation of Pharyngeal Swallow: 3=Bolus head in pyriforms Pharyngeal Impairment: Soft Palate Elevation: 0=No bolus between soft palate (SP)/pharyngeal wall (PW) Pharyngeal Impairment: Laryngeal Elevation: 2=Minimal superior movement of thyroid cartilage (see description) Pharyngeal Impairment: Anterior Hyoid Excursion: 1=Partial anterior movement Pharyngeal Impairment: Epiglottic Movement: 1=Partial inversion Pharyngeal Impairment: Laryngeal Vestibular Closure:: 0=Complete: no air/contrast in laryngeal vestibule Pharyngeal Impairment: Pharyngeal Stripping Wave: 1=Present: diminished Pharyngeal Impairment: Pharyngeal Contraction: Did not test Pharyngeal Impairment: Pharyngoesophageal Segment Openin=Partial distention/partial duration: partial obstruction of flow Pharyngeal Impairment: Tongue Base (TB) Retraction: 2=Narrow column of contrast/air between TB and posterior PW Pharyngeal Impairment: Pharyngeal Residue: 2=Collection of residue within or on pharyngeal structures Pharyngeal Impairment: Esophageal Clearance Upright Position: Did not test Impressions and Recommendations Clinical Observations: [facility]Im[facility] ID: [id number] MBSIm[facility] Results: Lip closure for intraoral bolus containment resulted in interlabial escape, without progression to the anterior lip. Tongue control during bolus hold allowed posterior escape of greater than half of the bolus. Bolus preparation and mastication received the highest impairment score; solid not given due to patient safety concerns related to oral impairment. Bolus transport/lingual motion yielded only minimal to no tongue motion. Oral residue resulted from minimal to no clearance of the bolus. Initiation of the pharyngeal swallow occurred when the bolus head was in the pyriform sinuses. Soft palate elevation resulted in no bolus between the soft palate and the pharyngeal wall. Laryngeal elevation was incomplete, as indicated through minimal superior movement of the thyroid cartilage with minimal approximation of the arytenoids to the epiglottic petiole. Anterior hyoid excursion demonstrated partial anterior movement. Epiglottic movement resulted in partial inversion. Laryngeal vestibular closure was complete, as indicated by no air or contrast within the laryngeal vestibule at the height of the swallow. Pharyngeal stripping wave was present, but diminished. Pharyngeal contraction could not be determined due to logistical reasons not related to physiologic impairment. Pharyngoesophageal segment opening demonstrated partial distension/partial duration, with partial obstruction of bolus flow. Tongue base retraction allowed a narrow column of contrast or air between the retracted tongue base and the posterior pharyngeal wall. Pharyngeal residue was a collection of residue within or on pharyngeal structures. Esophageal clearance in the upright position could not be assessed due to logistical reasons not related to physiologic impairment. Oral Impairment Score: 17 Pharyngeal Impairment Score: 10 (absence of score, component 13) Esophageal Impairment Score: --- (absence of score, component 17) Laryngeal Penetration and Aspiration: Neither penetration nor aspiration was observed in today's study with Pudding-thick, [place]-thick, Thin. SUMMARY: Mr. Wisdom demonstrates a severely delayed swallow with contrast escaping to level of the pyriform sinus and resting there in one trial for 38 seconds prior to swallow initiation. This is deemed a sensory impairment due to his advancing neurodegenerative disease. Once initiated he demonstrated adequate airway protection for Thin Liquids, [place]-Thick Liquids and Puree Solids. Regular solids were not attempted given his level of impairment. At baseline, Pt is a 1:1 feed, as such it is difficult to tell at bedside if the patient has swallowed his previous bite prior to giving him another. This likely explains the choking episodes he has had at his SNF. ASSISTANT OCEANOGRAPHER spoke with his facility's usability strategist and his Son who is his HCP about his guarded prognosis and that it is unlikely that he will be able to sustain adequate nutrition by mouth. Recommended that his Son discuss these results with the entire medical team and consider alternatives for nutrition delivery or other goals of care. Liquid Intake Recommendation: Thin Liquid Intake Strategies: Unrestricted Dietary Recommendations: Pureed (NDD1) Medication Administration: Whole with Liquid Please contact the pharmacy regarding appropriate crushable or liquid drug formulations that are available whenever modified delivery is recommended. Compensatory Strategies Recommended: Sitting Upright (90 deg) No Straw Liquids from Cup Liquids from Spoon Small Bites and Sips Alternate Liquids/Solids Rate of Ingestion Change Oral Check Avoid Specific Foods Supervision during eating and or drinking: Total Assistance (1:1) Recommended Treatments: Compens. Strategy Educat. Recommendation for Speech Therapy: Inpatient Speech Therapy Text Comment: Frequency/Duration: Daily Date Range for Service Requested: Timeline to reassess: PRN Oil Operator Clinician/Clinical Fellow: No Supervisory Statement: N/A Speech Language Pathologist: Lino Cook M.A., CCC-ASSISTANT OCEANOGRAPHER
--- NOTE | 2024-02-11 14:44 | MHC.SL.IMP ---
[email or web address] Friday Speech Kayleigh Macedo, needs new appt 2nd part -> [id number] M/, after 11, Domingo Curiel Kayleigh Macedo (Eval) En Lockhart (MBSS) Erlinda Thorpe (Eval) Mani Granda (MBSS) Lynette Rbuio Cx'd: [address] [address] Javed Wisdom [facility] : 1945 [id number] 02/11/24 14:35 - Speech MBSImP:MBSS by SHAWANDA Schaffer Acct Num: [id number] : 1945 Patient Age: 79 Date of Plan of Treatment: 02/06/24 Onset of Symptoms/Illness: 02/06/24 Date Treatment Started: 02/06/24 Admitting Diagnosis: Major neurocognitive disorder Primary Speech & Language Diagnosis: R13.12 Oropharyngeal Phase Dysphagia Secondary Speech & Language Diagnosis: R41.841 Cognitive communication disorder Reason for Today's Visit: 13651 Modified Barium Swallow Study Comments: Pre-evaluation Dietary Consistencies: Regular Pre-evaluation Liquid Consistency: Thin Pre-evaluation Medication Administration: Whole with Liquid Medical History: Comments: Dementia PTSD Bipolar [facility] Fall Risk Assessment Score: Oral Motor Exam Facial Symmetry: Normal for Patient Oral Expression Ability: Moderate Impairment Is patient able to manage secretions?: Yes Is patient able to produce volitional cough?: Yes Food and Liquid Trials: Oral Impairment: Lip Closure: 1=Interlabial escape; no progression to anterior tip Oral Impairment: Tongue Control During Bolus Hold: 3=Posterior escape of greater than half of bolus Oral Impairment: Bolus Preparation/Mastication: 3=Minimal chewing/mashing with majority of bolus unchewed Oral Impairment: Bolus Transport/Lingual Motion: 4=Minimal to no tongue motion Oral Impairment: Oral Residue: 4=Minimal to no clearance Oral Impairment:Initiation of Pharyngeal Swallow: 3=Bolus head in pyriforms Pharyngeal Impairment: Soft Palate Elevation: 0=No bolus between soft palate (SP)/pharyngeal wall (PW) Pharyngeal Impairment: Laryngeal Elevation: 2=Minimal superior movement of thyroid cartilage (see description) Pharyngeal Impairment: Anterior Hyoid Excursion: 1=Partial anterior movement Pharyngeal Impairment: Epiglottic Movement: 1=Partial inversion Pharyngeal Impairment: Laryngeal Vestibular Closure:: 0=Complete: no air/contrast in laryngeal vestibule Pharyngeal Impairment: Pharyngeal Stripping Wave: 1=Present: diminished Pharyngeal Impairment: Pharyngeal Contraction: Did not test Pharyngeal Impairment: Pharyngoesophageal Segment Openin=Partial distention/partial duration: partial obstruction of flow Pharyngeal Impairment: Tongue Base (TB) Retraction: 2=Narrow column of contrast/air between TB and posterior PW Pharyngeal Impairment: Pharyngeal Residue: 2=Collection of residue within or on pharyngeal structures Pharyngeal Impairment: Esophageal Clearance Upright Position: Did not test Impressions and Recommendations Clinical Observations: [facility] ID: [id number] [facility] Results: Lip closure for intraoral bolus containment resulted in interlabial escape, without progression to the anterior lip. Tongue control during bolus hold allowed posterior escape of greater than half of the bolus. Bolus preparation and mastication received the highest impairment score; solid not given due to patient safety concerns related to oral impairment. Bolus transport/lingual motion yielded only minimal to no tongue motion. Oral residue resulted from minimal to no clearance of the bolus. Initiation of the pharyngeal swallow occurred when the bolus head was in the pyriform sinuses. Soft palate elevation resulted in no bolus between the soft palate and the pharyngeal wall. Laryngeal elevation was incomplete, as indicated through minimal superior movement of the thyroid cartilage with minimal approximation of the arytenoids to the epiglottic petiole. Anterior hyoid excursion demonstrated partial anterior movement. Epiglottic movement resulted in partial inversion. Laryngeal vestibular closure was complete, as indicated by no air or contrast within the laryngeal vestibule at the height of the swallow. Pharyngeal stripping wave was present, but diminished. Pharyngeal contraction could not be determined due to logistical reasons not related to physiologic impairment. Pharyngoesophageal segment opening demonstrated partial distension/partial duration, with partial obstruction of bolus flow. Tongue base retraction allowed a narrow column of contrast or air between the retracted tongue base and the posterior pharyngeal wall. Pharyngeal residue was a collection of residue within or on pharyngeal structures. Esophageal clearance in the upright position could not be assessed due to logistical reasons not related to physiologic impairment. Oral Impairment Score: 17 Pharyngeal Impairment Score: 10 (absence of score, component 13) Esophageal Impairment Score: --- (absence of score, component 17) Laryngeal Penetration and Aspiration: Neither penetration nor aspiration was observed in today's study with Pudding-thick, [place]-thick, Thin. SUMMARY: Mr. Wisdom demonstrates a severely delayed swallow with contrast escaping to level of the pyriform sinus and resting there in one trial for 38 seconds prior to swallow initiation. This is deemed a sensory impairment due to his advancing neurodegenerative disease. Once initiated he demonstrated adequate airway protection for Thin Liquids, [place]-Thick Liquids and Puree Solids. Regular solids were not attempted given his level of impairment. At baseline, Pt is a 1:1 feed, as such it is difficult to tell at bedside if the patient has swallowed his previous bite prior to giving him another. This likely explains the choking episodes he has had at his SNF. CHAIR INSPECTOR spoke with his facility's cloth handler and his Son who is his HCP about his guarded prognosis and that it is unlikely that he will be able to sustain adequate nutrition by mouth. Recommended that his Son discuss these results with the entire medical team and consider alternatives for nutrition delivery or other goals of care. Liquid Intake Recommendation: Thin Liquid Intake Strategies: Unrestricted Dietary Recommendations: Pureed (NDD1) Medication Administration: Whole with Liquid Please contact the pharmacy regarding appropriate crushable or liquid drug formulations that are available whenever modified delivery is recommended. Compensatory Strategies Recommended: Sitting Upright (90 deg) No Straw Liquids from Cup Liquids from Spoon Small Bites and Sips Alternate Liquids/Solids Rate of Ingestion Change Oral Check Avoid Specific Foods Supervision during eating and or drinking: Total Assistance (1:1) Recommended Treatments: Compens. Strategy Educat. Recommendation for Speech Therapy: Inpatient Speech Therapy Text Comment: Recommend PUREE SOLIDS and THIN LIQUIDS by SPOON ONLY. Pt is a 1:1 FEED. MEDS CRUSHED in PUREE. Maintain aspiration precautions including slow rate and small bites/sips. During feeding, caregiver can place their finger gently on his larynx to tell when he has swallowed. Further recommendations are left to the discretion of his Medical Team and HCP. Frequency/Duration: Daily Date Range for Service Requested: Timeline to reassess: PRN Ob Gyn Clinician/Clinical Fellow: No Supervisory Statement: N/A Speech Language Pathologist: Lino Cook M.A., [facility]-CHAIR INSPECTOR Initialized on 02/11/24 14:35 - END OF NOTE
--- NOTE | 2024-02-11 15:20 | MHC.SL.IMP ---
Date of Plan of Treatment: 02/06/24 Onset of Symptoms/Illness: 02/06/24 Date Treatment Started: 02/06/24 Admitting Diagnosis: Major neurocognitive disorder Primary Speech & Language Diagnosis: R13.12 Oropharyngeal Phase Dysphagia Secondary Speech & Language Diagnosis: R41.841 Cognitive communication disorder Reason for Today's Visit: [id number] Modified Barium Swallow Study Comments: Pre-evaluation Dietary Consistencies: Regular Pre-evaluation Liquid Consistency: Thin Pre-evaluation Medication Administration: Whole with Liquid Medical History: Comments: Dementia PTSD Bipolar [facility] Fall Risk Assessment Score: Oral Motor Exam Facial Symmetry: Normal for Patient Oral Expression Ability: Moderate Impairment Is patient able to manage secretions?: Yes Is patient able to produce volitional cough?: Yes Food and Liquid Trials: Oral Impairment: Lip Closure: 1=Interlabial escape; no progression to anterior tip Oral Impairment: Tongue Control During Bolus Hold: 3=Posterior escape of greater than half of bolus Oral Impairment: Bolus Preparation/Mastication: 3=Minimal chewing/mashing with majority of bolus unchewed Oral Impairment: Bolus Transport/Lingual Motion: 4=Minimal to no tongue motion Oral Impairment: Oral Residue: 4=Minimal to no clearance Oral Impairment:Initiation of Pharyngeal Swallow: 3=Bolus head in pyriforms Pharyngeal Impairment: Soft Palate Elevation: 0=No bolus between soft palate (SP)/pharyngeal wall (PW) Pharyngeal Impairment: Laryngeal Elevation: 2=Minimal superior movement of thyroid cartilage (see description) Pharyngeal Impairment: Anterior Hyoid Excursion: 1=Partial anterior movement Pharyngeal Impairment: Epiglottic Movement: 1=Partial inversion Pharyngeal Impairment: Laryngeal Vestibular Closure:: 0=Complete: no air/contrast in laryngeal vestibule Pharyngeal Impairment: Pharyngeal Stripping Wave: 1=Present: diminished Pharyngeal Impairment: Pharyngeal Contraction: Did not test Pharyngeal Impairment: Pharyngoesophageal Segment Openin=Partial distention/partial duration: partial obstruction of flow Pharyngeal Impairment: Tongue Base (TB) Retraction: 2=Narrow column of contrast/air between TB and posterior PW Pharyngeal Impairment: Pharyngeal Residue: 2=Collection of residue within or on pharyngeal structures Pharyngeal Impairment: Esophageal Clearance Upright Position: Did not test Impressions and Recommendations Clinical Observations: MBSImP ID: [id number] MBSImP Results: Lip closure for intraoral bolus containment resulted in interlabial escape, without progression to the anterior lip. Tongue control during bolus hold allowed posterior escape of greater than half of the bolus. Bolus preparation and mastication received the highest impairment score; solid not given due to patient safety concerns related to oral impairment. Bolus transport/lingual motion yielded only minimal to no tongue motion. Oral residue resulted from minimal to no clearance of the bolus. Initiation of the pharyngeal swallow occurred when the bolus head was in the pyriform sinuses. Soft palate elevation resulted in no bolus between the soft palate and the pharyngeal wall. Laryngeal elevation was incomplete, as indicated through minimal superior movement of the thyroid cartilage with minimal approximation of the arytenoids to the epiglottic petiole. Anterior hyoid excursion demonstrated partial anterior movement. Epiglottic movement resulted in partial inversion. Laryngeal vestibular closure was complete, as indicated by no air or contrast within the laryngeal vestibule at the height of the swallow. Pharyngeal stripping wave was present, but diminished. Pharyngeal contraction could not be determined due to logistical reasons not related to physiologic impairment. Pharyngoesophageal segment opening demonstrated partial distension/partial duration, with partial obstruction of bolus flow. Tongue base retraction allowed a narrow column of contrast or air between the retracted tongue base and the posterior pharyngeal wall. Pharyngeal residue was a collection of residue within or on pharyngeal structures. Esophageal clearance in the upright position could not be assessed due to logistical reasons not related to physiologic impairment. Oral Impairment Score: 17 Pharyngeal Impairment Score: 10 (absence of score, component 13) Esophageal Impairment Score: --- (absence of score, component 17) Laryngeal Penetration and Aspiration: Neither penetration nor aspiration was observed in today's study with Pudding-thick, Granton-thick, Thin. SUMMARY: Mr. Wisdom demonstrates a severely delayed swallow with contrast escaping to level of the pyriform sinus and resting there in one trial for 38 seconds prior to swallow initiation. This is deemed a sensory impairment due to his advancing neurodegenerative disease. Once initiated he demonstrated adequate airway protection for Thin Liquids, Granton-Thick Liquids and Puree Solids. Regular solids were not attempted given his level of impairment. At baseline, Pt is a 1:1 feed, as such it is difficult to tell at bedside if the patient has swallowed his previous bite prior to giving him another. This likely explains the choking episodes he has had at his [facility]. PRESCRIPTION EYEGLASS MA[employer]ER spoke with his facility's building maintenance repairer and his Son who is his HCP about his guarded prognosis and that it is unlikely that he will be able to sustain adequate nutrition by mouth. Recommended that his Son discuss these results with the entire medical team and consider alternatives for nutrition delivery or other goals of care. Liquid Intake Recommendation: Thin Liquid Intake Strategies: Unrestricted Dietary Recommendations: Pureed (NDD1) Medication Administration: Whole with Liquid Please contact the pharmacy regarding appropriate crushable or liquid drug formulations that are available whenever modified delivery is recommended. Compensatory Strategies Recommended: Sitting Upright (90 deg) No Straw Liquids from Cup Liquids from Spoon Small Bites and Sips Alternate Liquids/Solids Rate of Ingestion Change Oral Check Avoid Specific Foods Supervision during eating and or drinking: Total Assistance (1:1) Recommended Treatments: Compens. Strategy Educat. Recommendation for Speech Therapy: Inpatient Speech Therapy Text Comment: Recommend PUREE SOLIDS and THIN LIQUIDS by SPOON ONLY. Pt is a 1:1 FEED. MEDS CRUSHED in PUREE. Maintain aspiration precautions including slow rate and small bites/sips. During feeding, caregiver can place their finger gently on his larynx to tell when he has swallowed. Further recommendations are left to the discretion of his Medical Team and HCP. Frequency/Duration: Daily Date Range for Service Requested: Timeline to reassess: PRN Patient Account Specialist Clinician/Clinical Fellow: No Supervisory Statement: N/A Speech Language Pathologist: Lino Cook M.A., CCC-[employer]
--- NOTE | 2024-06-17 10:42 | MHC.SPEECHCO ---
Addendum entered and electronically signed by SHAWANDA Schaffer 06/18/24 11:36: Jami called back on this date (06/18/24) confirming that she works with the referring physician. IT SECURITY ENGINEER faxed the records again. Original Note: I received a message from our office staff on 06/14/24 from Jami at [facility] ([phone], [phone]) to request records for this patient. I left a message requesting more information, and directed her to our medical records department as we did not have a release or any indication that this was for his continuity of care. There was no response. I left a message again on this date (06/17/24) stating I consider the matter closed as we have not heard back from them and left our contact information if they needed any further assistance.
== END 2024-02-06 10:01 | disposition home or self-care (01) ==
LOC: HO.XRAY 10:00
PROVIDERS: Visit Provider Physician Assistant Medical
DX: R13.12 Dysphagia, oropharyngeal phase (principal); R41.841 Cognitive communication deficit
CPT/HCPCS: 74230; 92611

== ENCOUNTER → 2024-02-06 10:03 | Outpatient (BNV) | payer OTHER, SELFPAY | PROVIDERS: Visit Provider Physician Assistant Surgical | DX: R13.10 Dysphagia, unspecified (principal) | CPT/HCPCS: 74230 ==